=== PATIENT | female | born 1980 | race Caucasian/White ===

== ENCOUNTER 2016-07-03 16:55 | Inpatient (IN) ==
[2016-07-03] MEDS: 0.9 % Sodium Chloride 1,000 ML IVC SCH ×2 (17:26→19:32)
[2016-07-03 17:33] LABS: VBG HCO3 22.1 mEq/L (21-27); VBG PH 7.29 pH Units (7.32-7.42)
[2016-07-03] MEDS ORDERED: Insulin Human Regular 10 UNIT in 0.9 % Sodium Chloride 10 ML IV ONE (17:36)
[2016-07-03 17:37] LABS: Beta-Hydroxybutyric Acid 1.28 mmol/L (0.02-0.27)
[2016-07-03 17:44] LABS: Basophils # 0.1 K/mcL (0.0-0.2); Basophils % 0.4 %; Eosinophils # 0.1 K/mcL (0.0-0.6); Eosinophils % 0.6 %; Hematocrit 42.5 % (35.3-44.9); Immature Granulocytes % 0.4 % (0-4); Lymphocytes % 17.2 %; Mean Corpuscular HGB Conc 35.3 g/dL (31.6-35.5); Mean Corpuscular Hemoglobin 33.2 pg (28.0-33.3); Mean Platelet Volume 12.4 fL (9.4-12.4); Monocytes # 0.8 K/mcL (0.0-1.3); Monocytes % 6.9 %; Neutrophils # 8.4 K/mcL (1.6-8.9); Platelet Count 296 K/mcL (140-400); Red Blood Count 4.52 M/mcL (3.82-4.97); Red Cell Distribution Width 12.1 % (11.5-14.5); Segmented Neutrophils % 74.5 %
[2016-07-03 17:49] LABS: Alanine Aminotransferase 27 Units/L (0-55); Albumin 4.3 g/dL (3.5-5.0); Albumin/Globulin Ratio 0.9 (1.1-2.2); Alkaline Phosphatase 185 Units/L (38-126); Aspartate Amino Transferase 11 Units/L (5-34); BUN/Creatinine Ratio 18 (6-26); Bilirubin,Total 0.7 mg/dL (0.2-1.2); Blood Urea Nitrogen 30 mg/dL (7-20); Carbon Dioxide 19 mEq/L (19-29); Chloride 84 mEq/L (98-109); Globulin 4.6 g/dL (2.4-3.5); Phosphorous 6.5 mg/dL (2.3-4.7); Potassium 5.7 mEq/L (3.5-4.5); Sodium 121 mEq/L (136-145); Total Protein 8.9 g/dL (6.0-8.3); eGFR For African Americans 41 (> 60); eGFR For Non-African Americans 34 (> 60)
[2016-07-03 18:03] LABS: Osmolality,Calculated 321 (280-300)
[2016-07-03 18:08] LABS: Glucose 1235 mg/dL (70-99)
[2016-07-03] MEDS ORDERED: *HR* Dextrose 50 % in Water (Syg) 50 ML SYRINGE IVP PRN ×2 (18:10→20:33)
[2016-07-03] MEDS ORDERED: Insulin Human Regular 100 UNIT in 0.9 % Sodium Chloride 100 ML IVC SCH ×3 (18:15→21:15)
--- NOTE | 2016-07-03 18:22 | Emergency Department Note ---
Disposition Clinical Impression: JD (acute kidney injury), Dehydration Hyperglycemia due to type 2 diabetes mellitus Qualifiers: Diabetes mellitus adjunct faculty for medical terminology insulin use: unspecified adjunct faculty for medical terminology insulin use status Qualified Code(s): E11.65 - Type 2 diabetes mellitus with hyperglycemia Disposition: Admitted As Inpatient Referrals: NO,PCP [Primary Care Provider] - Forms: ED Satisfaction Letter Nausea/Vomiting/Diarrhea HPI - General Chief complaint: ED Nausea/Vomiting/Diarrhea Stated complaint: High BS Time Seen by Provider: 07/03/16 17:05 Source: patient Mode of arrival: ambulatory Nursing Notes Reviewed: Yes Vital Signs Reviewed: Yes - History of Present Illness Pt Subjective Complaint: nausea, vomiting (3) Severity: moderate Consistency: intermittent Improves with: nothing Worsens with: eating Context: other (N on insulin on Friday) Associated symptoms: Reports: malaise, nausea/vomiting - Related Data Home Medications Medication Instructions Recorded Confirmed Gabapentin [Neurontin] 800 mg PO TID 07/03/16 07/03/16 Insulin ASPART [NovoLOG] 0 unit SQ TIDAC 07/03/16 07/03/16 Insulin Glargine [Lantus] 30 unit SQ BID 07/03/16 07/03/16 Lipase/Protease/Amylase [Creon Dr 1 each PO QID 07/03/16 07/03/16 12,000 Units Capsule] Oxycodone HCl/Acetaminophen 1 each PO Q6H PRN 07/03/16 07/03/16 [Percocet 10-325 mg Tablet] Promethazine [Phenergan] 25 mg PO Q4-6H PRN 07/03/16 07/03/16 Allergies Allergy/AdvReac Type Severity Reaction Status Date / Time ketorolac [From Toradol] Allergy Hives Verified 10/31/14 19:12 tramadol [From Ultram] Allergy Anaphylaxis Verified 11/08/14 09:45 iodine Allergy Anaphylaxis Uncoded 11/08/14 09:45 IV Contrast Allergy Anaphylaxis Uncoded 11/08/14 09:45 IV contrast Allergy Hives Uncoded 10/31/14 19:12 IVP DYE Allergy Anaphylaxis Uncoded 11/08/14 09:45 All systems ED: reviewed and negative except as stated. 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 - Social History Smoking Status: Current every day smoker Smokeless Tobacco Status: No Alcohol use: Reports: occasionally, recent Drug use: Reports: none Physical Exam - General Limitations: no limitations General appearance: other (patient mildly somnoletn) - Head Head exam: atraumatic, normocephalic, normal inspection - Eye Eye exam: Present: normal appearance, PERRL, EOMI - Expanded Eye Exam Pupils: Left: reactive - ENT ENT exam: normal exam, normal oropharynx, mucous membranes moist - Expanded ENT Exam External ear exam: Present: normal external inspection Mouth exam: Present: normal external inspection Teeth exam: Present: normal inspection Throat exam: Present: normal inspection - Neck Neck exam: Present: normal inspection, full ROM, trachea midline - Chest Chest inspection: Present: normal inspection, symmetric chest wall rise - Respiratory Respiratory exam: Present: normal lung sounds bilaterally - Cardiovascular Cardiovascular exam: Present: regular rate, normal rhythm, normal heart sounds - Abdominal Exam Abdominal exam: Present: soft, Non-Tender. Absent: tenderness, distention, guarding, rebound, rigidity - Extremities Exam Extremities exam: Present: normal inspection, full ROM. Absent: tenderness, pedal edema - Expanded Upper Extremity Exam Shoulder exam: Present: normal inspection, full ROM Arm exam: Present: normal inspection, full ROM Elbow exam: Present: normal inspection, full ROM Forearm/Wrist exam: Present: normal inspection, full ROM Hand exam: Present: normal inspection, full ROM Vascular exam: Normal: capillary refill, radial pulse - Expanded Lower Extremity Exam Hip/Pelvis exam: Present: normal inspection, full ROM Upper leg exam: Present: normal inspection, full ROM Knee exam: Present: normal inspection, full ROM Lower leg exam: Present: normal inspection, full ROM Ankle exam: Present: normal inspection, full ROM Foot/toe exam: Present: normal inspection, full ROM Neurovascular/Tendon exam: Absent: motor deficit, sensory deficit, tendon deficit - Back Exam Back exam: Present: normal inspection, full ROM. Absent: tenderness - Neurological Exam Neurological exam: Present: alert, oriented X3 - Expanded Neurological Exam Patient oriented to: Present: person, place, time Coma Scale Eye Opening: Spontaneous Coma Scale Motor Response: Obeys Commands Coma Scale Verbal Response: Oriented Coma Scale Total: 15 - Psychiatric Psychiatric exam: Present: normal affect, normal mood - Skin Skin exam: Present: warm, dry, intact, normal color Course Vital Signs Temperature 99 F 07/03/16 16:57 Pulse Rate 117 07/03/16 16:57 Respiratory Rate 14 07/03/16 16:57 Blood Pressure 141/95 07/03/16 16:57 O2 Sat by Pulse Oximetry 94 07/03/16 16:57 Temperature 99 F 07/03/16 16:57 Pulse Rate 117 07/03/16 16:57 Respiratory Rate 14 07/03/16 16:57 Blood Pressure 141/95 07/03/16 16:57 O2 Sat by Pulse Oximetry 94 07/03/16 16:57 Oxygen Delivery Oxygen Delivery Room Air Nausea/Vomiting/Diarrhea - Differential Diagnosis Likely: traveler's diarrhea, gastroenteritis, drug-induced nausea and vomitting , dehydration, bowel obstruction - Medical Records Medical records reviewed: Yes I reviewed the patient's medical records. - Lab Data Lab results reviewed: Yes I reviewed the patient's lab results. Result diagrams: 07/03/16 17:20 07/03/16 17:20 Lab Results 07/03/16 07/03/16 07/03/16 Range/Units 17:02 17:20 17:20 WBC 11.3 H (4.3-11.1) K/mcL RBC 4.52 (3.82-4.97) M/mcL Hgb 15.0 (11.5-15.4) g/dL Hct 42.5 (35.3-44.9) % MCV 94.0 (83.0-100.0) fL MCH 33.2 (28.0-33.3) pg MCHC 35.3 (31.6-35.5) g/dL RDW 12.1 (11.5-14.5) % Plt Count 296 (140-400) K/mcL MPV 12.4 (9.4-12.4) fL Immature Gran % 0.4 (0-4) % Seg Neutrophils % 74.5 % Lymphocytes % 17.2 % Monocytes % 6.9 % Eosinophils % 0.6 % Basophils % 0.4 % Neutrophils # 8.4 (1.6-8.9) K/mcL Lymphocytes # 2.0 (0.6-4.6) K/mcL Monocytes # 0.8 (0.0-1.3) K/mcL Eosinophils # 0.1 (0.0-0.6) K/mcL Basophils # 0.1 (0.0-0.2) K/mcL VBG pH (7.32-7.42) pH Units VBG pCO2 (41-51) mmHg VBG pO2 (25-40) mmHg VBG HCO3 (21-27) mEq/L Sodium 121 L (136-145) mEq/L Potassium 5.7 H (3.5-4.5) mEq/L Chloride 84 L (98-109) mEq/L Carbon Dioxide 19 (19-29) mEq/L BUN 30 H (7-20) mg/dL Creatinine 1.71 H (0.57-1.11) mg/dL Est GFR ( Amer) 41 L (> 60) Est GFR (Non-Af Amer) 34 L (> 60) BUN/Creatinine Ratio 18 (6-26) Glucose 1235 H* (70-99) mg/dL POC Glucose > 600 H* (58-89) Calculated Osmolality 321 H (280-300) Calcium 11.0 H (8.6-10.8) mg/dL Phosphorus 6.5 H (2.3-4.7) mg/dL Magnesium 2.0 (1.6-2.6) mg/dL Total Bilirubin 0.7 (0.2-1.2) mg/dL AST 11 (5-34) Units/L ALT 27 (0-55) Units/L Alkaline Phosphatase 185 H (38-126) Units/L Serum Total Protein 8.9 H (6.0-8.3) g/dL Albumin 4.3 (3.5-5.0) g/dL Globulin 4.6 H (2.4-3.5) g/dL Albumin/Globulin Ratio 0.9 L (1.1-2.2) Beta-Hydroxybutyric Acd 1.28 H (0.02-0.27) mmol/L Beta HCG, Quant < 1 (0-4) mIU/ml Ethyl Alcohol (0-10) mg/dL 07/03/16 07/03/16 Range/Units 17:20 17:20 WBC (4.3-11.1) K/mcL RBC (3.82-4.97) M/mcL Hgb (11.5-15.4) g/dL Hct (35.3-44.9) % MCV (83.0-100.0) fL MCH (28.0-33.3) pg MCHC (31.6-35.5) g/dL RDW (11.5-14.5) % Plt Count (140-400) K/mcL MPV (9.4-12.4) fL Immature Gran % (0-4) % Seg Neutrophils % % Lymphocytes % % Monocytes % % Eosinophils % % Basophils % % Neutrophils # (1.6-8.9) K/mcL Lymphocytes # (0.6-4.6) K/mcL Monocytes # (0.0-1.3) K/mcL Eosinophils # (0.0-0.6) K/mcL Basophils # (0.0-0.2) K/mcL VBG pH 7.29 L (7.32-7.42) pH Units VBG pCO2 46 (41-51) mmHg VBG pO2 69 H (25-40) mmHg VBG HCO3 22.1 (21-27) mEq/L Sodium (136-145) mEq/L Potassium (3.5-4.5) mEq/L Chloride (98-109) mEq/L Carbon Dioxide (19-29) mEq/L BUN (7-20) mg/dL Creatinine (0.57-1.11) mg/dL Est GFR ( Amer) (> 60) Est GFR (Non-Af Amer) (> 60) BUN/Creatinine Ratio (6-26) Glucose (70-99) mg/dL POC Glucose (58-89) Calculated Osmolality (280-300) Calcium (8.6-10.8) mg/dL Phosphorus (2.3-4.7) mg/dL Magnesium (1.6-2.6) mg/dL Total Bilirubin (0.2-1.2) mg/dL AST (5-34) Units/L ALT (0-55) Units/L Alkaline Phosphatase (38-126) Units/L Serum Total Protein (6.0-8.3) g/dL Albumin (3.5-5.0) g/dL Globulin (2.4-3.5) g/dL Albumin/Globulin Ratio (1.1-2.2) Beta-Hydroxybutyric Acd (0.02-0.27) mmol/L Beta HCG, Quant (0-4) mIU/ml Ethyl Alcohol < 10 (0-10) mg/dL Critical Care Time Critical Care Time: Yes Total Critical Care Time: 35 Attestation: The high probability of a clinically significant, sudden or life threatening deterioration of the [] system(s) required my full and direct attention, intervention and personal management. The aggregate critical care time was [] minutes. This time is in addition to time spent performing reported procedures but includes the following: [] Data Review and interpretation [] Patient assessment and monitoring of vital signs [] Documentation [] Medication orders and management
[2016-07-03] MEDS ORDERED: *HR* Morphine 2 MG/ML SYRINGE IV ONE (19:20)
[2016-07-03] MEDS ORDERED: Ondansetron 4 MG/2 ML VIAL IV ONE (19:20)
[2016-07-03] MEDS ORDERED: D5% in 0.45% NACL 1,000 ML IVC PRN (20:33)
[2016-07-03] MEDS ORDERED: Insulin Regular, Human 100 UNIT/ML IV PRN (20:33)
[2016-07-03] MEDS ORDERED: Ondansetron 4 MG/2 ML VIAL IVP PRN (20:43)
[2016-07-03] MEDS ORDERED: *HR* HYDROmorphone (PF) 1 MG/ML SYRINGE IVP PRN (20:43)
[2016-07-03] MEDS ORDERED: *HR* Promethazine 25 MG/ML VIAL IVP PRN (20:43)
[2016-07-03] MEDS ORDERED: 0.9 % Sodium Chloride 1,000 ML IVC PRN (20:45)
--- NOTE | 2016-07-03 21:20 | Internal Med History&Physical ---
<Veena Lerma - Last Filed: 07/03/16 23:21> Date of Encounter: 07/03/16 Time of Encounter: 21:04 Assessment and Plan (1) DKA (diabetic ketoacidoses) Status: Acute insulin dependant DM II likely due to noncompliance, doubt infection glucose 1235 Na 121, K 5.7 Ca 11.0 Phos 6.5 VB.29ph +ketones bolus IVF insulin drip DKA protocol repeat BMP q4h glucose check q1h supportive care Qualifiers: Diabetes mellitus type: type 2 Qualified Code(s): E13.10 - Other specified diabetes mellitus with ketoacidosis without coma (2) Hyperglycemic crisis in diabetes mellitus Status: Acute (3) Hyperglycemia due to type 2 diabetes mellitus Status: Acute Qualifiers: Diabetes mellitus terminal manager insulin use: unspecified terminal manager insulin use status Qualified Code(s): E11.65 - Type 2 diabetes mellitus with hyperglycemia (4) JD (acute kidney injury) Status: Acute BUN 30.Cr1.71 IVF repeat labs (5) Dehydration Status: Acute (6) Pancreatitis Status: Acute check lipase Qualifiers: Chronicity: chronic Pancreatitis type: unspecified pancreatitis type Qualified Code(s): K86.1 - Other chronic pancreatitis (7) Diabetes mellitus, type II, insulin dependent Status: Acute (8) Chronic pain disorder Status: Acute on percocet 10 at home pain control (9) Gastritis Status: Acute Internal Medicine - H&P: HPI Chief complaint: nausea/vomting Admitted From: Home Plans for Post Hospital Care: Home History of present illness: Ms. Alvarez is a 36 year old female c/o nausea, vomiting, nonbloody diarrhea. PMH insulin dependant DMII, pancreatitis, chronic pain,COPD with c/o nausea, vomiting, nonbloody diarrhea with 8/10abdominal pain. Symptoms started last friday about the same time that she ran out of her insulin home medications. She states symptoms have continued to get progressively worsen causing increased generalized fatigue and weakness with some throbbing headache. She states that she did "pass out" for about 2-3minutes a few days ago, she believes due to her high sugars, but did not hit her head and "was fine" afterwards. She states today that she has had severe cramping and muscle spasms in b/l UE, mostly in hands and forearms. Pt admits to drinking shots of whisky over the weekend as well as continuing to smoke 1/2-1ppd. Pt states she has had nausea and vomiting before but has never had an episode like this in the before today. Since symptoms have started eating anything has made symptoms worse and they are improved by not eating. Pt denies change in vision, fever, chills, CP, SOB, LE edema. Past Med Surg Social Fam HX - Past Medical History Medical history: asthma, COPD, diabetes, other (pancreatitis) Psychiatric history: anxiety - Past Surgical History Surgical History: no surgical history, other - Social History Smoking Status: Current every day smoker Packs per day: 1/2 PACK Smokeless Tobacco Status: No Alcohol use: occasionally, recent Drug use: none Current living situation: Home Activity Level: Independent ambulation - Family History Mother Living Status: Hx Family Cancer: Yes Father Living Status: Hx Family Cardiac Disorders: Yes Sister Living Status: Still Living Hx Family Cancer: Yes Internal Medicine - H&P: Meds Gabapentin [Neurontin] 800 mg PO TID 07/03/16 [History] Insulin ASPART [NovoLOG] 0 unit SQ TIDAC 07/03/16 [History] Insulin Glargine [Lantus] 30 unit SQ BID 07/03/16 [History] Lipase/Protease/Amylase [Creon Dr 12,000 Units Capsule] 1 each PO QID 07/03/16 [ History] Oxycodone HCl/Acetaminophen [Percocet 10-325 mg Tablet] 1 each PO Q6H PRN [History] Promethazine [Phenergan] 25 mg PO Q4-6H PRN 07/03/16 [History] Allergies ketorolac [From Toradol] Allergy (Verified 10/31/14 19:12) Hives tramadol [From Ultram] Allergy (Verified 11/08/14 09:45) Anaphylaxis iodine Allergy (Uncoded 11/08/14 09:45) Anaphylaxis IV Contrast Allergy (Uncoded 11/08/14 09:45) Anaphylaxis IV contrast Allergy (Uncoded 10/31/14 19:12) Hives IVP DYE Allergy (Uncoded 11/08/14 09:45) Anaphylaxis All Systems PM: A 10-system review of systems was performed and is negative for pertinent findings except as documented above in the HPI. - Constitutional Constitutional: fatigue, falls, weakness, no chills, no fever(s), no night sweats - EENT Eyes: no change in vision, no discharge, no pain, no photophobia - Cardiovascular Cardiovascular ROS IM: no chest pain, no diaphoresis, no dyspnea, no lightheadedness, no palpitations, no syncope - Respiratory Respiratory: no cough, no dyspnea, no wheezing, no excessive phlegm production - Gastrointestinal Gastrointestinal: abdominal pain, change in bowel habits, cramping, diarrhea, nausea, vomiting, no hematemesis, no hematochezia - Genitourinary Genitourinary: change in urinary stream, urinary frequency, no dysuria, no flank pain, no hematuria - Musculoskeletal Musculoskeletal ROS IM: back pain, muscle weakness - Integumentary Integumentary IM: no rash, no unusual bruising - Neurological Neurological ROS: headache(s), numbness, tingling, weakness, no abnormal hearing , no abnormal speech, no confusion, no convulsions, no loss of vision - Psychiatric Psychiatric: anxiety - Endocrine Endocrine IM: fatigue, polyuria - Constitutional Vitals: Temp Pulse Resp BP Pulse Ox 99 F 107 18 121/92 94 07/03/16 16:57 07/03/16 19:31 07/03/16 20:00 07/03/16 20:00 07/03/16 19:31 General appearance: Present: A&O X 3, no acute distress, answers questions appropriately - Head Head exam: Present: atraumatic, normocephalic - Eye Eye exam: Present: EOMI, PERRL, conjuntiva pink, sclera anicteric Pupils: Present: PERRL - Neck Neck exam general surgery: Present: supple, trachea midline. Absent: lymphadenopathy - Respiratory Respiratory exam: Present: CTAB. Absent: accessory muscle use, rales, rhonchi, wheezes - Cardiovascular Cardiovascular exam: Present: RRR, +S1, +S2. Absent: diastolic murmur, gallop, rubs, systolic murmur - GI/Abdominal GI/Abdominal exam: Present: normal bowel sounds, soft, no peritoneal signs. Absent: distended, tenderness - Extremities Exam Extremities exam: Present: warm, radial pulses palpable and symetrical. Absent : calf tenderness, cyanotic, pedal edema - Back Exam Back exam: Absent: CVA tenderness (L), CVA tenderness (R) - Neurological Exam Neurological exam: Present: CN II-XII intact, oriented X3, no focal deficits. Absent: pronater drift, facial droop, speech deficit - Psychiatric Psychiatric exam: Present: normal affect, normal mood - Skin Skin exam: Present: dry, intact Internal Med - H&P Results - Labs CBC & Chem 7: 07/03/16 17:20 07/03/16 17:20 <Krystal Sultana R - Last Filed: 07/07/16 08:51> Date of Encounter: 07/03/16 Assessment and Plan (1) Hyponatremia Status: Acute Pseudohyponatremia from hyperglycemia. COntinue IV normal saline. Monitor sodium levels Internal Medicine - H&P: HPI History of present illness: Ms. Alvarez is a 36 year old female All Systems PM: A 10-system review of systems was performed and is negative for pertinent findings except as documented above in the HPI. - Constitutional Vitals: Temp Pulse Resp BP Pulse Ox 98.4 F 105 18 129/76 94 07/03/16 23:56 07/04/16 01:00 07/04/16 01:00 07/04/16 01:00 07/04/16 01:00 Internal Med - H&P Results - Labs CBC & Chem 7: 07/04/16 03:01 07/04/16 09:08 Labs: Urine 07/04/16 Range/Units 00:45 Urine Color Yellow (Yellow) Urine Clarity Clear (Clear) Urine pH 5.0 (5.0-8.0) pH Units Ur Specific [place] > 1.030 H (1.010-1.025) Urine Protein 30 H (Neg-Trace) mg/dL Urine Glucose (UA) >=1000 H (Normal) mg/dL - Attending Attestation I performed a history and physical examination of the patient and discussed management with the resident (Dr Lerma). I reviewed the residents notes and agree with the documented findings and plan of care. 36 Y/F with h/chronic pancreatitis and IDDM. Reports that she is from [place] and she did not get her insulin / ran out of meds and insulin. Not been using insulin for 5 days. c/o nausea, vomiting, nonbloody diarrhea, abdominal pain. Denies dysuria, fever, chills. O/E: Lungs: CTA. Abdomen: soft; mid abdominal tenderness present. Labs reviewed Hyperglycemia, hyponatremia, hyperkalemia, hyperphosphatemia. Venous PH 7.29. A/P: DKA: likely due to missing insulin. Treat with IV fluids; IV insulin and monitor and correct electrolyte abnormalities. Hyponatremia: likely pseudohyponatremia from hyperglycemia. Social service consult for help with meds prior to discharge.
[2016-07-04] MEDS: *HR* HYDROmorphone (PF) 1 MG/ML SYRINGE IVP PRN ×3 (00:36→08:33)
[2016-07-04 01:03] LABS: Bilirubin,Urine Negative (Negative); Blood,Urine Negative (Negative); Clarity,Urine Clear (Clear); Color,Urine Yellow (Yellow); Glucose,Urine (UA) >=1000 mg/dL (Normal); Ketones,Urine Negative (Negative); Leukocyte Esterase,Urine Negative (Negative); Nitrite,Urine Negative (Negative); Protein,Urine 30 mg/dL (Neg-Trace); Specific Gravity,Urine > 1.030 (1.010-1.025); Urobilinogen,Urine Normal (Normal)
[2016-07-04 01:05] LABS: Bacteria,Urine None Seen per hpf (None-Few); RBC,Urine 0-3 per hpf (0-3); Squamous Epithelial Cell,Urine Many per lpf (None-Few); WBC,Urine 0-3 per hpf (0-3)
[2016-07-04 01:09] LABS: Amphetamine Screen,Urine Negative ng/mL (Cutoff=1000); Barbiturate Screen,Urine Negative ng/mL (Cutoff=200); Benzodiazepines Screen,Urine Negative ng/mL (Cutoff=200); Cannabinoid Screen,Urine Negative ng/mL (Cutoff = 50); Cocaine Screen,Urine Negative ng/mL (Cutoff= 300); Opiate Screen,Urine Positive ng/mL (Cutoff=300); Phencyclidine Screen,Urine Negative ng/mL (Cutoff=25)
[2016-07-04 01:17] LABS: Hyaline Casts,Urine Few per lpf (None-Few)
[2016-07-04 02:36] LABS: BUN/Creatinine Ratio 21 (6-26); Blood Urea Nitrogen 14 mg/dL (7-20); Calcium 8.8 mg/dL (8.6-10.8); Carbon Dioxide 22 mEq/L (19-29); Chloride 105 mEq/L (98-109); Glucose 105 mg/dL (70-99); Osmolality,Calculated 289 (280-300); Potassium 3.2 mEq/L (3.5-4.5); Sodium 139 mEq/L (136-145); eGFR For African Americans > 60 (> 60); eGFR For Non-African Americans > 60 (> 60)
[2016-07-04] MEDS: D5% in 0.45% NACL w KCl 20 MEQ/1,000 ML MLS IVC PRN ×2 (02:59→07:15)
[2016-07-04 03:09] LABS: Basophils # 0.1 K/mcL (0.0-0.2); Basophils % 0.4 %; Eosinophils # 0.3 K/mcL (0.0-0.6); Hemoglobin 13.1 g/dL (11.5-15.4); Immature Granulocytes % 0.4 % (0-4); Immature Platelets 8.8 % (1.1-6.1); Lymphocytes # 5.5 K/mcL (0.6-4.6); Mean Corpuscular HGB Conc 36.4 g/dL (31.6-35.5); Mean Corpuscular Hemoglobin 33.5 pg (28.0-33.3); Mean Corpuscular Volume 92.1 fL (83.0-100.0); Mean Platelet Volume 11.2 fL (9.4-12.4); Monocytes # 1.4 K/mcL (0.0-1.3); Monocytes % 9.5 %; Neutrophils # 7.2 K/mcL (1.6-8.9); Platelet Count 283 K/mcL (140-400); Red Blood Count 3.91 M/mcL (3.82-4.97); Segmented Neutrophils % 49.7 %
[2016-07-04 03:16] LABS: Hemoglobin A1C 9.8 %
[2016-07-04 03:22] LABS: Chol/HDL Ratio 3.3 (0-4.9)
[2016-07-04 05:51] LABS: BUN/Creatinine Ratio 19 (6-26); Blood Urea Nitrogen 13 mg/dL (7-20); Calcium 8.4 mg/dL (8.6-10.8); Carbon Dioxide 18 mEq/L (19-29); Chloride 108 mEq/L (98-109); Glucose 97 mg/dL (70-99); Osmolality,Calculated 286 (280-300); Potassium 3.4 mEq/L (3.5-4.5); Sodium 138 mEq/L (136-145); eGFR For African Americans > 60 (> 60); eGFR For Non-African Americans > 60 (> 60)
[2016-07-04] MEDS ORDERED: *HR* Heparin 5,000 UNIT/ML VIAL SQ SCH ×2 (06:00)
[2016-07-04] MEDS ORDERED: Magnesium Sulfate 1 GM in D5% in Water 100 ML IVPB ONE (06:37)
[2016-07-04 09:36] LABS: BUN/Creatinine Ratio 14 (6-26); Blood Urea Nitrogen 10 mg/dL (7-20); Calcium 8.2 mg/dL (8.6-10.8); Carbon Dioxide 22 mEq/L (19-29); Chloride 104 mEq/L (98-109); Glucose 190 mg/dL (70-99); Osmolality,Calculated 286 (280-300); Potassium 3.8 mEq/L (3.5-4.5); Sodium 136 mEq/L (136-145); eGFR For African Americans > 60 (> 60); eGFR For Non-African Americans > 60 (> 60)
[2016-07-04] MEDS ORDERED: Insulin DETEMIR 100 UNIT/ML X5UNITS SQ ONE (09:59)
--- NOTE | 2016-07-04 10:01 | Internal Med Progress Note ---
Date of Encounter: 07/04/16 Time of Encounter: 09:15 - Assessment and plan (1) DKA (diabetic ketoacidoses) Current Visit: Yes Status: Acute Assessment and plan: DKA resolved AG closed will start Levemir 14units (0.2u/kg since patient is insulin naive) overlap levemir with insulin drip for one hour ADA diet continue to monitor FS and BG continue ss insulin algorithm Qualifiers: Diabetes mellitus type: type 2 Qualified Code(s): E13.10 - Other specified diabetes mellitus with ketoacidosis without coma (2) Leukocytosis Current Visit: Yes Status: Acute Assessment and plan: likely reactive no infectious etiology present at this time. will continue to monitor Qualifiers: Leukocytosis type: unspecified Qualified Code(s): D72.829 - Elevated white blood cell count, unspecified (3) DVT prophylaxis Current Visit: Yes Status: Acute Assessment and plan: heparin sq (4) Hyperglycemia due to type 2 diabetes mellitus Current Visit: Yes Status: Chronic Qualifiers: Diabetes mellitus alf insulin use: unspecified alf insulin use status Qualified Code(s): E11.65 - Type 2 diabetes mellitus with hyperglycemia (5) JD (acute kidney injury) Current Visit: Yes Status: Resolved (6) Pancreatitis Current Visit: No Status: Chronic Qualifiers: Chronicity: chronic Pancreatitis type: unspecified pancreatitis type Qualified Code(s): K86.1 - Other chronic pancreatitis - Subjective Interval history: Patient is a 36y/o female who was admitted for DKA. Patient was started on insulin drip as per DKA protocol to which she responded appropriately. There was a delay in closure of her AG as patient had been noncompliant and had been eating throughout the night despite being asked to remain NPO. At this time her AG is closed and DKA has resolved however patient is adamant about leaving AMA. The risks of signing out AMA were discussed in detail with the patient however at this time she is adamant that she will sign out AMA. She is requested to stay atleast until she receives her Levemir and she currently agrees. Denies any other discomfort at this time. - Constitutional Vitals: Temp Pulse Resp BP Pulse Ox 98.2 F 88 19 107/80 97 07/04/16 07:10 07/04/16 08:20 07/04/16 08:20 07/04/16 08:20 07/04/16 08:20 General appearance: Present: A&O X 3, no acute distress, answers questions appropriately - Head Head exam: Present: atraumatic, normocephalic - Eye Eye exam: Present: PERRL, conjuntiva pink, sclera anicteric - Respiratory Respiratory exam: Present: CTAB. Absent: accessory muscle use, rales, rhonchi, wheezes - Cardiovascular Cardiovascular exam: Present: RRR, +S1, +S2. Absent: diastolic murmur, gallop, rubs, systolic murmur - GI/Abdominal GI/Abdominal exam: Present: normal bowel sounds, soft, no peritoneal signs. Absent: distended, tenderness - Extremities Exam Extremities exam: Present: warm, radial pulses palpable and symetrical. Absent : calf tenderness, cyanotic, pedal edema - Neurological Exam Neurological exam: Present: alert, oriented X3 - Psychiatric Psychiatric exam: Present: normal affect, normal mood Internal Medicine: Result - Labs CBC & Chem 7: 07/04/16 03:01 07/04/16 09:08 Labs: Short CBC 07/04/16 Range/Units 03:01 WBC 14.5 H (4.3-11.1) K/mcL Hgb 13.1 D (11.5-15.4) g/dL Hct 36.0 (35.3-44.9) % Plt Count 283 (140-400) K/mcL Neutrophils # 7.2 (1.6-8.9) K/mcL BMP 07/04/16 07/04/16 07/04/16 02:14 05:33 09:08 Sodium 139 D 138 136 Potassium 3.2 L D 3.4 L 3.8 Chloride 105 D 108 104 Carbon Dioxide 22 18 L 22 BUN 14 D 13 10 Creatinine 0.68 D 0.68 0.72 Glucose 105 H 97 190 H Calcium 8.8 D 8.4 L 8.2 L Urine 07/04/16 Range/Units 00:45 Urine Color Yellow (Yellow) Urine Clarity Clear (Clear) Urine pH 5.0 (5.0-8.0) pH Units Ur Specific [place] > 1.030 H (1.010-1.025) Urine Protein 30 H (Neg-Trace) mg/dL Urine Glucose (UA) >=1000 H (Normal) mg/dL Consult Discharge Plan - Plan Referrals: NO,PCP [Primary Care Provider] -
[2016-07-04 10:05] VITALS: BP 122/85
== END 2016-07-04 10:00 | disposition left against medical advice (07) | DRG 638 ==
LOC: EMEROO 16:55 → ICNU 16:55
PROVIDERS: ADMIT Internal Medicine; ATTEND Internal Medicine

== ENCOUNTER 2016-08-22 03:03 | Inpatient (IN) ==
[2016-08-22 03:42] LABS: Basophils # 0.1 K/mcL (0.0-0.2); Basophils % 0.4 %; Eosinophils # 0.1 K/mcL (0.0-0.6); Eosinophils % 0.7 %; Hematocrit 39.4 % (35.3-44.9); Hemoglobin 13.6 g/dL (11.5-15.4); Immature Granulocytes % 0.6 % (0-4); Lymphocytes # 4.2 K/mcL (0.6-4.6); Lymphocytes % 23.5 %; Mean Corpuscular HGB Conc 34.5 g/dL (31.6-35.5); Mean Corpuscular Hemoglobin 31.8 pg (28.0-33.3); Mean Corpuscular Volume 92.1 fL (83.0-100.0); Mean Platelet Volume 11.6 fL (9.4-12.4); Monocytes # 1.2 K/mcL (0.0-1.3); Monocytes % 6.6 %; Neutrophils # 12.1 K/mcL (1.6-8.9); Platelet Count 357 K/mcL (140-400); Red Blood Count 4.28 M/mcL (3.82-4.97); Red Cell Distribution Width 11.6 % (11.5-14.5); Segmented Neutrophils % 68.2 %
[2016-08-22] MEDS ORDERED: 0.9 % Sodium Chloride 1,000 ML IVC SCH (03:45)
[2016-08-22 03:52] LABS: Beta-Hydroxybutyric Acid > 2.00 mmol/L (0.02-0.27)
[2016-08-22 03:53] LABS: Alanine Aminotransferase 19 Units/L (0-55); Albumin 3.2 g/dL (3.5-5.0); Albumin/Globulin Ratio 0.7 (1.1-2.2); Alkaline Phosphatase 188 Units/L (38-126); Aspartate Amino Transferase 14 Units/L (5-34); BUN/Creatinine Ratio 5 (6-26); Bilirubin,Total 0.8 mg/dL (0.2-1.2); Blood Urea Nitrogen 4 mg/dL (7-20); Calcium 8.7 mg/dL (8.6-10.8); Carbon Dioxide 20 mEq/L (19-29); Chloride 102 mEq/L (98-109); Globulin 4.7 g/dL (2.4-3.5); Glucose 446 mg/dL (70-99); Lipase 8 Units/L (8-78); Osmolality,Calculated 296 (280-300); Potassium 3.5 mEq/L (3.5-4.5); Sodium 135 mEq/L (136-145); Total Protein 7.9 g/dL (6.0-8.3); eGFR For African Americans > 60 (> 60); eGFR For Non-African Americans > 60 (> 60)
[2016-08-22 04:01] LABS: Platelet Estimate Normal (Normal)
[2016-08-22 04:34] LABS: VBG HCO3 22.8 mEq/L (21-27); VBG PH 7.41 pH Units (7.32-7.42)
[2016-08-22] MEDS ORDERED: *HR* HYDROmorphone (PF) 1 MG/ML SYRINGE IVP ONE (05:33)
[2016-08-22] MEDS ORDERED: Pantoprazole 40 MG VIAL IVP ONE (05:33)
--- NOTE | 2016-08-22 06:04 | Emergency Department Note ---
Disposition Clinical Impression: Hyperglycemia, Abscess Cellulitis Qualifiers: Site of cellulitis: unspecified site Qualified Code(s): L03.90 - Cellulitis, unspecified Disposition: Admitted As Inpatient Condition: Fair Time of Disposition: 06:46 General Adult HPI - General Chief complaint: ED Skin/Abscess/Foreign Body Stated complaint: HYPERGLYCEMIA, ABSCESS Time Seen by Provider: 08/22/16 03:23 Source: patient, EMS, other Limitations: no limitations Nursing Notes Reviewed: Yes Vital Signs Reviewed: Yes - History of Present Illness HPI Narrative: Ms. Alvarez, a 36-year-old female, presents via EMS from [place] emergency department. Prior to [place], she presented to urgent care or her blood glucose was above their ability to measure. [place] was unable to draw additional serum studies however did measure blood glucose at greater than 1100 , lactate of 4.1, insulin bolus, and provided 3 L 0.9% normal saline bolus. At our facility, patient has elevated white count, lactate has improved to 1.1, and blood glucose is 446. We have started maintenance fluids at 125 mL/h 0.9% normal saline. Additionally, patient has an abscess on the dorsum of her left hand as well as anterior medial right thigh. Under ultrasound guidance to assess for fluid pocket, I incised and drained each of these abscesses. Please see procedure note for further detail. PMH: Diabetes, chronic pancreatitis, polysubstance abuse ROS: Positive abscess Negative fever, chills, nausea, vomiting, chest pains, palpitations, abdominal pains Pain Scale: 8 - Related Data Home Medications Medication Instructions Recorded Confirmed Gabapentin [Neurontin] 800 mg PO TID 07/03/16 08/21/16 Insulin ASPART [NovoLOG] 0 unit SQ TIDAC 07/03/16 08/21/16 Lipase/Protease/Amylase [Pelon Dr 1 each PO QID 07/03/16 08/21/16 12,000 Units Capsule] Oxycodone HCl/Acetaminophen 30 mg PO Q6H PRN 07/03/16 08/21/16 [Percocet 10-325 mg Tablet] Promethazine [Phenergan] 25 mg PO Q4-6H PRN 07/03/16 08/21/16 Allergies Allergy/AdvReac Type Severity Reaction Status Date / Time ketorolac [From Toradol] Allergy Hives Verified 08/22/16 03:11 tramadol [From Ultram] Allergy Anaphylaxis Verified 08/22/16 03:11 iodine Allergy Anaphylaxis Uncoded 11/08/14 09:45 IV Contrast Allergy Anaphylaxis Uncoded 11/08/14 09:45 All systems ED: reviewed and negative except as stated. 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 HEENT: No facial asymmetry. Head is normocephalic and atraumatic. Trachea midline. Cardiovascular: Heart regular rate and rhythm without clicks, rubs, gallops, or murmurs. No JVD. PMI nondisplaced. Respiratory: Symmetric chest rise with poor respiratory effort. Bilateral breath sounds are clear without wheezing, crackles, or rhonchi. Abdomen: Bowel sounds present normoactive x-4 quadrants. Abdomen is soft, nondistended, epigastric tenderness. Integument: Healing previously incised and drained abscess formation upper chest. The patient's left hand is swollen with central abscess and surrounding erythema. Patient's anterior medial thigh has a swollen region with central abscess and surrounding erythema. Psych: Patient's affect is appropriate for situation. - General Limitations: no limitations General appearance: alert, in no apparent distress Course Course Narrative: Patient's lab workup shows improving hyperglycemia and improving lactate. She does have serum ketones however is not acidotic and her VBG. Clinically suspect her hyperglycemia is secondary to stress response from infection. Likely infectious source is abscess on her left hand and right thigh with surrounding cellulitis. Suspect her left hand is greater burden of the two is a dorsum of her left hand is swollen and I was able to express a surprising amount of pustular material. We will provide empiric vancomycin. Spoke with the hospitalist, Dr. Jones, who agrees to accept the patient. Vital Signs Temperature 98.7 F 08/22/16 03:05 Pulse Rate 93 08/22/16 03:05 Respiratory Rate 16 08/22/16 03:05 Blood Pressure 116/75 08/22/16 03:05 O2 Sat by Pulse Oximetry 95 08/22/16 03:05 Temperature 98.7 F 08/22/16 03:05 Pulse Rate 95 08/22/16 05:53 Respiratory Rate 16 08/22/16 05:53 Blood Pressure 110/75 08/22/16 05:53 O2 Sat by Pulse Oximetry 96 08/22/16 05:53 Oxygen Delivery Oxygen Delivery Room Air Procedures - Abscess I/D Consent obtained: verbal consent Site: lower extremity (Right anteromedial thigh), other (Left hand) Side (if applicable): left, right Sedation/analgesia: none Local Anesthetic: lidocaine 1%, with epi Amount of Anesthesia Used (mL): 4 Technique: incised with #11 blade Amount of fluid: 15 (15 mm from hand, 5 mL from thigh) Irrigation: Yes Packing used?: none Complications: pain Medical Decision Making - Lab Data Result diagrams: 08/22/16 03:35 08/22/16 03:35 Lab Results 08/22/16 08/22/16 08/22/16 Range/Units 03:35 03:35 03:35 WBC 17.8 H (4.3-11.1) K/mcL RBC 4.28 (3.82-4.97) M/mcL Hgb 13.6 (11.5-15.4) g/dL Hct 39.4 (35.3-44.9) % MCV 92.1 (83.0-100.0) fL MCH 31.8 (28.0-33.3) pg MCHC 34.5 (31.6-35.5) g/dL RDW 11.6 (11.5-14.5) % Plt Count 357 (140-400) K/mcL MPV 11.6 (9.4-12.4) fL Immature Gran % 0.6 (0-4) % Seg Neutrophils % 68.2 % Lymphocytes % 23.5 % Monocytes % 6.6 % Eosinophils % 0.7 % Basophils % 0.4 % Neutrophils # 12.1 H (1.6-8.9) K/mcL Lymphocytes # 4.2 (0.6-4.6) K/mcL Monocytes # 1.2 (0.0-1.3) K/mcL Eosinophils # 0.1 (0.0-0.6) K/mcL Basophils # 0.1 (0.0-0.2) K/mcL Platelet Estimate Normal (Normal) VBG pH (7.32-7.42) pH Units VBG pCO2 (41-51) mmHg VBG pO2 (25-40) mmHg VBG HCO3 (21-27) mEq/L Sodium 135 L (136-145) mEq/L Potassium 3.5 (3.5-4.5) mEq/L Chloride 102 (98-109) mEq/L Carbon Dioxide 20 (19-29) mEq/L BUN 4 L (7-20) mg/dL Creatinine 0.83 (0.57-1.11) mg/dL Est GFR ( Amer) > 60 (> 60) Est GFR (Non-Af Amer) > 60 (> 60) BUN/Creatinine Ratio 5 L (6-26) Glucose 446 H (70-99) mg/dL Calculated Osmolality 296 (280-300) Lactic Acid 1.1 (0.5-2.2) mmol/L Calcium 8.7 (8.6-10.8) mg/dL Total Bilirubin 0.8 (0.2-1.2) mg/dL AST 14 (5-34) Units/L ALT 19 (0-55) Units/L Alkaline Phosphatase 188 H (38-126) Units/L Serum Total Protein 7.9 (6.0-8.3) g/dL Albumin 3.2 L (3.5-5.0) g/dL Globulin 4.7 H (2.4-3.5) g/dL Albumin/Globulin Ratio 0.7 L (1.1-2.2) Lipase 8 (8-78) Units/L Beta-Hydroxybutyric Acd > 2.00 H (0.02-0.27) mmol/L // Range/Units 04:05 WBC (4.3-11.1) K/mcL RBC (3.82-4.97) M/mcL Hgb (11.5-15.4) g/dL Hct (35.3-44.9) % MCV (83.0-100.0) fL MCH (28.0-33.3) pg MCHC (31.6-35.5) g/dL RDW (11.5-14.5) % Plt Count (140-400) K/mcL MPV (9.4-12.4) fL Immature Gran % (0-4) % Seg Neutrophils % % Lymphocytes % % Monocytes % % Eosinophils % % Basophils % % Neutrophils # (1.6-8.9) K/mcL Lymphocytes # (0.6-4.6) K/mcL Monocytes # (0.0-1.3) K/mcL Eosinophils # (0.0-0.6) K/mcL Basophils # (0.0-0.2) K/mcL Platelet Estimate (Normal) VBG pH 7.41 (7.32-7.42) pH Units VBG pCO2 36 L (41-51) mmHg VBG pO2 96 H (25-40) mmHg VBG HCO3 22.8 (21-27) mEq/L Sodium (136-145) mEq/L Potassium (3.5-4.5) mEq/L Chloride (98-109) mEq/L Carbon Dioxide (19-29) mEq/L BUN (7-20) mg/dL Creatinine (0.57-1.11) mg/dL Est GFR ( Amer) (> 60) Est GFR (Non-Af Amer) (> 60) BUN/Creatinine Ratio (6-26) Glucose (70-99) mg/dL Calculated Osmolality (280-300) Lactic Acid (0.5-2.2) mmol/L Calcium (8.6-10.8) mg/dL Total Bilirubin (0.2-1.2) mg/dL AST (5-34) Units/L ALT (0-55) Units/L Alkaline Phosphatase (38-126) Units/L Serum Total Protein (6.0-8.3) g/dL Albumin (3.5-5.0) g/dL Globulin (2.4-3.5) g/dL Albumin/Globulin Ratio (1.1-2.2) Lipase (8-78) Units/L Beta-Hydroxybutyric Acd (0.02-0.27) mmol/L Attestation Statement - Attestation Attestation: I, Brenden Cadet MD, personally evaluated this patient and discussed their management with the resident physician. I reviewed the resident's note and agree with the documented findings, medical decision making, and plan of care. 36-year-old diabetic female transferred here from [facility] emergency department for further evaluation and hospital admission. Patient complains of abscesses to the left hand and right thigh which started about a week ago. The right eye is been draining but the hand has not. She denies any fever. She was seen in urgent care last evening for these and found to have an elevated blood sugar. She was sent to the [facility] emergency department. Her fingerstick blood sugar was 2 had a repeat. Apparently blood drawn at the urgent care came back showing a glucose greater than 1100. She did have an IV established at the [facility] emergency department but they had difficulty obtaining blood for lab work. They consulted the admitting hospitalist here but he requested the patient come to our emergency department to have further lab work and incision and drainage of the abscess. On examination patient is a well-developed well-nourished female in no acute distress. She is alert and oriented 3. There is no cyanosis or diaphoresis. Breath sounds are clear and equal bilaterally. Heart regular rate and rhythm. Abdomen soft and nontender with normal bowel sounds. Abscess of the left hand was incised and drained under Dr. Dias. Labs reviewed. Hospitalist, Dr. Jones, was consulted and accepted admission of the patient.
[2016-08-22] MEDS ORDERED: Vancomycin 1,000 MG in D5% in Water 250 ML IVPB ONE (06:05)
[2016-08-22] MEDS ORDERED: Acetaminophen 325 MG TABLET PO PRN (08:41)
[2016-08-22] MEDS ORDERED: *HR* OxyCODONE Immed Rel 5 MG TABLET PO PRN (08:41)
[2016-08-22] MEDS ORDERED: Naloxone 0.4 MG/ML INJ IVP PRN (08:41)
[2016-08-22] MEDS ORDERED: D5% in Water 1,000 ML IVC PRN (08:55)
[2016-08-22] MEDS ORDERED: Dextrose Gel 15 GM PO PRN ×2 (08:55)
[2016-08-22] MEDS ORDERED: *HR* Dextrose 50 % in Water (Syg) 50 ML SYRINGE IVP PRN (08:55)
[2016-08-22] MEDS ORDERED: Vancomycin 1,000 MG VIAL IVPB SCH ×2 (09:00→15:00)
--- NOTE | 2016-08-22 09:00 | Internal Med History&Physical ---
Date of Encounter: 08/22/16 Time of Encounter: 08:57 Assessment and Plan (1) Hyperglycemia due to type 2 diabetes mellitus Current visit: No Status: Chronic Nonketotic hyperglycemic state Insulin drip was discontinued, continue Levemir 20 units twice a day with NovoLog 8 units 3 times a day plus insulin sliding scale Continue IV fluids, no evidence of DKA, anion gap is 13 The patient will be admitted as inpatient, expected stay more than 2 midnights. Full code. 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 Qualified Code(s): E11.65 - Type 2 diabetes mellitus with hyperglycemia (2) Abscess Current visit: No Status: Acute Sepsis secondary to Left hand and right thigh abscess, with history of MRSA in the past Status post draining Patient denies injecting anything in those areas Continue vancomycin, add cefepime, send cultures and de-escalate antibiotic therapy when cultures are available (3) Chronic pain disorder Current visit: No Status: Acute (4) Leukocytosis Current visit: No Status: Acute Qualifiers: Leukocytosis type: unspecified Qualified Code(s): D72.829 - Elevated white blood cell count, unspecified (5) Sepsis Current visit: Yes Status: Acute Sepsis secondary to Left hand and right thigh abscess, with history of MRSA in the past White blood cell count 17.8 heart rate 96 Qualifiers: Sepsis type: sepsis due to unspecified organism Qualified Code(s): A41.9 - Sepsis, unspecified organism Internal Medicine - H&P: HPI Chief complaint: Elevated glucose Admitted From: Emergency Dept History of present illness: Ms. Alvarez is a 36 year old female with a past medical history of polysubstance abuse according to prior records, diabetes type 2 insulin-dependent, DKA during her prior admission in June. She was transferred from an urgent care facility where she was found to have a glucose of more than 1001 100, lactate of 4.1, she was given an insulin bolus and 3 L of fluid. Down in our emergency room her glucose was found to be 446 lactate was 1.1 beta hydroxybutyric acid was more than 2. Anion gap was 13 White blood cell count 17.8 heart rate 96. The patient says that for the past few days/1 week she started developing redness on her left hand and right thigh, now she developed abscesses in both extremities which were drained at the emergency room. The patient denies injecting anything in the areas. She complained of severe pain, according to her she has been using her insulin on a daily basis where she takes Lantus 20 units twice a day and a sliding scale of NovoLog Past Med Surg Social Fam HX - Past Medical History Medical history: asthma, COPD (Not oxygen dependent), diabetes (Insulin- dependent), other (Chronic opioid use, polysubstance abuse according to prior records, chronic pancreatitis, neuropathy, tobacco use, DKA) Psychiatric history: anxiety - Past Surgical History Surgical History: no surgical history, other (Tubal ligation) - Social History Smoking Status: Current every day smoker Packs per day: 1 pack per day Smokeless Tobacco Status: No Alcohol use: none Drug use: opiates - Family History Mother Living Status: Hx Family Cancer: Yes Father Living Status: Hx Family Cardiac Disorders: Yes Sister Living Status: Still Living Hx Family Cancer: Yes - Additional Family History Additional family history: Mother with breast cancer and father with myocardial infarction at the age of 72 Internal Medicine - H&P: Meds Gabapentin [Neurontin] 800 mg PO TID 07/03/16 [History] Insulin ASPART [NovoLOG] 0 unit SQ TIDAC 07/03/16 [History] Lipase/Protease/Amylase [Creon Dr 12,000 Units Capsule] 1 each PO QID 07/03/16 [ History] Insulin Glargine,Hum.rec.anlog [Lantus Solostar] 30 unit SQ BID 08/22/16 [ History] Allergies ketorolac [From Toradol] Allergy (Verified 08/22/16 03:11) Hives tramadol [From Ultram] Allergy (Verified 08/22/16 03:11) Anaphylaxis iodine Allergy (Uncoded 11/08/14 09:45) Anaphylaxis IV Contrast Allergy (Uncoded 11/08/14 09:45) Anaphylaxis All Systems PM: A 10-system review of systems was performed and is negative for pertinent findings except as documented above in the HPI. Review of systems: Complains of pain 8 out of 10 in intensity both extremities left hand and right thigh, also abdominal pain epigastric due to prior history of chronic pancreatitis, is requesting to have food. Other systems out of the 10 reviewed were negative - Constitutional Vitals: Temp Pulse Resp BP Pulse Ox 98.4 F 84 16 107/73 96 08/22/16 07:47 08/22/16 07:47 08/22/16 07:47 08/22/16 07:47 08/22/16 07:47 General appearance: Present: A&O X 3 - Head Head exam: Present: atraumatic, normocephalic - Eye Eye exam: Present: PERRL, conjuntiva pink, sclera anicteric Pupils: Present: PERRL - Neck Neck exam general surgery: Present: supple, trachea midline. Absent: lymphadenopathy - Respiratory Respiratory exam: Present: CTAB. Absent: accessory muscle use, rales, rhonchi, wheezes - Cardiovascular Cardiovascular exam: Present: RRR, +S1, +S2, tachycardia. Absent: diastolic murmur, gallop, rubs, systolic murmur - GI/Abdominal GI/Abdominal exam: Present: normal bowel sounds, soft, tenderness (Mild epigastric tenderness), no peritoneal signs. Absent: distended - Extremities Exam Extremities exam: Present: warm, radial pulses palpable and symetrical. Absent : calf tenderness, cyanotic, pedal edema - Neurological Exam Neurological exam: Present: CN II-XII intact, oriented X3, no focal deficits. Absent: pronater drift, facial droop, speech deficit - Skin Skin exam: Present: dry. Absent: intact (1 cm abscesse in the left hand dorsum , and to abscesses in the right thigh that were drained, with surrounding erythema) Internal Med - H&P Results - Labs CBC & Chem 7: 08/22/16 03:35 08/22/16 03:35
[2016-08-22 09:21] LABS: Basophils % 0.2 %; Eosinophils # 0.1 K/mcL (0.0-0.6); Eosinophils % 0.7 %; Hematocrit 34.6 % (35.3-44.9); Hemoglobin 12.2 g/dL (11.5-15.4); Immature Granulocytes % 0.5 % (0-4); Lymphocytes # 3.5 K/mcL (0.6-4.6); Lymphocytes % 20.9 %; Mean Corpuscular HGB Conc 35.3 g/dL (31.6-35.5); Mean Corpuscular Hemoglobin 32.4 pg (28.0-33.3); Mean Corpuscular Volume 91.8 fL (83.0-100.0); Mean Platelet Volume 11.6 fL (9.4-12.4); Monocytes # 0.9 K/mcL (0.0-1.3); Monocytes % 5.5 %; Platelet Count 283 K/mcL (140-400); Red Blood Count 3.77 M/mcL (3.82-4.97); Red Cell Distribution Width 11.6 % (11.5-14.5); Segmented Neutrophils % 72.2 %
[2016-08-22 09:42] LABS: Alanine Aminotransferase 16 Units/L (0-55); Albumin 2.6 g/dL (3.5-5.0); Albumin/Globulin Ratio 0.7 (1.1-2.2); Alkaline Phosphatase 146 Units/L (38-126); Aspartate Amino Transferase 12 Units/L (5-34); BUN/Creatinine Ratio 4 (6-26); Bilirubin,Direct 0.3 mg/dL (0.0-0.5); Bilirubin,Indirect 0.4 mg/dL (0.0-1.2); Bilirubin,Total 0.7 mg/dL (0.2-1.2); Calcium 7.9 mg/dL (8.6-10.8); Carbon Dioxide 19 mEq/L (19-29); Chloride 103 mEq/L (98-109); Globulin 3.9 g/dL (2.4-3.5); Glucose 479 mg/dL (70-99); Osmolality,Calculated 292 (280-300); Potassium 3.9 mEq/L (3.5-4.5); Sodium 132 mEq/L (136-145); Total Protein 6.5 g/dL (6.0-8.3); eGFR For African Americans > 60 (> 60); eGFR For Non-African Americans > 60 (> 60)
[2016-08-22 09:43] LABS: Blood Urea Nitrogen 3 mg/dL (7-20)
[2016-08-22] MEDS ORDERED: *HR* OxyCODONE Immed Rel 15 MG TABLET PO PRN (10:00)
[2016-08-22] MEDS: Gabapentin 400 MG CAPSULE PO SCH ×3 (10:13→21:09)
[2016-08-22] MEDS: *HR* HYDROmorphone (PF) 1 MG/ML SYRINGE IVP PRN ×4 (10:13→21:10)
[2016-08-22] MEDS: Cefepime HCl 1,000 MG in D5% in Water (Mini-Bag+) 100 ML IVPB SCH ×2 (10:14→21:10)
[2016-08-22] MEDS: Insulin DETEMIR 100 UNIT/ML X5UNITS SQ SCH ×2 (10:31→21:27)
[2016-08-22] MEDS: 0.9 % Sodium Chloride 1,000 ML IVC SCH ×3 (10:41→22:29)
[2016-08-22] MEDS: Insulin LISPRO 300 UNITS/3 ML VIAL SQ SCH ×5 (12:26→21:27)
--- NOTE | 2016-08-22 13:06 | Electrocardiograph Report ---
[address] [place] [address] Test Date: 2016-08-22 Pat Name: Cynthia Alvarez Department: 104 Room: [facility] Gender: F [employer] Whe[employer] Ax[employer] Inspector: [id number] : 1980 Requested By: Brenden Cadet Order Number: [id number] Reading MD: Wagner Charlton MD Measurements Intervals Trion Rate: 91 P: 66 FL: 144 QRS: 54 QRSD: 84 T: 56 QT: 300 QTc: 349 Interpretive Statements SINUS RHYTHM LEFT ATRIAL ENLARGEMENT Electronically Signed On 08-22-2016 13:05:02 EDT by Wagner Charlton MD
[2016-08-22] MEDS: *HR* OxyCODONE Immed Rel 5 MG TABLET PO PRN (13:36)
[2016-08-22] MEDS: Vancomycin 1,000 MG in D5% in Water 250 ML IVPB SCH (15:23)
[2016-08-23] MEDS: *HR* HYDROmorphone (PF) 1 MG/ML SYRINGE IVP PRN ×9 (00:09→22:36)
[2016-08-23] MEDS: *HR* OxyCODONE Immed Rel 5 MG TABLET PO PRN ×2 (01:46→14:17)
[2016-08-23] MEDS: Vancomycin 1,000 MG in D5% in Water 250 ML IVPB SCH ×2 (02:59→15:33)
[2016-08-23 04:48] LABS: Basophils % 0.3 %; Eosinophils # 0.2 K/mcL (0.0-0.6); Eosinophils % 1.5 %; Hematocrit 35.2 % (35.3-44.9); Hemoglobin 12.3 g/dL (11.5-15.4); Immature Granulocytes % 0.5 % (0-4); Lymphocytes # 3.2 K/mcL (0.6-4.6); Lymphocytes % 21.4 %; Mean Corpuscular HGB Conc 34.9 g/dL (31.6-35.5); Mean Corpuscular Volume 94.4 fL (83.0-100.0); Mean Platelet Volume 12.3 fL (9.4-12.4); Monocytes % 6.5 %; Neutrophils # 10.4 K/mcL (1.6-8.9); Platelet Count 245 K/mcL (140-400); Red Blood Count 3.73 M/mcL (3.82-4.97); Red Cell Distribution Width 11.8 % (11.5-14.5); Segmented Neutrophils % 69.8 %
[2016-08-23 05:04] LABS: BUN/Creatinine Ratio 7 (6-26); Blood Urea Nitrogen 6 mg/dL (7-20); Calcium 8.4 mg/dL (8.6-10.8); Carbon Dioxide 19 mEq/L (19-29); Chloride 104 mEq/L (98-109); Osmolality,Calculated 297 (280-300); Potassium 4.4 mEq/L (3.5-4.5); Sodium 132 mEq/L (136-145); eGFR For African Americans > 60 (> 60); eGFR For Non-African Americans > 60 (> 60)
[2016-08-23 05:06] LABS: Glucose 549 mg/dL (70-99)
[2016-08-23] MEDS ORDERED: Insulin Human Regular 20 UNIT in 0.9 % Sodium Chloride 10 ML IV ONE (05:21)
[2016-08-23 05:25] LABS: Large Platelets Present (Not Present); Platelet Estimate Normal (Normal)
[2016-08-23] MEDS: Ondansetron 4 MG/2 ML VIAL IVP PRN (06:03)
[2016-08-23] MEDS: Gabapentin 400 MG CAPSULE PO SCH ×3 (08:33→22:06)
[2016-08-23] MEDS: Cefepime HCl 1,000 MG in D5% in Water (Mini-Bag+) 100 ML IVPB SCH ×2 (08:33→22:06)
[2016-08-23] MEDS: Insulin LISPRO 300 UNITS/3 ML VIAL SQ SCH ×7 (08:34→22:08)
[2016-08-23] MEDS: Insulin DETEMIR 100 UNIT/ML X5UNITS SQ SCH ×2 (08:35→22:07)
--- NOTE | 2016-08-23 11:06 | Internal Med Progress Note ---
Date of Encounter: 08/23/16 Time of Encounter: 08:25 - Assessment and plan (1) Sepsis Current Visit: Yes Status: Suspected Assessment and plan: Patient with multiple abscesses that have been drained. Prior history of MRSA. Concern for sepsis related to MRSA. On IV vancomycin. Follow culture results. Moderate risk for complications. Qualifiers: Sepsis type: methicillin susceptible Staphylococcus aureus Qualified Code(s ): A41.01 - Sepsis due to Methicillin susceptible Staphylococcus aureus (2) Hyperglycemia due to type 2 diabetes mellitus Current Visit: No Status: Chronic Assessment and plan: Blood sugars are elevated again this morning. Increase insulin regimen. Continue to monitor blood sugars. Has been weaned off IV insulin drip. 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 Follow culture results. (4) Chronic pain disorder Current Visit: No Status: Chronic Assessment and plan: Continue current pain medication regimen. Symptoms seem to be well-controlled (5) Pancreatitis Current Visit: Yes Status: Chronic Assessment and plan: Has been placed back on Creon. Tolerating diet well. Qualifiers: Chronicity: chronic Pancreatitis type: unspecified pancreatitis type Qualified Code(s): K86.1 - Other chronic pancreatitis - Subjective Interval history: Complains of pain at sites of abscess drainage in left hand and right thigh. Currently being controlled with pain medications. No fever chills overnight. Tolerating diet well. - Constitutional Vitals: Temp Pulse Resp BP Pulse Ox 98.2 F 89 18 106/72 94 08/23/16 07:01 08/23/16 07:01 08/23/16 07:01 08/23/16 07:01 08/23/16 07:01 General appearance: Present: mild distress, A&O X 3, answers questions appropriately - Neck Neck exam general surgery: Present: supple, trachea midline. Absent: lymphadenopathy - Respiratory Respiratory exam: Present: CTAB. Absent: accessory muscle use, rales, rhonchi, wheezes - Cardiovascular Cardiovascular exam: Present: RRR, +S1, +S2. Absent: diastolic murmur, gallop, rubs, systolic murmur - GI/Abdominal GI/Abdominal exam: Present: normal bowel sounds, soft, no peritoneal signs. Absent: distended, tenderness - Extremities Exam Extremities exam: Present: warm, radial pulses palpable and symetrical. Absent : calf tenderness, cyanotic, pedal edema - Neurological Exam Neurological exam: Present: alert, oriented X3, no focal deficits. Absent: facial droop, speech deficit - Skin Skin exam: Present: dry, erythema (Present just below the left knee. Tender to palpation and indurated. Measures about 3 cm in diameter), intact Internal Medicine: Result - Labs CBC & Chem 7: 08/23/16 04:26 08/23/16 04:26 Labs: Short CBC 08/23/16 Range/Units 04:26 WBC 14.9 H (4.3-11.1) K/mcL Hgb 12.3 (11.5-15.4) g/dL Hct 35.2 L (35.3-44.9) % Plt Count 245 (140-400) K/mcL Neutrophils # 10.4 H (1.6-8.9) K/mcL BMP 08/23/16 04:26 Sodium 132 L Potassium 4.4 Chloride 104 Carbon Dioxide 19 BUN 6 L Creatinine 0.84 Glucose 549 H* Calcium 8.4 L Consult Discharge Plan - Plan Referrals: NO,PCP [Primary Care Provider] - - Attending Attestation This document has been at least partially created by [employer] recognition technology by Dr. Guillory. Errors in grammar, wording or other phrases may exist. If errors are found after the documentation is signed, they will be addressed individually in the addendum section of this document when appropriate.
[2016-08-23] MEDS: 0.9 % Sodium Chloride 1,000 ML IVC SCH ×2 (14:22→22:09)
[2016-08-24] MEDS: *HR* HYDROmorphone (PF) 1 MG/ML SYRINGE IVP PRN ×9 (00:47→23:09)
[2016-08-24 02:47] LABS: Basophils % 0.4 %; Eosinophils # 0.2 K/mcL (0.0-0.6); Eosinophils % 1.6 %; Hematocrit 34.2 % (35.3-44.9); Hemoglobin 11.4 g/dL (11.5-15.4); Immature Granulocytes % 0.4 % (0-4); Lymphocytes # 3.3 K/mcL (0.6-4.6); Lymphocytes % 29.3 %; Mean Corpuscular HGB Conc 33.3 g/dL (31.6-35.5); Mean Corpuscular Hemoglobin 32.1 pg (28.0-33.3); Mean Corpuscular Volume 96.3 fL (83.0-100.0); Mean Platelet Volume 11.7 fL (9.4-12.4); Monocytes # 0.8 K/mcL (0.0-1.3); Monocytes % 7.2 %; Neutrophils # 6.8 K/mcL (1.6-8.9); Platelet Count 281 K/mcL (140-400); Red Blood Count 3.55 M/mcL (3.82-4.97); Red Cell Distribution Width 11.9 % (11.5-14.5); Segmented Neutrophils % 61.1 %
[2016-08-24 02:58] LABS: BUN/Creatinine Ratio 9 (6-26); Blood Urea Nitrogen 7 mg/dL (7-20); Calcium 8.7 mg/dL (8.6-10.8); Carbon Dioxide 26 mEq/L (19-29); Chloride 106 mEq/L (98-109); Glucose 229 mg/dL (70-99); Osmolality,Calculated 289 (280-300); Potassium 4.9 mEq/L (3.5-4.5); Sodium 137 mEq/L (136-145); eGFR For African Americans > 60 (> 60); eGFR For Non-African Americans > 60 (> 60)
[2016-08-24 03:24] LABS: Dohle Bodies Present (Not Present)
[2016-08-24 03:25] LABS: Platelet Estimate Normal (Normal); Reactive Lymphocytes Present (Not Present)
[2016-08-24] MEDS: Vancomycin 1,500 MG in D5% in Water 250 ML IVPB SCH ×4 (03:44→22:03)
[2016-08-24] MEDS: 0.9 % Sodium Chloride 1,000 ML IVC SCH ×2 (08:32)
[2016-08-24] MEDS: Insulin DETEMIR 100 UNIT/ML X5UNITS SQ SCH (08:33)
[2016-08-24] MEDS: Insulin LISPRO 300 UNITS/3 ML VIAL SQ SCH ×7 (08:33→21:23)
[2016-08-24] MEDS: Cefepime HCl 1,000 MG in D5% in Water (Mini-Bag+) 100 ML IVPB SCH ×2 (08:33→21:22)
[2016-08-24] MEDS: Gabapentin 400 MG CAPSULE PO SCH ×3 (08:33→21:22)
[2016-08-24] MEDS: Ondansetron 4 MG/2 ML VIAL IVP PRN (09:30)
--- NOTE | 2016-08-24 10:02 | General Surgery Consult Note ---
<Marjorie Gottlieb - Last Filed: 08/24/16 16:52> Date of Encounter: 08/24/16 Time of Encounter: 09:57 Assessment and Plan (1) Abscess of left lower extremity Current Visit: Yes Status: Acute Left lower extremity induration, swelling, erythema just below tibial plateau and located laterally measuring 15 cm from punctum which is approximately 1.1 x 1.1. Patient has history of developing cutaneous abscesses requiring incision and drainage. Patient has history of growing MRSA from wound. Patient's release I& D sites demonstrate excoriation where she has been itching and picking around him. Patient was instructed to stop doing this. She is likely auto inoculating herself further. Plan: -Continue antibiotic coverage for MRSA. -Incision and drainage of cutaneous abscess, flushed with saline, no loculations appreciated, minimal amount of fluid was drained approximately 5 mils serosanguineous fluid without gross pus, packed with iodoform and dressed with 4 x 4 and tape. -Iodoform packing 1/4'' -4 x 4 gauze with tape. -Daily wound/dressing changes. -Encourage hygiene. May consider Hibiclens for patient. (2) Abscess of chest Current Visit: Yes Status: Acute Left midclavicular induration with no fluctuation measuring 0.5 x 1.0 and appearing more like a "skin popping "healing lesion. There is no spreading erythema, warmth or punctum noted at the site. Plan: -Continue antibiotic coverage for MRSA -Continue to monitor for resolution. -No indication for incision and drainage at this time. (3) Abscess of left hand Current Visit: Yes Status: Acute Was incised and drained under ultrasound guidance. Wound is open and draining purulent material there is no packing. Plan: -Continue IV ABX -Continue wound dressing changes daily -Encourage hygiene. (4) Abscess of right thigh Current Visit: Yes Status: Acute Was incised and drained under ultrasound guidance. Wound is open and draining purulent material there is no packing. Patient has been digging/picking at the medial thigh wound. There is excoriation around where patient has been digging with her nails. Encourage patient to stop exacerbating wound. Plan: -Continue IV ABX -Continue wound dressing changes -Patient education wound management -Remind Patient not to pick/dig at wound -Encourage hygiene History of Present Illness Consult date: 08/24/16 Reason for consult: other (Abscess) Requesting physician: Angelica Guillory History of present illness: Ms. Alvarez is a 36-year-old female with a past medical history of insulin- dependent diabetes mellitus with history of DKA, polysubstance abuse, tobacco abuse disorder currently smoking half a pack per day, chronic pain, chronic pancreatitis for more than 11 years, asthma, COPD, degenerative disc disease, gastroesophageal reflux disease, nephrolithiasis, generalized anxiety, depression, and insomnia who is being evaluated for multiple abscesses. Patient describes that she was transferred from outside emergency department ( [facility]) for hyperglycemia, on arrival here the emergency department ultrasound guidance was used to incise and drain abscesses on the dorsum of her left hand as well as the right medial thigh and the patient was admitted for treatment of hyperglycemia. Patient describes that these abscesses began approximately 1 week ago but over the past 4 days had been increasingly painful red and swollen. The patient states that she did not seek treatment for these as she thought they were just "bug bites ". States that she initially went to the urgent care as she was unable to control her blood sugars at home. She was unaware that the bumps would need to be drained. Last night, when patient went to bed she noticed her left leg was a little bit sore however, when she awoke this morning she had another raised bump on the left leg just below the knee on outer aspect of her leg that has since developed erythema and redness extending distally down to the middle of lower outer extremity. Social history: Patient does not have a job as she is on [employer]. She does not have a home and stays with several different family members rotating homes. Patient's girlfriend is also currently hospitalized for abdominal pain. They recently moved here from [place] after previously residing in [place] in 2014. Patient's last PCP was [facility] in [place], Dr. Maxine Childress. Surgical history includes: - tubal ligation 1998 -Cholecystectomy approx 8 years ago Past Med Surg Social Fam HX - Past Medical History Medical history: asthma, COPD (Not oxygen dependent), diabetes (Insulin- dependent), other (Chronic opioid use, polysubstance abuse according to prior records, chronic pancreatitis, neuropathy, tobacco use, DKA) Psychiatric history: anxiety - Past Surgical History Surgical History: no surgical history, other (Tubal ligation) - Social History Smoking Status: Current every day smoker Packs per day: 1 pack per day Smokeless Tobacco Status: No Alcohol use: none Drug use: opiates - Family History Mother Living Status: Hx Family Cancer: Yes Father Living Status: Hx Family Cardiac Disorders: Yes Sister Living Status: Still Living Hx Family Cancer: Yes Medications and Allergies Gabapentin [Neurontin] 800 mg PO TID 07/03/16 [History] Insulin ASPART [NovoLOG] 0 unit SQ TIDAC 07/03/16 [History] Lipase/Protease/Amylase [Creon Dr 12,000 Units Capsule] 1 tab PO TID 07/03/16 [ History] Insulin Glargine,Hum.rec.anlog [Lantus Solostar] 30 unit SQ BID 08/22/16 [ History] Allergies ketorolac [From Toradol] Allergy (Verified 08/22/16 03:11) Hives tramadol [From Ultram] Allergy (Verified 08/22/16 03:11) Anaphylaxis iodine Allergy (Uncoded 11/08/14 09:45) Anaphylaxis IV Contrast Allergy (Uncoded 11/08/14 09:45) Anaphylaxis Review of Systems All systems PM: A 10-system review of systems was performed and is negative for pertinent findings except as documented above in the HPI. - Constitutional no anorexia, no chills, no fever(s) - EENT Nose, mouth and throat: no dysphagia, no mouth lesions, no vertigo - Cardiovascular no chest pain, no dyspnea, no edema, no palpitations, no syncope - Respiratory cough, no excessive phlegm production, no change in phlegm color, no pain with cough - Gastrointestinal abdominal pain, other (chronic pancreatitis), no belching, no bloating, no change in bowel habits, no coffee ground emesis, no constipation, no diarrhea, no dyspepsia, no dysphagia, no hematemesis, no hematochezia, no nausea, no vomiting - Genitourinary Genitourinary: no flank pain, no hematuria - Musculoskeletal back pain, no muscle cramps, no muscle weakness, no numbness, no radiating pain into limb, no stiffness, no tingling - Integumentary dry skin, furuncle, new lesions (New "bump" on the left lateral lower extremity) , pruritus, wounds (Open abscess draining on the left dorsum of hand, right medial thigh, patient has been changing the dressings daily and applying antibiotic ointment), no rash, no jaundice - Neurological no abnormal speech, no confusion, no syncope, no vertigo, no weakness, no other visual disturbances - Psychiatric anxiety, depression - Endocrine no palpitations - Hematologic/Lymphatic no easy bleeding, no easy bruising, no lymphadenopathy - Allergic/Immunologic no tongue swelling, no throat swelling, no uticaria, no wheezing, no GI upset with certain foods General Surgery Exam Initial Vital Signs Temp Pulse Resp BP Pulse Ox 98.7 F 93 16 116/75 95 08/22/16 03:05 08/22/16 03:05 08/22/16 03:05 08/22/16 03:05 08/22/16 03:05 - General physical appearance well developed, well nourished, no distress, moderate pain. negative: jaundice - Eyes PERRL, normal ocular movement - ENT normal nares, normal mucosa, atraumatic, normocephalic - Neck trachea midline, no lymphadectomy, no venous distension - Respiratory normal expansion, normal respiratory effort, clear to auscultation - Cardiovascular Cardiovascular exam: Present: RRR, no murmurs/rubs/gallops. Absent: JVD - Abdomen Abdomen general surgery: Present: bowel sounds present, soft, tender Abdominal Tenderness: Present: epigastic - Incision Incision: Present: erythema. Absent: draining - Integumentary Integumentary general surgery: Present: warm and dry, other (Left lower extremity cutaneous abscess, fluctuant, erythematous margins marked approximately 15 cm distal to punctum 1.1 x 1.1. Scattered tattoos. ). Absent : rash - Neurologic Present: CN 2-12 grossly intact, normal coordination, normal sensation, deep tendon reflexes - Musculoskeletal Present: normal gait, normal posture - Psychiatric Psychiatric general surgery: Present: A&Ox3, speech is normal Exam Initial Vital Signs Temp Pulse Resp BP Pulse Ox 98.7 F 93 16 116/75 95 08/22/16 03:05 08/22/16 03:05 08/22/16 03:05 08/22/16 03:05 08/22/16 03:05 Results - Labs 08/24/16 02:30 08/24/16 02:30 Abnormal lab results RBC 3.55 M/mcL (3.82-4.97) L 08/24/16 02:30 Hgb 11.4 g/dL (11.5-15.4) L 08/24/16 02:30 Hct 34.2 % (35.3-44.9) L 08/24/16 02:30 Reactive Lymphocytes Present (Not Present) A 08/24/16 02:30 Dohle Bodies Present (Not Present) A 08/24/16 02:30 Large Platelets Present (Not Present) A 08/23/16 04:26 VBG pCO2 36 mmHg (41-51) L 08/22/16 04:05 VBG pO2 96 mmHg (25-40) H 08/22/16 04:05 Potassium 4.9 mEq/L (3.5-4.5) H 08/24/16 02:30 Glucose 229 mg/dL (70-99) H 08/24/16 02:30 POC Glucose 92 (58-89) H 08/23/16 11:59 Alkaline Phosphatase 146 Units/L (38-126) H 08/22/16 09:12 Albumin 2.6 g/dL (3.5-5.0) L 08/22/16 09:12 Globulin 3.9 g/dL (2.4-3.5) H 08/22/16 09:12 Albumin/Globulin Ratio 0.7 (1.1-2.2) L 08/22/16 09:12 Beta-Hydroxybutyric Acd > 2.00 mmol/L (0.02-0.27) H 08/22/16 03:35 Vancomycin Trough 5.8 mcg/mL (10-20) L 08/24/16 02:30 Diabetes panel 08/24/16 Range/Units 02:30 Sodium 137 (136-145) mEq/L Potassium 4.9 H (3.5-4.5) mEq/L Chloride 106 (98-109) mEq/L Carbon Dioxide 26 (19-29) mEq/L BUN 7 (7-20) mg/dL Creatinine 0.75 (0.57-1.11) mg/dL Glucose 229 H (70-99) mg/dL Calcium 8.7 (8.6-10.8) mg/dL Calcium panel 08/24/16 Range/Units 02:30 Calcium 8.7 (8.6-10.8) mg/dL Pituitary panel 08/24/16 Range/Units 02:30 Sodium 137 (136-145) mEq/L Potassium 4.9 H (3.5-4.5) mEq/L Chloride 106 (98-109) mEq/L Carbon Dioxide 26 (19-29) mEq/L BUN 7 (7-20) mg/dL Creatinine 0.75 (0.57-1.11) mg/dL Glucose 229 H (70-99) mg/dL Calcium 8.7 (8.6-10.8) mg/dL Adrenal panel 08/24/16 Range/Units 02:30 Sodium 137 (136-145) mEq/L Potassium 4.9 H (3.5-4.5) mEq/L Chloride 106 (98-109) mEq/L Carbon Dioxide 26 (19-29) mEq/L BUN 7 (7-20) mg/dL Creatinine 0.75 (0.57-1.11) mg/dL Glucose 229 H (70-99) mg/dL Calcium 8.7 (8.6-10.8) mg/dL All other labs normal. Procedures: General Surgery - Abscess I/D Consent obtained: verbal consent, written consent Site: lower extremity Anesthetic used: lidocaine 1% Technique: incised with #11 blade Amount of fluid: 10 Irrigation: Yes Irrigation fluid: saline flush Packing used: .25 inch iodoform Packing size: 1/4" Complications: none Consult Discharge Plan - Plan Referrals: NO,PCP [Primary Care Provider] - <Emory Ford - Last Filed: 08/24/16 19:49> Date of Encounter: 08/24/16 Review of Systems All systems PM: A 10-system review of systems was performed and is negative for pertinent findings except as documented above in the HPI. General Surgery Exam Initial Vital Signs Temp Pulse Resp BP Pulse Ox 98.7 F 93 16 116/75 95 08/22/16 03:05 08/22/16 03:05 08/22/16 03:05 08/22/16 03:05 08/22/16 03:05 Exam Initial Vital Signs Temp Pulse Resp BP Pulse Ox 98.7 F 93 16 116/75 95 08/22/16 03:05 08/22/16 03:05 08/22/16 03:05 08/22/16 03:05 08/22/16 03:05 Results - Labs 08/24/16 02:30 08/24/16 02:30 Abnormal lab results RBC 3.55 M/mcL (3.82-4.97) L 08/24/16 02:30 Hgb 11.4 g/dL (11.5-15.4) L 08/24/16 02:30 Hct 34.2 % (35.3-44.9) L 08/24/16 02:30 Reactive Lymphocytes Present (Not Present) A 08/24/16 02:30 Dohle Bodies Present (Not Present) A 08/24/16 02:30 Large Platelets Present (Not Present) A 08/23/16 04:26 VBG pCO2 36 mmHg (41-51) L 08/22/16 04:05 VBG pO2 96 mmHg (25-40) H 08/22/16 04:05 Potassium 4.9 mEq/L (3.5-4.5) H 08/24/16 02:30 Glucose 229 mg/dL (70-99) H 08/24/16 02:30 POC Glucose 359 (58-89) H 08/24/16 16:22 Alkaline Phosphatase 146 Units/L (38-126) H 08/22/16 09:12 Albumin 2.6 g/dL (3.5-5.0) L 08/22/16 09:12 Globulin 3.9 g/dL (2.4-3.5) H 08/22/16 09:12 Albumin/Globulin Ratio 0.7 (1.1-2.2) L 08/22/16 09:12 Beta-Hydroxybutyric Acd > 2.00 mmol/L (0.02-0.27) H 08/22/16 03:35 Vancomycin Trough 5.8 mcg/mL (10-20) L 08/24/16 02:30 Diabetes panel 08/24/16 Range/Units 02:30 Sodium 137 (136-145) mEq/L Potassium 4.9 H (3.5-4.5) mEq/L Chloride 106 (98-109) mEq/L Carbon Dioxide 26 (19-29) mEq/L BUN 7 (7-20) mg/dL Creatinine 0.75 (0.57-1.11) mg/dL Glucose 229 H (70-99) mg/dL Calcium 8.7 (8.6-10.8) mg/dL Calcium panel 08/24/16 Range/Units 02:30 Calcium 8.7 (8.6-10.8) mg/dL Pituitary panel 08/24/16 Range/Units 02:30 Sodium 137 (136-145) mEq/L Potassium 4.9 H (3.5-4.5) mEq/L Chloride 106 (98-109) mEq/L Carbon Dioxide 26 (19-29) mEq/L BUN 7 (7-20) mg/dL Creatinine 0.75 (0.57-1.11) mg/dL Glucose 229 H (70-99) mg/dL Calcium 8.7 (8.6-10.8) mg/dL Adrenal panel 08/24/16 Range/Units 02:30 Sodium 137 (136-145) mEq/L Potassium 4.9 H (3.5-4.5) mEq/L Chloride 106 (98-109) mEq/L Carbon Dioxide 26 (19-29) mEq/L BUN 7 (7-20) mg/dL Creatinine 0.75 (0.57-1.11) mg/dL Glucose 229 H (70-99) mg/dL Calcium 8.7 (8.6-10.8) mg/dL All other labs normal. - Attending Attestation I examined this patient and my medical decision-making was reviewed with the APPLICATION COORDINATOR/PA/Advanced Practice Nurse/Resident Physician. I agree with the documented findings, disposition and treatment plan as described except to the extent set forth below. The patient is seen and evaluated. Incision and drainage will be required for the left lower extremity. We will proceed later today. Emory Ford MD FACS
[2016-08-24] MEDS: *HR* OxyCODONE Immed Rel 5 MG TABLET PO PRN ×2 (12:34→18:41)
--- NOTE | 2016-08-24 14:16 | Internal Med Progress Note ---
Date of Encounter: 08/24/16 Time of Encounter: 08:15 - Assessment and plan (1) Sepsis Current Visit: Yes Status: Suspected Assessment and plan: Blood cultures have been negative. WBC count has normalized. On IV vancomycin. Moderate risk for complications. Follow culture results. Due to multiple skin abscesses Qualifiers: Sepsis type: methicillin susceptible Staphylococcus aureus Qualified Code(s ): A41.01 - Sepsis due to Methicillin susceptible Staphylococcus aureus (2) Hyperglycemia due to type 2 diabetes mellitus Current Visit: No Status: Chronic Assessment and plan: Blood sugars are elevated but marked improvement. 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 New skin abscesses noted on left anterior leg just below the knee and left anterior chest wall. Consult surgery for further recommendations and drainage. Continue IV antibiotics. (4) Chronic pain disorder Current Visit: No Status: Chronic Assessment and plan: On intravenous narcotic pain medications. High risk for complications due to use of these medications (5) Pancreatitis Current Visit: Yes Status: Chronic Assessment and plan: Likely contributing to the patient's abdominal pain. We will place patient on clear liquid diet for now. Qualifiers: Chronicity: chronic Pancreatitis type: unspecified pancreatitis type Qualified Code(s): K86.1 - Other chronic pancreatitis - Subjective Interval history: Patient complaining of some abdominal pain along with nausea. Increased redness and swelling in the left leg just below the knee. She has also developed a rash along with swelling on her left anterior chest wall. - Constitutional Vitals: Temp Pulse Resp BP Pulse Ox 98.1 F 84 16 96/59 97 08/24/16 10:56 08/24/16 10:56 08/24/16 10:56 08/24/16 10:56 08/24/16 10:56 General appearance: Present: mild distress, A&O X 3, answers questions appropriately - Respiratory Respiratory exam: Present: CTAB. Absent: accessory muscle use, rales, rhonchi, wheezes - Cardiovascular Cardiovascular exam: Present: RRR, +S1, +S2. Absent: diastolic murmur, gallop, rubs, systolic murmur - GI/Abdominal GI/Abdominal exam: Present: normal bowel sounds, soft, no peritoneal signs. Absent: distended, tenderness - Extremities Exam Extremities exam: Present: warm, radial pulses palpable and symetrical. Absent : calf tenderness, cyanotic, pedal edema - Neurological Exam Neurological exam: Present: alert, oriented X3, no focal deficits. Absent: facial droop, speech deficit - Skin Skin exam: Present: dry, erythema (Erythema and swelling with induration noted on the left anterior leg just below the thyroid. There is also erythema and swelling with induration noted on the left anterior chest wall is tender to palpation. Abscesses on the right thigh and left hand continue to drain purulent material.), intact Internal Medicine: Result - Labs CBC & Chem 7: 08/24/16 02:30 08/24/16 02:30 Labs: Short CBC 08/24/16 Range/Units 02:30 WBC 11.1 (4.3-11.1) K/mcL Hgb 11.4 L (11.5-15.4) g/dL Hct 34.2 L (35.3-44.9) % Plt Count 281 (140-400) K/mcL Neutrophils # 6.8 (1.6-8.9) K/mcL BMP 08/24/16 02:30 Sodium 137 Potassium 4.9 H Chloride 106 Carbon Dioxide 26 BUN 7 Creatinine 0.75 Glucose 229 H Calcium 8.7 Consult Discharge Plan - Plan Referrals: NO,PCP [Primary Care Provider] - - Attending Attestation This document has been at least partially created by [employer] recognition technology by Dr. Guillory. Errors in grammar, wording or other phrases may exist. If errors are found after the documentation is signed, they will be addressed individually in the addendum section of this document when appropriate.
[2016-08-24] MEDS ORDERED: 0.9 % Sodium Chloride 1,000 ML IVC SCH (14:20)
[2016-08-24] MEDS ORDERED: Insulin DETEMIR 100 UNIT/ML X5UNITS SQ SCH (14:21)
[2016-08-24] MEDS ORDERED: Lidocaine 1% 20 ML MDV INFILT ONE (14:28)
[2016-08-25] MEDS: *HR* OxyCODONE Immed Rel 5 MG TABLET PO PRN (00:32)
[2016-08-25] MEDS: *HR* HYDROmorphone (PF) 1 MG/ML SYRINGE IVP PRN ×3 (01:58→06:27)
[2016-08-25] MEDS: Vancomycin 1,500 MG in D5% in Water 250 ML IVPB SCH (04:19)
[2016-08-25 07:13] VITALS: BP 104/70
--- NOTE | 2016-08-25 08:58 | Discharge Summary ---
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 use status Qualified Code(s): E11.65 - Type 2 diabetes mellitus with hyperglycemia (3) Abscess Priority: Secondary Status: Acute (4) Chronic pain disorder Priority: Secondary Status: Chronic (5) Pancreatitis Priority: Secondary Status: Chronic Qualifiers: Chronicity: chronic Pancreatitis type: unspecified pancreatitis type Qualified Code(s): K86.1 - Other chronic pancreatitis - Discharge Medications Prescriptions: OxyCODONE Immed Rel [Roxicodone 5 MG] 10 mg PO Q6HR PRN #14 tablet PRN Reason: Moderate Pain (4-6) Lipase/Protease/Amylase [Pelon Rice 6,000 Units Capsule] 2 each PO QID #60 capsule. Sulfamethoxazole/Trimeth DS [Bactrim DS] 1 each PO BID #20 tablet Home Medications: Gabapentin [Neurontin] 800 mg PO TID 07/03/16 [History] Insulin ASPART [NovoLOG] 0 unit SQ TIDAC 07/03/16 [History] Insulin Glargine,Hum.rec.anlog [Lantus Solostar] 30 unit SQ BID 08/22/16 [ History] Lipase/Protease/Amylase [Pelon Rice 6,000 Units Capsule] 2 each PO QID #60 capsule. 08/25/16 [Rx] OxyCODONE Immed Rel [Roxicodone 5 MG] 10 mg PO Q6HR PRN #14 tablet 08/25/16 [Rx] Sulfamethoxazole/Trimeth DS [Bactrim DS] 1 each PO BID #20 tablet 08/25/16 [Rx] Allergies/Adverse Reactions: Allergies ketorolac [From Toradol] Allergy (Verified 08/22/16 03:11) Hives tramadol [From Ultram] Allergy (Verified 08/22/16 03:11) Anaphylaxis iodine Allergy (Uncoded 11/08/14 09:45) Anaphylaxis IV Contrast Allergy (Uncoded 11/08/14 09:45) Anaphylaxis Date of admission: 08/22/16 08:41 Primary care physician: PCP NO Consults: 08/22/16 13:15 Consult to Homicide Squad Captain [CONS] Routine Reason for SW Consult: no insurance 08/23/16 12:26 Consult to PICC team [Consult to Invasive Line Access Team] [CONS] Routine Reason for Consult: IV ATBs Line Type: EPIV 08/24/16 08:34 Consult to Surgery [CONS] Routine Consulting Provider: Diana Arciniega Surgical Reason for Consult: Skin abscesses on chest wall and left thigh Time Notified: 08:35 Call Completed: Yes Discharging clinician: Angelica Guillory Anticipated date of discharge: 08/25/16 - Patient Status Disposition: Home, Self-Care Condition: Fair Functional capacity at discharge: independent ambulation Overall status at discharge: patient is progressing back to baseline - Discharge Instructions Instructions: Cellulitis (DC), Diabetes Mellitus Type 2 in Adults (DC) Follow Up With: NO,PCP [Primary Care Provider] - Additional Instructions: Follow up with wound care clinic in one week. Call [phone] to make an appointment with wound care this week. Please follow up with PCP in 1-2 weeks. - Diet and Activity Activity: increase activity as tolerated Diet: diabetic diet, low fat, low cholesterol, low salt diet Hospital course: Ms. Alvarez is a 36 year old female patient with history of prior wound infection with MRSA, diabetes mellitus type 2 on chronic insulin therapy presented to the ER with complaints of wounds on her right thigh, left hand along with elevated blood sugars. She was found to have a blood sugar of greater than 600 on initial evaluation in the ER. She was also noted to have abscesses on her left hand and right thigh which were drained in the ER. She was then admitted for IV antibiotics and to control her blood sugars better. She did not have any features suggestive of diabetic ketoacidosis. She was placed on IV insulin and her blood sugars were slowly controlled. She was then transitioned to subcutaneous insulin and has been doing well since. She also developed lesions on her left leg just below the knee and her left upper chest wall that were concerning for abscesses. Surgery was consulted. Her left leg lesion was incised and drained and surgery recommends her to continue antibiotics with no intervention needed for her left upper chest wall at this time. She will be discharged today on oral Bactrim and will follow up with surgery in the wound care clinic for further management of her wounds. Patient also has chronic pancreatitis and was having abdominal pain here. Her lipase levels were normal. She has been placed back on Creon to help with control her symptoms. Patient has poor overall hygiene and is at risk for worsening infection if she does not properly care for her wounds. She has been explained this multiple times during her stay here. She expressed understanding. - Time Spent with Patient Total time spent providing and/or coordinating discharge services: Greater than 30 minutes (35 min) - Constitutional Vitals: Temp Pulse Resp BP Pulse Ox 97.9 F 64 16 104/70 91 08/25/16 07:09 08/25/16 07:09 08/25/16 07:09 08/25/16 07:09 08/25/16 07:09 General appearance: Present: mild distress, A&O X 3, answers questions appropriately - Respiratory Respiratory exam: Present: CTAB. Absent: accessory muscle use, rales, rhonchi, wheezes - Cardiovascular Cardiovascular exam: Present: RRR, +S1, +S2. Absent: diastolic murmur, gallop, rubs, systolic murmur - GI/Abdominal GI/Abdominal exam: Present: normal bowel sounds, soft, no peritoneal signs. Absent: distended, tenderness - Extremities Exam Extremities exam: Present: warm, radial pulses palpable and symetrical. Absent : calf tenderness, cyanotic, pedal edema Additional comments: Abscess on left hand, right thigh and left thigh have been drained. Left chest wall cellulitis and induration persists but no fluctuance - Neurological Exam Neurological exam: Present: oriented X3, no focal deficits. Absent: facial droop, speech deficit - Skin Skin exam: Present: dry, intact - Attending Attestation This document has been at least partially created by [employer] recognition technology by Dr. Guillory. Errors in grammar, wording or other phrases may exist. If errors are found after the documentation is signed, they will be addressed individually in the addendum section of this document when appropriate.
[2016-08-25] MEDS ORDERED: Aminoglycoside Consult 1 EACH MC ONE (09:57)
--- NOTE | 2016-08-25 13:27 | General Surgery Progress Note ---
Date of Encounter: 08/25/16 Time of Encounter: 08:00 - Assessment and Plan (1) Abscess of left lower extremity Status: Acute Left lower extremity induration, swelling, erythema just below tibial plateau and located laterally measuring 15 cm from punctum which is approximately 1.1 x 1.1. Patient has history of developing cutaneous abscesses requiring incision and drainage. Patient has history of growing MRSA from wound. Patient's release I& D sites demonstrate excoriation where she has been itching and picking around him. Patient was instructed to stop doing this. She is likely auto inoculating herself further. -Incision and drainage of cutaneous abscess performed on 08/24/16, flushed with saline, no loculations appreciated, minimal amount of fluid was drained approximately 5 mils serosanguineous fluid without gross pus, packed with iodoform and dressed with 4 x 4 and tape. Very minimal drainage from I&D yesterday of the left leg. Smaller abscesses located on the chest. On examination: Wounds are draining appropriately, vitals are stable. Afebrile. Resolved leukocytosis with left shift/sepsis. Resolved hyponatremia. Resolved hyperglycemia. Will continue oral antibiotic coverage for multiple abscesses to allow for resolution. Patient is stable from a surgical standpoint. Surgery will sign off. Discharge planning per hospital team. Plan: -Continue antibiotic coverage for MRSA. May be done on an outpatient basis preferably up to 14 days. -Daily wound check and dressing changes, Iodoform packing 1/4'' , 4 x 4 gauze with tape. -Encourage hygiene. May consider Hibiclens, chlorhexidine body wash for patient on discharge. Patient is stable from a surgical standpoint. Surgery will sign off. Discharge planning per hospital team. (2) Abscess of chest Status: Acute Left midclavicular induration with no fluctuation measuring 0.5 x 1.0 and appearing more like a "skin popping "healing lesion. There is no spreading erythema, warmth or punctum noted at the site. Plan: -Continue antibiotic coverage for MRSA -Continue to monitor for resolution. -No indication for incision and drainage at this time. (3) Abscess of left hand Status: Acute Was incised and drained under ultrasound guidance. Wound is open and draining material there is no packing. Plan: -Continue ABX -Continue wound dressing changes daily -Encourage hygiene. (4) Abscess of right thigh Status: Acute Was incised and drained under ultrasound guidance. Wound is open and draining material there is no packing. Patient has been digging/picking at the medial thigh wound. There is excoriation around where patient has been digging with her nails. Encourage patient to stop exacerbating wound. Plan: -Continue ABX -Continue wound dressing changes -Patient education wound management -Remind Patient not to pick/dig at wound -Encourage hygiene Subjective Patient reports: feels better, tolerating a regular diet, voiding w/o difficulty , flatus, bowel movement, afebrile Narrative: Patient was seen and examined. Patient states that she had a lot of pain overnight requesting pain medicine every hour. However, patient does not state her abscesses as point of pain rather, states that she has "pain all over". Patient states that where her abscesses are draining to feel much better than prior to incision and drainage. She is agreeable to continue oral antibiotic therapy on an outpatient basis. Daily wound checks and dressing changes discussed with patient. She expressed understanding. Cleanliness was encouraged. Objective Vital Signs - Last 8 Hours Temp Pulse Resp BP Pulse Ox 08/25/16 07:09 97.9 F 64 16 104/70 91 Intake and Output 08/24/16 08/25/16 08/25/16 23:59 07:59 15:59 Intake Total 2830 / 2830 730 / 730 360 / 360 Balance 2830 / 2830 730 / 730 360 / 360 Intake: IV Fluids 2350 / 2350 250 / 250 0.9 % Sodium Chloride 1, 2000 / 2000 000 ML @ 100 mls/hr IVC . Q10H JAMES Rx#:[id number] Maxipime 1,000 MG In 100 / 100 Dextrose 5% (Minibag+) 100 ML 100 ML @ 200 mls/ hr IVPB Q12H JAMES Rx#: [id number] Vancocin 1,500 MG In 250 / 250 250 / 250 Dextrose 5% 250 ML @ 167. 007 mls/hr IVPB Q8H JAMES Rx#:[id number] Oral 480 / 480 480 / 480 360 / 360 Other: # Voids 1 Weight 74.5 kg Blood Glucose* 182 156 Patient Weight 08/25/16 23:59 Weight 74.5 kg - General physical appearance well developed, well nourished, no distress, moderate pain - Eyes PERRL, normal ocular movement - ENT normal pinna, normal nares, normal mucosa, atraumatic, normocephalic, CN 2-12 grossly intact - Neck Neck exam: trachea midline, no venous distension - Respiratory normal expansion, normal respiratory effort, clear to auscultation - Cardiovascular Cardiovascular exam: Present: RRR, no murmurs/rubs/gallops. Absent: JVD - Abdomen Abdomen: Present: bowel sounds present, soft, tender Abdominal Tenderness: diffusely - Incision Incision: Present: draining, serosanguinous - Integumentary other (Warm and dry, left lower extremity cutaneous abscess with packing in place minimal drainage demonstrating resolution of erythematous margins that were present yesterday. Left dorsum of the hand cutaneous abscess open and draining scant amount, right inner thigh open and draining a scant amount. Scattered tattoos are present.) - Neurologic CN 2-12 grossly intact - Musculoskeletal normal gait, normal posture - Psychiatric oriented to time, oriented to person, oriented to place, speech is normal, memory intact - Labs 08/24/16 02:30 08/24/16 02:30 Consult Discharge Plan - Plan Instructions: Cellulitis (DC), Diabetes Mellitus Type 2 in Adults (DC) Additional Instructions: Follow up with wound care clinic in one week. Call [phone] to make an appointment with wound care this week. Please follow up with PCP in 1-2 weeks. Referrals: NO,PCP [Primary Care Provider] - Prescriptions: OxyCODONE Immed Rel [Roxicodone 5 MG] 10 mg PO Q6HR PRN #14 tablet PRN Reason: Moderate Pain (4-6) Lipase/Protease/Amylase [Pelon Rice 6,000 Units Capsule] 2 each PO QID #60 capsule. Sulfamethoxazole/Trimeth DS [Bactrim DS] 1 each PO BID #20 tablet - Attending Attestation I examined this patient and my medical decision-making was reviewed with the CAD DESIGNER DRAFTER/PA/Advanced Practice Nurse/Resident Physician. I agree with the documented findings, disposition and treatment plan as described except to the extent set forth below. The patient is seen and evaluated no further incision and drainage will be necessary. Continue antibiotic. Emroy Ford MD FACS
== END 2016-08-25 09:58 | disposition home or self-care (01) | DRG 871 ==
LOC: EMEROO 03:03 → 3BNU 03:03 → SUATTDRO 08:41
PROVIDERS: ADMIT Registered Nurse; ATTEND Internal Medicine

== ENCOUNTER 2016-09-14 03:09 | Inpatient (IN) ==
[2016-09-14] MEDS ORDERED: *HR* Morphine 2 MG/ML SYRINGE IVP ONE (03:24)
--- NOTE | 2016-09-14 03:27 | Emergency Department Note ---
Disposition Clinical Impression: Hyperglycemia, Abscess, JD (acute kidney injury) Disposition: Admitted As Inpatient Condition: Undetermined Referrals: NO,PCP [Primary Care Provider] - Forms: Work/School Release, ED Satisfaction Letter Time of Disposition: 04:42 General Adult HPI - General Chief complaint: ED General Medical Stated complaint: Hyperglycemia Time Seen by Provider: 09/14/16 03:12 Source: patient, EMS Mode of arrival: EMS Limitations: no limitations Nursing Notes Reviewed: Yes Vital Signs Reviewed: Yes - History of Present Illness HPI Narrative: 6-year-old female diabetic who poorly controlled arrives to [facility] emergency Department as a transfer from [facility]. The patient is here to be evaluated for abdominal pain, elevated glucose. The patient was transported here due to difficulty of obtaining IV although the patient arrives with a 24-gauge IV in the right hand. The patient admits to abdominal pain and nausea over the course of the past 5 days. She states that this has acutely worsened. The patient has a notorious history for not using her insulin as prescribed. In addition the patient has had numerous abscesses on bilateral upper and lower extremities as well as chest wall. She has had numerous drained. In addition the patient has an abscess on her right foot which she says has "been draining". The patient states that she would not like anyone to cut on her foot at this time. The patient denies any other complaints. This includes chest pain, difficulty breathing, unilateral weakness , fevers, back pain. The patient has been in DKA in the past but states this feels more like "my pancreas". Onset (ago): day(s) (5) Location: abdomen Radiation: non-radiation Pain Severity: severe, similar to prior episodes Pain Scale: 10 Consistency: constant Improves with: nothing Worsens with: nothing Associated symptoms: Reports: nausea/vomiting Treatments Prior to Arrival: other (IV fluids) - Related Data Home Medications Medication Instructions Recorded Confirmed Gabapentin [Neurontin] 800 mg PO TID 07/03/16 08/22/16 Insulin ASPART [NovoLOG] 0 unit SQ TIDAC 07/03/16 08/22/16 Insulin Glargine,Hum.rec.anlog 30 unit SQ BID 08/22/16 08/22/16 [Lantus Solostar] Previous Rx's Medication Instructions Recorded Lipase/Protease/Amylase [Pelon Rice 2 each PO QID #60 capsule. 08/25/16 6,000 Units Capsule] OxyCODONE Immed Rel [Roxicodone 5 10 mg PO Q6HR PRN #14 tablet 08/25/16 MG] Sulfamethoxazole/Trimeth DS 1 each PO BID #20 tablet 08/25/16 [Bactrim DS] Allergies Allergy/AdvReac Type Severity Reaction Status Date / Time ketorolac [From Toradol] Allergy Hives Verified 09/14/16 03:11 tramadol [From Ultram] Allergy Anaphylaxis Verified 09/14/16 03:11 iodine Allergy Anaphylaxis Uncoded 09/14/16 03:11 IV Contrast Allergy Anaphylaxis Uncoded 09/14/16 03:11 All systems ED: reviewed and negative except as stated. Constitutional: Denies: fever, chills, weakness, weight change Eyes: Denies: eye pain, eye discharge, vision change Cardiovascular: Denies: chest pain, palpitations, dyspnea on exertion, edema, syncope Respiratory: Denies: cough, dyspnea, wheezes, hemoptysis, stridor Gastrointestinal: Reports: abdominal pain, nausea. Denies: vomiting, diarrhea, constipation, hematemesis, melena, hematochezia Genitourinary: Denies: dysuria, frequency, hematuria, discharge Musculoskeletal: Denies: back pain, neck pain, arthralgia, myalgia Integumentary: Denies: rash, abrasion, lesions Neurological: Denies: headache, weakness, numbness, paresthesias, confusion, abnormal gait, vertigo Past Medical History - Past Medical History Attestation: Yes The following information was validated with the patient. 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 - Social History Smoking Status: Current every day smoker Smokeless Tobacco Status: No Alcohol use: Reports: none Drug use: Reports: opiates Physical Exam - General Limitations: no limitations General appearance: alert, in no apparent distress - Head Head exam: atraumatic, normocephalic, normal inspection - Neck Neck exam: Present: normal inspection, full ROM, trachea midline - Chest Chest inspection: Present: normal inspection, symmetric chest wall rise - Respiratory Respiratory exam: Present: normal lung sounds bilaterally - Cardiovascular Cardiovascular exam: Present: regular rate, normal rhythm, normal heart sounds - Abdominal Exam Abdominal exam: Present: soft, tenderness (Left upper quadrant), normal bowel sounds. Absent: distention, guarding, rebound, rigidity, heel tap sign - Extremities Exam Extremities exam: Present: full ROM, tenderness (Right foot with a large abscess that is currently draining on right foot. Moderate erythema associated with this.) - Back Exam Back exam: Present: normal inspection, full ROM. Absent: tenderness - Neurological Exam Neurological exam: Present: alert, oriented X3 - Skin Skin exam: Present: warm, dry, intact, normal color, erythema Course Vital Signs Temperature 98.5 F 09/14/16 03:12 Pulse Rate 93 09/14/16 03:12 Respiratory Rate 16 09/14/16 03:12 Blood Pressure 121/90 09/14/16 03:12 O2 Sat by Pulse Oximetry 95 09/14/16 03:12 Temperature 98.5 F 09/14/16 03:12 Pulse Rate 93 09/14/16 03:12 Respiratory Rate 16 09/14/16 03:12 Blood Pressure 121/90 09/14/16 03:12 O2 Sat by Pulse Oximetry 95 09/14/16 03:12 Oxygen Delivery Oxygen Delivery Room Air Medical Decision Making - MDM Narrative Medical decision making narrative: Patient is not acidotic. She is ketotic. The patient appears to have an acute kidney injury as well. The patient has pseudohyponatremia given the patient's glucose which is 853 upon the CMP. The patient's lipase is not elevated. X- ray of the patient's right foot where the abscess is located that is currently draining demonstrates soft tissue swelling only with no osteomyelitis. We will administer IV insulin drip as well as another IV bolus. We will admit the patient to the hospitalist. Accepted by Dr. Jones. - Medical Records Medical records reviewed: Yes I reviewed the patient's medical records. - Lab Data Lab results reviewed: Yes I reviewed the patient's lab results. Result diagrams: 09/14/16 03:45 09/14/16 03:45 Lab Results 09/14/16 09/14/16 09/14/16 Range/Units 03:45 03:45 03:45 WBC 9.3 (4.3-11.1) K/mcL RBC 4.08 (3.82-4.97) M/mcL Hgb 13.0 (11.5-15.4) g/dL Hct 38.7 (35.3-44.9) % MCV 94.9 (83.0-100.0) fL MCH 31.9 (28.0-33.3) pg MCHC 33.6 (31.6-35.5) g/dL RDW 12.3 (11.5-14.5) % Plt Count 297 (140-400) K/mcL MPV 11.3 (9.4-12.4) fL Immature Gran % 0.5 (0-4) % Seg Neutrophils % 70.2 % Lymphocytes % 18.8 % Monocytes % 8.4 % Eosinophils % 1.6 % Basophils % 0.5 % Neutrophils # 6.5 (1.6-8.9) K/mcL Lymphocytes # 1.8 (0.6-4.6) K/mcL Monocytes # 0.8 (0.0-1.3) K/mcL Eosinophils # 0.2 (0.0-0.6) K/mcL Basophils # 0.1 (0.0-0.2) K/mcL Reactive Lymphocytes Present A (Not Present) Platelet Estimate Normal (Normal) VBG pH 7.35 (7.32-7.42) pH Units VBG pCO2 51 (41-51) mmHg VBG pO2 33 (25-40) mmHg VBG HCO3 28.2 H (21-27) mEq/L Sodium 128 L (136-145) mEq/L Potassium 5.2 H (3.5-4.5) mEq/L Chloride 93 L (98-109) mEq/L Carbon Dioxide 24 (19-29) mEq/L BUN 17 (7-20) mg/dL Creatinine 1.19 H (0.57-1.11) mg/dL Est GFR ( Amer) > 60 (> 60) Est GFR (Non-Af Amer) 51 L (> 60) BUN/Creatinine Ratio 14 (6-26) Glucose 853 H* (70-99) mg/dL Calculated Osmolality 309 H (280-300) Calcium 8.6 (8.6-10.8) mg/dL Total Bilirubin 0.4 (0.2-1.2) mg/dL AST 11 (5-34) Units/L ALT 16 (0-55) Units/L Alkaline Phosphatase 153 H (38-126) Units/L Serum Total Protein 7.0 (6.0-8.3) g/dL Albumin 3.1 L (3.5-5.0) g/dL Globulin 3.9 H (2.4-3.5) g/dL Albumin/Globulin Ratio 0.8 L (1.1-2.2) Lipase 21 (8-78) Units/L Beta-Hydroxybutyric Acd > 2.00 H (0.02-0.27) mmol/L - Radiology Data Radiology results reviewed: Yes I reviewed the patient's radiology results. Attestation Statement - Attestation Attestation: I examined this patient and my medical decision-making was reviewed with the ENDOSCOPY TECH/PA/Advanced Practice Nurse/Resident Physician. I agree with the documented findings, disposition and treatment plan as described except to the extent set forth below. Patient emergency department complaining of blood sugar. She was transferred from [place] because they were unable to draw blood. Patient's opening of abdominal pain and pain all over. Laying in abscess on her foot. Patient states she has been diabetic for 5 years secondary to problems with her pancreas. On exam she is awake and alert. Large abscess to the dorsum of the foot. Purulent drainage. Abdomen soft with diffuse tenderness. Blood sugar read high. Plan. Patient hypoglycemic. Not in DKA. Not acidotic. Starting insulin. X-ray the foot does not show osteomyelitis. Patient will be admitted. Antibiotics given. 30 minutes of critical care exclusive of separately billable procedures.
[2016-09-14] MEDS ORDERED: Vancomycin 1,000 MG in D5% in Water 250 ML IVPB ONE (03:29)
[2016-09-14 04:03] LABS: Basophils # 0.1 K/mcL (0.0-0.2); Basophils % 0.5 %; Eosinophils # 0.2 K/mcL (0.0-0.6); Eosinophils % 1.6 %; Hematocrit 38.7 % (35.3-44.9); Immature Granulocytes % 0.5 % (0-4); Lymphocytes % 18.8 %; Mean Corpuscular HGB Conc 33.6 g/dL (31.6-35.5); Mean Corpuscular Hemoglobin 31.9 pg (28.0-33.3); Mean Corpuscular Volume 94.9 fL (83.0-100.0); Mean Platelet Volume 11.3 fL (9.4-12.4); Monocytes # 0.8 K/mcL (0.0-1.3); Monocytes % 8.4 %; Neutrophils # 6.5 K/mcL (1.6-8.9); Platelet Count 297 K/mcL (140-400); Red Blood Count 4.08 M/mcL (3.82-4.97); Red Cell Distribution Width 12.3 % (11.5-14.5); Segmented Neutrophils % 70.2 %
[2016-09-14 04:04] LABS: Lymphocytes # 1.8 K/mcL (0.6-4.6)
[2016-09-14 04:05] LABS: VBG HCO3 28.2 mEq/L (21-27); VBG PH 7.35 pH Units (7.32-7.42)
[2016-09-14 04:18] LABS: Beta-Hydroxybutyric Acid > 2.00 mmol/L (0.02-0.27)
[2016-09-14 04:19] LABS: Alanine Aminotransferase 16 Units/L (0-55); Albumin 3.1 g/dL (3.5-5.0); Albumin/Globulin Ratio 0.8 (1.1-2.2); Alkaline Phosphatase 153 Units/L (38-126); Aspartate Amino Transferase 11 Units/L (5-34); BUN/Creatinine Ratio 14 (6-26); Bilirubin,Total 0.4 mg/dL (0.2-1.2); Blood Urea Nitrogen 17 mg/dL (7-20); Calcium 8.6 mg/dL (8.6-10.8); Carbon Dioxide 24 mEq/L (19-29); Chloride 93 mEq/L (98-109); Globulin 3.9 g/dL (2.4-3.5); Lipase 21 Units/L (8-78); Osmolality,Calculated 309 (280-300); Potassium 5.2 mEq/L (3.5-4.5); Sodium 128 mEq/L (136-145); eGFR For African Americans > 60 (> 60); eGFR For Non-African Americans 51 (> 60)
[2016-09-14] MEDS ORDERED: 0.9 % Sodium Chloride 1,000 ML IVC ONE ×2 (04:19→05:25)
[2016-09-14 04:21] LABS: Glucose 853 mg/dL (70-99)
[2016-09-14] MEDS ORDERED: *HR* Dextrose 50 % in Water (Syg) 50 ML SYRINGE IVP PRN (04:25)
[2016-09-14] MEDS ORDERED: Insulin Human Regular 100 UNIT in 0.9 % Sodium Chloride 100 ML IVC SCH ×2 (04:30→12:15)
[2016-09-14 04:38] LABS: Platelet Estimate Normal (Normal); Reactive Lymphocytes Present (Not Present)
[2016-09-14] MEDS ORDERED: Calcium Gluconate 1,000 MG in D5% in Water 100 ML IVPB ONE (04:41)
[2016-09-14] MEDS ORDERED: Sodium Bicarbonate 50 MEQ/50 ML VIAL IVP ONE (04:41)
[2016-09-14] MEDS ORDERED: *HR* HYDROmorphone (PF) 1 MG/ML SYRINGE IVP ONE (05:28)
--- NOTE | 2016-09-14 05:48 | Internal Med History&Physical ---
Date of Encounter: 09/14/16 Time of Encounter: 05:45 Assessment and Plan (1) Hyperosmolar non-ketotic state in patient with type 2 diabetes mellitus Current visit: Yes Status: Acute 3 L of normal saline bolus is given. Continue normal saline 150 ml/h. Patient is on insulin drip. Hourly check of sugars. Plan to decrease the sugar no faster than 75 g/dl/h. Patient is not acidotic, normal online gap. (2) Abscess Current visit: Yes Status: Acute Vancomycin. wound cultures. podiatry and wound care to see the patient. (3) JD (acute kidney injury) Current visit: Yes Status: Acute Hydrate. Internal Medicine - H&P: HPI Chief complaint: abdominal pain History of present illness: Ms. Alvarez is a 36 year old female with history of diabetes mellitus type 2, presents to the emergency room today with the main complaining of abdominal pain. For the past couple days patient has been having upper abdominal pain, nausea, unable to keep food down, generalized weakness and lethargy. She noticed an abscess developing on the dorsal aspect of the right foot. She had chills. Work up in the emergency room showed evidence of hyperglycemic hyperosmolar state and acute kidney injury. Denies any hematemesis melena or hematochezia. There is concern about compliance with insulin. She had required multiple incision and drainage is for abscesses before Past Med Surg Social Fam HX - Past Medical History Medical history: asthma, COPD, diabetes, other Psychiatric history: anxiety - Past Surgical History Surgical History: no surgical history, other (Tubal ligation) - Social History Smoking Status: Current every day smoker Smokeless Tobacco Status: No Alcohol use: none Drug use: opiates - Family History Mother Living Status: Hx Family Cancer: Yes Father Living Status: Hx Family Cardiac Disorders: Yes Sister Living Status: Still Living Hx Family Cancer: Yes Internal Medicine - H&P: Meds Gabapentin [Neurontin] 800 mg PO TID 07/03/16 [History] Insulin ASPART [NovoLOG] 0 unit SQ TIDAC 07/03/16 [History] Insulin Glargine,Hum.rec.anlog [Lantus Solostar] 30 unit SQ BID 08/22/16 [ History] Lipase/Protease/Amylase [Pelon Rice 6,000 Units Capsule] 2 each PO QID #60 capsule. 08/25/16 [Rx] OxyCODONE Immed Rel [Roxicodone 5 MG] 10 mg PO Q6HR PRN #14 tablet 08/25/16 [Rx] Sulfamethoxazole/Trimeth DS [Bactrim DS] 1 each PO BID #20 tablet 08/25/16 [Rx] Allergies ketorolac [From Toradol] Allergy (Verified 09/14/16 03:11) Hives tramadol [From Ultram] Allergy (Verified 09/14/16 03:11) Anaphylaxis iodine Allergy (Uncoded 09/14/16 03:11) Anaphylaxis IV Contrast Allergy (Uncoded 09/14/16 03:11) Anaphylaxis All Systems PM: A 10-system review of systems was performed and is negative for pertinent findings except as documented above in the HPI. Review of systems: 10 point review of systems is negative except for HPI - Constitutional Vitals: Temp Pulse Resp BP Pulse Ox 98.5 F 93 16 121/90 95 09/14/16 03:12 09/14/16 03:12 09/14/16 03:12 09/14/16 03:12 09/14/16 03:12 Exam: Gen.: patient is alert oriented times 3 not in distress. Cardiac: normal S1 S2 no additional sounds or murmurs chest: fair air entry. no active wheezing. No crackles or bronchial breathing. abdomen: soft nontender nondistended normal bowel sounds neuro: no focal deficit Lower extremity: right foot abscess with black eschar Internal Med - H&P Results - Labs CBC & Chem 7: 09/14/16 03:45 09/14/16 03:45
[2016-09-14] MEDS ORDERED: Vancomycin 1,000 MG in D5% in Water 250 ML IVPB SCH (06:00)
[2016-09-14] MEDS: 0.9 % Sodium Chloride 1,000 ML IVC SCH ×2 (06:54→09:37)
[2016-09-14] MEDS: Vancomycin 1,000 MG in D5% in Water 250 ML IVPB SCH ×2 (07:33→18:08)
[2016-09-14] MEDS: Famotidine 20 MG/2 ML VIAL IVP SCH ×2 (07:42→17:03)
[2016-09-14] MEDS: *HR* Heparin 5,000 UNIT/ML VIAL SQ SCH ×3 (07:42→20:32)
[2016-09-14] MEDS: Ondansetron 4 MG/2 ML VIAL IVP PRN ×2 (07:52→13:49)
[2016-09-14 08:24] LABS: Bilirubin,Urine Negative (Negative); Blood,Urine Negative (Negative); Clarity,Urine Clear (Clear); Color,Urine Yellow (Yellow); Glucose,Urine (UA) >=1000 mg/dL (Normal); Ketones,Urine Trace mg/dL (Negative); Leukocyte Esterase,Urine Negative (Negative); Nitrite,Urine Negative (Negative); Protein,Urine Negative (Neg-Trace); Specific Gravity,Urine > 1.030 (1.010-1.025); Urobilinogen,Urine Normal (Normal)
[2016-09-14 08:25] LABS: BUN/Creatinine Ratio 12 (6-26); Beta-Hydroxybutyric Acid 0.29 mmol/L (0.02-0.27); Blood Urea Nitrogen 11 mg/dL (7-20); Calcium 8.4 mg/dL (8.6-10.8); Carbon Dioxide 19 mEq/L (19-29); Chloride 101 mEq/L (98-109); Osmolality,Calculated 302 (280-300); Potassium 4.1 mEq/L (3.5-4.5); Sodium 133 mEq/L (136-145); eGFR For African Americans > 60 (> 60); eGFR For Non-African Americans > 60 (> 60)
[2016-09-14 08:26] LABS: Glucose 575 mg/dL (70-99)
[2016-09-14] MEDS: *HR* HYDROmorphone (PF) 1 MG/ML SYRINGE IVP PRN ×3 (09:36→18:07)
--- NOTE | 2016-09-14 11:46 | Event Note ---
Date of Encounter: 09/14/16 Time of Encounter: 11:46 36 year old female patient with history of prior wound infection with MRSA, diabetes mellitus type 2 on chronic insulin therapy, recurrent abscesses, poor medication compliance, chronic pancreatitis, chronic pain with opiate dependence She is admitted and being managed for Right foot cellulitis with abscess , HHS She denies IV drug use She is seen and examined, denies new complains Physical exam VSS, not in any form of distress HEENT: Dry oral mucosa Chest: Wound dressings on R breast and L upper chest wall from prior I/D from last admissions, CTAB, no added sounds Heart: S1, S2, no tachycardia Abdomen: Soft, not tender, not acute Extremities: Right foot with cellulitis on the dorsal central surface, wound with surrounding abscess and eschar at the top,tender. labs and Imaging reviewed CBC WNL, psuedohyponatremia, hyperglycemia, LFTs unremarkable, VBG with normal PH, A/P: Right foot abscess HHS-Continue insulin drip, transition to SQ insulin when FS improves Chronic opiate dependence -Reviewed Foot X-ray, no gangrene -Continue vancomycin -Follow podiatry eval
[2016-09-14] MEDS ORDERED: D5% in 0.45% NACL w KCl 20 MEQ/1,000 ML MLS IVC PRN (12:11)
[2016-09-14 12:36] LABS: Beta-Hydroxybutyric Acid 0.08 mmol/L (0.02-0.27)
[2016-09-14] MEDS ORDERED: D5% in 0.45% NACL w KCl 20 MEQ/1,000 ML MLS IVC ONE (12:36)
[2016-09-14 12:39] LABS: BUN/Creatinine Ratio 13 (6-26); Blood Urea Nitrogen 8 mg/dL (7-20); Calcium 8.3 mg/dL (8.6-10.8); Carbon Dioxide 22 mEq/L (19-29); Chloride 106 mEq/L (98-109); Glucose 187 mg/dL (70-99); Osmolality,Calculated 287 (280-300); Potassium 3.7 mEq/L (3.5-4.5); Sodium 137 mEq/L (136-145); eGFR For African Americans > 60 (> 60); eGFR For Non-African Americans > 60 (> 60)
[2016-09-14] MEDS ORDERED: Insulin DETEMIR 100 UNIT/ML X5UNITS SQ ONE (13:20)
[2016-09-14] MEDS: Insulin LISPRO 300 UNITS/3 ML VIAL SQ SCH ×3 (17:03→20:43)
[2016-09-14] MEDS: *HR* HYDROmorphone 2 MG/ML SYRINGE IVP PRN (20:44)
[2016-09-15] MEDS: *HR* HYDROmorphone 2 MG/ML SYRINGE IVP PRN ×2 (01:27→05:46)
[2016-09-15 04:56] LABS: Basophils # 0.1 K/mcL (0.0-0.2); Basophils % 0.6 %; Eosinophils # 0.2 K/mcL (0.0-0.6); Eosinophils % 1.8 %; Hemoglobin 12.9 g/dL (11.5-15.4); Immature Granulocytes % 0.8 % (0-4); Lymphocytes # 2.8 K/mcL (0.6-4.6); Lymphocytes % 30.5 %; Mean Corpuscular HGB Conc 32.3 g/dL (31.6-35.5); Mean Corpuscular Hemoglobin 31.5 pg (28.0-33.3); Mean Corpuscular Volume 97.6 fL (83.0-100.0); Mean Platelet Volume 12.2 fL (9.4-12.4); Monocytes # 0.7 K/mcL (0.0-1.3); Monocytes % 7.1 %; Neutrophils # 5.5 K/mcL (1.6-8.9); Platelet Count 182 K/mcL (140-400); Red Cell Distribution Width 12.5 % (11.5-14.5); Segmented Neutrophils % 59.2 %
[2016-09-15 05:11] LABS: BUN/Creatinine Ratio 8 (6-26); Blood Urea Nitrogen 6 mg/dL (7-20); Calcium 8.2 mg/dL (8.6-10.8); Carbon Dioxide 20 mEq/L (19-29); Chloride 101 mEq/L (98-109); Glucose 372 mg/dL (70-99); Osmolality,Calculated 283 (280-300); Potassium 4.4 mEq/L (3.5-4.5); eGFR For African Americans > 60 (> 60); eGFR For Non-African Americans > 60 (> 60)
[2016-09-15 05:15] LABS: Sodium 130 mEq/L (136-145)
[2016-09-15] MEDS: Ondansetron 4 MG/2 ML VIAL IVP PRN (05:46)
[2016-09-15] MEDS: Famotidine 20 MG/2 ML VIAL IVP SCH ×2 (05:46→18:13)
[2016-09-15] MEDS: Vancomycin 1,000 MG in D5% in Water 250 ML IVPB SCH ×2 (05:47→18:12)
[2016-09-15] MEDS: *HR* Heparin 5,000 UNIT/ML VIAL SQ SCH ×3 (05:47→20:17)
--- NOTE | 2016-09-15 08:07 | Internal Med Progress Note ---
Date of Encounter: 09/15/16 Time of Encounter: 08:30 - Assessment and plan (1) Abscess Current Visit: Yes Status: Acute Assessment and plan: Right foot Highly suspicious that patient is abusing drugs On Vancomycin, continue same Will de-escalate based on culture reports after debridement NPO ESTER, for I/D by podiatry dom (2) Cellulitis Current Visit: Yes Status: Acute Assessment and plan: As above Qualifiers: Site of cellulitis: extremity Site of cellulitis of extremity: lower extremity Laterality: right Qualified Code(s): L03.115 - Cellulitis of right lower limb (3) Hyperosmolar non-ketotic state in patient with type 2 diabetes mellitus Current Visit: Yes Status: Acute Assessment and plan: HHS resolved Continue levemir, lispro, increase levemir to BID and adjust Goal FS 140-180 ADA diet (4) Pancreatitis Current Visit: Yes Status: Chronic Assessment and plan: Chronic, stable Qualifiers: Chronicity: chronic Pancreatitis type: unspecified pancreatitis type Qualified Code(s): K86.1 - Other chronic pancreatitis (5) Chronic pain disorder Current Visit: Yes Status: Chronic (6) Drug-seeking behavior Current Visit: Yes Status: Chronic Assessment and plan: Patient reports obtaining 30mg Oxycodone and Ativan from "her doctor" [facility] report shows patient's last prescribed Ativan was 07/09 for a few days pills, and her last Opiate prescription was the one she obtained from [facility] during her last discharge She was furious as to why she could not receive Oxycodone at her "home dose" She reports obtaining medications from [facility] We will verify dueing regular working hours In the meantime, continue po pain medications - Subjective Interval history: 36 year old female patient with history of prior wound infection with MRSA, diabetes mellitus type 2 on chronic insulin therapy, recurrent abscesses, poor medication compliance, chronic pancreatitis, chronic pain with opiate dependence She is admitted and being managed for Right foot cellulitis with abscess , HHS She denies IV drug use She is seen and examined, denies new complains Podiatry consulted - Constitutional Vitals: Temp Pulse Resp BP Pulse Ox 98 F 80 14 103/74 95 09/15/16 07:25 09/15/16 07:25 09/15/16 07:25 09/15/16 07:25 09/15/16 07:25 Physical exam VSS, not in any form of distress HEENT: Dry oral mucosa Chest: Wound dressings on R breast and L upper chest wall from prior I/D from last admissions, CTAB, no added sounds Heart: S1, S2, no tachycardia Abdomen: Soft, not tender, not acute Extremities: Right foot with cellulitis on the dorsal central surface, wound with surrounding abscess and eschar at the top,tender. General appearance: Present: A&O X 3 Internal Medicine: Result - Labs CBC & Chem 7: 09/15/16 04:19 09/15/16 04:19 Labs: Short CBC 09/15/16 Range/Units 04:19 WBC 9.3 (4.3-11.1) K/mcL Hgb 12.9 (11.5-15.4) g/dL Hct 40.0 (35.3-44.9) % Plt Count 182 (140-400) K/mcL Neutrophils # 5.5 (1.6-8.9) K/mcL BMP 09/14/16 09/14/16 09/15/16 07:46 12:10 04:19 Sodium 133 L 137 130 L D Potassium 4.1 D 3.7 4.4 Chloride 101 106 101 Carbon Dioxide 19 22 20 BUN 11 8 6 L Creatinine 0.92 0.62 0.74 Glucose 575 H* 187 H 372 H Calcium 8.4 L 8.3 L 8.2 L - VTE Documentation of Mechanical Device: Intermittent pneumatic compression device Consult Discharge Plan - Plan Referrals: NO,PCP [Primary Care Provider] -
[2016-09-15] MEDS: Insulin LISPRO 300 UNITS/3 ML VIAL SQ SCH ×7 (08:12→20:16)
[2016-09-15] MEDS: Insulin DETEMIR 100 UNIT/ML X5UNITS SQ SCH ×2 (08:38→20:16)
[2016-09-15] MEDS ORDERED: Acetaminophen 325 MG TABLET PO PRN (09:04)
--- NOTE | 2016-09-15 12:32 | Podiatry Consult Note ---
Date of Encounter: 09/15/16 Time of Encounter: 11:45 Assessment and Plan (1) Cellulitis Current visit: No Status: Acute c/w IV antibiotics, monitor renal function. Qualifiers: Site of cellulitis of extremity: lower extremity Qualified Code(s): L03.115 - Cellulitis of right lower limb (2) Cutaneous abscess of right foot Current visit: Yes Status: Acute exam consistent with abscess underlying the right foot wound. discussed excisional debridement of right foot wound and incision and drainage in operating room with the patient tomorrow. the nature of the procedure discussed at length. risks (persistent infection, bleeding, swelling, numbness, tingling, nerve damage, blood clot, pneumonia, heart attack, , loss of limb/partial foot, developed ment of deformity of foot or toes, wound healing problems, need for further surgery, etc.) vs benefits, potential complications and consequences of the procedure discussed with the patient at length. it was explained she is high risk for partial foot/limb loss due to the right diabetic foot infection. no gaurantees made as to the outcome. she understood she could need more surgery on the right foot after tomorrow's procedure. encouraged smoking cessation and discussed detrimental effects of smoking on wound healing. all questions answered informed consent signed. Optimize for surgery. NPO after midnight. (3) Non-pressure chronic ulcer of unspecified heel and midfoot with fat layer exposed Current visit: Yes Status: Acute will be undergoing excisional debridement of right foot infected diabetic wound. c/w Suha antibiotics, monitor renal function. History of Present Illness HPI: Ms. Alvarez is a 36 year old diabetic female admitted with hyperglycemia, abdominal pain and nausea. The first time I was called about this patient was at 8am today for evaluation of the right foot wound and abscess. The patient says the wound has been on her foot for about a week when she first noticed it. She said it was very red a few days ago and the top was black. She says she has not had an abscess in her foot but has had multiple on her chest in the past. She denies any trauma. She says her right foot really hurts and cannot walk on it due to the pain. Denies drug abuse. Past Med Surg Social Fam HX - Past Medical History Medical history: asthma, COPD, diabetes, other Psychiatric history: anxiety - Past Surgical History Surgical History: no surgical history, other (Tubal ligation) - Social History Smoking Status: Current every day smoker Smokeless Tobacco Status: No Alcohol use: none Drug use: opiates - Family History Mother Living Status: Hx Family Cancer: Yes Father Living Status: Hx Family Cardiac Disorders: Yes Sister Living Status: Still Living Hx Family Cancer: Yes Medications and Allergies Gabapentin [Neurontin] 800 mg PO TID 07/03/16 [History] Insulin ASPART [NovoLOG] 0 unit SQ TIDAC 07/03/16 [History] Insulin Glargine,Hum.rec.anlog [Lantus Solostar] 40 unit SQ BID 08/22/16 [ History] Lipase/Protease/Amylase [Cretatyana Rice 6,000 Units Capsule] 2 each PO QID #60 capsule. 08/25/16 [Rx] OxyCODONE Immed Rel [Roxicodone 5 MG] 10 mg PO Q6HR PRN 09/14/16 [History] ALPRAZolam [Xanax 0.25 MG Tablet] 0.25 mg PO TID 09/15/16 [History] Allergies ketorolac [From Toradol] Allergy (Verified 09/14/16 14:03) Hives tramadol [From Ultram] Allergy (Verified 09/14/16 14:03) Anaphylaxis iodine Allergy (Uncoded 09/14/16 03:11) Anaphylaxis IV Contrast Allergy (Uncoded 09/14/16 03:11) Anaphylaxis All Systems Reviewed: A 10-system review of systems was performed and is negative for pertinent findings except as documented above in the HPI. - Musculoskeletal Musculoskeletal: as per HPI Physical Exam - Constitutional Vitals: Temp Pulse Resp BP Pulse Ox 98 F 80 14 103/74 95 09/15/16 07:25 09/15/16 07:25 09/15/16 07:25 09/15/16 07:25 09/15/16 07:25 Exam: well developed and nourished female in no acute distress right foot warm to touch. CFT < 3 sec x 5 digits right foot. eschar with some fibrotic tissue measuring [id number]. there is underlying fluctuance and yellow drainage present in the right dorsomedial midfoot just proximal to the 1st interspace area. pain with palpation dorsomedial midfoot in area of eschar. can flex and extend digits of the right foot. diminished sensation right foot. Results - Labs Result Diagrams: 09/15/16 04:19 09/15/16 04:19 Labs: Abnormal lab results Reactive Lymphocytes Present (Not Present) A 09/14/16 03:45 VBG HCO3 28.2 mEq/L (21-27) H 09/14/16 03:45 Sodium 130 mEq/L (136-145) L D 09/15/16 04:19 BUN 6 mg/dL (7-20) L 09/15/16 04:19 Glucose 372 mg/dL (70-99) H 09/15/16 04:19 POC Glucose 382 (58-89) H 09/14/16 20:25 Calcium 8.2 mg/dL (8.6-10.8) L 09/15/16 04:19 Alkaline Phosphatase 153 Units/L (38-126) H 09/14/16 03:45 Albumin 3.1 g/dL (3.5-5.0) L 09/14/16 03:45 Globulin 3.9 g/dL (2.4-3.5) H 09/14/16 03:45 Albumin/Globulin Ratio 0.8 (1.1-2.2) L 09/14/16 03:45 Ur Specific Graham > 1.030 (1.010-1.025) H 09/14/16 03:20 Urine Glucose (UA) >=1000 mg/dL (Normal) H 09/14/16 03:20 Urine Ketones Trace mg/dL (Negative) H 09/14/16 03:20 H & H 09/15/16 Range/Units 04:19 Hgb 12.9 (11.5-15.4) g/dL Hct 40.0 (35.3-44.9) % All other labs normal. Consult Discharge Plan - Plan Referrals: NO,PCP [Primary Care Provider] -
[2016-09-15] MEDS: *HR* OxyCODONE Immed Rel 5 MG TABLET PO PRN ×2 (12:49→20:15)
[2016-09-15] MEDS: Gabapentin 400 MG CAPSULE PO SCH ×2 (14:02→20:15)
[2016-09-15] MEDS ORDERED: *HR* HYDROmorphone (PF) 1 MG/ML SYRINGE IVP ONE (21:49)
[2016-09-16] MEDS: *HR* OxyCODONE Immed Rel 5 MG TABLET PO PRN ×3 (01:50→18:50)
[2016-09-16] MEDS: *HR* Heparin 5,000 UNIT/ML VIAL SQ SCH ×3 (06:08→21:40)
[2016-09-16] MEDS: Famotidine 20 MG/2 ML VIAL IVP SCH ×2 (06:17→18:11)
[2016-09-16 07:33] LABS: BUN/Creatinine Ratio 14 (6-26); Blood Urea Nitrogen 9 mg/dL (7-20); Calcium 8.6 mg/dL (8.6-10.8); Carbon Dioxide 20 mEq/L (19-29); Chloride 108 mEq/L (98-109); Glucose 238 mg/dL (70-99); Osmolality,Calculated 290 (280-300); Potassium 4.3 mEq/L (3.5-4.5); eGFR For African Americans > 60 (> 60); eGFR For Non-African Americans > 60 (> 60)
[2016-09-16 07:34] LABS: Sodium 137 mEq/L (136-145)
[2016-09-16] MEDS: Gabapentin 400 MG CAPSULE PO SCH ×3 (08:48→21:39)
[2016-09-16] MEDS: Vancomycin 1,000 MG in D5% in Water 250 ML IVPB SCH (08:52)
[2016-09-16] MEDS: Insulin LISPRO 300 UNITS/3 ML VIAL SQ SCH ×5 (08:53→17:58)
[2016-09-16] MEDS: Insulin DETEMIR 100 UNIT/ML X5UNITS SQ SCH ×2 (09:34→22:16)
--- NOTE | 2016-09-16 10:14 | Internal Med Progress Note ---
Date of Encounter: 09/16/16 Time of Encounter: 10:13 - Assessment and plan (1) Abscess Current Visit: Yes Status: Acute Assessment and plan: Right foot cellulitis with abscess Highly suspicious that patient is abusing drugs IV On Vancomycin, continue same, vanco trough low, pharmacy to adjust High risk patient due to use of Vancomtcin renal function is WNL Will de-escalate based on culture reports after debridement for I/D today by podiatry patient had one episode of low grade fever, no tachycardia, no leukocytosis Continue to monitor (2) Cellulitis Current Visit: Yes Status: Acute Assessment and plan: As above Qualifiers: Site of cellulitis: extremity Site of cellulitis of extremity: lower extremity Laterality: right Qualified Code(s): L03.115 - Cellulitis of right lower limb (3) Hyperosmolar non-ketotic state in patient with type 2 diabetes mellitus Current Visit: Yes Status: Acute Assessment and plan: HHS resolved FS uncontrolled Increased doses of levemir, lispro, sliding scale Goal FS 140-180 ADA diet (4) Pancreatitis Current Visit: Yes Status: Chronic Assessment and plan: Chronic, stable Qualifiers: Chronicity: chronic Pancreatitis type: unspecified pancreatitis type Qualified Code(s): K86.1 - Other chronic pancreatitis (5) Chronic pain disorder Current Visit: Yes Status: Chronic Assessment and plan: Does not follow up with PCP or pain specialist, states she obtains drugs from [place] (6) Drug-seeking behavior Current Visit: Yes Status: Chronic Assessment and plan: Patient reports obtaining 30mg Oxycodone and Ativan from "her doctor" [facility] report shows patient's last prescribed Ativan was 07/09 for a few days pills, and her last Opiate prescription was the one she obtained from [facility] during her last discharge She was furious as to why she could not receive Oxycodone at her "home dose" She reports obtaining medications from [facility] We will verify if necessary prior to discharge In the meantime, continue po pain medications - Subjective Interval history: 36 year old female patient with history of prior wound infection with MRSA, diabetes mellitus type 2 on chronic insulin therapy, recurrent abscesses, poor medication compliance, chronic pancreatitis, chronic pain with opiate dependence She is admitted and being managed for Right foot cellulitis with abscess , HHS HHS has resolved She is scheduled for I and D at the OR today She denies new complains, seen and evaluated with her girlfriend at the bedside - Constitutional Vitals: Temp Pulse Resp BP Pulse Ox 98.4 F 93 16 106/71 95 09/16/16 07:36 09/16/16 07:36 09/16/16 07:36 09/16/16 07:36 09/16/16 07:36 Physical exam VSS, not in any form of distress HEENT: Dry oral mucosa Chest: Wound dressings on R breast and L upper chest wall from prior I/D from last admissions, CTAB, no added sounds Heart: S1, S2, no tachycardia Abdomen: Soft, not tender, not acute Extremities: Right foot with cellulitis on the dorsal central surface, wound with surrounding abscess and eschar at the top,tender. Skin: Multiple tattoos General appearance: Present: A&O X 3, no acute distress - Head Head exam: Present: atraumatic, normocephalic - Eye Eye exam: Present: PERRL, conjuntiva pink, sclera anicteric Pupils: Present: PERRL Internal Medicine: Result - Labs CBC & Chem 7: 09/15/16 04:19 09/16/16 07:03 Labs: BMP 09/16/16 07:03 Sodium 137 D Potassium 4.3 Chloride 108 Carbon Dioxide 20 BUN 9 Creatinine 0.65 Glucose 238 H Calcium 8.6 - VTE Documentation of Mechanical Device: Intermittent pneumatic compression device Consult Discharge Plan - Plan Referrals: NO,PCP [Primary Care Provider] -
[2016-09-16] MEDS ORDERED: Lidocaine 1% 20 ML MDV ONE (13:21)
--- NOTE | 2016-09-16 13:52 | Anesthesia Evaluation PreOp ---
Date of Encounter: 09/16/16 Time of Encounter: 14:32 - Past History Planned Operation: I&D R-foot Cardiac History: Denies any Significant Hx Pulmonary History: Smoker, Asthma, COPD LAB TECH History: Other (Anxiety/Depression. Chronic Neuropathic Pain maintained on Neurontin) Other Medical History: Renal (JD/Acute on ChronicKDz), Diabetes Type II ( maintained on Novolog, Lantus) Anesthesia History: No Prior Anesthetic Complications, Past Anesthesia (Tubal Ligation, Dental Extractions) Alcohol Use: none Drug use: opiates Medications and Allergies Gabapentin [Neurontin] 800 mg PO TID 07/03/16 [History] Insulin ASPART [NovoLOG] 0 unit SQ TIDAC 07/03/16 [History] Insulin Glargine,Hum.rec.anlog [Lantus Solostar] 40 unit SQ BID 08/22/16 [ History] Lipase/Protease/Amylase [Pelon Rice 6,000 Units Capsule] 2 each PO QID #60 capsule. 08/25/16 [Rx] OxyCODONE Immed Rel [Roxicodone 5 MG] 10 mg PO Q6HR PRN 09/14/16 [History] ALPRAZolam [Xanax 0.25 MG Tablet] 0.25 mg PO TID 09/15/16 [History] Allergies ketorolac [From Toradol] Allergy (Verified 09/14/16 14:03) Hives tramadol [From Ultram] Allergy (Verified 09/14/16 14:03) Anaphylaxis iodine Allergy (Uncoded 09/14/16 03:11) Anaphylaxis IV Contrast Allergy (Uncoded 09/14/16 03:11) Anaphylaxis - Meds/Allergy Pre-op Review Medications Reviewed: Yes Allergies Reviewed: Yes Beta Blockers on Current Med List: No Anesthesia Results - Labs 09/15/16 04:19 09/16/16 07:03 Laboratory Tests 07/04/16 09/15/16 09/16/16 03:01 04:19 07:03 WBC 9.3 Hgb 12.9 Hct 40.0 Plt Count 182 Sodium 137 D Potassium 4.3 Chloride 108 Carbon Dioxide 20 BUN 9 Creatinine 0.65 Est GFR (Non-Af Amer) > 60 Glucose 238 H POC Glucose Est Mean Plasma Glucose 235 Hemoglobin A1c 9.8 H 09/16/16 11:25 WBC Hgb Hct Plt Count Sodium Potassium Chloride Carbon Dioxide BUN Creatinine Est GFR (Non-Af Amer) Glucose POC Glucose 301 H Est Mean Plasma Glucose Hemoglobin A1c - Imaging EKG: image reviewed (91 bpm SR, LAE) Anesthesia Exam Vital Signs Temp Pulse Resp BP Pulse Ox 09/16/16 11:58 98.7 F 103 18 106/75 98 09/16/16 07:36 98.4 F 93 16 106/71 95 09/16/16 04:37 101 F H 106 16 112/79 96 09/15/16 23:19 97.7 F 92 16 115/75 95 09/15/16 20:32 98.4 F 96 14 107/73 98 09/15/16 16:15 98.4 F 79 14 100/73 96 Intake and Output 09/15/16 09/16/16 09/16/16 23:59 07:59 15:59 Intake Total 670 / 670 0 / 0 Output Total 0 / 0 Balance 670 / 670 0 / 0 Intake: IV Fluids 250 / 250 Vancocin 1,000 MG In 250 / 250 Dextrose 5% 250 ML @ 167 mls/hr IVPB Q12H JAMES Rx#: [id number] Oral 420 / 420 0 / 0 Output: Urine 0 / 0 Other: Meal Dinner Breakfast Percent of Meal Consumed 95% 0% Weight 67.8 kg Blood Glucose* 215 301 Patient Weight 09/16/16 23:59 Weight 67.8 kg Height: 5'2" Weight: 149# BMI = 27.3 NPO (# of Hours): MNoc - HEENT Pupil (Motor): Pupils equal, EOMI Mallampati: II Teeth: Edentulous Oral Opening: Greater than 3 - LAB TECH LOC: Oriented LAB TECH Motor: Normal RUE, Normal LUE, Normal RLE, Normal LLE, Normal Face LAB TECH Sensory: Normal: RUE, LUE, RLE, LLE, Face - Cardiac Rhythm: Regular - Pulmonary Breath Sounds: bilateral Clear Respiratory Effort: Symmetrical Anesthesia Assess/Plan ASA Score: 3 (Uncontrolled DM, Smoker,) Modified [place] Scale for Level of Consciousness: Cooperative, oriented, and tranquil Anesthetic Plan: General Monitoring Plan: Standard Monitors Recovery Plan: PACU Anes Supervising Prov Stmt: Pt seen/evaluated, R&B discussed, questions answered and consnet obtained. Ruth Pierre MD
[2016-09-16] MEDS ORDERED: Vancomycin 1,000 MG VIAL ONE (14:15)
[2016-09-16] MEDS ORDERED: Acetaminophen IV 1,000 MG/100 ML INFUS..BTL ONE (15:01)
[2016-09-16] MEDS ORDERED: Metoclopramide 10 MG/2 ML VIAL ONE (15:01)
[2016-09-16] MEDS ORDERED: Famotidine 20 MG/2 ML VIAL ONE (15:02)
[2016-09-16] MEDS ORDERED: *HR* FentaNYL (PF) 100 MCG/2 ML VIAL ONE ×2 (15:07→16:24)
[2016-09-16] MEDS ORDERED: *HR* Propofol 200 MG/20 ML VIAL IVP ONE (15:07)
[2016-09-16] MEDS ORDERED: Lidocaine -MPF 2% 2 ML VIAL ONE (15:08)
[2016-09-16] MEDS ORDERED: Dexamethasone 4 MG/ML VIAL ONE (15:30)
[2016-09-16] MEDS ORDERED: Ondansetron 4 MG/2 ML VIAL ONE (15:30)
[2016-09-16] MEDS ORDERED: *HR* Promethazine 25 MG/ML VIAL IVP PRN ×2 (15:56→19:34)
[2016-09-16] MEDS ORDERED: *HR* Labetalol 20 MG/4 ML SYRINGE IVP PRN (15:56)
[2016-09-16] MEDS ORDERED: Albuterol 2.5 MG/3 ML NEBULIZER IH ONE (15:56)
--- NOTE | 2016-09-16 16:31 | Operative Note ---
Date of procedure: 09/16/16 Pre-op diagnosis: right foot abscess, right foot ulceration (2.6par0bbe1.5cm) Post-op diagnosis: same Procedure: right foot incision and drainge right foot excisional debridement of wound Implants: none Complications: none Anesthesia: GETA Local Anesthetics: 0.25% Sensorcaine HCL SubQ (cc), 1% Lidocaine HCL SubQ (cc) Surgeon: Nilay Miguel Estimated blood loss (cc): 5 Specimen: culture right foot tissue to micro, culture swab right foot wound Condition: stable Disposition: PACU Procedure in Detail: Indications: 36-year-old uncontrolled diabetic female with right dorsal foot ulceration and abscess with cellulitis present and worsening over a week admitted and podiatry consult at for incision and drainage as well as management of the wound. The nature of the procedure excisional debridement and incision and drainage of the abscess were discussed with the patient at length. Risks versus benefits potential complications and consequences of the procedure were discussed with the patient. Patient understood that she is high risk for limb loss and could need further surgery. Informed consent was signed after all questions answered. The patient was taken from the preoperative holding area to the operating room placed on the operating room table in the supine position 1% lidocaine plain was injected into the patients right foot. A right pneumatic ankle tourniquet was applied but not inflated during the entire procedure. The right foot was scrubbed prepped and draped in the usual sterile fashion and the following procedure began. Right foot and excisional debridement of wound and incision and drainage. Attention was directed to the dorsal aspect of the patients right foot where a #15 blade was used to incise fluctuance proximal and distal to the ulceration site. The ulceration which had fibrotic tissue and an eschar and size listed above was excisionally debrided through subcutaneous tissue using a combination of a #15 blade and a misonix debrider. The ulceration tissue was sent to microbiology. Purulent drainage beneath the wound was expressed and cultures were sent to microbiology. The area was probed and explored and did not continue down to the bone. 3 L of normal sterile saline and vancomycin were used to flush the site thoroughly. Upon reinspection no further purulence could be expressed in the wound base was 100% granular. Adequate hemostasis was present. Postoperative bandaging included bacitracin on the wound bed 4 x 4 gauze Kerlix and a loosely applied Tristen wrap. The patient tolerated the anesthesia and the procedure well and escorted to the recovery room with vital signs stable and vascular status intact to the right foot noted by instant capillary refill time to all digits of the right foot. Patient to ambulate in surgical shoe only. Elevation. The patient will return to floor where she will continue IV antibiotics.
[2016-09-16] MEDS: *HR* HYDROmorphone (PF) 1 MG/ML SYRINGE IVP PRN ×2 (16:51→16:59)
[2016-09-16] MEDS ORDERED: Insulin LISPRO 300 UNITS/3 ML VIAL SQ SCH ×2 (17:00→21:00)
--- NOTE | 2016-09-16 18:55 | Anesthesia Evaluation Post Op ---
Date of Encounter: 09/16/16 Time of Encounter: 17:25 - Vital Signs Vital Signs: Vital Signs/O2 Sat/Glucose, Most Current Temp Pulse Resp BP Pulse Ox 09/16/16 17:27 97.4 F L 82 16 102/69 93 09/16/16 17:17 81 16 104/72 96 09/16/16 17:07 81 16 107/76 95 09/16/16 16:57 97.3 F L 82 16 104/70 96 09/16/16 16:47 82 16 99/77 94 09/16/16 16:37 83 16 102/85 94 09/16/16 16:27 97.7 F 83 16 110/66 98 - Lungs Lungs: Clear Ascult./Percussion - Airway Airway: Non-obstructed - Cardiovascular Regular Rate - Mental Status Mental Status: Alert & Oriented, Answers Appropriately - Pain Pain Scale: 5 Pain Scale used: Numeric (1 - 10) - Nausea Vomiting Nausea Vomiting: Not Present - Hydration Hydration: Ice chips - Discharge PostOp Status: Transfer Patient to floor Anes Supervising Prov Stmt: Pt seen/evaluated, VSS and pt has met criteria for discharge to floor - MD Gabby
[2016-09-16] MEDS ORDERED: Acetaminophen 325 MG TABLET PO PRN (19:34)
[2016-09-16] MEDS ORDERED: Ondansetron 4 MG/2 ML VIAL IVP PRN (19:34)
[2016-09-16] MEDS ORDERED: *HR* Dextrose 50 % in Water (Syg) 50 ML SYRINGE IVP PRN (19:34)
[2016-09-16] MEDS ORDERED: Insulin DETEMIR 100 UNIT/ML X5UNITS SQ SCH (21:00)
[2016-09-16] MEDS ORDERED: *HR* HYDROmorphone (PF) 1 MG/ML SYRINGE IVP ONE (22:10)
[2016-09-17] MEDS: *HR* OxyCODONE Immed Rel 5 MG TABLET PO PRN ×2 (01:04→07:31)
[2016-09-17] MEDS ORDERED: Famotidine 20 MG/2 ML VIAL IVP SCH (06:00)
[2016-09-17] MEDS: *HR* Heparin 5,000 UNIT/ML VIAL SQ SCH ×2 (06:20→13:42)
[2016-09-17] MEDS ORDERED: Vancomycin 1,000 MG in D5% in Water 250 ML IVPB SCH ×2 (07:00→16:00)
[2016-09-17] MEDS: Gabapentin 400 MG CAPSULE PO SCH ×2 (08:24→13:38)
[2016-09-17] MEDS: Insulin LISPRO 300 UNITS/3 ML VIAL SQ SCH ×4 (08:24→11:30)
[2016-09-17] MEDS: Insulin DETEMIR 100 UNIT/ML X5UNITS SQ SCH (08:39)
[2016-09-17] MEDS ORDERED: ALPRAZolam 0.25 MG TABLET PO PRN (11:05)
[2016-09-17] MEDS ORDERED: *HR* OxyCODONE Immed Rel 5 MG TABLET PO PRN (11:06)
--- NOTE | 2016-09-17 11:10 | Internal Med Progress Note ---
Date of Encounter: 09/17/16 Time of Encounter: 11:07 - Assessment and plan (1) Abscess Current Visit: Yes Status: Acute Assessment and plan: sepsis secondary to right foot abscess/cellulits s/p I and D by podiatry Continue vancomycin day 4 due to history of MRSA culture pending IVF (2) Cellulitis Current Visit: Yes Status: Acute Assessment and plan: As above Qualifiers: Site of cellulitis: extremity Site of cellulitis of extremity: lower extremity Laterality: right Qualified Code(s): L03.115 - Cellulitis of right lower limb (3) Sepsis Current Visit: No Status: Suspected Qualifiers: Sepsis type: methicillin susceptible Staphylococcus aureus Qualified Code(s ): A41.01 - Sepsis due to Methicillin susceptible Staphylococcus aureus (4) Hyperosmolar non-ketotic state in patient with type 2 diabetes mellitus Current Visit: Yes Status: Acute Assessment and plan: HHS resolved FS uncontrolled Increased doses of levemir, lispro, sliding scale, may increase dose further Goal FS 140-180 ADA diet (5) Drug-seeking behavior Current Visit: Yes Status: Chronic Assessment and plan: Patient reports obtaining 30mg Oxycodone and Ativan from "her doctor" [facility] report shows patient's last prescribed Ativan was 07/09 for a few days pills, and her last Opiate prescription was the one she obtained from [facility] during her last discharge She was furious as to why she could not receive Oxycodone at her "home dose" She reports obtaining medications from [facility] We will verify if necessary prior to discharge (6) Pancreatitis Current Visit: Yes Status: Chronic Assessment and plan: Chronic, stable Qualifiers: Chronicity: chronic Pancreatitis type: unspecified pancreatitis type Qualified Code(s): K86.1 - Other chronic pancreatitis (7) Hyperglycemia due to type 2 diabetes mellitus Current Visit: No Status: Chronic Qualifiers: Diabetes mellitus intermediate insulin use: unspecified intermediate insulin use status Qualified Code(s): E11.65 - Type 2 diabetes mellitus with hyperglycemia - Subjective Interval history: complains of pain over the right foot and epigastric area, no vomiting, had a fever of 101 on 09/16, no CP or SOB - Constitutional Vitals: Temp Pulse Resp BP Pulse Ox 98.0 F 75 14 104/74 99 09/17/16 07:40 09/17/16 07:40 09/17/16 07:40 09/17/16 07:40 09/17/16 07:40 General appearance: Present: A&O X 3, no acute distress - Head Head exam: Present: atraumatic, normocephalic - Eye Eye exam: Present: PERRL, conjuntiva pink, sclera anicteric Pupils: Present: PERRL - Neck Neck exam general surgery: Present: supple, trachea midline. Absent: lymphadenopathy - Respiratory Respiratory exam: Present: decreased breath sounds, CTAB. Absent: accessory muscle use, rales, rhonchi, wheezes - Cardiovascular Cardiovascular exam: Present: RRR, +S1, +S2. Absent: diastolic murmur, gallop, rubs, systolic murmur - GI/Abdominal GI/Abdominal exam: Present: normal bowel sounds, soft, tenderness (epigatric), no peritoneal signs. Absent: distended - Extremities Exam Extremities exam: Present: warm, radial pulses palpable and symetrical. Absent : calf tenderness, cyanotic, pedal edema - Neurological Exam Neurological exam: Present: CN II-XII intact, oriented X3, no focal deficits. Absent: pronater drift, facial droop, speech deficit - Skin Skin exam: Present: dry. Absent: intact (right foot dorasl ulcer coverred by dressing) Internal Medicine: Result - Labs CBC & Chem 7: 09/15/16 04:19 09/16/16 07:03 - VTE Documentation of Mechanical Device: Intermittent pneumatic compression device Consult Discharge Plan - Plan Referrals: NO,PCP [Primary Care Provider] -
[2016-09-17] MEDS ORDERED: Nicotine 21 MG PATCH.TD24 TD SCH (11:15)
[2016-09-17 11:21] VITALS: BP 106/70
--- NOTE | 2016-09-17 14:02 | Podiatry Progress Note ---
Date of Encounter: 09/18/16 Time of Encounter: 12:00 - Assessment and Plan (1) Cutaneous abscess of right foot Status: Acute S/p I&D right foot by Dr. Miguel on 09/16/16. Intraop cultures pending. Wound care to include daily dressing changes: cleanse wound daily with saline, pat dry, apply silver alginate with 4x4 dry sterile gauze and kerlix. Patient will need a post op shoe to the right foot. Will notify bracing department. Patient will need to f/u with Dr. Miguel with in a week of discharge from the hospital. (2) Diabetes mellitus, type II, insulin dependent Status: Acute Subjective Interval history: Patient is status post I and D of right foot by Dr. Miguel on 09/16/2016. Patient is sitting up when bed with a friend at bedside. Dressing is intact to right foot. Patient rates pain currently at an 8 out of 10. No complaints of fever, chills, calf pain, or flu like symptoms. Objective - Vital Signs Vital Signs: Vital Signs Temp Pulse Resp BP Pulse Ox 09/17/16 11:19 97.9 F 84 15 106/70 98 09/17/16 07:40 98.0 F 75 14 104/74 99 09/17/16 05:16 97.8 F 77 16 144/77 97 09/17/16 00:52 98.4 F 83 16 107/72 95 09/16/16 20:45 97.6 F 86 16 112/74 96 09/16/16 19:45 97.5 F L 83 16 98/65 97 09/16/16 18:45 97.9 F 97 16 99/64 96 09/16/16 18:15 97.5 F L 92 17 98/64 97 09/16/16 17:45 97.4 F L 83 16 90/58 98 09/16/16 17:27 97.4 F L 82 16 102/69 93 09/16/16 17:17 81 16 104/72 96 09/16/16 17:07 81 16 107/76 95 09/16/16 16:57 97.3 F L 82 16 104/70 96 09/16/16 16:47 82 16 99/77 94 09/16/16 16:37 83 16 102/85 94 09/16/16 16:27 97.7 F 83 16 110/66 98 Intake and Output 09/16/16 09/17/16 09/17/16 23:59 07:59 15:59 Intake Total 840 / 840 Output Total Balance - 840 / 840 Intake: Oral 840 / 840 Output: Estimated Blood Loss Other: Meal Lunch Percent of Meal Consumed 100% Weight 64.2 kg Blood Glucose* 132 509 181 Patient Weight 09/17/16 23:59 Weight 64.2 kg - Exam Exam: General appearance: alert awake oriented X 3. Calm and pleasant, no acute distress.. Vascular: Pedal pulses +2/4 DP/PT , No evidence of cyanosis, pallor or rubor, Edema graded at 1+/4, Skin Tempature warm, No calf pain with manual compression. capillary refill time is immediate to digits. Neurologic: Sensation intact with light touch to foot. . Postop Exam: S/P open surgical wound to the dorsum of the right foot measuring 2 cm in length by 2 cm in width x 0.5 cm in depth. Base of wound is red. no odor, no pus, no periwound erythema, no streaking. Minimal edema. - Lab Result Diagrams: 09/15/16 04:19 09/16/16 07:03 Labs: Abnormal lab results Reactive Lymphocytes Present (Not Present) A 09/14/16 03:45 VBG HCO3 28.2 mEq/L (21-27) H 09/14/16 03:45 Glucose 238 mg/dL (70-99) H 09/16/16 07:03 POC Glucose 366 (58-89) H 09/16/16 21:46 Alkaline Phosphatase 153 Units/L (38-126) H 09/14/16 03:45 Albumin 3.1 g/dL (3.5-5.0) L 09/14/16 03:45 Globulin 3.9 g/dL (2.4-3.5) H 09/14/16 03:45 Albumin/Globulin Ratio 0.8 (1.1-2.2) L 09/14/16 03:45 Ur Specific [place] > 1.030 (1.010-1.025) H 09/14/16 03:20 Urine Glucose (UA) >=1000 mg/dL (Normal) H 09/14/16 03:20 Urine Ketones Trace mg/dL (Negative) H 09/14/16 03:20 Vancomycin Trough 2.7 mcg/mL (10-20) L 09/16/16 07:03 Microbiology, Last 48 Hours 09/16/16 16:25 Surgical Biopsy Culture - Preliminary Right Foot 09/14/16 12:40 Blood Culture - Preliminary Peripheral Venipuncture No growth. - VTE Documentation of Mechanical Device: Intermittent pneumatic compression device Consult Discharge Plan - Plan Referrals: NO,PCP [Primary Care Provider] -
[2016-09-17] MEDS ORDERED: Aminoglycoside Consult 1 EACH MC ONE (14:54)
--- NOTE | 2016-09-17 17:35 | Discharge Summary ---
Date of Encounter: 09/17/16 Time of Encounter: 17:28 - Discharge Diagnosis (1) Abscess Priority: Primary Status: Acute Comments: sepsis secondary to right foot abscess/cellulits s/p I and D by podiatry on vancomycin day 4 due to history of MRSA culture pending (2) Cellulitis Priority: Primary Status: Acute Qualifiers: Site of cellulitis: extremity Site of cellulitis of extremity: lower extremity Laterality: right Qualified Code(s): L03.115 - Cellulitis of right lower limb (3) Sepsis Priority: Primary Status: Suspected Qualifiers: Sepsis type: methicillin susceptible Staphylococcus aureus Qualified Code(s ): A41.01 - Sepsis due to Methicillin susceptible Staphylococcus aureus (4) Hyperosmolar non-ketotic state in patient with type 2 diabetes mellitus Priority: Secondary Status: Acute (5) Drug-seeking behavior Priority: Secondary Status: Chronic (6) Pancreatitis Priority: Secondary Status: Chronic Qualifiers: Chronicity: chronic Pancreatitis type: unspecified pancreatitis type Qualified Code(s): K86.1 - Other chronic pancreatitis (7) Hyperglycemia due to type 2 diabetes mellitus Priority: Secondary Status: Chronic Qualifiers: Diabetes mellitus registered pharmacy technician insulin use: unspecified registered pharmacy technician insulin use status Qualified Code(s): E11.65 - Type 2 diabetes mellitus with hyperglycemia - Discharge Medications Home Medications: Gabapentin [Neurontin] 800 mg PO TID 07/03/16 [History] Insulin ASPART [NovoLOG] 0 unit SQ TIDAC 07/03/16 [History] Insulin Glargine,Hum.rec.anlog [Lantus Solostar] 40 unit SQ BID 08/22/16 [ History] Lipase/Protease/Amylase [Pelon Rice 6,000 Units Capsule] 2 each PO QID #60 capsule. 08/25/16 [Rx] OxyCODONE Immed Rel [Roxicodone 5 MG] 10 mg PO Q6HR PRN 09/14/16 [History] ALPRAZolam [Xanax 0.25 MG Tablet] 0.25 mg PO TID 09/15/16 [History] Allergies/Adverse Reactions: Allergies ketorolac [From Toradol] Allergy (Verified 09/14/16 14:03) Hives tramadol [From Ultram] Allergy (Verified 09/14/16 14:03) Anaphylaxis iodine Allergy (Uncoded 09/14/16 03:11) Anaphylaxis IV Contrast Allergy (Uncoded 09/14/16 03:11) Anaphylaxis Date of admission: 09/14/16 05:22 Primary care physician: PCP NO Consults: 09/14/16 08:04 Consult to Invasive Line Access Team [CONS] Routine Reason for Consult: LIMITED ACCESS Line Type: EPIV - Patient Status Disposition: Left Against Medical Advice Condition: Undetermined - Discharge Instructions Follow Up With: NO,PCP [Primary Care Provider] - Hospital course: Ms. Alvarez is a 36 year old female with history of diabetes mellitus type 2, presented to the emergency room with the main complaint of abdominal pain. For the past couple days the patient was having upper abdominal pain, nausea, unable to keep food down, generalized weakness and lethargy. She noticed an abscess developing on the dorsal aspect of the right foot. She had chills. Work up in the emergency room showed evidence of hyperglycemic hyperosmolar state and acute kidney injury. Glucose was in the 500s, levemir and sliding scale were continued. Mentioned that she took 30 mg of oxycodone q6h obtained from [place] . [facility] report showed that the patient was last prescribed Ativan on 07/09 for a few days , and her last Opiate prescription was the one she obtained from [facility] during her last discharge. Was continued on vancomycin. According to the nursing staff the patient was found to have an insulin needle probably brought from outside, attempted to leave the floor, was stopped by the nursing staff. Suspicious for IV drug abuse. The patient got mad and decided to leave AMA. She was instructed on the risks of not having a proper antibiotic therapy ( to complete it). Left the floor before I could talke to her again. Culture from draining of abscess is pending. Time spent discussing smoking cessation with patient: 3 to 10 minutes - Time Spent with Patient Total time spent providing and/or coordinating discharge services: Greater than 30 minutes (40 min) - Constitutional Vitals: Temp Pulse Resp BP Pulse Ox 97.9 F 84 15 106/70 98 09/17/16 11:19 09/17/16 11:19 09/17/16 11:19 09/17/16 11:19 09/17/16 11:19 General appearance: Present: A&O X 3, no acute distress Exam: General appearance: Present: A&O X 3, no acute distress - Head Head exam: Present: atraumatic, normocephalic - Eye Eye exam: Present: PERRL, conjuntiva pink, sclera anicteric Pupils: Present: PERRL - Neck Neck exam general surgery: Present: supple, trachea midline. Absent: lymphadenopathy - Respiratory Respiratory exam: Present: decreased breath sounds, CTAB. Absent: accessory muscle use, rales, rhonchi, wheezes - Cardiovascular Cardiovascular exam: Present: RRR, +S1, +S2. Absent: diastolic murmur, gallop, rubs, systolic murmur - GI/Abdominal GI/Abdominal exam: Present: normal bowel sounds, soft, tenderness (epigatric), no peritoneal signs. Absent: distended - Extremities Exam Extremities exam: Present: warm, radial pulses palpable and symetrical. Absent : calf tenderness, cyanotic, pedal edema - Neurological Exam Neurological exam: Present: CN II-XII intact, oriented X3, no focal deficits. Absent: pronater drift, facial droop, speech deficit - Skin Skin exam: Present: dry. Absent: intact (right foot dorasl ulcer coverred by dressing) - VTE Documentation of Mechanical Device: Intermittent pneumatic compression device
== END 2016-09-17 14:55 | disposition left against medical advice (07) | DRG 854 ==
LOC: 2NNU 03:09 → EMEROO 03:09 → 2NNU 06:25 → 3ANU 09-16 11:45
PROVIDERS: ADMIT Hospitalist; ATTEND Internal Medicine

== ENCOUNTER 2016-12-05 11:30 | Inpatient (IN) ==
[2016-12-05] MEDS ORDERED: 0.9 % Sodium Chloride 1,000 ML IVC ONE (11:49)
[2016-12-05 12:17] LABS: Hematocrit 46.6 % (35.3-44.9); Hemoglobin 14.6 g/dL (11.5-15.4); Mean Corpuscular HGB Conc 31.3 g/dL (31.6-35.5); Mean Corpuscular Hemoglobin 30.1 pg (28.0-33.3); Mean Corpuscular Volume 96.1 fL (83.0-100.0); Mean Platelet Volume 12.3 fL (9.4-12.4); Platelet Count 319 K/mcL (140-400); Red Blood Count 4.85 M/mcL (3.82-4.97); Red Cell Distribution Width 13.2 % (11.5-14.5)
[2016-12-05 12:28] LABS: BUN/Creatinine Ratio 5 (6-26); Blood Urea Nitrogen 7 mg/dL (7-20); Carbon Dioxide 19 mEq/L (19-29); Chloride 89 mEq/L (98-109); Osmolality,Calculated 320 (280-300); Sodium 130 mEq/L (136-145); eGFR For African Americans 49 (> 60); eGFR For Non-African Americans 40 (> 60)
--- NOTE | 2016-12-05 12:30 | Emergency Department Note ---
Disposition Clinical Impression: Abscess DKA (diabetic ketoacidoses) Qualifiers: Diabetes mellitus type: other specified (including ADRIAN) Diabetes mellitus complication detail: without coma Qualified Code(s): E13.10 - Other specified diabetes mellitus with ketoacidosis without coma Sepsis Qualifiers: Sepsis type: sepsis due to unspecified organism Qualified Code(s): A41.9 - Sepsis, unspecified organism Renal failure Qualifiers: Renal failure chronicity: acute Acute renal failure type: unspecified Qualified Code(s): N17.9 - Acute kidney failure, unspecified Disposition: Admitted As Inpatient Condition: Critical Time of Disposition: 14:09 General Adult HPI - General Chief complaint: ED General Medical Stated complaint: Hyperglycemia Time Seen by Provider: 12/05/16 11:46 Source: patient Limitations: no limitations Nursing Notes Reviewed: Yes Vital Signs Reviewed: Yes - History of Present Illness HPI Narrative: Presents with elevated blood sugar the last 3 days and has had polyuria and polydipsia but no polyphagia or weight loss and she also does have multiple skin abscesses over her left foot, left leg, both forearms and also between the breasts. She has had this in the past. She has injected insulin into her abdomen area as well as on the legs but denies any skin popping or use of opiate medication. She denies any fever, does have some chronic blurred vision or does have a minimal cough. No rhinorrhea or sneezing and she does have some blood in the stool but no blood in the urine. Does have pain in the extremities but no numbness no bruising but does have skin rash. Social history : Smoker, is living with her ex- for the last several days. Came back to this area from [place] several months ago. No history of intravenous drug use Pain Scale: 8 - Related Data Home Medications Medication Instructions Recorded Confirmed Gabapentin [Neurontin] 800 mg PO TID 07/03/16 12/05/16 Insulin ASPART [NovoLOG] 18 unit SQ TIDAC PRN 07/03/16 12/05/16 Insulin Glargine,Hum.rec.anlog 40 unit SQ BID 08/22/16 12/05/16 [Lantus Solostar] OxyCODONE Immed Rel [Roxicodone 5 10 mg PO Q6HR PRN 09/14/16 12/05/16 MG] ALPRAZolam [Xanax 0.25 MG Tablet] 0.25 mg PO TID 09/15/16 12/05/16 Lipase/Protease/Amylase [Pelon Rice 2 cap PO QID 12/05/16 12/05/16 6,000 Units Capsule] Allergies Allergy/AdvReac Type Severity Reaction Status Date / Time ketorolac [From Toradol] Allergy Hives Verified 10/22/16 20:41 tramadol [From Ultram] Allergy Anaphylaxis Verified 10/22/16 20:41 iodine Allergy Anaphylaxis Uncoded 10/22/16 20:41 IV Contrast Allergy Anaphylaxis Uncoded 10/22/16 20:41 Review of Systems: Constitutional: No fever Vision: No new blurred vision ENT: No rhinorrhea Respiratory: No cough Allergic: No allergies : No blood in urine GI: + blood in stool Hematologic: No bruising Dermatologic: + skin rash Musculoskeletal: + pain in the extremities Neuro: No numbness of the extremities Past Medical History - Past Medical History Medical history: Reports: asthma, COPD, diabetes, GERD, other Surgical history: Reports: no surgical history, other (Tubal ligation) Psychiatric history: Reports: anxiety 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 EYES: PERRL, no scleral icterus. NOSE: The nose is normal in appearance without rhinorrhea RESP: Normal chest excursion with respiration; breath sounds clear and equal bilaterally; no wheezes, rhonchi, or rales CARD: Regular rhythm, without murmurs, rub or gallop ABD: Non-distended; non-tender, soft,without rigidity, rebound or guarding SKIN: there are multiple erythematous fluctuant nodules measuring 3-4 cm in diameter with the largest being over the forearms, between the breast, left lower extremity and then one which seems to have ruptured on the dorsal left foot which does appear older with concern for osteomyelitis. No crepitus is palpated. No necrosis. No ecchymosis. - General Limitations: no limitations General appearance: alert Course Vital Signs Temperature 97.5 F L 09/07/17 11:37 Pulse Rate 119 12/05/16 11:37 Respiratory Rate 14 12/05/16 11:37 Blood Pressure 144/93 12/05/16 11:37 O2 Sat by Pulse Oximetry 97 12/05/16 11:37 Temperature 97.5 F L 12/05/16 11:37 Pulse Rate 76 12/05/16 15:00 Respiratory Rate 18 12/05/16 15:00 Blood Pressure 134/58 12/05/16 15:00 O2 Sat by Pulse Oximetry 96 12/05/16 15:00 Oxygen Delivery Oxygen Delivery Room Air Medical Decision Making - MDM Narrative Medical decision making narrative: I did review the initial lab some leukocytosis, additional labs are pending. The patient's ex- is here and tells us he is concerned the patient is given popping however the patient did deny that to me. Urine toxicology screen is pending. The patient will need to have the abscess is drained, she will be started on intravenous Zosyn and vancomycin and I also did just get a call from the lab showing the glucose is over 1000 and the patient according to the ex- does have some minimal confusion today. She will be admitted to intensive care unit for intravenous insulin, IV fluids, treatment for probable sepsis and surgery will be consult as the patient is refusing to have the abscesses drained in the emergency department 1231 I spoke the user experience architect who accepts for admission to the ICU 1402 I we will call surgery for draining abscesses as the patient is refusing to have them done emergency department. Her lactate is significantly elevated over 9, blood sugar over 1000, she is on insulin drip, IV Zosyn and vancomycin, she is in very critical condition. I did again ask her about skin popping she does deny second time she does take chronic opiates for chronic pain. 1406 I did review the EKG showing normal sinus rhythm with rate of 95 and some baseline artifact but without acute ischemic change. There is some minimal T- wave flattening. 1520 - Medical Records Medical records reviewed: Yes I reviewed the patient's medical records. - Lab Data Lab results reviewed: Yes I reviewed the patient's lab results. Result diagrams: 12/05/16 12:06 12/05/16 12:06 Lab Results 12/05/16 12/05/16 12/05/16 Range/Units 11:39 11:40 11:40 WBC (4.3-11.1) K/mcL RBC (3.82-4.97) M/mcL Hgb (11.5-15.4) g/dL Hct (35.3-44.9) % MCV (83.0-100.0) fL MCH (28.0-33.3) pg MCHC (31.6-35.5) g/dL RDW (11.5-14.5) % Plt Count (140-400) K/mcL MPV (9.4-12.4) fL PT (9.4-12.1) Seconds INR APTT (26.0-36.0) Seconds VBG pH (7.32-7.42) pH Units VBG pCO2 (41-51) mmHg VBG pO2 (25-40) mmHg VBG HCO3 (21-27) mEq/L Sodium (136-145) mEq/L Potassium (3.5-4.5) mEq/L Chloride (98-109) mEq/L Carbon Dioxide (19-29) mEq/L BUN (7-20) mg/dL Creatinine (0.57-1.11) mg/dL Est GFR ( Amer) (> 60) Est GFR (Non-Af Amer) (> 60) BUN/Creatinine Ratio (6-26) Glucose (70-99) mg/dL POC Glucose > 600 H* (58-89) Calculated Osmolality (280-300) Lactic Acid (0.5-2.2) mmol/L Calcium (8.6-10.8) mg/dL Beta-Hydroxybutyric Acd (0.02-0.27) mmol/L Serum , Qual (Negative) Urine Color Yellow (Yellow) Urine Clarity Clear (Clear) Urine pH 6.0 (5.0-8.0) pH Units Ur Specific [place] > 1.030 H (1.010-1.025) Urine Protein Negative (Neg-Trace) mg/dL Urine Glucose (UA) >=1000 H (Normal) mg/dL Urine Ketones Negative (Negative) mg/dL Urine Blood Negative (Negative) Urine Nitrite Negative (Negative) Urine Bilirubin Negative (Negative) Urine Urobilinogen Normal (Normal) mg/dL Ur Leukocyte Esterase Negative (Negative) Ur Culture Indicated? NO (NO) Urine Test (Negative) Urine Opiates Screen Positive H (Sepoya=189) ng/mL Ur Barbiturates Screen Negative (Ssllgg=395) ng/mL Ur Phencyclidine Scrn Negative (Cutoff=25) ng/mL Ur Amphetamines Screen Negative (Mumkea=1265) ng/mL U Benzodiazepines Scrn Negative (Bmopuh=043) ng/mL Urine Cocaine Screen Negative (Cutoff= 300) ng/mL U Marijuana (THC) Screen Negative (Cutoff = 50) ng/mL Ethyl Alcohol (0-10) mg/dL 12/05/16 12/05/16 12/05/16 Range/Units 11:40 11:41 12:06 WBC 16.6 H (4.3-11.1) K/mcL RBC 4.85 (3.82-4.97) M/mcL Hgb 14.6 (11.5-15.4) g/dL Hct 46.6 H (35.3-44.9) % MCV 96.1 (83.0-100.0) fL MCH 30.1 (28.0-33.3) pg MCHC 31.3 L (31.6-35.5) g/dL RDW 13.2 (11.5-14.5) % Plt Count 319 (140-400) K/mcL MPV 12.3 (9.4-12.4) fL PT (9.4-12.1) Seconds INR APTT (26.0-36.0) Seconds VBG pH (7.32-7.42) pH Units VBG pCO2 (41-51) mmHg VBG pO2 (25-40) mmHg VBG HCO3 (21-27) mEq/L Sodium (136-145) mEq/L Potassium (3.5-4.5) mEq/L Chloride (98-109) mEq/L Carbon Dioxide (19-29) mEq/L BUN (7-20) mg/dL Creatinine (0.57-1.11) mg/dL Est GFR ( Amer) (> 60) Est GFR (Non-Af Amer) (> 60) BUN/Creatinine Ratio (6-26) Glucose (70-99) mg/dL POC Glucose > 600 H* (58-89) Calculated Osmolality (280-300) Lactic Acid (0.5-2.2) mmol/L Calcium (8.6-10.8) mg/dL Beta-Hydroxybutyric Acd (0.02-0.27) mmol/L Serum , Qual (Negative) Urine Color (Yellow) Urine Clarity (Clear) Urine pH (5.0-8.0) pH Units Ur Specific [place] (1.010-1.025) Urine Protein (Neg-Trace) mg/dL Urine Glucose (UA) (Normal) mg/dL Urine Ketones (Negative) mg/dL Urine Blood (Negative) Urine Nitrite (Negative) Urine Bilirubin (Negative) Urine Urobilinogen (Normal) mg/dL Ur Leukocyte Esterase (Negative) Ur Culture Indicated? (NO) Urine Test Negative (Negative) Urine Opiates Screen (Ddbqnx=574) ng/mL Ur Barbiturates Screen (Ydtlnc=335) ng/mL Ur Phencyclidine Scrn (Cutoff=25) ng/mL Ur Amphetamines Screen (Uoxmak=9847) ng/mL U Benzodiazepines Scrn (Nmscpt=028) ng/mL Urine Cocaine Screen (Cutoff= 300) ng/mL U Marijuana (THC) Screen (Cutoff = 50) ng/mL Ethyl Alcohol (0-10) mg/dL 12/05/16 12/05/16 12/05/16 Range/Units 12:06 12:06 12:06 WBC (4.3-11.1) K/mcL RBC (3.82-4.97) M/mcL Hgb (11.5-15.4) g/dL Hct (35.3-44.9) % MCV (83.0-100.0) fL MCH (28.0-33.3) pg MCHC (31.6-35.5) g/dL RDW (11.5-14.5) % Plt Count (140-400) K/mcL MPV (9.4-12.4) fL PT 12.0 (9.4-12.1) Seconds INR 1.1 APTT 30.7 (26.0-36.0) Seconds VBG pH (7.32-7.42) pH Units VBG pCO2 (41-51) mmHg VBG pO2 (25-40) mmHg VBG HCO3 (21-27) mEq/L Sodium 130 L (136-145) mEq/L Potassium 5.0 H (3.5-4.5) mEq/L Chloride 89 L (98-109) mEq/L Carbon Dioxide 19 (19-29) mEq/L BUN 7 (7-20) mg/dL Creatinine 1.46 H (0.57-1.11) mg/dL Est GFR ( Amer) 49 L (> 60) Est GFR (Non-Af Amer) 40 L (> 60) BUN/Creatinine Ratio 5 L (6-26) Glucose 1036 H* (70-99) mg/dL POC Glucose (58-89) Calculated Osmolality 320 H (280-300) Lactic Acid (0.5-2.2) mmol/L Calcium 10.0 (8.6-10.8) mg/dL Beta-Hydroxybutyric Acd 0.23 (0.02-0.27) mmol/L Serum , Qual (Negative) Urine Color (Yellow) Urine Clarity (Clear) Urine pH (5.0-8.0) pH Units Ur Specific [place] (1.010-1.025) Urine Protein (Neg-Trace) mg/dL Urine Glucose (UA) (Normal) mg/dL Urine Ketones (Negative) mg/dL Urine Blood (Negative) Urine Nitrite (Negative) Urine Bilirubin (Negative) Urine Urobilinogen (Normal) mg/dL Ur Leukocyte Esterase (Negative) Ur Culture Indicated? (NO) Urine Test (Negative) Urine Opiates Screen (Bxfidf=906) ng/mL Ur Barbiturates Screen (Gjatgc=771) ng/mL Ur Phencyclidine Scrn (Cutoff=25) ng/mL Ur Amphetamines Screen (Rjsfdh=6781) ng/mL U Benzodiazepines Scrn (Iescti=567) ng/mL Urine Cocaine Screen (Cutoff= 300) ng/mL U Marijuana (THC) Screen (Cutoff = 50) ng/mL Ethyl Alcohol < 10 (0-10) mg/dL 12/05/16 12/05/16 12/05/16 Range/Units 12:06 13:11 13:11 WBC (4.3-11.1) K/mcL RBC (3.82-4.97) M/mcL Hgb (11.5-15.4) g/dL Hct (35.3-44.9) % MCV (83.0-100.0) fL MCH (28.0-33.3) pg MCHC (31.6-35.5) g/dL RDW (11.5-14.5) % Plt Count (140-400) K/mcL MPV (9.4-12.4) fL PT (9.4-12.1) Seconds INR APTT (26.0-36.0) Seconds VBG pH 7.36 (7.32-7.42) pH Units VBG pCO2 50 (41-51) mmHg VBG pO2 51 H (25-40) mmHg VBG HCO3 28.2 H (21-27) mEq/L Sodium (136-145) mEq/L Potassium (3.5-4.5) mEq/L Chloride (98-109) mEq/L Carbon Dioxide (19-29) mEq/L BUN (7-20) mg/dL Creatinine (0.57-1.11) mg/dL Est GFR ( Amer) (> 60) Est GFR (Non-Af Amer) (> 60) BUN/Creatinine Ratio (6-26) Glucose (70-99) mg/dL POC Glucose (58-89) Calculated Osmolality (280-300) Lactic Acid 9.1 H* (0.5-2.2) mmol/L Calcium (8.6-10.8) mg/dL Beta-Hydroxybutyric Acd (0.02-0.27) mmol/L Serum , Qual Negative (Negative) Urine Color (Yellow) Urine Clarity (Clear) Urine pH (5.0-8.0) pH Units Ur Specific [place] (1.010-1.025) Urine Protein (Neg-Trace) mg/dL Urine Glucose (UA) (Normal) mg/dL Urine Ketones (Negative) mg/dL Urine Blood (Negative) Urine Nitrite (Negative) Urine Bilirubin (Negative) Urine Urobilinogen (Normal) mg/dL Ur Leukocyte Esterase (Negative) Ur Culture Indicated? (NO) Urine Test (Negative) Urine Opiates Screen (Nshvfk=947) ng/mL Ur Barbiturates Screen (Zaigqk=003) ng/mL Ur Phencyclidine Scrn (Cutoff=25) ng/mL Ur Amphetamines Screen (Qvolqp=3788) ng/mL U Benzodiazepines Scrn (Dwdinw=256) ng/mL Urine Cocaine Screen (Cutoff= 300) ng/mL U Marijuana (THC) Screen (Cutoff = 50) ng/mL Ethyl Alcohol (0-10) mg/dL 12/05/16 Range/Units 14:27 WBC (4.3-11.1) K/mcL RBC (3.82-4.97) M/mcL Hgb (11.5-15.4) g/dL Hct (35.3-44.9) % MCV (83.0-100.0) fL MCH (28.0-33.3) pg MCHC (31.6-35.5) g/dL RDW (11.5-14.5) % Plt Count (140-400) K/mcL MPV (9.4-12.4) fL PT (9.4-12.1) Seconds INR APTT (26.0-36.0) Seconds VBG pH (7.32-7.42) pH Units VBG pCO2 (41-51) mmHg VBG pO2 (25-40) mmHg VBG HCO3 (21-27) mEq/L Sodium (136-145) mEq/L Potassium (3.5-4.5) mEq/L Chloride (98-109) mEq/L Carbon Dioxide (19-29) mEq/L BUN (7-20) mg/dL Creatinine (0.57-1.11) mg/dL Est GFR ( Amer) (> 60) Est GFR (Non-Af Amer) (> 60) BUN/Creatinine Ratio (6-26) Glucose (70-99) mg/dL POC Glucose > 600 H* (58-89) Calculated Osmolality (280-300) Lactic Acid (0.5-2.2) mmol/L Calcium (8.6-10.8) mg/dL Beta-Hydroxybutyric Acd (0.02-0.27) mmol/L Serum , Qual (Negative) Urine Color (Yellow) Urine Clarity (Clear) Urine pH (5.0-8.0) pH Units Ur Specific [place] (1.010-1.025) Urine Protein (Neg-Trace) mg/dL Urine Glucose (UA) (Normal) mg/dL Urine Ketones (Negative) mg/dL Urine Blood (Negative) Urine Nitrite (Negative) Urine Bilirubin (Negative) Urine Urobilinogen (Normal) mg/dL Ur Leukocyte Esterase (Negative) Ur Culture Indicated? (NO) Urine Test (Negative) Urine Opiates Screen (Xbqqpc=175) ng/mL Ur Barbiturates Screen (Pakqdx=087) ng/mL Ur Phencyclidine Scrn (Cutoff=25) ng/mL Ur Amphetamines Screen (Adqxva=7247) ng/mL U Benzodiazepines Scrn (Ykvucd=164) ng/mL Urine Cocaine Screen (Cutoff= 300) ng/mL U Marijuana (THC) Screen (Cutoff = 50) ng/mL Ethyl Alcohol (0-10) mg/dL - Radiology Data Radiology results reviewed: Yes I reviewed the patient's radiology results. Critical Care Time Total Critical Care Time: 45 Attestation: I did spend 45 minutes of critical care time with the patient in sepsis with a lactate of 29, diabetic ketoacidosis with a low serum bicarbonate and a blood sugar over thousand, insulin drip, IV antibiotics with Zosyn and vancomycin, analysis of the VBG as well as assessment multiple abscesses and discussion with multiple specialists including the user experience architect and a call to the surgeon. [id number]
[2016-12-05 12:31] LABS: Glucose 1036 mg/dL (70-99)
[2016-12-05 12:32] LABS: Bilirubin,Urine Negative (Negative); Blood,Urine Negative (Negative); Clarity,Urine Clear (Clear); Color,Urine Yellow (Yellow); Glucose,Urine (UA) >=1000 mg/dL (Normal); Ketones,Urine Negative (Negative); Leukocyte Esterase,Urine Negative (Negative); Nitrite,Urine Negative (Negative); Protein,Urine Negative (Neg-Trace); Specific Gravity,Urine > 1.030 (1.010-1.025); Urobilinogen,Urine Normal (Normal)
[2016-12-05] MEDS ORDERED: Vancomycin 1,000 MG in D5% in Water 250 ML IVPB ONE (12:32)
[2016-12-05] MEDS ORDERED: Piperacillin/Tazobactam 4.5 GM in D5% in Water (Mini-Bag+) 100 ML IVPB ONE (12:32)
[2016-12-05 12:40] LABS: Amphetamine Screen,Urine Negative ng/mL (Cutoff=1000); Barbiturate Screen,Urine Negative ng/mL (Cutoff=200); Benzodiazepines Screen,Urine Negative ng/mL (Cutoff=200); Cannabinoid Screen,Urine Negative ng/mL (Cutoff = 50); Cocaine Screen,Urine Negative ng/mL (Cutoff= 300); Opiate Screen,Urine Positive ng/mL (Cutoff=300); Phencyclidine Screen,Urine Negative ng/mL (Cutoff=25)
[2016-12-05] MEDS ORDERED: Insulin Human Regular 100 UNIT in 0.9 % Sodium Chloride 100 ML IVC SCH (12:45)
[2016-12-05 12:51] LABS: Ethanol < 10 mg/dL (0-10)
[2016-12-05 13:20] LABS: VBG HCO3 28.2 mEq/L (21-27); VBG PH 7.36 pH Units (7.32-7.42)
[2016-12-05] MEDS: 0.9 % Sodium Chloride 1,000 ML IVC SCH ×11 (14:10→18:22)
[2016-12-05] MEDS ORDERED: Insulin Regular, Human 100 UNIT/ML IV PRN (14:42)
[2016-12-05] MEDS ORDERED: *HR* Dextrose 50 % in Water (Syg) 50 ML SYRINGE IVP PRN (14:42)
[2016-12-05] MEDS ORDERED: D5% in 0.45% NACL w KCl 20 MEQ/1,000 ML MLS IVC PRN (14:42)
--- NOTE | 2016-12-05 15:01 | Pulmonology History & Physical ---
<Elza Lopez - Last Filed: 12/05/16 16:20> Date of Encounter: 12/05/16 Time of Encounter: 14:30 Assessment and Plan (1) Sepsis Current visit: Yes Status: Acute Patient presenting with leukocytosis and a lactic acid of 9.1. Assuming infectious cause if from the multiple draining abscesses throughout the patient' s body. We started vanc and zosyn. Will obtain would culture, urine culture, and continue to trend lactic acid. We have consulted surgery for assessment and treatment of abscesses. Although patient denies IV drug use, concern for "skin popping" leading to the abscesses. We will also test for HIV and complete a hepatitis panel. Qualifiers: Sepsis type: sepsis due to unspecified organism Qualified Code(s): A41.9 - Sepsis, unspecified organism (2) Diabetic hyperosmolar non-ketotic state Current visit: Yes Status: Acute Patient presented to the ED with glucose of greater than 1000. Patient has no detectable ketones in the urine and blood ketones WNL. We will start DKA protocol. (3) Skin abscess Current visit: Yes Status: Acute Multiple large, draining abscesses noted throughout the patient's body. Include sternum, bilateral arms, bilateral legs, left foot, left hand, and abdomen. This is the source of infection for the sepsis. We will treat with zosyn and vanc until wound cultures and sensitization comes back. We have consulted surgery to determine treatment plan due to the extensive nature of the abscesses. Qualifiers: Site of cutaneous abscess: other site Qualified Code(s): L02.818 - Cutaneous abscess of other sites (4) JD (acute kidney injury) Current visit: Yes Status: Resolved Significant increase in creatinine from .6 this August to 1.46 today. Due to end organ damage from sepsis (5) DVT prophylaxis Current visit: Yes Status: Acute Patient to receive heparin subq History of Present Illness Chief complaint: DKA/Sepsis HPI: Ms. Alvarez is a 36 year old female who presented to the ED with complaints of hyperglycemia for the past 3 days. She reports that she has been checking her insulin routinely however the glucometer reads "high". She reports that she has continued to take her insulin as per current orders. She reports multiple abscesses which she states have been present for at least 1 week. She reports abscesses to bilateral upper extremities, chest wall, left foot, bilateral lower legs, and left abdominal wall. She reports purulent drainage from some of the abscess locations. She admits to having areas similar to this in the past. She was last treated for an abscess to the top of her right foot and hand which area healing. She was previously treated with bactrim. She disclosed fevers to myself but denied fevers to another physician. Denies any nausea/vomiting. But states she does have diffuse abdominal pain and is concerned her "pancreas is acting up again". Denies alcohol and illicit drug use. She states that the only thing that she injects is her insulin in which she uses her abdomen and lower extremities. Denies any trauma to the areas of infection. She states the first abscess to show up was the left foot which is actively draining at this time. The patient's ex- disclosed in the ED that he is concerned the patient is given popping however the patient did deny that to me. Urine toxicology screen is positive for opiates. Past Med Surg Social Fam HX - Past Medical History Medical history: asthma, COPD, diabetes, GERD, other Psychiatric history: anxiety - Past Surgical History Surgical History: no surgical history, other (Tubal ligation) - Social History Smoking Status: Current every day smoker Smokeless Tobacco Status: No Alcohol use: none Drug use: opiates, marijuana - Family History Mother Living Status: Hx Family Cancer: Yes Father Living Status: Hx Family Cardiac Disorders: Yes Sister Living Status: Still Living Hx Family Cancer: Yes Medications and Allergies Gabapentin [Neurontin] 800 mg PO TID 07/03/16 [History] Insulin ASPART [NovoLOG] 18 unit SQ TIDAC PRN 07/03/16 [History] Insulin Glargine,Hum.rec.anlog [Lantus Solostar] 40 unit SQ BID 08/22/16 [ History] OxyCODONE Immed Rel [Roxicodone 5 MG] 10 mg PO Q6HR PRN 09/14/16 [History] ALPRAZolam [Xanax 0.25 MG Tablet] 0.25 mg PO TID 09/15/16 [History] Lipase/Protease/Amylase [[place] Dr 6,000 Units Capsule] 2 cap PO QID 12/05/16 [ History] 3 Allergy/AdvReac Type Severity Reaction Status Date / Time ketorolac [From Toradol] Allergy Hives Verified 10/22/16 20:41 tramadol [From Ultram] Allergy Anaphylaxis Verified 10/22/16 20:41 iodine Allergy Anaphylaxis Uncoded 10/22/16 20:41 IV Contrast Allergy Anaphylaxis Uncoded 10/22/16 20:41 All Systems: A 10-system review of systems was performed and is negative for pertinent findings except as documented above in the HPI. - Constitutional Constitutional: chills, fever(s) - EENT Eyes: other (blurry vision) Ears: as per HPI Nose, mouth and throat: neck pain - Cardiovascular Cardiovascular: no chest pain, no chest pain at rest, no chest pain with activity, no dyspnea - Respiratory Respiratory: no dyspnea, no hemoptysis, no wheezing - Gastrointestinal Gastrointestinal: abdominal pain, no diarrhea, no nausea, no vomiting - Genitourinary Genitourinary: as per HPI - Musculoskeletal Musculoskeletal: neck pain, no abnormal gait, no back pain - Integumentary Integumentary: other (multiple skin abscesses) - Neurological Neurological: no abnormal hearing, no abnormal speech, no loss of vision, no numbness - Psychiatric Psychiatric: as per HPI - Endocrine Endocrine: as per HPI - Hematologic/Lymphatic Hematologic/Lymphatic: as per HPI - Allergic/Immunologic Allergic/Immunologic: as per HPI Physical Examination Vital Signs: Vital Signs, Last 4 Hours Pulse Resp BP Pulse Ox 12/05/16 14:32 22 124/109 12/05/16 14:31 104 22 112/95 95 General appearance: alert, appears uncomfortable Eyes: nonicteric ENT: oropharynx moist Neck: supple, no JVD Effort: normal Inspection: normal Auscultation: bilateral: clear Cardiovascular: other (regular rhythm, tachycardia ) Gastrointestinal: normoactive bowel sounds, soft, tender, non-distended Integumentary: other (multiple large, draining abscesses noted throughout the body including the mid-sternum, bilateral arms, bilateral legs, left foot, left hand) Extremities: no cyanosis, pulses normal Musculoskeletal: no deformities Gait: normal gait, normal posture normal mental status, pupils equal and round, CN II-XII normal, motor strength normal and symmetric mood appropriate, affect normal Results - Laboratory Findings CBC and BMP: 12/05/16 12:06 12/05/16 12:06 Abnormal lab findings: Abnormal lab results WBC 16.6 K/mcL (4.3-11.1) H 12/05/16 12:06 Hct 46.6 % (35.3-44.9) H 12/05/16 12:06 MCHC 31.3 g/dL (31.6-35.5) L 12/05/16 12:06 VBG pO2 51 mmHg (25-40) H 12/05/16 13:11 VBG HCO3 28.2 mEq/L (21-27) H 12/05/16 13:11 Sodium 130 mEq/L (136-145) L 12/05/16 12:06 Potassium 5.0 mEq/L (3.5-4.5) H 12/05/16 12:06 Chloride 89 mEq/L (98-109) L 12/05/16 12:06 Creatinine 1.46 mg/dL (0.57-1.11) H 12/05/16 12:06 Est GFR ( Amer) 49 (> 60) L 12/05/16 12:06 Est GFR (Non-Af Amer) 40 (> 60) L 12/05/16 12:06 BUN/Creatinine Ratio 5 (6-26) L 12/05/16 12:06 Glucose 1036 mg/dL (70-99) H* 12/05/16 12:06 POC Glucose > 600 (58-89) H* 12/05/16 14:27 Calculated Osmolality 320 (280-300) H 12/05/16 12:06 Lactic Acid 9.1 mmol/L (0.5-2.2) H* 12/05/16 13:11 Ur Specific [place] > 1.030 (1.010-1.025) H 12/05/16 11:40 Urine Glucose (UA) >=1000 mg/dL (Normal) H 12/05/16 11:40 Urine Opiates Screen Positive ng/mL (Dvbxmg=073) H 12/05/16 11:40 - Diagnostic Findings Chest x-ray: report reviewed, image reviewed <Jennifer Vang - Last Filed: 12/05/16 18:53> Date of Encounter: 12/05/16 History of Present Illness HPI: Ms. Alvarez is a 36 year old female All Systems: A 10-system review of systems was performed and is negative for pertinent findings except as documented above in the HPI. Physical Examination Vital Signs: Vital Signs, Last 4 Hours Temp Pulse Resp BP Pulse Ox 12/05/16 17:00 92 22 125/93 97 12/05/16 16:00 98.4 F 106 18 130/101 96 12/05/16 15:00 76 18 134/58 96 Results - Laboratory Findings CBC and BMP: 12/05/16 12:06 12/05/16 17:11 PT/INR, D-dimer PT 12.0 Seconds (9.4-12.1) 12/05/16 12:06 Abnormal lab findings: Abnormal lab results WBC 16.6 K/mcL (4.3-11.1) H 12/05/16 12:06 Hct 46.6 % (35.3-44.9) H 12/05/16 12:06 MCHC 31.3 g/dL (31.6-35.5) L 12/05/16 12:06 ESR 83 mm/hr (0-15) H 12/05/16 15:14 VBG pO2 51 mmHg (25-40) H 12/05/16 13:11 VBG HCO3 28.2 mEq/L (21-27) H 12/05/16 13:11 Sodium 134 mEq/L (136-145) L 12/05/16 17:11 BUN 4 mg/dL (7-20) L 12/05/16 17:11 Glucose 356 mg/dL (70-99) H 12/05/16 17:11 POC Glucose 307 (58-89) H 12/05/16 18:00 Lactic Acid 3.3 mmol/L (0.5-2.2) H 12/05/16 15:14 Calcium 8.3 mg/dL (8.6-10.8) L D 12/05/16 17:11 C-Reactive Protein 31 mg/L (Less than 5) H 12/05/16 15:14 Ur Specific [place] > 1.030 (1.010-1.025) H 12/05/16 11:40 Urine Glucose (UA) >=1000 mg/dL (Normal) H 12/05/16 11:40 Urine Opiates Screen Positive ng/mL (Tmgmoh=819) H 12/05/16 11:40 Hep Bs Antigen Reactive (Nonreactive) H 12/05/16 15:14 - Attending Attestation i saw the patient with the resident agree with History and Physical exam findings. with some additional findings , patient has multiple subcutaneous abscess more look skin popping due to IV drug abuse , due to this she developed non ketotic hyperglycemic state she is early sepsis , no murmur noted .No spine tenderness noted , no focal neurological deficit noted Labs were reviewed Increased creatinine , lactate and glucose DISINTEGRATOR: Patient is conscious oriented x 3 NECK : No JVD appreciated Pulmonary : Patient doesnt have any gas exchange issues . will get imaging Cardiac : Patient doesnt have any signs of infective endocardiitis patient is hemodynamically stable . Patient is in sepsis with end organ dysfunction Nutrition/GI: NPO till the hyperglycemia resolved . GI prophylaxis Renal : JD exepcted to improve after volume resuscitation ID : Blood cultures , broad spectrum antibiotics , patient will need I and D for these multiple subcutaneous abscess, general surgery was consulted Endocrine: In the background of sepsis patient developed non ketotic hyperglycemic state , normal ketones in the blood increased gap probably due to lactic acidosis will closely follow the BMP . Will need 5-6 litres of volume resuscitation . Insulin drip put her on DKA protocol m, electrolyte repletion protocol Disposition : Critically ill Code status: Full Code Family/POA: Ex I spent 40 minutes of critical care minutes
[2016-12-05 15:06] LABS: INR 1.1
[2016-12-05 15:09] LABS: Activated Partial Thrombo Time 30.7 Seconds (26.0-36.0)
--- NOTE | 2016-12-05 15:13 | General Surgery Consult Note ---
<Cynthia Neal Gio - Last Filed: 12/05/16 15:45> Date of Encounter: 12/05/16 Time of Encounter: 14:30 Assessment and Plan (1) Skin abscess Current Visit: Yes Status: Acute Multiple affected areas as listed in the HPI and physical examination NPO Patient will require I&D of multiple affected areas- refusing treatment while awake at this time (Dr. Casey to evaluate and determine plan moving forward) IV antibiotics- Vancomycin and Zosyn Supportive care Will continue to follow and assess progress Qualifiers: Site of cutaneous abscess: other site Qualified Code(s): L02.818 - Cutaneous abscess of other sites (2) DKA (diabetic ketoacidoses) Current Visit: Yes Status: Acute Management per pulmonary/critical care team Qualifiers: Diabetes mellitus type: other specified (including ADRIAN) Diabetes mellitus complication detail: without coma Qualified Code(s): E13.10 - Other specified diabetes mellitus with ketoacidosis without coma (3) JD (acute kidney injury) Current Visit: Yes Status: Resolved Management per pulmonary/critical care team History of Present Illness Consult date: 12/05/16 Reason for consult: other (multiple abscesses) Requesting physician: Elza Lopez History of present illness: Ms. Alvarez is a 36 year old female who presents to the ED with complaints of hyperglycemia for the past 3 days. She reports that she has been checking her insulin routinely however the glucometer reads "high". She reports that she has continued to take her insulin as per current orders. She reports multiple abscesses which she states have been present for at least 1 week. She reports abscesses to bilateral upper extremities, chest wall, left foot, bilateral lower legs, left abdominal wall. She reports purulent drainage from some of the abscess locations (right forearm, left foot, bilateral lower legs). She admits to having areas similar to this in the past. She was last treated for an abscess to the top of her right foot and hand which area healing (September of 2016) She denies any fevers/chills. Denies any nausea/vomiting and states that she is hungry. Denies any changes in bowel habits. Denies any difficulty with urination. Denies any unexplained weight loss. She states that she is currently living with an ex-boyfriend and she denies any illicit drug use of injection of drugs. She states that the only thing that she injects is her insulin in which she uses her abdomen and lower extremities. Past Med Surg Social Fam HX - Past Medical History Source: patient Medical history: asthma, COPD, diabetes (Type 1), GERD, other Psychiatric history: anxiety - Past Surgical History Surgical History: cholecystectomy, other (Tubal ligation, I&D of right foot abscess) - Social History Smoking Status: Current every day smoker Smokeless Tobacco Status: No Alcohol use: none Drug use: opiates, marijuana - Family History Mother Living Status: Hx Family Cancer: Yes Father Living Status: Hx Family Cardiac Disorders: Yes Sister Living Status: Still Living Hx Family Cancer: Yes Medications and Allergies Gabapentin [Neurontin] 800 mg PO TID 07/03/16 [History] Insulin ASPART [NovoLOG] 18 unit SQ TIDAC PRN 07/03/16 [History] Insulin Glargine,Hum.rec.anlog [Lantus Solostar] 40 unit SQ BID 08/22/16 [ History] OxyCODONE Immed Rel [Roxicodone 5 MG] 10 mg PO Q6HR PRN 09/14/16 [History] ALPRAZolam [Xanax 0.25 MG Tablet] 0.25 mg PO TID 09/15/16 [History] Lipase/Protease/Amylase [[place] Dr 6,000 Units Capsule] 2 cap PO QID 12/05/16 [ History] 3 Allergy/AdvReac Type Severity Reaction Status Date / Time ketorolac [From Toradol] Allergy Hives Verified 10/22/16 20:41 tramadol [From Ultram] Allergy Anaphylaxis Verified 10/22/16 20:41 iodine Allergy Anaphylaxis Uncoded 10/22/16 20:41 IV Contrast Allergy Anaphylaxis Uncoded 10/22/16 20:41 Review of Systems All systems PM: reviewed and no additional remarkable complaints except as stated (in the HPI) All systems PM: A 10-system review of systems was performed and is negative for pertinent findings except as documented above in the HPI. General Surgery Exam Initial Vital Signs Temp Pulse Resp BP Pulse Ox 97.5 F L 119 14 144/93 97 12/05/16 11:37 12/05/16 11:37 12/05/16 11:37 12/05/16 11:37 12/05/16 11:37 - General physical appearance well developed, well nourished, moderate distress, chronically ill - Eyes PERRL, normal ocular movement - ENT normal mucosa, atraumatic, normocephalic - Neck trachea midline - Respiratory normal respiratory effort, clear to auscultation - Cardiovascular Cardiovascular exam: Present: RRR - Abdomen Abdomen general surgery: Present: bowel sounds present, soft, non tender - Integumentary Integumentary general surgery: Present: warm and dry, other (Abscesses noted to bilateral upper extremities, chest wall, left lower abdomen with fluctuance and tenderness (mild surrounding erythema); Bilateral lower legs with necrotic tissue (fluctuance noted to left with associated erythema); left foot with skin necrosis and purulent drainage noted.) - Neurologic Present: CN 2-12 grossly intact - Psychiatric Psychiatric general surgery: Present: A&Ox3, appropriate, oriented to person, oriented to place, oriented to time, speech is normal, memory intact Exam Initial Vital Signs Temp Pulse Resp BP Pulse Ox 97.5 F L 119 14 144/93 97 12/05/16 11:37 12/05/16 11:37 12/05/16 11:37 12/05/16 11:37 12/05/16 11:37 Results - Labs 12/05/16 12:06 12/05/16 12:06 Abnormal lab results WBC 16.6 K/mcL (4.3-11.1) H 12/05/16 12:06 Hct 46.6 % (35.3-44.9) H 12/05/16 12:06 MCHC 31.3 g/dL (31.6-35.5) L 12/05/16 12:06 VBG pO2 51 mmHg (25-40) H 12/05/16 13:11 VBG HCO3 28.2 mEq/L (21-27) H 12/05/16 13:11 Sodium 130 mEq/L (136-145) L 12/05/16 12:06 Potassium 5.0 mEq/L (3.5-4.5) H 12/05/16 12:06 Chloride 89 mEq/L (98-109) L 12/05/16 12:06 Creatinine 1.46 mg/dL (0.57-1.11) H 12/05/16 12:06 Est GFR ( Amer) 49 (> 60) L 12/05/16 12:06 Est GFR (Non-Af Amer) 40 (> 60) L 12/05/16 12:06 BUN/Creatinine Ratio 5 (6-26) L 12/05/16 12:06 Glucose 1036 mg/dL (70-99) H* 12/05/16 12:06 POC Glucose > 600 (58-89) H* 12/05/16 14:27 Calculated Osmolality 320 (280-300) H 12/05/16 12:06 Lactic Acid 9.1 mmol/L (0.5-2.2) H* 12/05/16 13:11 Ur Specific [place] > 1.030 (1.010-1.025) H 12/05/16 11:40 Urine Glucose (UA) >=1000 mg/dL (Normal) H 12/05/16 11:40 Urine Opiates Screen Positive ng/mL (Mrntho=023) H 12/05/16 11:40 All other labs normal. - Imaging Additional studies: Foot X-Ray 12/05/16 12:25 IMPRESSION: Soft tissue swelling and gas within the soft tissues in the dorsal midfoot. No evidence of osseous erosion to suggest osteomyelitis. D/ / Kennedy Trivedi MD / Kennedy Trivedi MD Interpreting Provider: Kennedy Trivedi MD Chest X-Ray 12/05/16 12:48 IMPRESSION: No acute cardiopulmonary process. D/ / 12/05/2016 14:33:10 Robert Lea MD / mandie Interpreting Provider: Robert Lea MD Consult Discharge Plan - Plan Referrals: NONE,PCP [Primary Care Provider] - - Attending Attestation For this encounter, I have reviewed the OYSTER FLOATER or PA documentation, treatment plan, and medical decision making; and I have had face to face time with this patient. <Jeancarlos Casey - Last Filed: 12/05/16 19:21> Date of Encounter: 12/05/16 Review of Systems All systems PM: A 10-system review of systems was performed and is negative for pertinent findings except as documented above in the HPI. General Surgery Exam Initial Vital Signs Temp Pulse Resp BP Pulse Ox 97.5 F L 119 14 144/93 97 12/05/16 11:37 12/05/16 11:37 12/05/16 11:37 12/05/16 11:37 12/05/16 11:37 Exam Initial Vital Signs Temp Pulse Resp BP Pulse Ox 97.5 F L 119 14 144/93 97 12/05/16 11:37 12/05/16 11:37 12/05/16 11:37 12/05/16 11:37 12/05/16 11:37 Results - Labs 12/05/16 12:06 12/05/16 17:11 Abnormal lab results WBC 16.6 K/mcL (4.3-11.1) H 12/05/16 12:06 Hct 46.6 % (35.3-44.9) H 12/05/16 12:06 MCHC 31.3 g/dL (31.6-35.5) L 12/05/16 12:06 ESR 83 mm/hr (0-15) H 12/05/16 15:14 VBG pO2 51 mmHg (25-40) H 12/05/16 13:11 VBG HCO3 28.2 mEq/L (21-27) H 12/05/16 13:11 Sodium 134 mEq/L (136-145) L 12/05/16 17:11 BUN 4 mg/dL (7-20) L 12/05/16 17:11 Glucose 356 mg/dL (70-99) H 12/05/16 17:11 POC Glucose 307 (58-89) H 12/05/16 18:00 Lactic Acid 3.3 mmol/L (0.5-2.2) H 12/05/16 15:14 Calcium 8.3 mg/dL (8.6-10.8) L D 12/05/16 17:11 C-Reactive Protein 31 mg/L (Less than 5) H 12/05/16 15:14 Ur Specific [place] > 1.030 (1.010-1.025) H 12/05/16 11:40 Urine Glucose (UA) >=1000 mg/dL (Normal) H 12/05/16 11:40 Urine Opiates Screen Positive ng/mL (Sqdhem=486) H 12/05/16 11:40 Hep Bs Antigen Reactive (Nonreactive) H 12/05/16 15:14 Diabetes panel 12/05/16 Range/Units 17:11 Sodium 134 L (136-145) mEq/L Potassium 3.8 D (3.5-4.5) mEq/L Chloride 98 (98-109) mEq/L Carbon Dioxide 29 (19-29) mEq/L BUN 4 L (7-20) mg/dL Creatinine 0.69 D (0.57-1.11) mg/dL Glucose 356 H (70-99) mg/dL Calcium 8.3 L D (8.6-10.8) mg/dL Calcium panel 12/05/16 Range/Units 17:11 Calcium 8.3 L D (8.6-10.8) mg/dL Pituitary panel 12/05/16 Range/Units 17:11 Sodium 134 L (136-145) mEq/L Potassium 3.8 D (3.5-4.5) mEq/L Chloride 98 (98-109) mEq/L Carbon Dioxide 29 (19-29) mEq/L BUN 4 L (7-20) mg/dL Creatinine 0.69 D (0.57-1.11) mg/dL Glucose 356 H (70-99) mg/dL Calcium 8.3 L D (8.6-10.8) mg/dL Adrenal panel 12/05/16 Range/Units 17:11 Sodium 134 L (136-145) mEq/L Potassium 3.8 D (3.5-4.5) mEq/L Chloride 98 (98-109) mEq/L Carbon Dioxide 29 (19-29) mEq/L BUN 4 L (7-20) mg/dL Creatinine 0.69 D (0.57-1.11) mg/dL Glucose 356 H (70-99) mg/dL Calcium 8.3 L D (8.6-10.8) mg/dL All other labs normal. - Attending Attestation I reviewed with the above assessment and evaluation with the nurse practitioner present. All abscesses and upper extremity bilaterally, lower extruded, left foot, abdomen, and center of the chest. Noted erythema and tenderness to palpation with fluctuance. The right upper extremity abscess does have a single his drainage. Think he would be appropriate to proceed with an incision and drainage procedure in the OR setting and this will be scheduled for sometime tomorrow. Discussed with the patient and she agrees to the above plan.
[2016-12-05] MEDS ORDERED: *HR* FentaNYL (PF) 100 MCG/2 ML VIAL IVP ONE (15:17)
[2016-12-05] MEDS ORDERED: Vancomycin 1 EACH in D5% in Water 250 ML IVPB SCH (15:40)
--- NOTE | 2016-12-05 15:43 | General Surgery Progress Note ---
Date of Encounter: 12/05/16 Objective Vital Signs - Last 8 Hours Pulse Resp BP Pulse Ox 12/05/16 15:00 76 18 134/58 96 12/05/16 14:32 22 124/109 12/05/16 14:31 104 22 112/95 95 Intake and Output 12/04/16 12/05/16 12/05/16 23:59 07:59 15:59 Intake Total 1100 / 2100 Balance 1100 / 2100 Intake: IV Fluids 1100 / 1100 0.9 % Sodium Chloride 1, 1000 / 1000 000 ML @ 3750 mls/hr IVC .Q16M JAMES Rx#:[id number] Zosyn 4.5 GM In Dextrose 100 / 100 5% (Minibag+) 100 ML 100 ML @ 100 mls/hr IVPB ONCE ONE Rx#:[id number] - Integumentary other - Labs 12/05/16 12:06 12/05/16 12:06 Consult Discharge Plan - Plan Referrals: NONE,PCP [Primary Care Provider] - Physical Exam - General Limitations: no limitations General appearance: alert Examination Vital Signs: Temp Pulse Resp BP Pulse Ox 97.5 F L 76 18 134/58 96 12/05/16 11:37 12/05/16 15:00 12/05/16 15:00 12/05/16 15:00 12/05/16 15:00 General Examination: The patient appears alert, oriented X3, in no acute distress, healthy-appearing , normal mood. A detailed skin examination of sites including: scalp, head, neck , face, conjunctive, lids, lips, back, chest/breast/axilla, abdomen, bilateral upper extremities including hands/digits/fingernails, bilateral lower extremities including feet/digits/toenails, genital/groin/buttock, lymph nodes, was completed and found to be normal except:
[2016-12-05] MEDS: 0.45 % Sodium Chloride w/KCl 20 MEQ/1,000 ML MLS IVC SCH ×5 (16:01→20:04)
[2016-12-05] MEDS: Piperacillin/Tazobactam 3.375 GM in D5% in Water (Mini-Bag+) 100 ML IVPB SCH (16:07)
[2016-12-05] MEDS ORDERED: *HR* HYDROmorphone (PF) 1 MG/ML SYRINGE IVP ONE ×2 (16:19→18:58)
[2016-12-05 16:26] LABS: Hepatitis B Surface Antigen Reactive (Nonreactive)
[2016-12-05] MEDS: *HR* Heparin 5,000 UNIT/ML VIAL SQ SCH (17:05)
[2016-12-05 17:45] LABS: BUN/Creatinine Ratio 6 (6-26); Blood Urea Nitrogen 4 mg/dL (7-20); Carbon Dioxide 29 mEq/L (19-29); Chloride 98 mEq/L (98-109); Sodium 134 mEq/L (136-145)
[2016-12-05 17:46] LABS: Glucose 356 mg/dL (70-99); Osmolality,Calculated 289 (280-300); eGFR For African Americans > 60 (> 60); eGFR For Non-African Americans > 60 (> 60)
[2016-12-05 17:47] LABS: Calcium 8.3 mg/dL (8.6-10.8); Potassium 3.8 mEq/L (3.5-4.5)
[2016-12-05] MEDS ORDERED: Insulin DETEMIR 100 UNIT/ML X5UNITS SQ ONE (18:11)
[2016-12-05] MEDS ORDERED: D5% in Water 1,000 ML IVC PRN ×3 (21:12→23:55)
[2016-12-05] MEDS ORDERED: 0.9 % Sodium Chloride 1,000 ML IVC SCH (21:30)
[2016-12-05] MEDS: *HR* HYDROmorphone (PF) 1 MG/ML SYRINGE IVP PRN (22:00)
[2016-12-05] MEDS ORDERED: Insulin LISPRO 300 UNITS/3 ML VIAL SQ ONE (23:50)
[2016-12-06] MEDS: Insulin LISPRO 300 UNITS/3 ML VIAL SQ SCH ×3 (00:04→16:42)
[2016-12-06 01:45] LABS: Hemoglobin A1C 13.7 %
[2016-12-06] MEDS: *HR* HYDROmorphone (PF) 1 MG/ML SYRINGE IVP PRN ×5 (02:05→21:43)
[2016-12-06 03:39] LABS: Basophils # 0.1 K/mcL (0.0-0.2); Basophils % 0.6 %; Eosinophils # 0.3 K/mcL (0.0-0.6); Eosinophils % 1.9 %; Hematocrit 37.3 % (35.3-44.9); Immature Granulocytes % 0.4 % (0-4); Lymphocytes % 19.3 %; Mean Corpuscular HGB Conc 33.2 g/dL (31.6-35.5); Mean Corpuscular Hemoglobin 30.7 pg (28.0-33.3); Mean Corpuscular Volume 92.3 fL (83.0-100.0); Mean Platelet Volume 11.4 fL (9.4-12.4); Monocytes # 1.1 K/mcL (0.0-1.3); Monocytes % 7.2 %; Neutrophils # 10.8 K/mcL (1.6-8.9); Platelet Count 266 K/mcL (140-400); Red Blood Count 4.04 M/mcL (3.82-4.97); Red Cell Distribution Width 13.1 % (11.5-14.5); Segmented Neutrophils % 70.6 %
[2016-12-06 03:45] LABS: Hemoglobin 12.4 g/dL (11.5-15.4)
[2016-12-06 03:53] LABS: Alanine Aminotransferase 135 Units/L (0-55); Albumin 2.3 g/dL (3.5-5.0); Albumin/Globulin Ratio 0.6 (1.1-2.2); Alkaline Phosphatase 168 Units/L (38-126); Aspartate Amino Transferase 164 Units/L (5-34); BUN/Creatinine Ratio 5 (6-26); Bilirubin,Direct 0.3 mg/dL (0.0-0.5); Bilirubin,Indirect 0.2 mg/dL (0.0-1.2); Bilirubin,Total 0.5 mg/dL (0.2-1.2); Calcium 8.1 mg/dL (8.6-10.8); Carbon Dioxide 28 mEq/L (19-29); Chloride 100 mEq/L (98-109); Globulin 3.9 g/dL (2.4-3.5); Glucose 180 mg/dL (70-99); Osmolality,Calculated 279 (280-300); Potassium 3.6 mEq/L (3.5-4.5); Sodium 134 mEq/L (136-145); Total Protein 6.2 g/dL (6.0-8.3); eGFR For African Americans > 60 (> 60); eGFR For Non-African Americans > 60 (> 60)
[2016-12-06 03:59] LABS: Blood Urea Nitrogen 3 mg/dL (7-20); Lipase < 10 Units/L (8-78)
[2016-12-06] MEDS ORDERED: *HR* Heparin 5,000 UNIT/ML VIAL SQ SCH ×2 (06:00→18:00)
[2016-12-06] MEDS: *HR* Heparin 5,000 UNIT/ML VIAL SQ SCH ×2 (06:10→17:33)
[2016-12-06] MEDS ORDERED: Insulin LISPRO 300 UNITS/3 ML VIAL SQ PRN (06:38)
--- NOTE | 2016-12-06 06:46 | Pulmonology Progress Note ---
<Robert Griffith - Last Filed: 12/06/16 12:37> Date of Encounter: 12/06/16 Time of Encounter: 06:44 Assessment and Plan (1) Sepsis Current Visit: No Status: Suspected Blood, wound, and urine cultures pending. Patient has history of pseudomonas and MRSA wound infections. Afebrile. Leukocytosis improved, and lactic acid 9.1 --> 1.2 Continue empiric vancomycin and Zosyn at this time until wound cultures and sensitization comes back Qualifiers: Sepsis type: methicillin susceptible Staphylococcus aureus Qualified Code(s ): A41.01 - Sepsis due to Methicillin susceptible Staphylococcus aureus (2) JD (acute kidney injury) Current Visit: No Status: Resolved (3) Diabetic hyperosmolar non-ketotic state Current Visit: Yes Status: Resolved Her anion gap is closed and she is now on diabetic diet with basal and prandial insulin. Anticipate transferred to medical surgical floor today. (4) Skin abscess Current Visit: Yes Status: Acute Patient postop day 0 status post incision and drainage of bilateral upper and lower extxremity abscesses, abdomen and chest abscesses. Surgery following. Qualifiers: Site of cutaneous abscess: other site Qualified Code(s): L02.818 - Cutaneous abscess of other sites (5) DVT prophylaxis Current Visit: Yes Status: Acute Heparin Subjective Principal diagnosis: Sepsis Interval history: Patient seen and examined. Patient postop day 0 status post incision and drainage of bilateral upper and lower extxremity abscesses, abdomen and chest abscesses. Her anion gap is closed and she is now on diabetic diet with basal and prandial insulin. Anticipate transferred to medical surgical floor today. Objective PUL Vital signs: Last Vital Signs Temp 98.5 F 12/06/16 03:41 Pulse 87 12/06/16 06:00 Resp 15 12/06/16 06:00 BP 103/76 12/06/16 06:00 Pulse Ox 95 12/06/16 06:00 General appearance: alert, appears uncomfortable (Mild distress, ) Eyes: nonicteric ENT: oropharynx dry Neck: supple, no lymphadenopathy Effort: normal Auscultation: bilateral: clear Cardiovascular: regular rate and rhythm Gastrointestinal: normoactive bowel sounds, soft, non-tender Integumentary: other (Dressing in place over multiple abscesses status post surgical incision and drainage today) Extremities: no edema, pink and warm, pulses normal Musculoskeletal: ROM normal normal mental status, non-focal exam, pupils equal and round, CN II-XII normal mood appropriate, anxious Results - Laboratory Findings CBC and BMP: 12/06/16 03:32 12/06/16 03:32 PT/INR, D-dimer PT 12.0 Seconds (9.4-12.1) 12/05/16 12:06 Abnormal lab findings: Abnormal lab results WBC 15.3 K/mcL (4.3-11.1) H 12/06/16 03:32 Neutrophils # 10.8 K/mcL (1.6-8.9) H 12/06/16 03:32 ESR 83 mm/hr (0-15) H 12/05/16 15:14 VBG pO2 51 mmHg (25-40) H 12/05/16 13:11 VBG HCO3 28.2 mEq/L (21-27) H 12/05/16 13:11 Sodium 134 mEq/L (136-145) L 12/06/16 03:32 BUN 3 mg/dL (7-20) L 12/06/16 03:32 BUN/Creatinine Ratio 5 (6-26) L 12/06/16 03:32 Glucose 180 mg/dL (70-99) H 12/06/16 03:32 POC Glucose 164 (58-89) H 12/06/16 03:45 Hemoglobin A1c 13.7 % (-5.6) H 12/05/16 15:14 Calculated Osmolality 279 (280-300) L 12/06/16 03:32 Calcium 8.1 mg/dL (8.6-10.8) L 12/06/16 03:32 AST 164 Units/L (5-34) H 12/06/16 03:32 ALT 135 Units/L (0-55) H 12/06/16 03:32 Alkaline Phosphatase 168 Units/L (38-126) H 12/06/16 03:32 C-Reactive Protein 31 mg/L (Less than 5) H 12/05/16 15:14 Albumin 2.3 g/dL (3.5-5.0) L 12/06/16 03:32 Globulin 3.9 g/dL (2.4-3.5) H 12/06/16 03:32 Albumin/Globulin Ratio 0.6 (1.1-2.2) L 12/06/16 03:32 Ur Specific [place] > 1.030 (1.010-1.025) H 12/05/16 11:40 Urine Glucose (UA) >=1000 mg/dL (Normal) H 12/05/16 11:40 Urine Opiates Screen Positive ng/mL (Ufkqyl=272) H 12/05/16 11:40 Hep Bs Antigen Reactive (Nonreactive) H 12/05/16 15:14 - Diagnostic Findings Chest x-ray: report reviewed, image reviewed - Clinical Findings Intake & Output: Intake & Output 12/05/16 12/05/16 12/06/16 15:59 23:59 07:59 Intake Total 1099 / 2099 3285.3 / 3285.3 100 / 100 Output Total 2049 0 / 0 Balance 1100 / 2099 1235.3 / 1235.3 100 / 100 Weight 62.6 kg Consult Discharge Plan - Plan Referrals: NONE,PCP [Primary Care Provider] - <Jennifer Vang S - Last Filed: 12/06/16 17:49> Date of Encounter: 12/06/16 Objective PUL Vital signs: Last Vital Signs Temp 98.3 F 12/06/16 15:53 Pulse 70 12/06/16 15:53 Resp 16 12/06/16 15:53 BP 97/65 12/06/16 15:53 Pulse Ox 93 12/06/16 15:53 Results - Laboratory Findings CBC and BMP: 12/06/16 03:32 12/06/16 03:32 PT/INR, D-dimer PT 12.0 Seconds (9.4-12.1) 12/05/16 12:06 Abnormal lab findings: Abnormal lab results WBC 15.3 K/mcL (4.3-11.1) H 12/06/16 03:32 Neutrophils # 10.8 K/mcL (1.6-8.9) H 12/06/16 03:32 ESR 83 mm/hr (0-15) H 12/05/16 15:14 VBG pO2 51 mmHg (25-40) H 12/05/16 13:11 VBG HCO3 28.2 mEq/L (21-27) H 12/05/16 13:11 Sodium 134 mEq/L (136-145) L 12/06/16 03:32 BUN 3 mg/dL (7-20) L 12/06/16 03:32 BUN/Creatinine Ratio 5 (6-26) L 12/06/16 03:32 Glucose 180 mg/dL (70-99) H 12/06/16 03:32 POC Glucose 292 (58-89) H 12/06/16 11:29 Hemoglobin A1c 13.7 % (-5.6) H 12/05/16 15:14 Calculated Osmolality 279 (280-300) L 12/06/16 03:32 Calcium 8.1 mg/dL (8.6-10.8) L 12/06/16 03:32 AST 164 Units/L (5-34) H 12/06/16 03:32 ALT 135 Units/L (0-55) H 12/06/16 03:32 Alkaline Phosphatase 168 Units/L (38-126) H 12/06/16 03:32 C-Reactive Protein 31 mg/L (Less than 5) H 12/05/16 15:14 Albumin 2.3 g/dL (3.5-5.0) L 12/06/16 03:32 Globulin 3.9 g/dL (2.4-3.5) H 12/06/16 03:32 Albumin/Globulin Ratio 0.6 (1.1-2.2) L 12/06/16 03:32 Ur Specific [place] > 1.030 (1.010-1.025) H 12/05/16 11:40 Urine Glucose (UA) >=1000 mg/dL (Normal) H 12/05/16 11:40 Urine Opiates Screen Positive ng/mL (Ttcrrg=016) H 12/05/16 11:40 Hep Bs Antigen Reactive (Nonreactive) H 12/05/16 15:14 Hep B Core IgM Ab Reactive (Nonreactive) H 12/05/16 15:14 - Clinical Findings Intake & Output: Intake & Output 12/06/16 12/06/16 12/06/16 07:59 15:59 23:59 Intake Total 100 / 100 240 / 240 Output Total 325 / 325 957 / 957 Balance -225 / -225 -717 / -717 Weight 62.6 kg - Attending Attestation I saw the patient with the resident agree with History and Physical exam findings. Labs and Radiology were reviewed AGILE BUSINESS ANALYST: Patient is conscious oriented x3 following commands NECK : No JVD appreciated Pulmonary : Patient gas exchange adequate no evidence of septic emboli Cardiac : Sepsis , no clinical criteria for endocardiitis Nutrition/GI: NPO for surgery will start feeds as tolerated Renal : JD -Improving Heme onc : Leukocytosis Endo: Patient presented with non ketotic hyperosmolar treated with DKA protocol will do sliding scale and 15 units of Levemir after patient started eating patient basal long acting and short acting insulin Musculo skeletal / skin issues : Patient has multiple abscess which got drained in OR today ID : Patient blood cultures are in process no growth so far , wound cultures was growing Pseudomonas and MRSA to continue Vancomycin and Zosyn Disposition : Transfer to the floor Code status: Full code
[2016-12-06] MEDS ORDERED: Dextrose Gel 15 GM PO PRN ×6 (06:47→11:54)
[2016-12-06] MEDS ORDERED: *HR* Propofol 200 MG/20 ML VIAL IVP ONE (07:21)
[2016-12-06] MEDS ORDERED: *HR* Midazolam HCl 2 MG/2 ML VIAL ONE ×2 (07:22→09:30)
[2016-12-06] MEDS ORDERED: *HR* FentaNYL (PF) 100 MCG/2 ML VIAL ONE ×2 (07:22→08:47)
[2016-12-06] MEDS ORDERED: Ondansetron 4 MG/2 ML VIAL ONE (07:25)
[2016-12-06] MEDS ORDERED: Lidocaine -MPF 2% 2 ML VIAL ONE (07:25)
[2016-12-06] MEDS ORDERED: Dexamethasone 4 MG/ML VIAL ONE (07:25)
--- NOTE | 2016-12-06 07:29 | Anesthesia Evaluation PreOp ---
Date of Encounter: 12/06/16 Time of Encounter: 07:43 - Past History Planned Operation: I&D multiple skin abcesses Cardiac History: Denies any Significant Hx Pulmonary History: Smoker, Asthma, COPD LOOP TACKER History: Denies Any Significant HX Other Medical History: Renal (JD), Diabetes Type II, GERD, Other (chronic neuropathic pain) Anesthesia History: No Prior Anesthetic Complications, Past Anesthesia (ezra, tubal, I&D foot abcess (09/14)) : No Alcohol Use: none Drug use: opiates, marijuana Medications and Allergies Gabapentin [Neurontin] 800 mg PO TID 07/03/16 [History] Insulin ASPART [NovoLOG] 18 unit SQ TIDAC PRN 07/03/16 [History] Insulin Glargine,Hum.rec.anlog [Lantus Solostar] 40 unit SQ BID 08/22/16 [ History] OxyCODONE Immed Rel [Roxicodone 5 MG] 10 mg PO Q6HR PRN 09/14/16 [History] ALPRAZolam [Xanax 0.25 MG Tablet] 0.25 mg PO TID 09/15/16 [History] Lipase/Protease/Amylase [Pelon Rice 6,000 Units Capsule] 2 cap PO QID 12/05/16 [ History] 3 Allergy/AdvReac Type Severity Reaction Status Date / Time ketorolac [From Toradol] Allergy Hives Verified 10/22/16 20:41 tramadol [From Ultram] Allergy Anaphylaxis Verified 10/22/16 20:41 iodine Allergy Anaphylaxis Uncoded 10/22/16 20:41 IV Contrast Allergy Anaphylaxis Uncoded 10/22/16 20:41 - Meds/Allergy Pre-op Review Medications Reviewed: Yes Allergies Reviewed: Yes Beta Blockers on Current Med List: No Anesthesia Results - Labs 12/06/16 03:32 12/06/16 03:32 Anesthesia Exam Selected Entries 12/06/16 03:41 12/06/16 06:00 Temperature 98.5 F Pulse Rate 87 Respiratory Rate 15 Blood Pressure 103/76 O2 Sat by Pulse Oximetry 95 Weight: 63kg NPO (# of Hours): 8 - HEENT Pupil (Motor): EOMI Mallampati: II Teeth: Edentulous Oral Opening: Greater than 3 - LOOP TACKER LOC: Oriented LOOP TACKER Motor: Normal RUE, Normal LUE, Normal RLE, Normal LLE, Normal Face LOOP TACKER Sensory: Normal: RUE, LUE, RLE, LLE, Face - Cardiac Rhythm: Regular Murmur: None - Pulmonary Breath Sounds: bilateral Clear Respiratory Effort: Symmetrical Anesthesia Assess/Plan ASA Score: 3 Modified Gunnison Scale for Level of Consciousness: Cooperative, oriented, and tranquil Anesthetic Plan: General Monitoring Plan: Standard Monitors Recovery Plan: ICU (discussed risks of GA, questions answered and will proceed)
[2016-12-06] MEDS ORDERED: Insulin LISPRO 300 UNITS/3 ML VIAL SQ SCH ×5 (07:30→21:00)
[2016-12-06] MEDS ORDERED: *HR* Promethazine 25 MG/ML VIAL IVP PRN (07:57)
[2016-12-06] MEDS ORDERED: *HR* HYDROmorphone (PF) 1 MG/ML SYRINGE IVP PRN ×2 (07:57→10:52)
[2016-12-06] MEDS ORDERED: Vancomycin 1,000 MG in D5% in Water 250 ML IVPB SCH ×2 (09:00→21:00)
[2016-12-06] MEDS ORDERED: *HR* HYDROmorphone 2 MG/ML SYRINGE ONE (09:10)
--- NOTE | 2016-12-06 09:17 | Operative Note ---
Date of procedure: 12/06/16 Pre-op diagnosis: Multiple upper and lower extremity abscess, chest and abdominal abscesses Post-op diagnosis: same Procedure: Incision and drainage of bilateral upper and lower extxremity abscesses, abdomen and chest abscesses. Anesthesia: GETA Surgeon: Jeancarlos Casey Specimen: cultures from chest, left lower abdominal abscess, left arm abscess Condition: stable Disposition: PACU Procedure in Detail: Date of surgery: 12/06/16 After properly identifying the patient, the patient was brought to the operating room and placed in the supine position. After proper IV sedation was achieved followed by general endotracheal intubation, the patient's bilateral upper extremity and lower extremities as well as bilateral lower quadrants and chest were prepped and draped in normal sterile fashion. Various abscesses were located in the extremities and chest and abdomen; these were isolated with towels and not a formal draped. The overall procedure for all 8 incision and drainage procedures are noted below : The anterior chest showed an abscess approximately 4-5 cm in size. An incision and drainage was performed with noted exudative drainage. Cultures were obtained and a portion of the necrotic skin was excised and submitted to pathology. After evacuation of the abscess there was noted granulation tissue at the base. The left forearm abscess was approximately 3-4 cm size. 15 blade scalpel was used to make an incision to allow for spontaneous drainage which was immediately cultured and suctioned. Evaluation of the base of the wound demonstrated granulation tissue . The left lower quadrant abscess was approximately 5 cm in length. An 11 blade scalpel was used to make an incision followed by exudative drainage which was immediately cultured. Purulence was expressed and the wound was irrigated with plain normal saline solution. The left lower leg abscess was noted to be up approximately 3-4 m in size and was incised with a 15 blade scalpel. Purulent drainage was expressed and the wound was irrigated with normal saline solution. On the dorsum of the left foot there was an abscess approximately 2.5-3 cm in size which was incised with a 15 blade scalpel. This was irrigated and granulation tissue noted at the base. Right lower leg demonstrated a 3 cm erythematous abscess which was incised and drained with immediate expression of exudate. This wound was also irrigated with normal saline solution until clear. The right lower quadrant abdominal abscess was approximately 2 cm in length. This was incised and drained with a 15 blade scalpel which showed minimal exudate expressed. This was irrigated with normal saline solution. Right forearm demonstrated a 2-3 cm erythematous abscess which was incised and drained immediately. Exudate was expressed and this wound was irrigated with normal saline solution. All abscess cavities were then irrigated with normal saline solution containing Ancef and then packed with quarter-inch plain Nu Gauze. Each was covered with a 4 x 4 gauze. Needle, sponge, and instrument counts were correct 2 and the patient was aroused from IV sedation, extubated in the operating room without complication, and transported to the recovery room in stable condition.
[2016-12-06] MEDS: Piperacillin/Tazobactam 3.375 GM in D5% in Water (Mini-Bag+) 100 ML IVPB SCH ×4 (10:45→23:00)
[2016-12-06] MEDS ORDERED: D5% in Water 1,000 ML IVC PRN (10:52)
[2016-12-06] MEDS ORDERED: *HR* Dextrose 50 % in Water (Syg) 50 ML SYRINGE IVP PRN ×2 (10:52→11:54)
[2016-12-06] MEDS ORDERED: 0.9 % Sodium Chloride 1,000 ML IVC SCH (10:52)
[2016-12-06 13:53] LABS: HIV-1&2 Antibody & p24 Ag Nonreactive (Nonreactive); Hepatitis A Antibody IgM Nonreactive (Nonreactive); Hepatitis C Virus Antibody Nonreactive (Nonreactive)
[2016-12-06 14:22] LABS: Hepatitis B Core IgM Reactive (Nonreactive)
--- NOTE | 2016-12-06 15:56 | Electrocardiograph Report ---
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
[2016-12-06] MEDS ORDERED: Piperacillin/Tazobactam 3.375 GM in D5% in Water (Mini-Bag+) 100 ML IVPB SCH (16:00)
--- NOTE | 2016-12-06 16:31 | Electrocardiograph Report ---
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
[2016-12-06] MEDS: 0.9 % Sodium Chloride 1,000 ML IVC SCH (16:34)
[2016-12-06] MEDS ORDERED: Insulin DETEMIR 100 UNIT/ML X5UNITS SQ SCH ×3 (21:00)
[2016-12-06] MEDS: Vancomycin 1,000 MG in D5% in Water 250 ML IVPB SCH (21:57)
[2016-12-07] MEDS: *HR* HYDROmorphone (PF) 1 MG/ML SYRINGE IVP PRN ×4 (01:55→15:16)
[2016-12-07] MEDS: 0.9 % Sodium Chloride 1,000 ML IVC SCH ×2 (01:59→11:40)
[2016-12-07 05:30] LABS: Basophils % 0.3 %; Eosinophils # 0.2 K/mcL (0.0-0.6); Eosinophils % 1.4 %; Hematocrit 35.8 % (35.3-44.9); Hemoglobin 11.7 g/dL (11.5-15.4); Immature Granulocytes % 0.5 % (0-4); Immature Platelets 7.6 % (1.1-6.1); Lymphocytes # 2.7 K/mcL (0.6-4.6); Lymphocytes % 23.7 %; Mean Corpuscular HGB Conc 32.7 g/dL (31.6-35.5); Mean Corpuscular Volume 94.7 fL (83.0-100.0); Mean Platelet Volume 11.6 fL (9.4-12.4); Monocytes # 0.7 K/mcL (0.0-1.3); Monocytes % 6.3 %; Neutrophils # 7.8 K/mcL (1.6-8.9); Platelet Count 215 K/mcL (140-400); Red Blood Count 3.78 M/mcL (3.82-4.97); Red Cell Distribution Width 13.4 % (11.5-14.5); Segmented Neutrophils % 67.8 %
[2016-12-07 05:45] LABS: Alanine Aminotransferase 171 Units/L (0-55); Albumin 2.1 g/dL (3.5-5.0); Albumin/Globulin Ratio 0.5 (1.1-2.2); Alkaline Phosphatase 149 Units/L (38-126); Aspartate Amino Transferase 162 Units/L (5-34); BUN/Creatinine Ratio 9 (6-26); Bilirubin,Total 0.2 mg/dL (0.2-1.2); Blood Urea Nitrogen 7 mg/dL (7-20); Carbon Dioxide 29 mEq/L (19-29); Chloride 99 mEq/L (98-109); Globulin 3.9 g/dL (2.4-3.5); Glucose 415 mg/dL (70-99); Osmolality,Calculated 292 (280-300); Potassium 4.6 mEq/L (3.5-4.5); Sodium 133 mEq/L (136-145); eGFR For African Americans > 60 (> 60); eGFR For Non-African Americans > 60 (> 60)
[2016-12-07] MEDS: *HR* Heparin 5,000 UNIT/ML VIAL SQ SCH ×2 (06:02→17:05)
[2016-12-07] MEDS: Piperacillin/Tazobactam 3.375 GM in D5% in Water (Mini-Bag+) 100 ML IVPB SCH ×2 (08:22→16:58)
[2016-12-07] MEDS: Vancomycin 1,000 MG in D5% in Water 250 ML IVPB SCH ×2 (08:22→20:14)
[2016-12-07] MEDS: Insulin LISPRO 300 UNITS/3 ML VIAL SQ SCH ×3 (08:23→16:58)
[2016-12-07] MEDS ORDERED: *HR* OxyCODONE/APAP 5/325 TABLET PO PRN (15:47)
--- NOTE | 2016-12-07 16:05 | Internal Med Progress Note ---
Date of Encounter: 12/07/16 Time of Encounter: 16:01 - Assessment and plan (1) Sepsis Current Visit: No Status: Resolved Assessment and plan: Improved due to multiple skin abscess Qualifiers: Sepsis type: methicillin susceptible Staphylococcus aureus Qualified Code(s ): A41.01 - Sepsis due to Methicillin susceptible Staphylococcus aureus (2) Skin abscess Current Visit: Yes Status: Acute Assessment and plan: s/p I & D of multiple abscess over all 4 extremities , Chest and abdomen Surgery is following for wound care Wound cx - G-ve rods, enterococci cont empirical abx Zosyn and Vancomycin will deescalate her abx depending on sensitivity Qualifiers: Site of cutaneous abscess: other site Qualified Code(s): L02.818 - Cutaneous abscess of other sites (3) JD (acute kidney injury) Current Visit: No Status: Resolved Assessment and plan: resolved (4) Diabetic hyperosmolar non-ketotic state Current Visit: Yes Status: Resolved Assessment and plan: resolved (5) IDDM (insulin dependent diabetes mellitus) Current Visit: Yes Status: Acute Assessment and plan: uncontrolled DM HbA1C 13.7 Blood sugars are still not well controlled Inc Levemir to 30 U BID Cont ISS medium.. If BS still not controlled will inc ISS to high - Subjective Interval history: Ms. Alvarez is a 36 year old female who presented to the ED with complaints of hyperglycemia for the past 3 days. She reports that she has been checking her insulin routinely however the glucometer reads "high". She reports that she has continued to take her insulin as per current orders. She reports multiple abscesses which she states have been present for at least 1 week. She reports abscesses to bilateral upper extremities, chest wall, left foot, bilateral lower legs, and left abdominal wall. She reports purulent drainage from some of the abscess locations. She admits to having areas similar to this in the past. She was last treated for an abscess to the top of her right foot and hand which area healing. She was previously treated with bactrim. She disclosed fevers to myself but denied fevers to another physician. Denies any nausea/vomiting. But states she does have diffuse abdominal pain and is concerned her "pancreas is acting up again". Denies alcohol and illicit drug use. She states that the only thing that she injects is her insulin in which she uses her abdomen and lower extremities. Denies any trauma to the areas of infection. Pt was admitted to ICU initially due to severe sepsis and DKA. She was placed on Insulin gtt and started her on empirical abx with Zosyn and Vancomycin. She was evaluated by Surgery who did I & D of multiple abscess. She was transferred to Telemetry 12/06/16 for further care. Now she is alert, awake and O x3. Denied any CP / SOB. No active drainage noticed through all the wounds on her body. - Constitutional Vitals: Temp Pulse Resp BP Pulse Ox 98.9 F 85 16 98/63 95 12/07/16 11:19 12/07/16 11:19 12/07/16 11:19 12/07/16 11:19 12/07/16 11:19 General appearance: Present: A&O X 3, no acute distress, answers questions appropriately - Head Head exam: Present: atraumatic, normal inspection - Respiratory Respiratory exam: Present: CTAB. Absent: accessory muscle use, rales, rhonchi, wheezes - Cardiovascular Cardiovascular exam: Present: RRR, +S1, +S2. Absent: diastolic murmur, gallop, rubs, systolic murmur - GI/Abdominal GI/Abdominal exam: Present: normal bowel sounds, soft. Absent: rebound, rigid, tenderness - Extremities Exam Extremities exam: Absent: calf tenderness, pedal edema, tenderness Additional comments: improving erythema and swelling around the abscess in all extremities.. all the incisions are packed with Iodized gauze. - Neurological Exam Neurological exam: Present: alert, oriented X3 - Psychiatric Psychiatric exam: Present: normal affect, normal mood - Skin Additional comments: improving erythema and swelling around the abscess on her anterior chest wall and lower abdomen.. all the incisions are packed with Iodized gauze. Internal Medicine: Result - Labs CBC & Chem 7: 12/07/16 05:10 12/07/16 05:10 Labs: Short CBC 12/07/16 Range/Units 05:10 WBC 11.5 H (4.3-11.1) K/mcL Hgb 11.7 (11.5-15.4) g/dL Hct 35.8 (35.3-44.9) % Plt Count 215 (140-400) K/mcL Neutrophils # 7.8 (1.6-8.9) K/mcL BMP 12/07/16 05:10 Sodium 133 L Potassium 4.6 H D Chloride 99 Carbon Dioxide 29 BUN 7 Creatinine 0.76 Glucose 415 H Calcium 8.0 L Liver Function 12/07/16 Range/Units 05:10 Total Bilirubin 0.2 (0.2-1.2) mg/dL AST 162 H (5-34) Units/L ALT 171 H (0-55) Units/L Alkaline Phosphatase 149 H (38-126) Units/L Albumin 2.1 L (3.5-5.0) g/dL - ABG Interpretation ABG results: PT/INR, D-dimer PT 12.0 Seconds (9.4-12.1) 12/05/16 12:06 - Impressions Impressions Abdomen Ultrasound 12/07/16 08:45 IMPRESSION: 1. Chronic pancreatitis. 2. Mild ascites. D/ / Adrián Parker MD / Adrián Parker MD Interpreting Provider: Adrián Parker MD Consult Discharge Plan - Plan Referrals: NONE,PCP [Primary Care Provider] -
[2016-12-07 16:11] VITALS: BP 108/71
[2016-12-07] MEDS ORDERED: *HR* HYDROmorphone 2 MG/ML SYRINGE IVP PRN (19:55)
[2016-12-07] MEDS ORDERED: Aminoglycoside Consult 1 EACH MC ONE (20:46)
--- NOTE | 2016-12-07 20:48 | Discharge Summary ---
Date of Encounter: 12/07/16 Time of Encounter: 20:46 - Discharge Medications Home Medications: Gabapentin [Neurontin] 800 mg PO TID 07/03/16 [History] Insulin ASPART [NovoLOG] 18 unit SQ TIDAC PRN 07/03/16 [History] Insulin Glargine,Hum.rec.anlog [Lantus Solostar] 40 unit SQ BID 08/22/16 [ History] OxyCODONE Immed Rel [Roxicodone 5 MG] 10 mg PO Q6HR PRN 09/14/16 [History] ALPRAZolam [Xanax 0.25 MG Tablet] 0.25 mg PO TID 09/15/16 [History] Lipase/Protease/Amylase [Pelon Rice 6,000 Units Capsule] 2 cap PO QID 12/05/16 [ History] Allergies/Adverse Reactions: 3 Allergy/AdvReac Type Severity Reaction Status Date / Time ketorolac [From Toradol] Allergy Hives Verified 10/22/16 20:41 tramadol [From Ultram] Allergy Anaphylaxis Verified 10/22/16 20:41 iodine Allergy Anaphylaxis Uncoded 10/22/16 20:41 IV Contrast Allergy Anaphylaxis Uncoded 10/22/16 20:41 Procedures/tests Complete & Pending: Procedures Performed prior 72 hours Category Date Time Status US abdomen limited [US] Routine Exams 12/07/16 08:45 Completed ECG 12 lead ECG [ECG] Routine Y 12/05/16 17:10 Completed ECG 12 lead ECG [ECG] Stat Y 12/05/16 15:03 Completed Date of admission: 12/05/16 14:29 Primary care physician: PCP NONE Consults: 12/05/16 15:20 Consult to Surgery [CONS] Routine Consulting Provider: Surgery [facility] Reason for Consult: abscesses - Dr. Casey Call Completed: Yes 12/06/16 17:10 Consult to [employer] [CONS] Routine Reason for SW Consult: discharge planning - Patient Status Disposition: Home, Self-Care Condition: Undetermined - Discharge Instructions Follow Up With: NONE,PCP [Primary Care Provider] - Interval History: Patient presented to the hospital with DKA multiple skin on status post incision and drainage. Cultures grew enterococcus and gram-negative rods. Sensitivities are pending. Patient wants to leave against medical advice. I have advised the patient that it is better to wait until sensitivities are back. She refused despite living here optimal pain control. I have still discharged the patient on Augmentin hoping that enterococcus will be covered by it in addition to ciprofloxacin for the gram-negative rods. I have also give the patient prescriptions for long-acting and short-acting insulin. I have advised the patient to come to the emergency room tomorrow to follow up on cultures and sensitivities and have antibiotics changed accordingly. She expressed understanding all above plan. Patient signed papers against medical advice Hospital course: Ms. Alvarez is a 36 year old female - Time Spent with Patient Total time spent providing and/or coordinating discharge services: - Constitutional Vitals: Temp Pulse Resp BP Pulse Ox 99 F 82 16 108/71 95 12/07/16 16:05 12/07/16 16:05 12/07/16 16:05 12/07/16 16:05 12/07/16 16:05 General appearance: Present: A&O X 3, no acute distress, answers questions appropriately Exam: I have not examined the patient
[2016-12-07] MEDS ORDERED: Insulin DETEMIR 100 UNIT/ML X5UNITS SQ SCH (21:00)
== END 2016-12-07 20:47 | disposition left against medical advice (07) | DRG 871 ==
LOC: EMEROO 11:30 → 1ANU 14:21 → ICNU 14:29 → 3ANU 12-06 15:47
PROVIDERS: ADMIT Internal Medicine Pulmonary Disease; ATTEND Family Medicine

== ENCOUNTER 2016-12-13 20:39 | Inpatient (IN) ==
[2016-12-13 21:19] LABS: Bilirubin,Urine Negative (Negative); Blood,Urine Negative (Negative); Clarity,Urine Cloudy (Clear); Color,Urine Yellow (Yellow); Glucose,Urine (UA) >=1000 mg/dL (Normal); Ketones,Urine 15 mg/dL (Negative); Leukocyte Esterase,Urine Negative (Negative); Nitrite,Urine Negative (Negative); PH,Urine 6.5 pH Units (5.0-8.0); Protein,Urine Trace mg/dL (Neg-Trace); Specific Gravity,Urine > 1.030 (1.010-1.025); Urobilinogen,Urine Normal (Normal)
[2016-12-13 21:20] LABS: Bacteria,Urine Few per hpf (None-Few); Hyaline Casts,Urine None Seen per lpf (None-Few); RBC,Urine 0-3 per hpf (0-3); Squamous Epithelial Cell,Urine Many per lpf (None-Few); WBC,Urine 15-30 per hpf (0-3)
[2016-12-13] MEDS ORDERED: 0.9 % Sodium Chloride 1,000 ML IVC ONE ×2 (21:56→21:57)
[2016-12-13 22:09] LABS: Basophils # 0.1 K/mcL (0.0-0.2); Basophils % 0.4 %; Eosinophils # 0.1 K/mcL (0.0-0.6); Eosinophils % 0.9 %; Immature Granulocytes % 0.6 % (0-4); Lymphocytes # 2.3 K/mcL (0.6-4.6); Mean Corpuscular HGB Conc 33.5 g/dL (31.6-35.5); Mean Corpuscular Hemoglobin 30.9 pg (28.0-33.3); Mean Corpuscular Volume 92.2 fL (83.0-100.0); Mean Platelet Volume 11.4 fL (9.4-12.4); Monocytes # 1.3 K/mcL (0.0-1.3); Monocytes % 8.3 %; Neutrophils # 11.6 K/mcL (1.6-8.9); Platelet Count 309 K/mcL (140-400); Red Blood Count 4.99 M/mcL (3.82-4.97); Red Cell Distribution Width 13.7 % (11.5-14.5); Segmented Neutrophils % 74.8 %
[2016-12-13 22:10] LABS: Hemoglobin 15.4 g/dL (11.5-15.4); VBG HCO3 20.7 mEq/L (21-27); VBG PH 7.3 pH Units (7.32-7.42)
[2016-12-13] MEDS ORDERED: *HR* Morphine 2 MG/ML SYRINGE IVP ONE ×2 (22:17→23:36)
[2016-12-13] MEDS ORDERED: Ondansetron 4 MG/2 ML VIAL IVP ONE (22:17)
[2016-12-13] MEDS ORDERED: Vancomycin 750 MG in D5% in Water 250 ML IVPB ONE ×2 (22:20→23:30)
[2016-12-13] MEDS ORDERED: Piperacillin/Tazobactam 4.5 GM in D5% in Water (Mini-Bag+) 100 ML IVPB ONE (22:21)
[2016-12-13 22:25] LABS: Albumin 3.3 g/dL (3.5-5.0); Albumin/Globulin Ratio 0.6 (1.1-2.2); Bilirubin,Direct 0.4 mg/dL (0.0-0.5); Bilirubin,Indirect 0.4 mg/dL (0.0-1.2); Bilirubin,Total 0.8 mg/dL (0.2-1.2); Calcium 9.5 mg/dL (8.6-10.8); Potassium 4.3 mEq/L (3.5-4.5); Total Protein 9.3 g/dL (6.0-8.3)
[2016-12-13] MEDS ORDERED: Lidocaine/EPI 1:100k 1% 50 ML VIAL INFILT ONE (22:48)
--- NOTE | 2016-12-13 22:53 | Emergency Department Note ---
Disposition Clinical Impression: Liver enzyme elevation, Hyperglycemia, Cellulitis, Sepsis Abscess of skin or subcutaneous tissue Qualifiers: Site of cutaneous abscess: extremity Site of cutaneous abscess of extremity: upper extremity Laterality: right Qualified Code(s): L02.413 - Cutaneous abscess of right upper limb Disposition: Admitted As Inpatient Condition: Fair Time of Disposition: 23:58 General Adult HPI - General Chief complaint: ED Skin/Abscess/Foreign Body Stated complaint: high BG, abscesses Time Seen by Provider: 12/13/16 21:39 Source: patient, EMS Limitations: no limitations Nursing Notes Reviewed: Yes Vital Signs Reviewed: Yes - History of Present Illness HPI Narrative: Patient is a 36-year-old female with a past medical history of skin abscesses, type 2 diabetes, previous hospital admissions for abscesses. She presents to the emergency department with a chief complaint of pain in her right hand and high blood glucose. Pain Scale: 7 - Related Data Home Medications Medication Instructions Recorded Confirmed Gabapentin [Neurontin] 800 mg PO TID 07/03/16 12/14/16 Insulin ASPART [NovoLOG] 18 unit SQ TIDAC PRN 07/03/16 12/14/16 Insulin Glargine,Hum.rec.anlog 40 unit SQ BID 08/22/16 12/14/16 [Lantus Solostar] OxyCODONE Immed Rel [Roxicodone 5 10 mg PO Q6HR PRN 09/14/16 12/14/16 MG] ALPRAZolam [Xanax 0.25 MG Tablet] 0.25 mg PO TID 09/15/16 12/14/16 Lipase/Protease/Amylase [Pelon Rice 2 cap PO QID 12/05/16 12/14/16 6,000 Units Capsule] Allergies Allergy/AdvReac Type Severity Reaction Status Date / Time ketorolac [From Toradol] Allergy Hives Verified 12/13/16 20:47 tramadol [From Ultram] Allergy Anaphylaxis Verified 12/13/16 20:47 iodine Allergy Anaphylaxis Uncoded 10/22/16 20:41 IV Contrast Allergy Anaphylaxis Uncoded 10/22/16 20:41 All systems ED: reviewed and negative except as stated. Constitutional: Denies: fever, chills Integumentary: Reports: other (Abscesses) Past Medical History - Past Medical History Medical history: Reports: asthma, COPD, diabetes, GERD, other Surgical history: Reports: no surgical history, other Psychiatric history: Reports: anxiety, depression [employer] history: Reports: bilateral tubal ligation - Social History Smoking Status: Current every day smoker Smokeless Tobacco Status: No Alcohol use: Reports: none Drug use: Reports: opiates Physical Exam - General Limitations: no limitations General appearance: alert, in no apparent distress - Head Head exam: normal inspection - Eye Eye exam: Absent: scleral icterus, conjunctival injection - ENT ENT exam: mucous membranes dry - Neck Neck exam: Present: trachea midline. Absent: tenderness, meningismus - Chest Chest inspection: Present: symmetric chest wall rise - Respiratory Respiratory exam: Present: normal lung sounds bilaterally. Absent: respiratory distress, accessory muscle use - Cardiovascular Cardiovascular exam: Present: normal rhythm, tachycardia - Abdominal Exam Abdominal exam: Present: soft, Non-Tender - Extremities Exam Extremities exam: Present: other (Patient has several abscesses of her extremities. There is one abscess on the right arm times approximately 2 cm in diameter which has packing in it. It is excoriated result. The one on the left foot that is open and draining. It is approximately 3 cm in diameter. There is one on the dorsal aspect of the forearm which is 1 cm in diameter and has purulent material that appears crater like.) - Expanded Upper Extremity Exam Forearm/Wrist exam: Present: tenderness, swelling, erythema, other (Dorsal aspect of the right hand. Fluctuance. Flexors and extensors are intact. There is no tenderness over the tendons. There is no tracking into the arm.) - Back Exam Back exam: Present: normal inspection - Neurological Exam Neurological exam: Present: alert, oriented X3 - Psychiatric Psychiatric exam: Present: normal affect, normal mood - Skin Skin exam: Present: warm, dry, intact, other (Several abscesses covering her upper and lower extremities. Some are formed and some are healing.) Course Course Narrative: 36-year-old female presents to the emergency department with new abscess on the dorsum of her right hand. She also has an elevated glucose of 461. Patient presents his tachycardia but a pulse rate of 116. This patient has obvious signs of cellulitis all over upper and lower extremities. The most concerning of which was on the dorsal aspect of her right hand. She is not having any can able size it was suggest flexor tenosynovitis. However, due to the patient's comorbid conditions diabetes, wanted to rule out necrotizing fasciitis of the CT scan of the right hand. CT scan revealed lobulated soft tissue swelling on the dorsal aspect of the hand and did not see any extension of the inflammatory process into the deeper space of the hand. There was no signs consistent with necrotizing fasciitis. This patient had a leukocytosis of 15 of which we initiated the sepsis protocol. She did not however have a elevated lactic acid. The patient was administered 3 L of normal saline here in the emergency department. She was given broad-spectrum antibiotics of vancomycin and Zosyn. Her blood glucose dropped to 347 while in the emergency department from the original of 462. I did an incision and drainage on the abscess on the right hand. An obtained cultures. I did not perform incision and drainage of any of the other abscesses as the procedure was causing the patient to much pain. She cannot tolerate it well. She stated that she would rather have surgery. This patient has had surgery on these abscesses before she was under anesthesia. I spoke with the hospitalist Dr. Mccray on the phone he agreed to admit this patient. Lastly, this patient has elevated hepatic transaminases. I think he should be addressed further while in the hospital. I discussed the admission of this patient with her, and she agreed to be admitted. Patient was currently hemodynamically stable at time of admission Chest X-Ray 12/13/16 20:53 IMPRESSION: No acute cardiopulmonary disease. D/ / Robert Aaron MD / Robert Aaron MD Interpreting Provider: Robert Aaron MD Hand CT 12/13/16 22:46 IMPRESSION: Lobulated soft tissue swelling along the dorsal aspect of the hand. Again, without intravenous contrast, it is difficult to determine whether an abscess is present or not, and one certainly remains in the differential in this case. At this time, there is no obvious extension of that inflammatory process into the deeper spaces of the hand, and there is no CT evidence of osteomyelitis. There is a small amount of palmar bursal fluid, which is of questionable clinical significance. D/ / Ezequiel Renee MD / Ezequiel Renee MD Interpreting Provider: Ezequiel Renee MD Vital Signs Temperature 98.1 F 12/13/16 20:40 Pulse Rate 116 12/13/16 20:40 Respiratory Rate 20 12/13/16 20:40 Blood Pressure 131/85 12/13/16 20:40 O2 Sat by Pulse Oximetry 97 12/13/16 20:40 Temperature 98.6 F 12/14/16 02:30 Pulse Rate 97 12/14/16 02:30 Respiratory Rate 16 12/14/16 02:30 Blood Pressure 109/85 12/14/16 02:30 O2 Sat by Pulse Oximetry 98 12/14/16 02:30 Oxygen Delivery Oxygen Delivery Room Air Vital Signs Temperature 98.1 F 12/13/16 20:40 Pulse Rate 116 12/13/16 20:40 Respiratory Rate 20 12/13/16 20:40 Blood Pressure 131/85 12/13/16 20:40 O2 Sat by Pulse Oximetry 97 12/13/16 20:40 Temperature 98.1 F 12/14/16 20:20 Pulse Rate 83 12/14/16 20:20 Respiratory Rate 18 12/14/16 20:20 Blood Pressure 109/81 12/14/16 20:20 O2 Sat by Pulse Oximetry 96 12/14/16 20:20 Oxygen Delivery Oxygen Delivery Room Air Procedures - Abscess I/D Consent obtained: verbal consent Site: hand Side (if applicable): right Local Anesthetic: lidocaine 1%, with epi Amount of Anesthesia Used (mL): 2 Technique: incised with #11 blade Irrigation: No (Patient cannot tolerate the pain) Packing used?: none Complications: pain Medical Decision Making - Medical Records Medical records reviewed: Yes I reviewed the patient's medical records. - Lab Data Lab results reviewed: Yes I reviewed the patient's lab results. Result diagrams: 12/14/16 06:48 12/14/16 18:50 Lab Results 12/13/16 12/13/16 12/13/16 Range/Units 20:44 20:45 21:10 WBC (4.3-11.1) K/mcL RBC (3.82-4.97) M/mcL Hgb (11.5-15.4) g/dL Hct (35.3-44.9) % MCV (83.0-100.0) fL MCH (28.0-33.3) pg MCHC (31.6-35.5) g/dL RDW (11.5-14.5) % Plt Count (140-400) K/mcL MPV (9.4-12.4) fL Immature Gran % (0-4) % Seg Neutrophils % % Lymphocytes % % Monocytes % % Eosinophils % % Basophils % % Neutrophils # (1.6-8.9) K/mcL Lymphocytes # (0.6-4.6) K/mcL Monocytes # (0.0-1.3) K/mcL Eosinophils # (0.0-0.6) K/mcL Basophils # (0.0-0.2) K/mcL VBG pH (7.32-7.42) pH Units VBG pCO2 (41-51) mmHg VBG pO2 (25-40) mmHg VBG HCO3 (21-27) mEq/L Sodium (136-145) mEq/L Potassium (3.5-4.5) mEq/L Chloride (98-109) mEq/L Carbon Dioxide (19-29) mEq/L BUN (7-20) mg/dL Creatinine (0.57-1.11) mg/dL Est GFR ( Amer) (> 60) Est GFR (Non-Af Amer) (> 60) BUN/Creatinine Ratio (6-26) Glucose (70-99) mg/dL POC Glucose 419 H* 392 H (58-89) Calculated Osmolality (280-300) Lactic Acid (0.5-2.2) mmol/L Calcium (8.6-10.8) mg/dL Magnesium (1.6-2.6) mg/dL Total Bilirubin (0.2-1.2) mg/dL Direct Bilirubin (0.0-0.5) mg/dL Indirect Bilirubin (0.0-1.2) mg/dL AST (5-34) Units/L ALT (0-55) Units/L Alkaline Phosphatase (38-126) Units/L Serum Total Protein (6.0-8.3) g/dL Albumin (3.5-5.0) g/dL Globulin (2.4-3.5) g/dL Albumin/Globulin Ratio (1.1-2.2) Beta-Hydroxybutyric Acd (0.02-0.27) mmol/L Serum , Qual (Negative) Urine Color Yellow (Yellow) Urine Clarity Cloudy A (Clear) Urine pH 6.5 (5.0-8.0) pH Units Ur Specific [place] > 1.030 H (1.010-1.025) Urine Protein Trace (Neg-Trace) mg/dL Urine Glucose (UA) >=1000 H (Normal) mg/dL Urine Ketones 15 H (Negative) mg/dL Urine Blood Negative (Negative) Urine Nitrite Negative (Negative) Urine Bilirubin Negative (Negative) Urine Urobilinogen Normal (Normal) mg/dL Ur Leukocyte Esterase Negative (Negative) Urine Microscopic RBC 0-3 (0-3) per hpf Urine Microscopic WBC 15-30 H (0-3) per hpf Ur Squamous Epith Cells Many H (None-Few) per lpf Urine Bacteria Few (None-Few) per hpf Hyaline Casts None Seen (None-Few) per lpf Ur Culture Indicated? YES A (NO) Urine Opiates Screen (Ukquvl=677) ng/mL Ur Barbiturates Screen (Prldme=507) ng/mL Ur Phencyclidine Scrn (Cutoff=25) ng/mL Ur Amphetamines Screen (Yedfmj=3955) ng/mL U Benzodiazepines Scrn (Tvxtad=759) ng/mL Urine Cocaine Screen (Cutoff= 300) ng/mL U Marijuana (THC) Screen (Cutoff = 50) ng/mL Specimen Rejected 12/13/16 12/13/16 12/13/16 Range/Units 21:10 22:02 22:02 WBC 15.5 H (4.3-11.1) K/mcL RBC 4.99 H (3.82-4.97) M/mcL Hgb 15.4 D (11.5-15.4) g/dL Hct 46.0 H (35.3-44.9) % MCV 92.2 (83.0-100.0) fL MCH 30.9 (28.0-33.3) pg MCHC 33.5 (31.6-35.5) g/dL RDW 13.7 (11.5-14.5) % Plt Count 309 (140-400) K/mcL MPV 11.4 (9.4-12.4) fL Immature Gran % 0.6 (0-4) % Seg Neutrophils % 74.8 % Lymphocytes % 15.0 % Monocytes % 8.3 % Eosinophils % 0.9 % Basophils % 0.4 % Neutrophils # 11.6 H (1.6-8.9) K/mcL Lymphocytes # 2.3 (0.6-4.6) K/mcL Monocytes # 1.3 (0.0-1.3) K/mcL Eosinophils # 0.1 (0.0-0.6) K/mcL Basophils # 0.1 (0.0-0.2) K/mcL VBG pH (7.32-7.42) pH Units VBG pCO2 (41-51) mmHg VBG pO2 (25-40) mmHg VBG HCO3 (21-27) mEq/L Sodium 127 L (136-145) mEq/L Potassium 4.3 (3.5-4.5) mEq/L Chloride 96 L (98-109) mEq/L Carbon Dioxide 17 L (19-29) mEq/L BUN 15 (7-20) mg/dL Creatinine 1.27 H (0.57-1.11) mg/dL Est GFR ( Amer) 57 L (> 60) Est GFR (Non-Af Amer) 47 L (> 60) BUN/Creatinine Ratio 12 (6-26) Glucose 461 H (70-99) mg/dL POC Glucose (58-89) Calculated Osmolality 285 (280-300) Lactic Acid (0.5-2.2) mmol/L Calcium 9.5 (8.6-10.8) mg/dL Magnesium 1.6 (1.6-2.6) mg/dL Total Bilirubin 0.8 (0.2-1.2) mg/dL Direct Bilirubin 0.4 (0.0-0.5) mg/dL Indirect Bilirubin 0.4 (0.0-1.2) mg/dL AST 268 H (5-34) Units/L ALT 397 H (0-55) Units/L Alkaline Phosphatase 380 H (38-126) Units/L Serum Total Protein 9.3 H (6.0-8.3) g/dL Albumin 3.3 L (3.5-5.0) g/dL Globulin 6.0 H (2.4-3.5) g/dL Albumin/Globulin Ratio 0.6 L (1.1-2.2) Beta-Hydroxybutyric Acd (0.02-0.27) mmol/L Serum , Qual (Negative) Urine Color (Yellow) Urine Clarity (Clear) Urine pH (5.0-8.0) pH Units Ur Specific [place] (1.010-1.025) Urine Protein (Neg-Trace) mg/dL Urine Glucose (UA) (Normal) mg/dL Urine Ketones (Negative) mg/dL Urine Blood (Negative) Urine Nitrite (Negative) Urine Bilirubin (Negative) Urine Urobilinogen (Normal) mg/dL Ur Leukocyte Esterase (Negative) Urine Microscopic RBC (0-3) per hpf Urine Microscopic WBC (0-3) per hpf Ur Squamous Epith Cells (None-Few) per lpf Urine Bacteria (None-Few) per hpf Hyaline Casts (None-Few) per lpf Ur Culture Indicated? (NO) Urine Opiates Screen Positive H (Vokboi=207) ng/mL Ur Barbiturates Screen Negative (Lbszrb=242) ng/mL Ur Phencyclidine Scrn Negative (Cutoff=25) ng/mL Ur Amphetamines Screen Negative (Buexqq=5160) ng/mL U Benzodiazepines Scrn Negative (Pywglh=062) ng/mL Urine Cocaine Screen Negative (Cutoff= 300) ng/mL U Marijuana (THC) Screen Negative (Cutoff = 50) ng/mL Specimen Rejected 12/13/16 12/13/16 12/13/16 Range/Units 22:02 22:02 22:02 WBC (4.3-11.1) K/mcL RBC (3.82-4.97) M/mcL Hgb (11.5-15.4) g/dL Hct (35.3-44.9) % MCV (83.0-100.0) fL MCH (28.0-33.3) pg MCHC (31.6-35.5) g/dL RDW (11.5-14.5) % Plt Count (140-400) K/mcL MPV (9.4-12.4) fL Immature Gran % (0-4) % Seg Neutrophils % % Lymphocytes % % Monocytes % % Eosinophils % % Basophils % % Neutrophils # (1.6-8.9) K/mcL Lymphocytes # (0.6-4.6) K/mcL Monocytes # (0.0-1.3) K/mcL Eosinophils # (0.0-0.6) K/mcL Basophils # (0.0-0.2) K/mcL VBG pH 7.30 L (7.32-7.42) pH Units VBG pCO2 42 (41-51) mmHg VBG pO2 32 (25-40) mmHg VBG HCO3 20.7 L (21-27) mEq/L Sodium (136-145) mEq/L Potassium (3.5-4.5) mEq/L Chloride (98-109) mEq/L Carbon Dioxide (19-29) mEq/L BUN (7-20) mg/dL Creatinine (0.57-1.11) mg/dL Est GFR ( Amer) (> 60) Est GFR (Non-Af Amer) (> 60) BUN/Creatinine Ratio (6-26) Glucose (70-99) mg/dL POC Glucose (58-89) Calculated Osmolality (280-300) Lactic Acid 1.9 (0.5-2.2) mmol/L Calcium (8.6-10.8) mg/dL Magnesium (1.6-2.6) mg/dL Total Bilirubin (0.2-1.2) mg/dL Direct Bilirubin (0.0-0.5) mg/dL Indirect Bilirubin (0.0-1.2) mg/dL AST (5-34) Units/L ALT (0-55) Units/L Alkaline Phosphatase (38-126) Units/L Serum Total Protein (6.0-8.3) g/dL Albumin (3.5-5.0) g/dL Globulin (2.4-3.5) g/dL Albumin/Globulin Ratio (1.1-2.2) Beta-Hydroxybutyric Acd > 2.00 H (0.02-0.27) mmol/L Serum , Qual (Negative) Urine Color (Yellow) Urine Clarity (Clear) Urine pH (5.0-8.0) pH Units Ur Specific [place] (1.010-1.025) Urine Protein (Neg-Trace) mg/dL Urine Glucose (UA) (Normal) mg/dL Urine Ketones (Negative) mg/dL Urine Blood (Negative) Urine Nitrite (Negative) Urine Bilirubin (Negative) Urine Urobilinogen (Normal) mg/dL Ur Leukocyte Esterase (Negative) Urine Microscopic RBC (0-3) per hpf Urine Microscopic WBC (0-3) per hpf Ur Squamous Epith Cells (None-Few) per lpf Urine Bacteria (None-Few) per hpf Hyaline Casts (None-Few) per lpf Ur Culture Indicated? (NO) Urine Opiates Screen (Naejts=215) ng/mL Ur Barbiturates Screen (Kbryzc=791) ng/mL Ur Phencyclidine Scrn (Cutoff=25) ng/mL Ur Amphetamines Screen (Crcfoh=8787) ng/mL U Benzodiazepines Scrn (Cmwjan=121) ng/mL Urine Cocaine Screen (Cutoff= 300) ng/mL U Marijuana (THC) Screen (Cutoff = 50) ng/mL Specimen Rejected 12/13/16 12/14/16 12/14/16 Range/Units 22:02 00:27 00:31 WBC (4.3-11.1) K/mcL RBC (3.82-4.97) M/mcL Hgb (11.5-15.4) g/dL Hct (35.3-44.9) % MCV (83.0-100.0) fL MCH (28.0-33.3) pg MCHC (31.6-35.5) g/dL RDW (11.5-14.5) % Plt Count (140-400) K/mcL MPV (9.4-12.4) fL Immature Gran % (0-4) % Seg Neutrophils % % Lymphocytes % % Monocytes % % Eosinophils % % Basophils % % Neutrophils # (1.6-8.9) K/mcL Lymphocytes # (0.6-4.6) K/mcL Monocytes # (0.0-1.3) K/mcL Eosinophils # (0.0-0.6) K/mcL Basophils # (0.0-0.2) K/mcL VBG pH (7.32-7.42) pH Units VBG pCO2 (41-51) mmHg VBG pO2 (25-40) mmHg VBG HCO3 (21-27) mEq/L Sodium (136-145) mEq/L Potassium (3.5-4.5) mEq/L Chloride (98-109) mEq/L Carbon Dioxide (19-29) mEq/L BUN (7-20) mg/dL Creatinine (0.57-1.11) mg/dL Est GFR ( Amer) (> 60) Est GFR (Non-Af Amer) (> 60) BUN/Creatinine Ratio (6-26) Glucose (70-99) mg/dL POC Glucose 347 H (58-89) Calculated Osmolality (280-300) Lactic Acid (0.5-2.2) mmol/L Calcium (8.6-10.8) mg/dL Magnesium (1.6-2.6) mg/dL Total Bilirubin (0.2-1.2) mg/dL Direct Bilirubin (0.0-0.5) mg/dL Indirect Bilirubin (0.0-1.2) mg/dL AST (5-34) Units/L ALT (0-55) Units/L Alkaline Phosphatase (38-126) Units/L Serum Total Protein (6.0-8.3) g/dL Albumin (3.5-5.0) g/dL Globulin (2.4-3.5) g/dL Albumin/Globulin Ratio (1.1-2.2) Beta-Hydroxybutyric Acd (0.02-0.27) mmol/L Serum , Qual Negative (Negative) Urine Color (Yellow) Urine Clarity (Clear) Urine pH (5.0-8.0) pH Units Ur Specific [place] (1.010-1.025) Urine Protein (Neg-Trace) mg/dL Urine Glucose (UA) (Normal) mg/dL Urine Ketones (Negative) mg/dL Urine Blood (Negative) Urine Nitrite (Negative) Urine Bilirubin (Negative) Urine Urobilinogen (Normal) mg/dL Ur Leukocyte Esterase (Negative) Urine Microscopic RBC (0-3) per hpf Urine Microscopic WBC (0-3) per hpf Ur Squamous Epith Cells (None-Few) per lpf Urine Bacteria (None-Few) per hpf Hyaline Casts (None-Few) per lpf Ur Culture Indicated? (NO) Urine Opiates Screen (Qebzqt=353) ng/mL Ur Barbiturates Screen (Vknnfb=760) ng/mL Ur Phencyclidine Scrn (Cutoff=25) ng/mL Ur Amphetamines Screen (Xxodoo=9712) ng/mL U Benzodiazepines Scrn (Rjgyle=602) ng/mL Urine Cocaine Screen (Cutoff= 300) ng/mL U Marijuana (THC) Screen (Cutoff = 50) ng/mL Specimen Rejected Hemolyzed - Radiology Data Radiology results reviewed: Yes I reviewed the patient's radiology results. - EKG Data EKG #1 EKG attestation: Yes I reviewed and interpreted this EKG. EKG results narrative: 12/13/2016 2140 Ventricular rate 108 bpm, KS interval 140 ms, QRS duration 69 ms, QT 317 ms, QTC 380 ms, normal axis. Sinus tachycardia with a ventricular rate of 108 bpm. Left atrial enlargement. This is unchanged from a previous EKG performed on 12/05/2016. Critical Care Time Critical Care Time: Yes Total Critical Care Time: 35 Attestation: Critical care performed: Time is exclusive of separately billable procedures. Time includes: direct patient care, patient reassessment, coordination of patient care, interpretation of data (laboratory data, radiology data, and respiratory data), review of patient's medical records, medical consultation and documentation of patient care. Procedures included in critical care time: Procedures excluded from critical care time: Incision and drainage Attestation Statement - Attestation Attestation: I, Brenden Cadet MD, personally evaluated this patient and discussed their management with the resident physician. I reviewed the resident's note and agree with the documented findings, medical decision making, and plan of care. 36-year-old diabetic female presents to the emergency department complaining of multiple abscesses. She has had fever. She was recently in the hospital for the same issue and had several areas drained and still has packing in place which she states has been there for 4 days or more. She also had an area debrided on the dorsum of her foot and over the sternum. She was discharged with a prescription for antibiotics but states that she has no money and did not get the antibiotic filled. She states that since being discharged she has gotten worse continued fever and more areas of abscess formation. Primary complaint is pain and swelling over the dorsum of the right hand. She also complains of her blood sugar running high. On examination patient is a well-developed thin female in no acute distress. She is alert and oriented. There is no cyanosis or diaphoresis. Breath sounds are clear and equal bilaterally. Heart is regular with a moderate tachycardia. Abdomen soft and nontender with normal bowel sounds. Patient has multiple skin abscesses with the worse one appearing over the dorsum of the right hand and appears multiloculated. She still has full extension and flexion of the fingers with normal neurovascular function distally. She also has a small area on the dorsum of the left hand and there is on the left forearm. One area over the left lower abdominal wall. An area over the left lateral lower leg. CT was obtained of the right hand and showed lobulated soft tissue swelling with no evidence of deep infection. Labs reviewed. Chest x-ray negative. The area over the dorsum of the right hand was incised and drained by Dr. Sabillon. The hospitalist, Dr. Garcia, was consulted and accepted admission of the patient.
[2016-12-14] MEDS ORDERED: D5% in Water 1,000 ML IVC PRN (01:01)
[2016-12-14] MEDS ORDERED: *HR* Dextrose 50 % in Water (Syg) 50 ML SYRINGE IVP PRN (01:01)
[2016-12-14] MEDS ORDERED: Dextrose Gel 15 GM PO PRN ×2 (01:01)
--- NOTE | 2016-12-14 01:12 | Internal Med History&Physical ---
<Robert Griffith - Last Filed: 12/14/16 03:47> Date of Encounter: 12/14/16 Time of Encounter: 01:12 Assessment and Plan (1) Sepsis Current visit: No Status: Acute Sepsis secondary to cellulitis, multiple skin abscesses Patient met 3 SIRS criteria of WBC 15.5, tachycardia HR 108, RR 22, initial lactic acid 1.9 and repeat lactic acid 0.9. UA was positive for UTI. Blood, urine, and wound cultures ordered, Patient had bedside I&D of right dorsal hand in the ED. Continue empiric Vanc and Zosyn until cultures resulted. Patient reports no releif with Morphine. Pain control with Ibuprofen every q8h and Dilaudid q6h prn NPO, surgery consulted for possible I&D Infectious Disease consulted Qualifiers: Sepsis type: sepsis due to unspecified organism Qualified Code(s): A41.9 - Sepsis, unspecified organism (2) DKA (diabetic ketoacidoses) Current visit: Yes Status: Acute Initial blood glucose 392. Anion gap 14. Continue insulin drip and monitor BMP q4h until anion gap closes. Start basal insulin and D5W once blood glucose < 200. Qualifiers: Diabetes mellitus type: type 2 Qualified Code(s): E13.10 - Other specified diabetes mellitus with ketoacidosis without coma (3) Cellulitis Current visit: No Status: Acute She underwent multiple I&D of abscesses on bilateral upper and lower extxremity abscesses, abdomen, and chest in the operating room on 12/06/16. Wound cultures grew Enterococcus species, Klebsiella, and Serratia marcescens and patient completed 2 days of empiric Vancomycin and Zosyn. She left AMA on hospital day 3 and has not had any treatment since that time. Infectious disease consulted Qualifiers: Site of cellulitis: extremity Site of cellulitis of extremity: lower extremity Laterality: right Qualified Code(s): L03.115 - Cellulitis of right lower limb (4) JD (acute kidney injury) Current visit: No Status: Resolved Likely secondary to dehydration from DKA. Continue aggressive IV hydration. Repeat labs in AM (5) Hyponatremia Current visit: Yes Status: Acute Likely secondary to dehydration from DKA. Continue aggressive IV hydration. Repeat labs in AM (6) IDDM (insulin dependent diabetes mellitus) Current visit: No Status: Acute HGB a1c 13.7 on 12/05/16. Continue insulin regimen. (7) Transaminitis Current visit: Yes Status: Acute Positive Hepatitis B serology 12/05/16, Continue to monitor. (8) Tobacco dependence Current visit: Yes Status: Acute Tobacco cessation discussed (9) DVT prophylaxis Current visit: No Status: Acute SCDs, no Heparin due to possible need for surgery Internal Medicine - H&P: HPI Chief complaint: abscess Admitted From: Home Plans for Post Hospital Care: Home History of present illness: Ms. Alvarez is a 36 year old female with a PMH of uncontrolled DM, Hepatitis B, tobacco dependence, and prior hospitalizations for skin abscesses presented c/o high blood glucose and right hand pain/ abscess. Patient was hospitalized 8 days ago on 12/05/16 for same symptoms. She underwent multiple I&D of abscesses on bilateral upper and lower extxremity abscesses, abdomen, and chest in the operating room on 12/06/16. Wound cultures grew Enterococcus species, Klebsiella, and Serratia marcescens and patient completed 2 days of empiric Vancomycin and Zosyn. She left [place] on hospital day 3 after she found out her daughter had a severe motor vehicle accident and may not be able to walk again. She has been with her in the ICU at [facility] since that time and reports she had to return to hospital today because symptoms are acutely worsening. Patient was given prescriptions for Augmentin and Ciprofloxacin but never got them filled because she couldn't afford them. Past Med Surg Social Fam HX - Past Medical History Medical history: asthma, COPD, diabetes, GERD, other Psychiatric history: anxiety, depression - Past Surgical History Surgical History: no surgical history, other - Social History Smoking Status: Current every day smoker Smokeless Tobacco Status: No Alcohol use: none Drug use: opiates - Family History Mother Living Status: Hx Family Cancer: Yes Father Living Status: Hx Family Cardiac Disorders: Yes Sister Living Status: Still Living Hx Family Cancer: Yes Internal Medicine - H&P: Meds Gabapentin [Neurontin] 800 mg PO TID 07/03/16 [History] Insulin ASPART [NovoLOG] 18 unit SQ TIDAC PRN 07/03/16 [History] Insulin Glargine,Hum.rec.anlog [Lantus Solostar] 40 unit SQ BID 08/22/16 [ History] OxyCODONE Immed Rel [Roxicodone 5 MG] 10 mg PO Q6HR PRN 09/14/16 [History] ALPRAZolam [Xanax 0.25 MG Tablet] 0.25 mg PO TID 09/15/16 [History] Lipase/Protease/Amylase [Liaon Dr 6,000 Units Capsule] 2 cap PO QID 12/05/16 [ History] 3 Allergy/AdvReac Type Severity Reaction Status Date / Time ketorolac [From Toradol] Allergy Hives Verified 12/13/16 20:47 tramadol [From Ultram] Allergy Anaphylaxis Verified 12/13/16 20:47 iodine Allergy Anaphylaxis Uncoded 10/22/16 20:41 IV Contrast Allergy Anaphylaxis Uncoded 10/22/16 20:41 All Systems PM: A 10-system review of systems was performed and is negative for pertinent findings except as documented above in the HPI. - Constitutional Constitutional: fatigue, weakness, no chills, no fever(s), no weight gain, no weight loss - EENT Eyes: no change in vision Nose, mouth and throat: no nasal congestion, no sore throat - Cardiovascular Cardiovascular ROS IM: palpitations, no chest pain, no dyspnea - Respiratory Respiratory: no cough, no dyspnea, no chest congestion - Gastrointestinal Gastrointestinal: abdominal pain (due to abscess), no diarrhea, no nausea, no vomiting - Genitourinary Genitourinary: dysuria, urinary frequency, urinary urgency - Musculoskeletal Musculoskeletal ROS IM: no back pain, no numbness, no tingling - Integumentary Integumentary IM: erythema, new lesions, non-healing lesions, pruritus, rash, skin ulcer, sores - Neurological Neurological ROS: weakness, no confusion, no dizziness, no numbness, no tingling - Psychiatric Psychiatric: anxiety, depression - Endocrine Endocrine IM: no cold intolerance, no polydipsia, no polyphagia, no polyuria - Constitutional Vitals: Temp Pulse Resp BP Pulse Ox 98.1 F 102 20 137/98 99 12/13/16 20:40 12/14/16 00:49 12/14/16 00:49 12/14/16 00:49 12/14/16 00:49 General appearance: Present: cooperative, disheveled, mild distress, A&O X 3, answers questions appropriately Exam: appears older than stated age - Head Head exam: Present: atraumatic, normal inspection, normocephalic - Eye Eye exam: Present: EOMI, PERRL - ENT ENT exam: Present: mucous membranes moist, normal oropharynx - Neck Neck exam general surgery: Present: supple. Absent: lymphadenopathy, tenderness - Respiratory Respiratory exam: Present: CTAB. Absent: rhonchi, wheezes - Cardiovascular Cardiovascular exam: Present: +S1, +S2, tachycardia - GI/Abdominal GI/Abdominal exam: Present: guarding (5cm palpable LLQ abscess with surrounding erythema), normal bowel sounds, soft, tenderness. Absent: distended, rebound - Extremities Exam Extremities exam: Present: normal capillary refill, tenderness, warm. Absent: pedal edema - Incison Incision: Present: draining, red, swollen, inflamed, erythema, purulent, open. Absent: clean and dry, intact, approximated - Neurological Exam Neurological exam: Present: altered, CN II-XII intact, oriented X3. Absent: alert, no focal deficits - Psychiatric Psychiatric exam: Present: anxious, flat affect - Skin Skin exam: Present: erythema (multiple 2cm x1cm pustules with surrounding erythema, abscess over all extremities and torso, proximal streaking), excoriation, rash, warm. Absent: normal color Internal Med - H&P Results - Labs CBC & Chem 7: 12/13/16 22:02 12/14/16 02:02 - EKG Data -: EKG Interpreted by Myself Rate: tachycardia (sinus tachycardia HR 108, ND interval 140 ms, QRS duration 69 ms, QT 317 ms, QTC 380 ms, normal axis) - Impressions Impressions Chest X-Ray 12/13/16 20:53 IMPRESSION: No acute cardiopulmonary disease. D/ / Robert Aaron MD / Robert Aaron MD Interpreting Provider: Robert Aaron MD Hand CT 12/13/16 22:46 IMPRESSION: Lobulated soft tissue swelling along the dorsal aspect of the hand. Again, without intravenous contrast, it is difficult to determine whether an abscess is present or not, and one certainly remains in the differential in this case. At this time, there is no obvious extension of that inflammatory process into the deeper spaces of the hand, and there is no CT evidence of osteomyelitis. There is a small amount of palmar bursal fluid, which is of questionable clinical significance. D/ / Ezequiel Renee MD / Ezequiel Renee MD Interpreting Provider: Ezequiel Renee MD <AraceliNorm - Last Filed: 12/14/16 04:00> Date of Encounter: 12/14/16 Internal Medicine - H&P: HPI History of present illness: Ms. Alvarez is a 36 year old female All Systems PM: A 10-system review of systems was performed and is negative for pertinent findings except as documented above in the HPI. - Constitutional Vitals: Temp Pulse Resp BP Pulse Ox 98.6 F 97 16 109/85 98 12/14/16 02:30 12/14/16 02:30 12/14/16 02:30 12/14/16 02:30 12/14/16 02:30 Internal Med - H&P Results - Labs CBC & Chem 7: 12/13/16 22:02 12/14/16 02:02 Labs: BMP 12/14/16 02:02 Sodium 131 L Potassium 4.0 Chloride 104 Carbon Dioxide 12 L BUN 10 Creatinine 0.83 Glucose 378 H Calcium 8.0 L D - Attending Attestation I examined this patient and my medical decision-making was reviewed with the Resident Physician. I agree with the documented findings, disposition and treatment plan as described except to the extent set forth below. Patient is a 36-year-old female with past medical history of COPD, diabetes, anxiety, depression, hepatitis B and history of multiple skin abscesses. Patient presents to the ED with complaints of painful abscesses over all extremities and also over her abdomen. She had recent I&D of multiple abscesses done. She returns today with sepsis likely due to cellulitis and due to abscesses. Patient also has elevated blood glucose and seems to be in DKA. IV antibiotics will be continued. Patient will be on IV insulin drip and this will be discontinued when her anion gap has closed. General surgery will also need to evaluate patient for her multiple abscesses. Infectious disease consult pending. Patient has no other acute complaints. Hemodynamically stable.
[2016-12-14] MEDS ORDERED: *HR* Morphine 2 MG/ML SYRINGE IVP ONE (01:17)
[2016-12-14] MEDS ORDERED: Insulin Human Regular 100 UNIT in 0.9 % Sodium Chloride 100 ML IVC SCH ×2 (01:30→10:00)
[2016-12-14 01:50] LABS: Magnesium 1.6 mg/dL (1.6-2.6)
[2016-12-14] MEDS ORDERED: Vancomycin (wt based) 1,000 MG VIAL IVPB SCH (02:00)
[2016-12-14 02:24] LABS: BUN/Creatinine Ratio 12 (6-26); Blood Urea Nitrogen 10 mg/dL (7-20); Carbon Dioxide 12 mEq/L (19-29); Chloride 104 mEq/L (98-109); Glucose 378 mg/dL (70-99); Osmolality,Calculated 287 (280-300); Sodium 131 mEq/L (136-145); eGFR For African Americans > 60 (> 60); eGFR For Non-African Americans > 60 (> 60)
[2016-12-14] MEDS ORDERED: *HR* Morphine 2 MG/ML SYRINGE IVP PRN (02:45)
[2016-12-14] MEDS: 0.9 % Sodium Chloride w KCl 20 MEQ/1,000 ML MLS IVC SCH ×2 (03:01→17:30)
[2016-12-14 03:06] LABS: Amphetamine Screen,Urine Negative ng/mL (Cutoff=1000); Barbiturate Screen,Urine Negative ng/mL (Cutoff=200); Benzodiazepines Screen,Urine Negative ng/mL (Cutoff=200); Cannabinoid Screen,Urine Negative ng/mL (Cutoff = 50); Cocaine Screen,Urine Negative ng/mL (Cutoff= 300); Opiate Screen,Urine Positive ng/mL (Cutoff=300); Phencyclidine Screen,Urine Negative ng/mL (Cutoff=25)
[2016-12-14] MEDS ORDERED: *HR* HYDROmorphone (PF) 1 MG/ML SYRINGE IVP PRN (03:41)
[2016-12-14 06:55] LABS: Basophils # 0.1 K/mcL (0.0-0.2); Basophils % 0.6 %; Eosinophils # 0.2 K/mcL (0.0-0.6); Eosinophils % 1.5 %; Hematocrit 39.7 % (35.3-44.9); Immature Granulocytes % 0.8 % (0-4); Immature Platelets 7.8 % (1.1-6.1); Lymphocytes # 2.4 K/mcL (0.6-4.6); Lymphocytes % 16.1 %; Mean Corpuscular HGB Conc 33.8 g/dL (31.6-35.5); Mean Corpuscular Hemoglobin 30.9 pg (28.0-33.3); Mean Corpuscular Volume 91.5 fL (83.0-100.0); Mean Platelet Volume 11.6 fL (9.4-12.4); Monocytes # 1.2 K/mcL (0.0-1.3); Monocytes % 8.1 %; Neutrophils # 10.9 K/mcL (1.6-8.9); Platelet Count 225 K/mcL (140-400); Red Blood Count 4.34 M/mcL (3.82-4.97); Red Cell Distribution Width 13.7 % (11.5-14.5); Segmented Neutrophils % 72.9 %
[2016-12-14 07:07] LABS: BUN/Creatinine Ratio 10 (6-26); Blood Urea Nitrogen 7 mg/dL (7-20); Carbon Dioxide 15 mEq/L (19-29); Chloride 108 mEq/L (98-109); Glucose 247 mg/dL (70-99); Osmolality,Calculated 282 (280-300); Sodium 133 mEq/L (136-145); eGFR For African Americans > 60 (> 60); eGFR For Non-African Americans > 60 (> 60)
[2016-12-14 07:08] LABS: Potassium 4.3 mEq/L (3.5-4.5)
[2016-12-14 07:31] LABS: Hemoglobin 13.4 g/dL (11.5-15.4)
[2016-12-14] MEDS: Insulin LISPRO 300 UNITS/3 ML VIAL SQ SCH ×3 (09:20→16:30)
[2016-12-14] MEDS: D5% in 0.9% NACL w KCl 20 MEQ/1,000 ML MLS IVC SCH ×2 (09:20→10:06)
[2016-12-14] MEDS: Gabapentin 400 MG CAPSULE PO SCH ×3 (10:05→21:12)
[2016-12-14] MEDS: Ibuprofen 600 MG TABLET PO SCH ×2 (10:05→16:29)
[2016-12-14] MEDS: ALPRAZolam 0.25 MG TABLET PO SCH ×3 (10:05→21:12)
[2016-12-14] MEDS: *HR* OxyCODONE Immed Rel 5 MG TABLET PO PRN ×2 (10:06→18:46)
[2016-12-14 10:47] LABS: BUN/Creatinine Ratio 9 (6-26); Blood Urea Nitrogen 6 mg/dL (7-20); Carbon Dioxide 18 mEq/L (19-29); Chloride 109 mEq/L (98-109); Glucose 164 mg/dL (70-99); Osmolality,Calculated 283 (280-300); Potassium 3.2 mEq/L (3.5-4.5); Sodium 136 mEq/L (136-145); eGFR For African Americans > 60 (> 60); eGFR For Non-African Americans > 60 (> 60)
[2016-12-14] MEDS ORDERED: Potassium Chloride 40 MEQ, Lidocaine 1% 2 ML in D5% in Water 500 ML IVPB ONE (11:25)
[2016-12-14] MEDS ORDERED: Sodium Phosphate 30 MMOL in D5% in Water 100 ML IVPB STA (11:25)
[2016-12-14] MEDS ORDERED: Magnesium Sulfate 2 GM in D5% in Water 100 ML IVPB STA (11:25)
--- NOTE | 2016-12-14 11:39 | Internal Med Progress Note ---
Date of Encounter: 12/14/16 Time of Encounter: 11:34 - Assessment and plan (1) DKA (diabetic ketoacidoses) Current Visit: Yes Status: Acute Qualifiers: Diabetes mellitus type: other specified (including ADRIAN) Diabetes mellitus complication detail: without coma Qualified Code(s): E13.10 - Other specified diabetes mellitus with ketoacidosis without coma (2) JD (acute kidney injury) Current Visit: Yes Status: Resolved (3) Skin abscess Current Visit: Yes Status: Acute Qualifiers: Site of cutaneous abscess: unspecified site Qualified Code(s): L02.91 - Cutaneous abscess, unspecified (4) Transaminitis Current Visit: Yes Status: Acute (5) Chronic pain disorder Current Visit: No Status: Chronic - Subjective Interval history: Ms. Alvarez is a 36 year old female with a PMH of uncontrolled DM, Hepatitis B, tobacco dependence, and prior hospitalizations for skin abscesses presented c/o high blood glucose and right hand pain/ abscess. Patient was hospitalized 8 days ago on 12/05/16 for same symptoms. She underwent multiple I&D of abscesses on bilateral upper and lower extxremity abscesses, abdomen, and chest in the operating room on 12/06/16. Wound cultures grew Enterococcus species, Klebsiella, and Serratia marcescens and patient completed 2 days of empiric Vancomycin and Zosyn. She left AMA on hospital day 3 . Patient is admitted for DKA. I have ordered BMP magnesium phosphate and BHP every 4 hours to see if she needs any electrolytes supplement as well as if insulin drip can be stopped. Restart IV fluid as she is still on insulin drip. Patient has skin abscesses which were mainly gram-negative per recent cultures mostly sensitive to Levaquin and since she has a history of pseudomonas in August 2016 will continue with Zosyn but to stop vancomycin and add Levaquin. At discharge on Levaquin probably would be adequate unless wound culture yield different sensitivities. I spoke to Dr. Dr. Casey who has done IND on 8 lesions treated recently. He will give wound care instructions. Patient noncompliance can be an issue. - Constitutional Vitals: Temp Pulse Resp BP Pulse Ox 98.4 F 116 18 121/83 99 12/14/16 07:47 12/14/16 07:47 12/14/16 07:47 12/14/16 07:47 12/14/16 07:47 General appearance: Present: cooperative, disheveled, mild distress, A&O X 3, answers questions appropriately - Head Head exam: Present: atraumatic, normocephalic - Eye Eye exam: Present: PERRL, conjuntiva pink, sclera anicteric Pupils: Present: PERRL - Neck Neck exam general surgery: Present: supple, trachea midline. Absent: lymphadenopathy - Respiratory Respiratory exam: Present: CTAB. Absent: accessory muscle use, rales, rhonchi, wheezes - Cardiovascular Cardiovascular exam: Present: RRR, +S1, +S2. Absent: diastolic murmur, gallop, rubs, systolic murmur - GI/Abdominal GI/Abdominal exam: Present: normal bowel sounds, soft, no peritoneal signs. Absent: distended, tenderness - Extremities Exam Extremities exam: Present: warm, radial pulses palpable and symmetrical. Absent : calf tenderness, cyanotic, pedal edema - Neurological Exam Neurological exam: Present: CN II-XII intact, oriented X3, no focal deficits. Absent: pronater drift, facial droop, speech deficit - Skin Skin exam: Present: dry, intact Internal Medicine: Result - Labs CBC & Chem 7: 12/14/16 06:48 12/14/16 14:20 Labs: Short CBC 12/14/16 Range/Units 06:48 WBC 15.0 H (4.3-11.1) K/mcL Hgb 13.4 D (11.5-15.4) g/dL Hct 39.7 (35.3-44.9) % Plt Count 225 (140-400) K/mcL Neutrophils # 10.9 H (1.6-8.9) K/mcL BMP 12/14/16 12/14/16 12/14/16 02:02 06:48 10:09 Sodium 131 L 133 L 136 Potassium 4.0 4.3 3.2 L D Chloride 104 108 109 Carbon Dioxide 12 L 15 L 18 L BUN 10 7 6 L Creatinine 0.83 0.70 0.65 Glucose 378 H 247 H 164 H Calcium 8.0 L D 8.0 L 8.0 L Consult Discharge Plan - Plan Referrals: NONE,PCP [Primary Care Provider] -
[2016-12-14 11:52] LABS: Beta-Hydroxybutyric Acid 0.67 mmol/L (0.02-0.27)
[2016-12-14 11:58] LABS: Magnesium 1.4 mg/dL (1.6-2.6); Phosphorous 1.4 mg/dL (2.3-4.7)
[2016-12-14] MEDS ORDERED: Vancomycin 1,000 MG in D5% in Water 250 ML IVPB SCH (12:00)
[2016-12-14] MEDS: *HR* HYDROmorphone (PF) 1 MG/ML SYRINGE IVP PRN ×3 (12:16→20:02)
[2016-12-14] MEDS: Piperacillin/Tazobactam 3.375 GM in D5% in Water (Mini-Bag+) 100 ML IVPB SCH ×2 (12:17→16:23)
[2016-12-14] MEDS: 0.9 % Sodium Chloride 1,000 ML IVC SCH ×2 (12:18→17:30)
[2016-12-14] MEDS: Ondansetron 4 MG/2 ML VIAL IVP PRN ×2 (12:25→17:41)
[2016-12-14] MEDS: Levofloxacin 500 MG/100 ML 500 MG/100 ML BAG IVPB SCH (13:29)
[2016-12-14 14:31] LABS: VBG HCO3 23.7 mEq/L (21-27); VBG PH 7.37 pH Units (7.32-7.42)
[2016-12-14 14:40] LABS: BUN/Creatinine Ratio 11 (6-26); Blood Urea Nitrogen 6 mg/dL (7-20); Calcium 7.9 mg/dL (8.6-10.8); Carbon Dioxide 21 mEq/L (19-29); Chloride 108 mEq/L (98-109); Glucose 93 mg/dL (70-99); Osmolality,Calculated 277 (280-300); Potassium 3.4 mEq/L (3.5-4.5); Sodium 135 mEq/L (136-145); eGFR For African Americans > 60 (> 60); eGFR For Non-African Americans > 60 (> 60)
[2016-12-14] MEDS ORDERED: Aminoglycoside Consult 1 EACH MC ONE (15:35)
[2016-12-14 19:21] LABS: Magnesium 1.5 mg/dL (1.6-2.6)
[2016-12-14 19:22] LABS: BUN/Creatinine Ratio 8 (6-26); Calcium 8.1 mg/dL (8.6-10.8); Carbon Dioxide 20 mEq/L (19-29); Chloride 107 mEq/L (98-109); Glucose 223 mg/dL (70-99); Osmolality,Calculated 284 (280-300); Phosphorous 2.3 mg/dL (2.3-4.7); Sodium 135 mEq/L (136-145); eGFR For African Americans > 60 (> 60); eGFR For Non-African Americans > 60 (> 60)
[2016-12-14 19:33] LABS: Blood Urea Nitrogen 5 mg/dL (7-20); Potassium 3.7 mEq/L (3.5-4.5)
[2016-12-14 19:47] LABS: Beta-Hydroxybutyric Acid 0.58 mmol/L (0.02-0.27)
[2016-12-14] MEDS ORDERED: Insulin DETEMIR 100 UNIT/ML X5UNITS SQ ONE (20:15)
[2016-12-15] MEDS: Piperacillin/Tazobactam 3.375 GM in D5% in Water (Mini-Bag+) 100 ML IVPB SCH ×3 (00:57→16:50)
[2016-12-15] MEDS: *HR* HYDROmorphone (PF) 1 MG/ML SYRINGE IVP PRN ×6 (00:58→20:55)
[2016-12-15] MEDS: Ibuprofen 600 MG TABLET PO SCH ×3 (01:04→16:48)
[2016-12-15] MEDS: *HR* OxyCODONE Immed Rel 5 MG TABLET PO PRN ×4 (02:10→22:29)
[2016-12-15] MEDS: Insulin LISPRO 300 UNITS/3 ML VIAL SQ SCH ×7 (05:04→16:51)
[2016-12-15 06:02] LABS: Basophils % 0.4 %; Eosinophils # 0.1 K/mcL (0.0-0.6); Eosinophils % 1.1 %; Hematocrit 35.4 % (35.3-44.9); Immature Granulocytes % 0.5 % (0-4); Immature Platelets 6.2 % (1.1-6.1); Lymphocytes # 1.8 K/mcL (0.6-4.6); Lymphocytes % 18.2 %; Mean Corpuscular HGB Conc 33.3 g/dL (31.6-35.5); Mean Corpuscular Hemoglobin 30.9 pg (28.0-33.3); Mean Corpuscular Volume 92.7 fL (83.0-100.0); Mean Platelet Volume 11.9 fL (9.4-12.4); Monocytes # 0.8 K/mcL (0.0-1.3); Monocytes % 8.4 %; Platelet Count 180 K/mcL (140-400); Red Blood Count 3.82 M/mcL (3.82-4.97); Red Cell Distribution Width 14.2 % (11.5-14.5); Segmented Neutrophils % 71.4 %
[2016-12-15 06:03] LABS: Hemoglobin 11.8 g/dL (11.5-15.4)
[2016-12-15 06:15] LABS: Alanine Aminotransferase 275 Units/L (0-55); Albumin/Globulin Ratio 0.6 (1.1-2.2); Alkaline Phosphatase 238 Units/L (38-126); Aspartate Amino Transferase 246 Units/L (5-34); BUN/Creatinine Ratio 10 (6-26); Bilirubin,Total 0.5 mg/dL (0.2-1.2); Blood Urea Nitrogen 7 mg/dL (7-20); Calcium 8.2 mg/dL (8.6-10.8); Carbon Dioxide 26 mEq/L (19-29); Chloride 106 mEq/L (98-109); Globulin 3.8 g/dL (2.4-3.5); Glucose 415 mg/dL (70-99); Magnesium 1.5 mg/dL (1.6-2.6); Osmolality,Calculated 298 (280-300); Phosphorous 2.6 mg/dL (2.3-4.7); Potassium 4.5 mEq/L (3.5-4.5); Sodium 136 mEq/L (136-145); eGFR For African Americans > 60 (> 60); eGFR For Non-African Americans > 60 (> 60)
[2016-12-15 06:17] LABS: Albumin 2.1 g/dL (3.5-5.0); Total Protein 5.9 g/dL (6.0-8.3)
[2016-12-15] MEDS ORDERED: Magnesium Sulfate 2 GM in D5% in Water 100 ML IVPB ONE (08:04)
[2016-12-15] MEDS: Gabapentin 400 MG CAPSULE PO SCH ×3 (08:15→20:56)
[2016-12-15] MEDS: ALPRAZolam 0.25 MG TABLET PO SCH ×3 (08:16→20:55)
[2016-12-15] MEDS: 0.9 % Sodium Chloride 1,000 ML IVC SCH ×2 (08:21→17:11)
[2016-12-15] MEDS: Insulin DETEMIR 100 UNIT/ML X5UNITS SQ SCH ×2 (10:13→20:55)
[2016-12-15] MEDS: Ondansetron 4 MG/2 ML VIAL IVP PRN ×3 (10:13→21:02)
[2016-12-15] MEDS: Levofloxacin 500 MG/100 ML 500 MG/100 ML BAG IVPB SCH (12:46)
--- NOTE | 2016-12-15 15:46 | Internal Med Progress Note ---
Date of Encounter: 12/15/16 Time of Encounter: 15:42 - Assessment and plan (1) DKA (diabetic ketoacidoses) Current Visit: Yes Status: Acute Qualifiers: Diabetes mellitus type: other specified (including ADRIAN) Diabetes mellitus complication detail: without coma Qualified Code(s): E13.10 - Other specified diabetes mellitus with ketoacidosis without coma (2) JD (acute kidney injury) Current Visit: Yes Status: Resolved (3) Skin abscess Current Visit: Yes Status: Acute Qualifiers: Site of cutaneous abscess: unspecified site Qualified Code(s): L02.91 - Cutaneous abscess, unspecified (4) Transaminitis Current Visit: Yes Status: Acute (5) Chronic pain disorder Current Visit: No Status: Chronic (6) IV drug abuse Current Visit: Yes Status: Acute - Subjective Interval history: Ms. Alvarez is a 36 year old female with a PMH of uncontrolled DM, Hepatitis B, tobacco dependence, and prior hospitalizations for skin abscesses presented c/o high blood glucose and right hand pain/ abscess. Patient was hospitalized 8 days ago on 12/05/16 for same symptoms. She underwent multiple I&D of abscesses on bilateral upper and lower extxremity abscesses, abdomen, and chest in the operating room on 12/06/16. Wound cultures grew Enterococcus species, Klebsiella, and Serratia marcescens and patient completed 2 days of empiric Vancomycin and Zosyn. She left AMA on hospital day 3 . Patient is admitted for DKA. I have ordered BMP magnesium phosphate and BHP every 4 hours to see if she needs any electrolytes supplement as well as if insulin drip can be stopped. Restart IV fluid as she is still on insulin drip. Patient has skin abscesses which were mainly gram-negative per recent cultures mostly sensitive to Levaquin and since she has a history of pseudomonas in August 2016 will continue with Zosyn but to stop vancomycin and add Levaquin. At discharge on Levaquin probably would be adequate unless wound culture yield different sensitivities. I spoke to Dr. Dr. Casey who has done IND on 8 lesions treated recently. He will give wound care instructions. Patient noncompliance can be an issue. 12/15 DKA has resolved. Magnesium was low therefore we will supplement it. Her left forearm skin abscesses has popped itself. Awaiting cultures. Patient is admitting now that she use IV drugs. She is empirically on IV Levaquin and Zosyn covering enterococcus Klebsiella Serratia and Pseudomonas species. However considering IV drug abuse I will add IV vancomycin and have pharmacy monitor it. Before discharge she will need social work consultation for drug rehabilitation. We tried to provide her counseling. I will order CT abdomen with contrast to rule out hepatic abscess and his LFTs are quite abnormal though she does have history of hepatitis. His order HIV test. - Constitutional Vitals: Temp Pulse Resp BP Pulse Ox 98.1 F 96 16 92/62 96 12/15/16 11:42 12/15/16 12:30 12/15/16 11:42 12/15/16 12:30 12/15/16 12:30 General appearance: Present: cooperative, disheveled, mild distress, A&O X 3, answers questions appropriately Exam: His skin has been multiple cutaneous abscesses which have been lanced and they are draining and surgery has put special dressing. - Head Head exam: Present: atraumatic, normocephalic - Eye Eye exam: Present: PERRL, conjuntiva pink, sclera anicteric Pupils: Present: PERRL - Neck Neck exam general surgery: Present: supple, trachea midline. Absent: lymphadenopathy - Respiratory Respiratory exam: Present: CTAB. Absent: accessory muscle use, rales, rhonchi, wheezes - Cardiovascular Cardiovascular exam: Present: RRR, +S1, +S2. Absent: diastolic murmur, gallop, rubs, systolic murmur - GI/Abdominal GI/Abdominal exam: Present: normal bowel sounds, soft, no peritoneal signs. Absent: distended, tenderness - Extremities Exam Extremities exam: Present: warm, radial pulses palpable and symmetrical. Absent : calf tenderness, cyanotic, pedal edema - Neurological Exam Neurological exam: Present: CN II-XII intact, oriented X3, no focal deficits. Absent: pronater drift, facial droop, speech deficit - Skin Skin exam: Present: dry, intact Internal Medicine: Result - Labs CBC & Chem 7: 12/15/16 05:30 12/15/16 05:30 Labs: Short CBC 12/15/16 Range/Units 05:30 WBC 9.8 (4.3-11.1) K/mcL Hgb 11.8 D (11.5-15.4) g/dL Hct 35.4 (35.3-44.9) % Plt Count 180 (140-400) K/mcL Neutrophils # 7.0 (1.6-8.9) K/mcL BMP 12/14/16 12/15/16 18:50 05:30 Sodium 135 L 136 Potassium 3.7 4.5 Chloride 107 106 Carbon Dioxide 20 26 BUN 5 L 7 Creatinine 0.63 0.73 Glucose 223 H 415 H Calcium 8.1 L 8.2 L Liver Function 12/15/16 Range/Units 05:30 Total Bilirubin 0.5 (0.2-1.2) mg/dL AST 246 H (5-34) Units/L ALT 275 H (0-55) Units/L Alkaline Phosphatase 238 H (38-126) Units/L Albumin 2.1 L D (3.5-5.0) g/dL Consult Discharge Plan - Plan Referrals: NONE,PCP [Primary Care Provider] -
[2016-12-15] MEDS ORDERED: Insulin DETEMIR 100 UNIT/ML X5UNITS SQ SCH (21:00)
[2016-12-16] MEDS: *HR* HYDROmorphone (PF) 1 MG/ML SYRINGE IVP PRN ×2 (01:36→08:24)
[2016-12-16] MEDS: Ibuprofen 600 MG TABLET PO SCH ×2 (01:37→10:14)
[2016-12-16] MEDS: Piperacillin/Tazobactam 3.375 GM in D5% in Water (Mini-Bag+) 100 ML IVPB SCH ×2 (01:37→10:51)
[2016-12-16] MEDS: 0.9 % Sodium Chloride 1,000 ML IVC SCH ×2 (05:48→08:22)
[2016-12-16] MEDS: Insulin LISPRO 300 UNITS/3 ML VIAL SQ SCH ×5 (05:49→11:44)
[2016-12-16] MEDS: *HR* OxyCODONE Immed Rel 5 MG TABLET PO PRN ×2 (05:49→11:44)
[2016-12-16 06:51] LABS: Alanine Aminotransferase 251 Units/L (0-55); Albumin 1.9 g/dL (3.5-5.0); Albumin/Globulin Ratio 0.5 (1.1-2.2); Alkaline Phosphatase 199 Units/L (38-126); Aspartate Amino Transferase 239 Units/L (5-34); BUN/Creatinine Ratio 17 (6-26); Basophils % 0.4 %; Bilirubin,Total 0.3 mg/dL (0.2-1.2); Blood Urea Nitrogen 11 mg/dL (7-20); Carbon Dioxide 27 mEq/L (19-29); Chloride 107 mEq/L (98-109); Eosinophils # 0.1 K/mcL (0.0-0.6); Globulin 3.8 g/dL (2.4-3.5); Glucose 206 mg/dL (70-99); Hemoglobin 11.1 g/dL (11.5-15.4); Immature Granulocytes % 0.4 % (0-4); Lymphocytes % 20.8 %; Magnesium 1.4 mg/dL (1.6-2.6); Mean Corpuscular HGB Conc 32.6 g/dL (31.6-35.5); Mean Corpuscular Hemoglobin 30.6 pg (28.0-33.3); Mean Corpuscular Volume 93.7 fL (83.0-100.0); Monocytes # 0.6 K/mcL (0.0-1.3); Monocytes % 5.7 %; Osmolality,Calculated 291 (280-300); Phosphorous 2.6 mg/dL (2.3-4.7); Platelet Count 184 K/mcL (140-400); Potassium 3.8 mEq/L (3.5-4.5); Red Blood Count 3.63 M/mcL (3.82-4.97); Red Cell Distribution Width 14.3 % (11.5-14.5); Segmented Neutrophils % 71.7 %; Sodium 138 mEq/L (136-145); Total Protein 5.7 g/dL (6.0-8.3); eGFR For African Americans > 60 (> 60); eGFR For Non-African Americans > 60 (> 60)
[2016-12-16] MEDS: ALPRAZolam 0.25 MG TABLET PO SCH (10:14)
[2016-12-16] MEDS: Gabapentin 400 MG CAPSULE PO SCH (10:14)
[2016-12-16] MEDS: Insulin DETEMIR 100 UNIT/ML X5UNITS SQ SCH (10:51)
[2016-12-16 11:13] LABS: HIV-1&2 Antibody & p24 Ag Nonreactive (Nonreactive); Hepatitis A Antibody IgM Nonreactive (Nonreactive); Hepatitis C Virus Antibody Nonreactive (Nonreactive)
[2016-12-16 11:24] LABS: Hepatitis B Core IgM Reactive (Nonreactive); Hepatitis B Surface Antigen Reactive (Nonreactive)
[2016-12-16 11:25] VITALS: BP 99/52
[2016-12-16] MEDS ORDERED: Silvasorb 44.4 ML TUBE TP SCH (15:15)
--- NOTE | 2016-12-16 17:25 | Discharge Summary ---
Date of Encounter: 12/16/16 Time of Encounter: 17:16 - Discharge Diagnosis (1) DKA (diabetic ketoacidoses) Priority: Primary Status: Acute Qualifiers: Diabetes mellitus type: other specified (including ADRIAN) Diabetes mellitus complication detail: without coma Qualified Code(s): E13.10 - Other specified diabetes mellitus with ketoacidosis without coma (2) JD (acute kidney injury) Priority: Secondary Status: Resolved (3) Skin abscess Priority: Secondary Status: Acute Qualifiers: Site of cutaneous abscess: unspecified site Qualified Code(s): L02.91 - Cutaneous abscess, unspecified (4) Transaminitis Priority: Secondary Status: Acute (5) Chronic pain disorder Priority: Secondary Status: Chronic (6) IV drug abuse Priority: Secondary Status: Acute (7) Acute hepatitis B Priority: Secondary Status: Acute - Discharge Medications Home Medications: Insulin ASPART [NovoLOG] 18 unit SQ TIDAC PRN 07/03/16 [History] Insulin Glargine,Hum.rec.anlog [Lantus Solostar] 40 unit SQ BID 08/22/16 [ History] Lipase/Protease/Amylase [Pelon Rice 6,000 Units Capsule] 2 cap PO QID 12/05/16 [ History] Allergies/Adverse Reactions: 3 Allergy/AdvReac Type Severity Reaction Status Date / Time ketorolac [From Toradol] Allergy Hives Verified 12/13/16 20:47 tramadol [From Ultram] Allergy Anaphylaxis Verified 12/13/16 20:47 iodine Allergy Anaphylaxis Uncoded 10/22/16 20:41 IV Contrast Allergy Anaphylaxis Uncoded 10/22/16 20:41 Procedures/tests Complete & Pending: Procedures Performed prior 72 hours Category Date Time Status US liver [US] Routine Exams 12/16/16 09:00 Completed Date of admission: 12/14/16 01:00 Primary care physician: PCP NONE Consults: 12/14/16 03:28 Consult to Infectious Diseases [CONS] Routine Consulting Provider: Infectious Disease Suze Reason for Consult: multiple abscesses Call Completed: No Consult to Surgery [CONS] Routine Consulting Provider: Jeancarlos Casey Reason for Consult: large abscess LLQ, previous upper and lower extremities, chest, abdomen I&Ds on 12/06/26 Call Completed: No 12/15/16 15:48 Consult to Campus Chaplain [CONS] Routine Reason for SW Consult: IV drug abuse need counseling and outpatient rehabilitation options 12/16/16 13:31 Consult to Wound Care [CONS] Routine Reason for Consult: multiple abcesses, non-compliant diabetic Call Completed: Yes Discharging clinician: Jack Aviles Anticipated date of discharge: 12/16/16 - Patient Status Disposition: Left Against Medical Advice Condition: Fair - Discharge Instructions Follow Up With: WOUND,CLINIC [Other] - 12/20/16 9:30 am (WEST ENTRANCE STRAIGHT ACROSS FROM THE ENTRANCE DOORS) Ade Taylor [employer] [Advanced Practice Nurse] - 12/23/16 3:15 pm Hospital course: Ms. Alvarez is a 36 year old female with a PMH of uncontrolled DM, Hepatitis B, tobacco dependence, and prior hospitalizations for skin abscesses presented c/o high blood glucose and right hand pain/ abscess. Patient was hospitalized 8 days ago on 12/05/16 for same symptoms. She underwent multiple I&D of abscesses on bilateral upper and lower extxremity abscesses, abdomen, and chest in the operating room on 12/06/16. Wound cultures grew Enterococcus species, Klebsiella, and Serratia marcescens and patient completed 2 days of empiric Vancomycin and Zosyn. She left AMA on hospital day 3 . Patient is admitted for DKA. She was treated according to protocol with IV insulin and IV fluid and electrolyte supplementation. The case has resolved and she was restarted on her diabetic diet with insulin coverage. Counseling provided regarding compliance and risk and complication associated with DKA especially high risk of mortality and morbidity. This is a concern if she is very noncompliant. Considering her situation I suggested we can give her Novolin 25 units twice a day which is more affordable. Patient has skin abscesses and cultures showed Klebsiella sensitive to Levaquin and therefore she was switched from vancomycin and Levaquin and Zosyn to just Levaquin. I spoke to Dr. Dr. Casey who has done IND on 8 lesions treated recently. He gave wound care instructions. We have arranged a wound consult for her. Patient noncompliance can be an issue in her wound care and showing up to the wound clinic. Patient LFTs are abnormal especially AST and ALT but now they have stabilized still in 200 range. Acute hepatic panel showed hepatitis S antigen and S antibody positive. There was a concern if the patient is using IV drugs though her drug toxicity screen is negative. Her family members called the nursing staff and told them that she is currently using IV drugs. Initially she confessed straight but later on she said that she meant by using insulin needles. We informed her that considering the fact that there is concern for drug addiction but also for the main reason that her liver enzymes are quite abnormal it will be very important to use narcotic medication with caution. This could result in increased risk of morbidity and mortality. Today her magnesium is is still low and we plan to supplement it and also discuss her case with gastroenterology but she decided to leave AMA again. We tried his convince her to stay and let her make referrals but patient decided to leave AMA. Risk complication options explained to her and advised to return in case she changes her mind or develops symptoms. I have given her prescription for Levaquin and insulin and requested her to use those beside her regular home medication and see her family doctor as soon as possible. She will need to continue wound care. Patient left AMA - Time Spent with Patient Total time spent providing and/or coordinating discharge services: Greater than 30 minutes - Constitutional Vitals: Temp Pulse Resp BP Pulse Ox 97.9 F 68 18 99/52 95 12/16/16 11:19 12/16/16 11:19 12/16/16 11:19 12/16/16 11:19 12/16/16 11:19 General appearance: Present: cooperative, A&O X 3, no acute distress, answers questions appropriately - Head Head exam: Present: atraumatic, normocephalic - Eye Eye exam: Present: PERRL, conjuntiva pink, sclera anicteric Pupils: Present: PERRL - Neck Neck exam general surgery: Present: supple, trachea midline. Absent: lymphadenopathy - Respiratory Respiratory exam: Present: CTAB. Absent: accessory muscle use, rales, rhonchi, wheezes - Cardiovascular Cardiovascular exam: Present: RRR, +S1, +S2. Absent: diastolic murmur, gallop, rubs, systolic murmur - GI/Abdominal GI/Abdominal exam: Present: normal bowel sounds, soft, no peritoneal signs. Absent: distended, tenderness - Extremities Exam Extremities exam: Present: warm, radial pulses palpable and symmetrical. Absent : calf tenderness, cyanotic, pedal edema Additional comments: His skin examination showed a bilateral upper extremity multiple skin abscesses which have been lanced. Dressing applied as per recommendation of surgery. Wound is still seems wet. Neurovascular status is stable - Neurological Exam Neurological exam: Present: CN II-XII intact, oriented X3, no focal deficits. Absent: pronater drift, facial droop, speech deficit - Skin Skin exam: Present: dry, intact
--- NOTE | 2016-12-16 21:39 | Electrocardiograph Report ---
[address] [place] [address] Test Date: 2016-12-13 Pat Name: Cynthia Alvarez Department: 103 Room: 2N14 Gender: F Delivery Room Supervisor: : 1980 Requested By: Brenden Cadet Order Number: [id number] Reading MD: Wagner Charlton MD Measurements Intervals [place] Rate: 108 P: 73 [place]: 140 QRS: 72 QRSD: 69 T: 66 QT: 317 QTc: 380 Interpretive Statements SINUS TACHYCARDIA LEFT ATRIAL ENLARGEMENT Electronically Signed On 12-16-2016 21:37:14 EDT by Wagner Charlton MD
--- NOTE | 2016-12-17 08:16 | Infectious Disease Consult ---
Date of Encounter: 12/16/16 Time of Encounter: 13:15 Assessment and Plan (1) Sepsis Status: Resolved Assessment and plan: The patient had two SIRS criteria on admission plus JD. Likely secondary to multiple skin ulcers, some of which appear infected. Improved. WBC has normalized and tachycardia and JD have resolved. Blood cultures drawn 12/13/16 x 1 set and 12/14/16 x1 set are NGTD. Qualifiers: Sepsis type: methicillin susceptible Staphylococcus aureus Qualified Code(s ): A41.01 - Sepsis due to Methicillin susceptible Staphylococcus aureus (2) Skin abscess Status: Acute Assessment and plan: Causative organism likely polymicrobial. Most recent wound culture positive for K. pneumoniae. Past wound cultures also grew Serratia marcescens, and Enterococcus. Likely multifactorial: poor hygiene + uncontrolled DM + possible IVDU. Status post formal I & D during last hospitalization, but the patient left AMA and did not get her prescriptions filled because she could not afford them. General surgery team consulted to assist with wound care recommendations. The patient would likely benefit from aggressive wound care to heal the wounds she already has which would help prevent further infections. Additionally, the patient may benefit from rehab placement to assist with caring for her multiple wounds and get her blood sugars under better control as I am concerned that the patient's living and financial situation is playing a part in her inability to care for her wounds adequately. CT of the right hand negative for deep infection or septic arthritis. Wound care per the surgery team. Start Vancomycin IV. Pharmacy to dose. Goal trough ~15. Continue Zosyn 3.375 grams IV Q8H. Discontinue Levaquin. Duration of treatment depends on the clinical picture. Monitor renal function and for drug toxicity and dose-adjust antibiotics. Qualifiers: Site of cutaneous abscess: unspecified site Qualified Code(s): L02.91 - Cutaneous abscess, unspecified (3) Recurrent infections Status: Acute Assessment and plan: Etiology likely multifactorial: poor hygiene, uncontrolled DM, possible IVDU ( patient denies). Patient denies any previous immune system problems or comorbid conditions that would markedly effect her immune status. Hepatitis Bs Ag positive. Additional Hepatitis A and C serologies are pending. HIV status pending. Consider referral to immunology if this continues to be an issue and other risk factors are adequately addressed. (4) JD (acute kidney injury) Status: Resolved Assessment and plan: Likely secondary to sepsis. Resolved. Continue to trend. Dose-adjust antibiotics. Avoid nephrotoxins as able. (5) Hepatitis B Status: Acute Assessment and plan: Hepatitis Bs Ag positive, Hepatitis B core IgM positive--> acute Hepatitis B infection. LFTs elevated, but trending down. Bilirubin is normal. The patient is not jaundiced. No indication for treatment at this time. Patient should ensure that all exposed contacts and sexual partners have been vaccinated or are immune. Follow up with ID as an outpatient for further evaluation. Qualifiers: Viral hepatitis chronicity: acute Hepatic coma status: without hepatic coma Hepatitis delta agent presence: without delta-agent Qualified Code(s): B16.9 - Acute hepatitis B without delta-agent and without hepatic coma (6) Transaminitis Status: Acute Assessment and plan: Likely secondary to acute hepatitis B infection. Trending down. Continue to monitor. (7) Hyponatremia Status: Resolved (8) Tobacco dependence Status: Acute Infectious Disease HPI - Data of Consult Patient: new to practice Consult date: 12/16/16 Requesting Physician: Jack Aviles MD Primary Care Provider: PCP NONE - Consult Narrative Reason for consult: Multiple abscesses History of present illness: Ms. Alvarez is a 36 year old female with a past medical history of asthma, COPD, diabetes, GERD, anxiety, and depression. The patient was admitted to the hospital December 13 for elevated glucose, cellulitis, and sepsis. We are consulted December 16 for further evaluation of recurrent abscesses. The patient's a 36-year-old female with a past medical history as stated above. The patient is admitted to the emergency department on the day of admission with complaints of evaded blood sugars. She states that her glucometer read high and she is unsure exactly what her blood sugar was at home. Upon arrival, the patient was afebrile, but she was tachycardic. Her glucose was markedly elevated at 461. She was otherwise hemodynamically stable. Laboratory studies studies revealed a leukocytosis with neutrophilic predominance and elevated liver function tests as well as an acute kidney injury. Chest x-ray was negative. The patient had a of swelling and redness to the hand so she underwent a right hand CT that showed lobulated soft tissue swelling aspect of the hand, but no deeper space inflammatory process and no osteomyelitis. Blood cultures were obtained 1 set that is no growth to date. A urinalysis was obtained that appeared contaminated. The patient was started on empiric IV antibiotics and was admitted to the hospital for further evaluation and treatment. Since admission, the patient's leukocytosis has resolved. Her acute kidney injury has resolved as well. Her liver function tests are trending down. A wound culture was obtained of the right hand after a bedside incision and drainage is growing Klebsiella pneumoniae. Additional blood culture was drawn on December 14 set is currently no growth to date as well. Hepatitis B testing was completed that showed a positive hepatitis B surface antigen as well as a IgM antibody to hepatitis B core antigen. Hepatitis A and hepatitis C serologies and HIV testing are pending. Currently, the patient is on IV Levaquin and IV Zosyn. We've been asked to evaluate and make further recommendations. During my exam today, the patient states that overall she feels poor. She reports that the lesions are very painful. She reports subjective fevers, chills , and rigors. She denies any headache, dizziness, or weakness. She denies any congestion, earache, or sore throat. She denies any chest pain, but reports that she is chronically short of breath and has a chronic cough secondary to her COPD. She does report some nausea, but no vomiting, diarrhea, or constipation. She denies any abdominal pain or urinary complaints. She states her appetite isn't very good. He denies any oral thrush. She denies any history of known infection such as HIV or hepatitis. She denies IV drug use and states she has never used IV drugs. She states she lives at home with her family. She is sexually active with one female partner. She denies any recent travel. She states there is a dog that lives in her home, but denies other pets or animal exposures. She states she spent 2 years in [facility] in [place] and was released in June. She states the abscesses started while she was in the senior living and somewhat responded to oral antibiotics back then, but states the abscesses have continued to recur. She also states she's been unable to control her blood sugars at home because she is unable to afford her insulins. View of the medical record reveals that the patient was hospitalized about 2 weeks ago for the same thing. At that time, she underwent a formal incision and drainage in the operating room of an abscess to her abdomen, left arm, and chest. She signed out AMA and was unable to get her antibiotics filled due to inability to pay for them. CC: Jack Aviles MD Past Med Surg Social Fam HX - Past Medical History Attestation: Yes The following information was validated with the patient. Source: patient, old records reviewed, nursing notes reviewed Medical history: asthma, COPD, diabetes, GERD, other (recurrent abscesses) Psychiatric history: anxiety, depression - Past Surgical History Surgical History: other (I & D multiple abscesses) - Social History Smoking Status: Current every day smoker Smokeless Tobacco Status: No Alcohol use: none Drug use: opiates Occupational status: unemployed Current living situation: Home - Independent Activity Level: Independent ambulation Recent Out of Country Travel Within the Last 8 Weeks: No Exposure or Possible Exposure to Illness During Travel: No - Family History Mother History Unknown: Yes Living Status: Hx Family Cancer: Yes Father History Unknown: Yes Living Status: Hx Family Cardiac Disorders: Yes Sister History Unknown: Yes Living Status: Still Living Hx Family Cancer: Yes Infectious Disease-CN:Meds Insulin ASPART [NovoLOG] 18 unit SQ TIDAC PRN 07/03/16 [History] Insulin Glargine,Hum.rec.anlog [Lantus Solostar] 40 unit SQ BID 08/22/16 [ History] Lipase/Protease/Amylase [Pelon Rice 6,000 Units Capsule] 2 cap PO QID 12/05/16 [ History] Levaquin 12/17/16 [History] 3 Allergy/AdvReac Type Severity Reaction Status Date / Time ketorolac [From Toradol] Allergy Hives Verified 12/13/16 20:47 tramadol [From Ultram] Allergy Anaphylaxis Verified 12/13/16 20:47 iodine Allergy Anaphylaxis Uncoded 10/22/16 20:41 IV Contrast Allergy Anaphylaxis Uncoded 10/22/16 20:41 All systems: reviewed and no additional remarkable complaints except as stated Exam - Constitutional Vitals: Temp Pulse Resp BP Pulse Ox 97.9 F 68 18 99/52 95 12/16/16 11:19 12/16/16 11:19 12/16/16 11:19 12/16/16 11:19 12/16/16 11:19 General appearance: average body habitus, cooperative, no acute distress - Head Head exam: Present: atraumatic, normal inspection, normocephalic - Eye Eye exam: Present: EOMI, normal appearance, PERRL Pupils: Present: normal accommodation - ENT ENT exam: Present: mucous membranes moist - Neck Neck exam: Present: normal inspection - Respiratory Respiratory exam: Present: CTAB. Absent: rales, respiratory distress, rhonchi, wheezes - Cardiovascular Cardiovascular exam: Present: RRR, +S1, +S2 - GI/Abdominal GI/Abdominal exam: Present: normal bowel sounds, soft. Absent: distended, tenderness - Extremities Exam Extremities exam: Absent: joint swelling, pedal edema, tenderness - Back Exam Back exam: Present: normal inspection. Absent: paraspinal tenderness, vertebral tenderness - Neurological Exam Neurological exam: Present: alert, oriented X3, no focal deficits - Psychiatric Psychiatric exam: Present: normal affect, normal mood - Skin Skin exam: Present: dry, normal color, warm Additional comments: Multiple cutaneous lesions to the upper and lower extremities and one to the middle of the chest. Infectious Disease CN: Results - Labs CBC & Chem 7: 12/16/16 06:30 12/16/16 06:30 Serology: Serology 12/15/16 Range/Units 17:07 Hepatitis A IgM Ab Nonreactive (Nonreactive) Hep Bs Antigen Reactive H (Nonreactive) Hep B Core IgM Ab Reactive H (Nonreactive) Hepatitis C Ab Screen Nonreactive (Nonreactive) HIV Ag/Ab Combo Qual Nonreactive (Nonreactive) Consult Discharge Plan - Plan Referrals: WOUND,CLINIC [Other] - 12/20/16 9:30 am (WEST ENTRANCE STRAIGHT ACROSS FROM THE ENTRANCE DOORS) Ade Taylor CNP [Advanced Practice Nurse] - 12/23/16 3:15 pm
== END 2016-12-16 15:36 | disposition left against medical advice (07) | DRG 638 ==
LOC: EMEROO 20:39 → 2NNU 20:39
PROVIDERS: ADMIT Pediatrics; ATTEND Internal Medicine

== ENCOUNTER 2017-02-28 21:18 | Inpatient (IN) ==
[2017-02-28] MEDS ORDERED: Naloxone 0.4 MG/ML INJ IVP PRN (23:29)
[2017-02-28] MEDS ORDERED: 0.9 % Sodium Chloride 1,000 ML IVC SCH (23:30)
[2017-02-28] MEDS: *HR* Promethazine 25 MG/ML VIAL IVP PRN (23:57)
[2017-02-28] MEDS: *HR* Morphine 2 MG/ML SYRINGE IVP PRN (23:57)
[2017-03-01] MEDS: Pantoprazole 40 MG VIAL IVP SCH ×2 (00:17→07:15)
--- NOTE | 2017-03-01 00:35 | Internal Med History&Physical ---
Date of Encounter: 02/28/17 Time of Encounter: 23:20 Assessment and Plan (1) Hyperglycemia due to type 2 diabetes mellitus Current visit: No Status: Acute 1. GLucose check upon arrival and my assessment was 171. 2. Insulin drip stopped. 3. I ordered STAT labs (CMP, CBC, amylase, lipase) -- still pending. 4. We will continue IV fluid hydration, follow-up of lab results, and initiate subcutaneous insulin thereafter or resume IV insulin drip pending further lab analysis. 5. Patient to remain nothing by mouth until morning for clinical reassessment. Qualifiers: Diabetes mellitus nursing home insulin use: with nursing home use Qualified Code( s): E11.65 - Type 2 diabetes mellitus with hyperglycemia; Z79.4 - senior care ( current) use of insulin; Z79.4 - resin coater (current) use of insulin; Z79.4 - resin coater (current) use of insulin; Z79.4 - senior care (current) use of insulin (2) Dehydration Current visit: Yes Status: Acute 1. Will hydrate with IV fluids and keep nothing by mouth for now due to pancreatitis. 2. Once stable and pancreatitis is improving, will initiate oral hydration and feeds as tolerated. 3. Monitor clinical hydration status. (3) Pancreatitis Current visit: No Status: Acute 1. Will keep nothing by mouth for now and check pancreatic enzymes. 2. Will provide pain control with IV morphine and antiemetic therapy as necessary. 3. If patient does not improve clinically, she may require repeat imaging. Last imaging study was late December. Qualifiers: Chronicity: acute Pancreatitis type: unspecified pancreatitis type Acute pancreatitis complication: no infection or necrosis Qualified Code(s): K85.90 - Acute pancreatitis without necrosis or infection, unspecified (4) DVT prophylaxis Current visit: Yes Status: Acute 1. Heparin SQ. Internal Medicine - H&P: HPI Chief complaint: high glucose, abdominal pain, trasfer from [place] Admitted From: Hospital to Hospital Transfer Plans for Post Hospital Care: Home History of present illness: Ms. Alvarez is a 36 year old female who presents in transfer from [facility] ER. She presented there with high glucose, nausea, and abdominal pain. She was found to have evidence of elevated glucose, dehydration, and findings consistent with hyperosmolar hyperglycemic state. She was started on IV fluids and insulin drip and transferred to [facility]. Upon my assessment of the patient, she looks dehydrated but otherwise stable. Her glucose decreased steadily since presentation at [facility]. By the time I saw her upon her arrival, her glucose was 171. I asked her nurse to stop insulin and I ordered some STAT labs, which are still pending. I reviewed her labs at [facility]. She did not have any imaging of her abdomen. However, I reviewed old records and note that she has chronic pancreatitis. She did have a recent CT of her abdomen about a month and a half ago revealing some calcifications of the pancreas. She admits that she has acute on chronic pancreatitis and often times has flareups. She feels that this is what flared up her poor glucose control today. She denies any fevers, chills, cough, shortness of breath, or chest pain. She denies any dysuria or hematuria. Past Med Surg Social Fam HX - Past Medical History Attestation: Yes The following information was validated with the patient. Source: patient, old records reviewed Medical history: asthma, COPD, diabetes, GERD, hepatitis, renal disease, other ( chronic pancreatitis) Psychiatric history: anxiety, depression - Past Surgical History Surgical History: cholecystectomy - Social History Smoking Status: Current every day smoker Packs per day: 0.5 Smokeless Tobacco Status: No Alcohol use: none Drug use: none Current living situation: Home Activity Level: Independent ambulation Recent Out of Country Travel Within the Last 8 Weeks: No - Family History Mother Living Status: Hx Family Cancer: Yes (breast, lung, brain) Father Living Status: Hx Family Cardiac Disorders: Yes (heart attack) Sister Living Status: Still Living Hx Family Cancer: Yes (breast) Internal Medicine - H&P: Meds Insulin ASPART [NovoLOG] See Protocol SQ TIDAC PRN 07/03/16 [History] Insulin Glargine,Hum.rec.anlog [Lantus Solostar] 50 unit SQ BID 08/22/16 [ History] ALPRAZolam [Xanax 0.5 MG Tablet] 0.5 mg PO TID 02/20/17 [History] Oxycodone HCl/Acetaminophen [Percocet 10-325 mg Tablet] 10 each PO Q6H PRN 02/20 [History] Gabapentin [Neurontin] 800 mg PO TID #42 capsule 02/22/17 [Rx] 3 Allergy/AdvReac Type Severity Reaction Status Date / Time ketorolac [From Toradol] Allergy Hives Verified 02/20/17 17:12 tramadol [From Ultram] Allergy Anaphylaxis Verified 02/20/17 17:12 iodine Allergy Anaphylaxis Uncoded 02/20/17 17:12 IV Contrast Allergy Anaphylaxis Uncoded 02/20/17 17:12 - Constitutional Constitutional: no chills, no fever(s), no night sweats - EENT Eyes: no blurry vision, no change in vision Ears: no ear pain, no tinnitus Nose, mouth and throat: no nasal congestion, no sinus pressure, no sore throat - Cardiovascular Cardiovascular ROS IM: no chest pain, no diaphoresis, no dyspnea, no dyspnea on exertion - Respiratory Respiratory: no cough, no dyspnea, no hemoptysis, no chest congestion, no excessive phlegm production - Gastrointestinal Gastrointestinal: abdominal pain, heartburn, nausea, vomiting, no diarrhea, no hematemesis, no hematochezia, no melena - Genitourinary Genitourinary: no dysuria, no flank pain, no hematuria - Musculoskeletal Musculoskeletal ROS IM: no arthralgias, no back pain - Integumentary Integumentary IM: no rash, no jaundice - Neurological Neurological ROS: no disequilibrium, no dizziness, no focal weakness, no headache(s) - Psychiatric Psychiatric: no anxiety, no depression - Endocrine Endocrine IM: polydipsia, polyuria, no cold intolerance, no heat intolerance, no polyphagia - Hematologic/Lymphatic Hematologic/Lymphatic: no lymphadenopathy - Allergic/Immunologic Allergic/Immunologic: GI upset with certain foods, no wheezing - Constitutional Vitals: Temp Pulse Resp BP Pulse Ox 98.0 F 105 16 127/89 93 02/28/17 22:48 02/28/17 22:48 02/28/17 22:48 02/28/17 22:48 02/28/17 22:48 General appearance: Present: A&O X 3, answers questions appropriately Exam: moderate distress - Head Head exam: Present: atraumatic, normal inspection - Eye Eye exam: Present: EOMI, normal appearance, PERRL. Absent: scleral icterus Pupils: Present: normal accommodation - ENT ENT exam: Present: mucous membranes dry, normal exam, normal oropharynx - Neck Neck exam general surgery: Present: full ROM, supple. Absent: lymphadenopathy, tenderness, nuchal rigidity - Respiratory Respiratory exam: Present: CTAB. Absent: chest wall tenderness, rales, rhonchi , wheezes - Cardiovascular Cardiovascular exam: Present: RRR, +S1, +S2, tachycardia (HR 110's). Absent: diastolic murmur, systolic murmur - GI/Abdominal GI/Abdominal exam: Present: normal bowel sounds, soft, tenderness (epigastrium) , no peritoneal signs. Absent: guarding, hepatomegaly, mass, rebound, splenomegaly - Extremities Exam Extremities exam: Present: full ROM, warm. Absent: calf tenderness - Back Exam Back exam: Absent: CVA tenderness (L), CVA tenderness (R) - Neurological Exam Neurological exam: Present: alert, CN II-XII intact, oriented X3, no focal deficits - Psychiatric Psychiatric exam: Present: anxious - Skin Skin exam: Present: dry, warm. Absent: rash Internal Med - H&P Results - Labs Labs: I reviewed her labs at [facility] and include the following: WBC 9.0 Hemoglobin 13.6 Hematocrit 41.8 Platelet count 293 Venous blood gas pH 7.42 Sodium 129 Potassium 3.7 Chloride 94 Carbon dioxide 23 BUN 13 Creatinine 1.19 Glucose 619 Urine drug screen was entirely negative
[2017-03-01 01:34] LABS: INR 1.1; Prothrombin Time 11.4 Seconds (9.4-12.1)
[2017-03-01 01:37] LABS: Activated Partial Thrombo Time 30.6 Seconds (26.0-36.0)
[2017-03-01 01:43] LABS: Alanine Aminotransferase 20 Units/L (0-55); Albumin 3.1 g/dL (3.5-5.0); Albumin/Globulin Ratio 0.7 (1.1-2.2); Alkaline Phosphatase 197 Units/L (38-126); Amylase 20 Units/L (25-125); Aspartate Amino Transferase 16 Units/L (5-34); BUN/Creatinine Ratio 17 (6-26); Bilirubin,Total 0.9 mg/dL (0.2-1.2); Blood Urea Nitrogen 11 mg/dL (7-20); Carbon Dioxide 23 mEq/L (19-29); Chloride 103 mEq/L (98-109); Globulin 4.7 g/dL (2.4-3.5); Glucose 165 mg/dL (70-99); Lipase 12 Units/L (8-78); Magnesium 1.6 mg/dL (1.6-2.6); Osmolality,Calculated 289 (280-300); Potassium 3.3 mEq/L (3.5-4.5); Sodium 138 mEq/L (136-145); Total Protein 7.8 g/dL (6.0-8.3); eGFR For African Americans > 60 (> 60); eGFR For Non-African Americans > 60 (> 60)
[2017-03-01 02:06] LABS: Basophils % 0.3 %; Eosinophils # 0.2 K/mcL (0.0-0.6); Hematocrit 37.3 % (35.3-44.9); Hemoglobin 12.6 g/dL (11.5-15.4); Immature Granulocytes % 0.4 % (0-4); Lymphocytes # 3.8 K/mcL (0.6-4.6); Lymphocytes % 31.4 %; Mean Corpuscular HGB Conc 33.8 g/dL (31.6-35.5); Mean Corpuscular Hemoglobin 31.7 pg (28.0-33.3); Mean Platelet Volume 11.2 fL (9.4-12.4); Monocytes # 1.2 K/mcL (0.0-1.3); Monocytes % 9.9 %; Neutrophils # 6.8 K/mcL (1.6-8.9); Platelet Count 294 K/mcL (140-400); Red Blood Count 3.97 M/mcL (3.82-4.97); Red Cell Distribution Width 13.7 % (11.5-14.5)
[2017-03-01] MEDS ORDERED: Insulin DETEMIR 100 UNIT/ML X5UNITS SQ ONE (02:17)
[2017-03-01] MEDS ORDERED: *HR* Dextrose 50 % in Water (Syg) 50 ML SYRINGE IVP PRN (02:18)
[2017-03-01] MEDS ORDERED: D5% in Water 1,000 ML IVC PRN (02:18)
[2017-03-01] MEDS ORDERED: Dextrose Gel 15 GM PO PRN ×2 (02:18)
[2017-03-01] MEDS: 0.9 % Sodium Chloride w KCl 20 MEQ/1,000 ML MLS IVC SCH ×4 (03:02→22:58)
[2017-03-01] MEDS: *HR* Morphine 2 MG/ML SYRINGE IVP PRN ×4 (03:03→20:43)
[2017-03-01 03:52] LABS: Hemoglobin A1C 10.7 %
[2017-03-01] MEDS: *HR* Promethazine 25 MG/ML VIAL IVP PRN (06:37)
[2017-03-01] MEDS: *HR* Heparin 5,000 UNIT/ML VIAL SQ SCH ×2 (06:38→17:40)
[2017-03-01] MEDS: Insulin LISPRO 300 UNITS/3 ML VIAL SQ SCH ×3 (08:11→17:39)
--- NOTE | 2017-03-01 09:17 | Internal Med Progress Note ---
<Lizbeth Siu - Last Filed: 03/01/17 09:26> Date of Encounter: 03/01/17 Time of Encounter: 09:27 - Assessment and plan (1) Hyperglycemia due to type 2 diabetes mellitus Current Visit: No Status: Acute Assessment and plan: no insulin gtt required since admission to [facility]. continue with levemir 50 units BID medium dose sliding scale ACHS accuchecks. IVF possible discharge tomorrow if blood glucose under control. Qualifiers: Diabetes mellitus manager long term care insulin use: with manager long term care use Qualified Code( s): E11.65 - Type 2 diabetes mellitus with hyperglycemia; Z79.4 - terminal operator ( current) use of insulin; Z79.4 - terminal operator (current) use of insulin; Z79.4 - [facility] (current) use of insulin; Z79.4 - [facility] (current) use of insulin (2) Dehydration Current Visit: Yes Status: Acute Assessment and plan: continue IVF (3) Pancreatitis Current Visit: No Status: Acute Assessment and plan: History of chronic pancreatitis. Amylase 20 lipase 12 LFTs normal Plan: clear liquid diet for now IVF if doesn't improve clinically, will repeat imaging. last imaging done in December. Qualifiers: Chronicity: acute Pancreatitis type: unspecified pancreatitis type Acute pancreatitis complication: no infection or necrosis Qualified Code(s): K85.90 - Acute pancreatitis without necrosis or infection, unspecified (4) DVT prophylaxis Current Visit: Yes Status: Acute Assessment and plan: Heparin SQ - Subjective Interval history: 36F evaluated at bedside. patient reports nausea without vomiting. she denies diarrhea, fever, chills, chest pain, shortness of breath. she also reports some abdominal pain. she denies any further problems today. - Constitutional Vitals: Temp Pulse Resp BP Pulse Ox 97.9 F 91 16 121/79 90 03/01/17 07:45 03/01/17 07:45 03/01/17 07:45 03/01/17 07:45 03/01/17 07:45 General appearance: Present: mild distress, A&O X 3, answers questions appropriately - Head Head exam: Present: atraumatic, normocephalic - Neck Neck exam general surgery: Present: supple, trachea midline - Respiratory Respiratory exam: Present: CTAB - Cardiovascular Cardiovascular exam: Present: RRR, +S1, +S2 - GI/Abdominal GI/Abdominal exam: Present: soft, tenderness. Absent: distended Additional comments: tenderness present in epigastric and left upper quadrant area. - Extremities Exam Extremities exam: Absent: cyanotic, pedal edema - Neurological Exam Neurological exam: Present: alert, oriented X3 Additional comments: drowsy - Psychiatric Psychiatric exam: Present: normal affect, normal mood - Skin Skin exam: Absent: cyanosis Internal Medicine: Result - Labs CBC & Chem 7: 03/01/17 02:00 03/01/17 00:43 Labs: Short CBC 03/01/17 Range/Units 02:00 WBC 12.2 H (4.3-11.1) K/mcL Hgb 12.6 (11.5-15.4) g/dL Hct 37.3 (35.3-44.9) % Plt Count 294 (140-400) K/mcL Neutrophils # 6.8 (1.6-8.9) K/mcL BMP 03/01/17 00:43 Sodium 138 D Potassium 3.3 L Chloride 103 Carbon Dioxide 23 BUN 11 Creatinine 0.65 Glucose 165 H Calcium 9.0 Liver Function 03/01/17 Range/Units 00:43 Total Bilirubin 0.9 (0.2-1.2) mg/dL AST 16 (5-34) Units/L ALT 20 (0-55) Units/L Alkaline Phosphatase 197 H (38-126) Units/L Albumin 3.1 L (3.5-5.0) g/dL - ABG Interpretation ABG results: PT/INR, D-dimer PT 11.4 Seconds (9.4-12.1) 03/01/17 00:43 Consult Discharge Plan - Plan Referrals: NONE,PCP [Primary Care Provider] - <Evan Lagos H - Last Filed: 03/01/17 10:57> Date of Encounter: 03/01/17 - Constitutional Vitals: Temp Pulse Resp BP Pulse Ox 97.9 F 91 16 121/79 90 03/01/17 07:45 03/01/17 07:45 03/01/17 07:45 03/01/17 07:45 03/01/17 07:45 Internal Medicine: Result - Labs CBC & Chem 7: 03/01/17 02:00 03/01/17 00:43 Labs: Short CBC 03/01/17 Range/Units 02:00 WBC 12.2 H (4.3-11.1) K/mcL Hgb 12.6 (11.5-15.4) g/dL Hct 37.3 (35.3-44.9) % Plt Count 294 (140-400) K/mcL Neutrophils # 6.8 (1.6-8.9) K/mcL BMP 03/01/17 00:43 Sodium 138 D Potassium 3.3 L Chloride 103 Carbon Dioxide 23 BUN 11 Creatinine 0.65 Glucose 165 H Calcium 9.0 Liver Function 03/01/17 Range/Units 00:43 Total Bilirubin 0.9 (0.2-1.2) mg/dL AST 16 (5-34) Units/L ALT 20 (0-55) Units/L Alkaline Phosphatase 197 H (38-126) Units/L Albumin 3.1 L (3.5-5.0) g/dL - ABG Interpretation ABG results: PT/INR, D-dimer PT 11.4 Seconds (9.4-12.1) 03/01/17 00:43 - Attending Attestation Uncontrolled diabetes type 2 Continue Levemir 50 units twice a day and start lispro 25 units 3 times a day plus a sliding scale Chronic pancreatitis, patient requesting Percocet Tobacco abuse, smoking cessation counseling, nicotine patch offered I examined this patient and my medical decision-making was reviewed with the Resident Physician. I agree with the documented findings, disposition and treatment plan as described except to the extent set forth below.
[2017-03-01] MEDS: Insulin DETEMIR 100 UNIT/ML X5UNITS SQ SCH ×2 (09:21→21:12)
[2017-03-01] MEDS ORDERED: *HR* OxyCODONE/APAP 10/325 TABLET PO PRN (09:44)
--- NOTE | 2017-03-01 09:51 | Event Note ---
Date of Encounter: 03/01/17 Time of Encounter: 09:51 Not able to sign the resident's note: Patient Name: Cynthia Alvarez Date of : 78 Patient Status: Inpatient Attending Provider: Evan Lagos Date: 03/01/17 09:17 Initialization Date: 03/01/17 09:17 Date of Encounter: 03/01/17 Time of Encounter: 09:27 - Assessment and plan (1) Hyperglycemia due to type 2 diabetes mellitus Current Visit: No Status: Acute Assessment and plan: no insulin gtt required since admission to [facility] [place]. continue with levemir 50 units BID medium dose sliding scale ACHS accuchecks. IVF possible discharge tomorrow if blood glucose under control. Qualifiers: Diabetes mellitus technician terminal and repeater insulin use: with technician terminal and repeater use Qualified Code( s): E11.65 - Type 2 diabetes mellitus with hyperglycemia; Z79.4 - emt intermediate ( current) use of insulin; Z79.4 - emt intermediate (current) use of insulin; Z79.4 - emt intermediate (current) use of insulin; Z79.4 - emt intermediate (current) use of insulin (2) Dehydration Current Visit: Yes Status: Acute Assessment and plan: continue IVF (3) Pancreatitis Current Visit: No Status: Acute Assessment and plan: History of chronic pancreatitis. Amylase 20 lipase 12 LFTs normal Plan: clear liquid diet for now IVF if doesn't improve clinically, will repeat imaging. last imaging done in December. Qualifiers: Chronicity: acute Pancreatitis type: unspecified pancreatitis type Acute pancreatitis complication: no infection or necrosis Qualified Code(s): K85.90 - Acute pancreatitis without necrosis or infection, unspecified (4) DVT prophylaxis Current Visit: Yes Status: Acute Assessment and plan: Heparin SQ - Subjective Interval history: 36F evaluated at bedside. patient reports nausea without vomiting. she denies diarrhea, fever, chills, chest pain, shortness of breath. she also reports some abdominal pain. she denies any further problems today. - Constitutional Vitals: Temp Pulse Resp BP Pulse Ox 97.9 F 91 16 121/79 90 03/01/17 07:45 03/01/17 07:45 03/01/17 07:45 03/01/17 07:45 03/01/17 07:45 General appearance: Present: mild distress, A&O X 3, answers questions appropriately - Head Head exam: Present: atraumatic, normocephalic - Neck Neck exam general surgery: Present: supple, trachea midline - Respiratory Respiratory exam: Present: CTAB - Cardiovascular Cardiovascular exam: Present: RRR, +S1, +S2 - GI/Abdominal GI/Abdominal exam: Present: soft, tenderness. Absent: distended Additional comments: tenderness present in epigastric and left upper quadrant area. - Extremities Exam Extremities exam: Absent: cyanotic, pedal edema - Neurological Exam Neurological exam: Present: alert, oriented X3 Additional comments: drowsy - Psychiatric Psychiatric exam: Present: normal affect, normal mood - Skin Skin exam: Absent: cyanosis Internal Medicine: Result - Labs CBC & Chem 7: 03/01/17 02:00 03/01/17 00:43 Labs: Short CBC 03/01/17 Range/Units 02:00 WBC 12.2 H (4.3-11.1) K/mcL Hgb 12.6 (11.5-15.4) g/dL Hct 37.3 (35.3-44.9) % Plt Count 294 (140-400) K/mcL Neutrophils # 6.8 (1.6-8.9) K/mcL BMP 03/01/17 00:43 Sodium 138 D Potassium 3.3 L Chloride 103 Carbon Dioxide 23 BUN 11 Creatinine 0.65 Glucose 165 H Calcium 9.0 Liver Function 03/01/17 Range/Units 00:43 Total Bilirubin 0.9 (0.2-1.2) mg/dL AST 16 (5-34) Units/L ALT 20 (0-55) Units/L Alkaline Phosphatase 197 H (38-126) Units/L Albumin 3.1 L (3.5-5.0) g/dL - ABG Interpretation ABG results: PT/INR, D-dimer PT 11.4 Seconds (9.4-12.1) 03/01/17 00:43 Consult Discharge Plan - Plan Referrals: NONE,PCP [Primary Care Provider] -
[2017-03-01] MEDS ORDERED: Insulin LISPRO 300 UNITS/3 ML VIAL SQ SCH ×3 (11:30→21:00)
[2017-03-01] MEDS: Gabapentin 400 MG CAPSULE PO SCH ×3 (11:56→20:43)
[2017-03-01] MEDS: ALPRAZolam 0.5 MG TABLET PO SCH ×2 (14:39→20:43)
[2017-03-01] MEDS: *HR* OxyCODONE/APAP 10/325 TABLET PO PRN ×2 (15:37→22:58)
[2017-03-02] MEDS: *HR* Morphine 2 MG/ML SYRINGE IVP PRN ×2 (02:48→08:52)
[2017-03-02 04:13] LABS: Basophils # 0.1 K/mcL (0.0-0.2); Basophils % 0.4 %; Eosinophils # 0.3 K/mcL (0.0-0.6); Eosinophils % 2.7 %; Hematocrit 36.6 % (35.3-44.9); Hemoglobin 11.9 g/dL (11.5-15.4); Immature Granulocytes % 0.2 % (0-4); Lymphocytes # 4.6 K/mcL (0.6-4.6); Lymphocytes % 39.9 %; Mean Corpuscular HGB Conc 32.5 g/dL (31.6-35.5); Mean Corpuscular Hemoglobin 31.8 pg (28.0-33.3); Mean Corpuscular Volume 97.9 fL (83.0-100.0); Mean Platelet Volume 11.7 fL (9.4-12.4); Monocytes # 0.9 K/mcL (0.0-1.3); Monocytes % 7.8 %; Neutrophils # 5.7 K/mcL (1.6-8.9); Platelet Count 292 K/mcL (140-400); Red Blood Count 3.74 M/mcL (3.82-4.97); Red Cell Distribution Width 14.2 % (11.5-14.5)
[2017-03-02 04:30] LABS: BUN/Creatinine Ratio 15 (6-26); Blood Urea Nitrogen 8 mg/dL (7-20); Calcium 8.1 mg/dL (8.6-10.8); Carbon Dioxide 22 mEq/L (19-29); Chloride 114 mEq/L (98-109); Glucose 56 mg/dL (70-99); Osmolality,Calculated 288 (280-300); Potassium 4.2 mEq/L (3.5-4.5); Sodium 141 mEq/L (136-145); eGFR For African Americans > 60 (> 60); eGFR For Non-African Americans > 60 (> 60)
[2017-03-02] MEDS: *HR* Heparin 5,000 UNIT/ML VIAL SQ SCH (05:19)
[2017-03-02] MEDS: 0.9 % Sodium Chloride w KCl 20 MEQ/1,000 ML MLS IVC SCH (05:50)
[2017-03-02] MEDS: *HR* OxyCODONE/APAP 10/325 TABLET PO PRN (05:52)
[2017-03-02 07:27] VITALS: BP 125/86
[2017-03-02] MEDS: Insulin LISPRO 300 UNITS/3 ML VIAL SQ SCH (07:54)
[2017-03-02] MEDS: ALPRAZolam 0.5 MG TABLET PO SCH (08:52)
[2017-03-02] MEDS: Gabapentin 400 MG CAPSULE PO SCH (08:52)
[2017-03-02] MEDS ORDERED: Pantoprazole 40 MG VIAL IVP SCH (09:00)
--- NOTE | 2017-03-02 10:02 | Discharge Summary ---
<Lizbeth Siu - Last Filed: 03/02/17 09:39> Date of Encounter: 03/02/17 Time of Encounter: 09:39 - Discharge Diagnosis (1) HHNC (hyperglycemic hyperosmolar nonketotic coma) Priority: Primary Status: Acute (2) Hyperglycemia due to type 2 diabetes mellitus Priority: Secondary Status: Acute Qualifiers: Diabetes mellitus exterminator helper insulin use: with fci use Qualified Code( s): E11.65 - Type 2 diabetes mellitus with hyperglycemia; Z79.4 - intermodal dispatcher ( current) use of insulin; Z79.4 - retirement (current) use of insulin; Z79.4 - intermodal dispatcher (current) use of insulin; Z79.4 - retirement (current) use of insulin (3) Dehydration Priority: Secondary Status: Acute (4) Pancreatitis Priority: Secondary Status: Acute Qualifiers: Chronicity: acute Pancreatitis type: unspecified pancreatitis type Acute pancreatitis complication: no infection or necrosis Qualified Code(s): K85.90 - Acute pancreatitis without necrosis or infection, unspecified (5) DVT prophylaxis Priority: Secondary Status: Acute - Discharge Medications Prescriptions: ALPRAZolam [Xanax 0.5 MG Tablet] 0.5 mg PO TID PRN #10 tablet PRN Reason: Anxiety Docusate [Colace] 100 mg PO BID PRN #60 capsule PRN Reason: Constipation Gabapentin [Neurontin] 800 mg PO TID #90 capsule Insulin ASPART [NovoLOG] 15 unit SQ TIDAC 30 Days mls Insulin Glargine,Hum.rec.anlog [Lantus Solostar] 50 unit SQ HS 30 Days insuln.pen Lipase/Protease/Amylase [Pelon Rice 12,000 Units Capsule] 1 cap PO QID #120 capsule. Metoclopramide [Reglan] 10 mg PO QIDAC #120 tablet Oxycodone HCl [Oxycontin] 15 mg PO Q12H PRN #10 tab.er.12h PRN Reason: Pain Pantoprazole Sodium [Protonix] 40 mg PO DAILY #30 tablet. Sucralfate [Carafate] 1 gm PO QIDAC #120 tablet Home Medications: ALPRAZolam [Xanax 0.5 MG Tablet] 0.5 mg PO TID PRN #10 tablet 03/02/17 [Rx] Docusate [Colace] 100 mg PO BID PRN #60 capsule 03/02/17 [Rx] Gabapentin [Neurontin] 800 mg PO TID #90 capsule 03/02/17 [Rx] Insulin ASPART [NovoLOG] 15 unit SQ TIDAC 30 Days mls 03/02/17 [Rx] Insulin Glargine,Hum.rec.anlog [Lantus Solostar] 50 unit SQ HS 30 Days insuln.pen 03/02/17 [Rx] Lipase/Protease/Amylase [Pelon Rice 12,000 Units Capsule] 1 cap PO QID #120 capsule. 03/02/17 [Rx] Metoclopramide [Reglan] 10 mg PO QIDAC #120 tablet 03/02/17 [Rx] Oxycodone HCl [Oxycontin] 15 mg PO Q12H PRN #10 tab.er.12h 03/02/17 [Rx] Pantoprazole Sodium [Protonix] 40 mg PO DAILY #30 tablet. 03/02/17 [Rx] Sucralfate [Carafate] 1 gm PO QIDAC #120 tablet 03/02/17 [Rx] Allergies/Adverse Reactions: 3 Allergy/AdvReac Type Severity Reaction Status Date / Time ketorolac [From Toradol] Allergy Hives Verified 02/20/17 17:12 tramadol [From Ultram] Allergy Anaphylaxis Verified 02/20/17 17:12 iodine Allergy Anaphylaxis Uncoded 02/20/17 17:12 IV Contrast Allergy Anaphylaxis Uncoded 02/20/17 17:12 Procedures/tests Complete & Pending: Procedures Performed prior 72 hours Category Date Time Status ECG 12 lead ECG [ECG] Routine Y 02/28/17 23:29 Ordered Date of admission: 02/28/17 23:30 Primary care physician: PCP NONE Discharging clinician: Lizbeth Siu Anticipated date of discharge: 03/02/17 - Patient Status Disposition: Home, Self-Care Condition: Good Functional capacity at discharge: independent ambulation Overall status at discharge: patient is progressing back to baseline - Discharge Instructions Instructions: Pancreatitis (DC) Follow Up With: NONE,PCP [Primary Care Provider] - Additional Instructions: Follow up with your primary care provider within one week of discharge. if you do not have a primary care physician, you may set up an appointment at the residency clinic: [phone] Please take your insulin as prescribed. Please check your blood sugars at least four times a day, write down values and bring them to your appointment with your primary care provider. If you develop severe hyperglycemia, fatigue, chest pain, shortness of breath, fevers or chills, report to emergency department immediately. - Diet and Activity Activity: increase activity as tolerated Diet: diabetic diet, low fat, low cholesterol Hospital course: Ms. Alvarez is a 36 year old female with PMHx of chronic pancreatitis, asthma, COPD, GERD, hepatitis, CKD. patient presented to [facility] [place] on 03/01/17 as a transfer from [facility]. patient initially presented to [facility] for high blood glucose, nausea, abdominal pain. she was found to have HHNS. she was started on IV insulin at [place]. by the time she was transferred to [place], her blood sugar was 171. she was started on subcutaneous insulin thereafter. Patient complained of severe abdominal pain upon admission, likely secondary to her chronic pancreatitis. she had recent CT of her abdomen about a month and a half ago that revealed some calcifications of the pancreas. patient was put on a clear liquid diet and monitored. on day two, she was requesting to have regular food and she stated that her abdominal pain was getting better. Patient's blood sugars were closely monitored while she was in the hospital. Of note, patient has significant history of non compliance with her diabetes regimen. she has no PCP currently and states she gets her insulin prescriptions whenever she comes to the hospital. She has very frequent visits to the hospital for hyperglycemia and displays drug seeking activity as well. Upon day of patient's discharge, her blood sugars were well under control. she did not have any acute events during her hospitalization and was discharged home in stable condition. Plan: Follow up with your primary care provider within one week of discharge. if you do not have a primary care physician, you may set up an appointment at the residency clinic: [phone] Please take your insulin as prescribed. Please check your blood sugars at least four times a day, write down values and bring them to your appointment with your primary care provider. If you develop severe hyperglycemia, fatigue, chest pain, shortness of breath, fevers or chills, report to emergency department immediately. Time spent discussing smoking cessation with patient: more than 10 minutes - Time Spent with Patient Total time spent providing and/or coordinating discharge services: Greater than 30 minutes - Constitutional Vitals: Temp Pulse Resp BP Pulse Ox 98.0 F 81 18 125/86 95 03/02/17 07:25 03/02/17 07:25 03/02/17 07:25 03/02/17 07:25 03/02/17 07:25 General appearance: Present: A&O X 3, no acute distress, answers questions appropriately - Head Head exam: Present: atraumatic, normocephalic - Neck Neck exam general surgery: Present: supple, trachea midline - Respiratory Respiratory exam: Present: CTAB - Cardiovascular Cardiovascular exam: Present: RRR, +S1, +S2 - GI/Abdominal GI/Abdominal exam: Present: soft, tenderness (in epigastric area). Absent: distended - Extremities Exam Extremities exam: Absent: cyanotic, pedal edema - Neurological Exam Neurological exam: Present: alert, oriented X3, no focal deficits - Psychiatric Psychiatric exam: Present: normal affect, normal mood - Skin Skin exam: Absent: cyanosis <Evan Lagos H - Last Filed: 03/02/17 11:00> Date of Encounter: 03/02/17 Procedures/tests Complete & Pending: Procedures Performed prior 72 hours Category Date Time Status ECG 12 lead ECG [ECG] Routine Y 02/28/17 23:29 Ordered Date of admission: 02/28/17 23:30 Primary care physician: PCP NONE Hospital course: Ms. Alvarez is a 36 year old female - Time Spent with Patient Total time spent providing and/or coordinating discharge services: - Constitutional Vitals: Temp Pulse Resp BP Pulse Ox 98.0 F 81 18 125/86 95 03/02/17 07:25 03/02/17 07:25 03/02/17 07:25 03/02/17 07:25 03/02/17 07:25 - Attending Attestation severe hyperglycemia 2ry to insulin non compliance time spent 40 min I examined this patient and my medical decision-making was reviewed with the Resident Physician. I agree with the documented findings, disposition and treatment plan as described except to the extent set forth below.
== END 2017-03-02 10:28 | disposition home or self-care (01) | DRG 420 ==
LOC: 2NNU
PROVIDERS: ADMIT Internal Medicine Hematology & Oncology; ATTEND Internal Medicine

== ENCOUNTER 2017-03-05 18:26 | Inpatient (IN) ==
--- NOTE | 2017-03-05 18:47 | Emergency Department Note ---
START Narrative - START START: Mrs. Alvarez, 36-year-old female, presents from home for evaluation of hyperglycemia. Her meter home read "high." She gave herself 18 units of NovoLog just prior to arrival. She takes Lantus 50 units in the a.m. as well as 50 units p.m. She has not missed any doses. She has associated nausea, vomiting 1, abdominal pain, urinary frequency, thirst. Patient also has a weeping abscess on her right forearm. Patient is insulin-dependent diabetic. Diagnosed 8 years ago. Denies illicit substances, EtOH, tobacco smoking. Denies other medications. Bedside glucometer in this department read, "high." We will begin workup for DKA. Patient has been signed out to the night team, Dr. Lofton and Dr. Cadet <Reuben Dias - Last Filed: 03/05/17 18:45> - START START: I examined this patient and my medical decision-making was reviewed with the Resident Physician. I agree with the documented findings, disposition and treatment plan as described except to the extent set forth below. Insulin-dependent diabetic with high blood sugars. DKA workup. To be seen by mining technician. <Martha White - Last Filed: 03/05/17 18:53>
[2017-03-05] MEDS ORDERED: Ondansetron 4 MG/2 ML VIAL IVP ONE (18:49)
[2017-03-05] MEDS: 0.9 % Sodium Chloride 1,000 ML IVC SCH ×4 (19:00→22:30)
[2017-03-05] MEDS ORDERED: *HR* Morphine 2 MG/ML SYRINGE IVP ONE (19:02)
[2017-03-05 19:06] LABS: Beta-Hydroxybutyric Acid > 2.00 mmol/L (0.02-0.27)
[2017-03-05 19:08] LABS: Hematocrit 45.5 % (35.3-44.9); Hemoglobin 15.4 g/dL (11.5-15.4); Mean Corpuscular HGB Conc 33.8 g/dL (31.6-35.5); Mean Corpuscular Hemoglobin 31.9 pg (28.0-33.3); Mean Corpuscular Volume 94.2 fL (83.0-100.0); Platelet Count 325 K/mcL (140-400); Red Blood Count 4.83 M/mcL (3.82-4.97); Red Cell Distribution Width 13.7 % (11.5-14.5)
[2017-03-05 19:17] LABS: Alanine Aminotransferase 19 Units/L (0-55); Albumin 3.7 g/dL (3.5-5.0); Albumin/Globulin Ratio 0.6 (1.1-2.2); Alkaline Phosphatase 262 Units/L (38-126); Aspartate Amino Transferase 12 Units/L (5-34); BUN/Creatinine Ratio 14 (6-26); Bilirubin,Direct 0.7 mg/dL (0.0-0.5); Bilirubin,Indirect 0.9 mg/dL (0.0-1.2); Bilirubin,Total 1.6 mg/dL (0.2-1.2); Blood Urea Nitrogen 20 mg/dL (7-20); Calcium 10.3 mg/dL (8.6-10.8); Carbon Dioxide 15 mEq/L (19-29); Chloride 86 mEq/L (98-109); Globulin 5.9 g/dL (2.4-3.5); Lipase 13 Units/L (8-78); Magnesium 1.9 mg/dL (1.6-2.6); Osmolality,Calculated 312 (280-300); Potassium 5.3 mEq/L (3.5-4.5); Sodium 126 mEq/L (136-145); Total Protein 9.6 g/dL (6.0-8.3); eGFR For African Americans 48 (> 60); eGFR For Non-African Americans 40 (> 60)
[2017-03-05 19:20] LABS: Glucose 954 mg/dL (70-99)
[2017-03-05] MEDS ORDERED: *HR* Dextrose 50 % in Water (Syg) 50 ML SYRINGE IVP PRN (19:22)
--- NOTE | 2017-03-05 19:26 | Emergency Department Note ---
Disposition Clinical Impression: Dehydration, Ileus, JD (acute kidney injury) DKA (diabetic ketoacidoses) Qualifiers: Diabetes mellitus type: type 2 Diabetes mellitus complication detail: without coma Qualified Code(s): E13.10 - Other specified diabetes mellitus with ketoacidosis without coma Nausea & vomiting Qualifiers: Vomiting type: unspecified Vomiting Intractability: non-intractable Qualified Code(s): R11.2 - Nausea with vomiting, unspecified Disposition: Admitted As Inpatient Condition: Serious Referrals: NONE,PCP [Primary Care Provider] - Forms: ED Satisfaction Letter, Work/School Release Time of Disposition: 20:21 Abdominal Pain HPI - General Chief Complaint: ED Abdominal Pain Stated Complaint: hyperglycemia Time Seen by Provider: 03/05/17 18:41 Source: patient Mode of arrival: ambulatory Limitations: no limitations Nursing Notes Reviewed: Yes Vital Signs Reviewed: Yes - History of Present Illness HPI Narrative: 36-year-old female with history of DKA presents with nausea vomiting, abdominal pain going on for the last few days. patient also reports fever and chills and productive cough. she states her sugars have been very high, she comes in because they have been reading off the charts when she does report home accu- cheks, she feels generalized weakness, she states she just feels "run down." Patient also has a history of multiple abscesses and has a new lesion on her right forearm that has been draining. Patient denies hemoptysis hematuria or hematochezia, she has been very dehydrated, and has been drinking a lot. Pt Subjective Complaint: abdominal pain Onset (ago): day(s) Consistency: intermittent Location: diffuse Pain Severity: severe Pain Scale: 10 Quality: cramping, aching Migration to: no migration Improves with: vomiting Worsens with: nothing Associated symptoms: Reports: nausea, vomiting, diarrhea, fever, chills. Denies : hematochezia, melena - Related Data Home Medications Medication Instructions Recorded Confirmed Insulin Glargine,Hum.rec.anlog 50 unit SQ BID 03/05/17 03/05/17 [Lantus Solostar] Insulin LISPRO [Humalog Kwikpen 18 unit SQ TID 03/05/17 03/05/17 U-100] Previous Rx's Medication Instructions Recorded ALPRAZolam [Xanax 0.5 MG Tablet] 0.5 mg PO TID PRN #10 tablet 03/02/17 Gabapentin [Neurontin] 800 mg PO TID #90 capsule 03/02/17 Lipase/Protease/Amylase [Pelon Rice 1 cap PO QID #120 capsule. 03/02/17 12,000 Units Capsule] Oxycodone HCl [Oxycontin] 15 mg PO Q12H PRN #10 tab.er.12h 03/02/17 Allergies Allergy/AdvReac Type Severity Reaction Status Date / Time ketorolac [From Toradol] Allergy Hives Verified 03/05/17 18:52 tramadol [From Ultram] Allergy Anaphylaxis Verified 03/05/17 18:52 iodine Allergy Anaphylaxis Uncoded 03/05/17 18:52 IV Contrast Allergy Anaphylaxis Uncoded 03/05/17 18:52 All systems ED: reviewed and negative except as stated. Review of Systems: As Per HPI Constitutional: Reports: fever, chills, weakness Eyes: Denies: eye pain ENT ED: Denies: ear pain Cardiovascular: Denies: chest pain Respiratory: Reports: cough. 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 Psychiatric history: Reports: anxiety, depression - Social History Smoking status: Current every day smoker Alcohol use: Reports: none Drug use: Reports: none Physical Exam Constitutional: Patient is tachycardic, ill appearing, Eyes: PERRLA, sclera anicteric ENT & Mouth: MM dry Neck: normal inspection, neck is supple Resp: Coarse lung sounds bilaterally with inspiration next or wheezes, no resp distress CV: tachycardia, no m/g/r GI: normal inspection, soft, diffusely tender to palpation with no rigidity Neuro: A&O3, CNII-XII grossly intact, GALINDO Skin: poor skin turgor, lesion to left forearm no crepitus expresses pus - General Limitations: no limitations General appearance: alert, in no apparent distress Course Course Narrative: 36-year-old female with uncontrolled diabetes, we will get a DKA workup, she appears very dehydrated initial liter of fluid was ordered in triage, I did order additional 2 L of fluid, blood sugar came back at 900 sutures started on insulin drip with potassium of 5.[address] abdomen, urinalysis, additional workup and likely admission - Reevaluation(s) Reevaluation #1: Patient has a elevated blood sugar of 950, she is placed on insulin drip with a good potassium of 5.3, she has a KI dehydration jostles leukocytosis with no clear infiltrate on her chest x-ray, CT scan with pulm nodules, pancreatic calcificaitons will start on Zosyn IV empirically for leukocytosis, no evidence of UTI, possible pneumonia, patient to be admitted to medicine service Dr. Stefan lema inpatient. Time: 20:23 Vital Signs Temperature 97.9 F 03/05/17 18:52 Pulse Rate 129 03/05/17 18:52 Respiratory Rate 20 03/05/17 18:52 Blood Pressure 134/91 03/05/17 18:52 O2 Sat by Pulse Oximetry 94 03/05/17 18:52 Temperature 97.9 F 03/05/17 18:52 Pulse Rate 114 03/05/17 20:22 Respiratory Rate 16 03/05/17 20:22 Blood Pressure 129/62 03/05/17 20:22 O2 Sat by Pulse Oximetry 94 03/05/17 20:22 Oxygen Delivery Oxygen Delivery Room Air Abdominal Pain - Differential Diagnosis Differential Diagnosis: Likely: acute appendicitis, constipation, diverticulitis , diverticulosis - Medical Records Medical records reviewed: Yes I reviewed the patient's medical records. - Lab Data Lab results reviewed: Yes I reviewed the patient's lab results. Result diagrams: 03/05/17 18:48 03/05/17 18:48 Lab Results 03/05/17 03/05/17 03/05/17 Range/Units 18:48 18:48 18:48 WBC 26.0 H D (4.3-11.1) K/mcL RBC 4.83 (3.82-4.97) M/mcL Hgb 15.4 D (11.5-15.4) g/dL Hct 45.5 H (35.3-44.9) % MCV 94.2 (83.0-100.0) fL MCH 31.9 (28.0-33.3) pg MCHC 33.8 (31.6-35.5) g/dL RDW 13.7 (11.5-14.5) % Plt Count 325 (140-400) K/mcL MPV 12.0 (9.4-12.4) fL Seg Neutrophils % 92.0 % Lymphocytes % 4.0 % Monocytes % 4.0 % Neutrophils # 23.9 H (1.6-8.9) K/mcL Lymphocytes # 1.0 (0.6-4.6) K/mcL Monocytes # 1.0 (0.0-1.3) K/mcL Platelet Estimate Normal (Normal) VBG pH (7.32-7.42) pH Units VBG pCO2 (41-51) mmHg VBG pO2 (25-50) mmHg VBG HCO3 (21-27) mEq/L Sodium 126 L (136-145) mEq/L Potassium 5.3 H (3.5-4.5) mEq/L Chloride 86 L (98-109) mEq/L Carbon Dioxide 15 L (19-29) mEq/L BUN 20 (7-20) mg/dL Creatinine 1.47 H (0.57-1.11) mg/dL Est GFR ( Amer) 48 L (> 60) Est GFR (Non-Af Amer) 40 L (> 60) BUN/Creatinine Ratio 14 (6-26) Glucose 954 H* (70-99) mg/dL Calculated Osmolality 312 H (280-300) Calcium 10.3 (8.6-10.8) mg/dL Magnesium 1.9 (1.6-2.6) mg/dL Total Bilirubin 1.6 H (0.2-1.2) mg/dL Direct Bilirubin 0.7 H (0.0-0.5) mg/dL Indirect Bilirubin 0.9 (0.0-1.2) mg/dL AST 12 (5-34) Units/L ALT 19 (0-55) Units/L Alkaline Phosphatase 262 H (38-126) Units/L Troponin I 0.01 (0-0.03) ng/mL Serum Total Protein 9.6 H (6.0-8.3) g/dL Albumin 3.7 (3.5-5.0) g/dL Globulin 5.9 H (2.4-3.5) g/dL Albumin/Globulin Ratio 0.6 L (1.1-2.2) Lipase 13 (8-78) Units/L Beta-Hydroxybutyric Acd > 2.00 H (0.02-0.27) mmol/L Beta HCG, Quant < 1 (0-4) mIU/ml Urine Color (Yellow) Urine Clarity (Clear) Urine pH (5.0-8.0) pH Units Ur Specific [place] (1.010-1.025) Urine Protein (Neg-Trace) mg/dL Urine Glucose (UA) (Normal) mg/dL Urine Ketones (Negative) mg/dL Urine Blood (Negative) Urine Nitrite (Negative) Urine Bilirubin (Negative) Urine Urobilinogen (Normal) mg/dL Ur Leukocyte Esterase (Negative) Ur Culture Indicated? (NO) 03/05/17 03/05/17 Range/Units 18:48 19:29 WBC (4.3-11.1) K/mcL RBC (3.82-4.97) M/mcL Hgb (11.5-15.4) g/dL Hct (35.3-44.9) % MCV (83.0-100.0) fL MCH (28.0-33.3) pg MCHC (31.6-35.5) g/dL RDW (11.5-14.5) % Plt Count (140-400) K/mcL MPV (9.4-12.4) fL Seg Neutrophils % % Lymphocytes % % Monocytes % % Neutrophils # (1.6-8.9) K/mcL Lymphocytes # (0.6-4.6) K/mcL Monocytes # (0.0-1.3) K/mcL Platelet Estimate (Normal) VBG pH 7.48 H (7.32-7.42) pH Units VBG pCO2 18 L (41-51) mmHg VBG pO2 189 H (25-50) mmHg VBG HCO3 14 L (21-27) mEq/L Sodium (136-145) mEq/L Potassium (3.5-4.5) mEq/L Chloride (98-109) mEq/L Carbon Dioxide (19-29) mEq/L BUN (7-20) mg/dL Creatinine (0.57-1.11) mg/dL Est GFR ( Amer) (> 60) Est GFR (Non-Af Amer) (> 60) BUN/Creatinine Ratio (6-26) Glucose (70-99) mg/dL Calculated Osmolality (280-300) Calcium (8.6-10.8) mg/dL Magnesium (1.6-2.6) mg/dL Total Bilirubin (0.2-1.2) mg/dL Direct Bilirubin (0.0-0.5) mg/dL Indirect Bilirubin (0.0-1.2) mg/dL AST (5-34) Units/L ALT (0-55) Units/L Alkaline Phosphatase (38-126) Units/L Troponin I (0-0.03) ng/mL Serum Total Protein (6.0-8.3) g/dL Albumin (3.5-5.0) g/dL Globulin (2.4-3.5) g/dL Albumin/Globulin Ratio (1.1-2.2) Lipase (8-78) Units/L Beta-Hydroxybutyric Acd (0.02-0.27) mmol/L Beta HCG, Quant (0-4) mIU/ml Urine Color Yellow (Yellow) Urine Clarity Clear (Clear) Urine pH 6.0 (5.0-8.0) pH Units Ur Specific [place] > 1.030 H (1.010-1.025) Urine Protein Negative (Neg-Trace) mg/dL Urine Glucose (UA) >=1000 H (Normal) mg/dL Urine Ketones 15 H (Negative) mg/dL Urine Blood Negative (Negative) Urine Nitrite Negative (Negative) Urine Bilirubin Negative (Negative) Urine Urobilinogen Normal (Normal) mg/dL Ur Leukocyte Esterase Negative (Negative) Ur Culture Indicated? NO (NO) - Radiology Data Radiology results reviewed: Yes I reviewed the patient's radiology results. Chest X-Ray 03/05/17 18:41 IMPRESSION: No acute process. D/ / Radames Pearson MD / Radames Pearson MD Interpreting Provider: Radames Pearson MD Abdomen/Pelvis CT 03/05/17 19:34 IMPRESSION: 1. Borderline dilated loops of small bowel in left upper quadrant of the abdomen without transition point and moderately large stool burden seen throughout the colon is nonspecific most likely reflects mild ileus ; however, developing/early small bowel obstruction is not excluded. Progress imaging may be of further diagnostic aid, as clinically indicated. 2. Ground-glass nodule in the left lung base and new nodular tree-in-bud and irregular confluent nodules in the right middle lobe are new compared to 01/21/2017 and most likely relate to infectious/inflammatory etiologies. Follow-up chest CT in 6-12 weeks is recommended to ensure resolution. 3. Stable punctate nonobstructing right renal calculi. D/ / Iron Hayden / Iron Hayden Interpreting Provider: Iron Hayden - EKG Data EKG attestation: Yes I reviewed and interpreted this EKG. Critical Care Time Critical Care Time: Yes Total Critical Care Time: 40 Attestation: Critical care performed: Time is exclusive of separately billable procedures. Time includes: direct patient care, patient reassessment, coordination of patient care, interpretation of data (laboratory data, radiology data, and respiratory data), review of patient's medical records, medical consultation and documentation of patient care. Procedures included in critical care time: Procedures excluded from critical care time: Attestation Statement - Attestation Attestation: I, Brenden Cadet MD, personally evaluated this patient and discussed their management with the resident physician. I reviewed the resident's note and agree with the documented findings, medical decision making, and plan of care. 36-year-old female with history of insulin-dependent diabetes presents to the emergency department with a complaint of abdominal pain associated with nausea and vomiting for the past couple of days. Also some shortness of breath. She has not noticed any fever. She complains of generalized body aches and pain all over but primarily crampy abdominal pain. No melena, hematemesis, or hematochezia. No dysuria or gross hematuria. She has had increased urinary frequency. On examination patient is a well-developed thin female in no acute distress. She is alert and oriented 3. There is no cyanosis or diaphoresis. Mucous membranes are dry. Chest is nontender to palpation. Breath sounds are clear and equal bilaterally. Heart regular and tachycardic. Abdomen is soft with increased bowel sounds. Moderate diffuse tenderness to palpation. No guarding or rebound tenderness noted. No tympany or distention. Labs reviewed. Glucose 954. Beta hydroxybutyric acid greater than 2.0. Patient received IV fluids and started on an insulin infusion. The hospitalist, Dr. Aviles, was consulted and accepted admission of the patient.
[2017-03-05] MEDS ORDERED: Insulin Human Regular 100 UNIT in 0.9 % Sodium Chloride 100 ML IVC SCH (19:30)
[2017-03-05 19:33] LABS: VBG HCO3 14 mEq/L (21-27); VBG PCO2 18 mmHg (41-51); VBG PH 7.48 pH Units (7.32-7.42); VBG PO2 189 mmHg (25-50)
[2017-03-05 19:42] LABS: Neutrophils # 23.9 K/mcL (1.6-8.9)
[2017-03-05 19:43] LABS: Platelet Estimate Normal (Normal)
[2017-03-05 20:01] LABS: Bilirubin,Urine Negative (Negative); Blood,Urine Negative (Negative); Clarity,Urine Clear (Clear); Color,Urine Yellow (Yellow); Glucose,Urine (UA) >=1000 mg/dL (Normal); Ketones,Urine 15 mg/dL (Negative); Leukocyte Esterase,Urine Negative (Negative); Nitrite,Urine Negative (Negative); Protein,Urine Negative (Neg-Trace); Specific Gravity,Urine > 1.030 (1.010-1.025); Urobilinogen,Urine Normal (Normal)
[2017-03-05] MEDS ORDERED: *HR* HYDROmorphone (PF) 1 MG/ML SYRINGE IVP ONE (20:08)
[2017-03-05] MEDS ORDERED: Piperacillin/Tazobactam 3.375 GM/200 ML BAG IVPB STA (20:15)
[2017-03-05] MEDS ORDERED: Piperacillin/Tazobactam 3.375 GM in Water for inj. (sterile) 20 ML IVP ONE (20:21)
--- NOTE | 2017-03-05 21:48 | Internal Med History&Physical ---
<Ino Schultz - Last Filed: 03/06/17 01:57> Date of Encounter: 03/06/17 Time of Encounter: 21:47 Assessment and Plan (1) DKA (diabetic ketoacidoses) Current visit: Yes Status: Acute On arrival: - BS 954, K 5.3, Bicarb 14, Gap 25, CO2 18 and pH 7.48. B-hydroxy >2 - Urine showing glucose >1000 and ketones 15. - Kidney function - Cr 1.47 - Vitals - Tachycardic HR 127 Unknown etiology at this time. Possible non-compliance vs infection Diabetic education ordered - Takes Lantus 50 BID with Novolog 18 units SS at home, usually runs high above 300 Cardiac and pulse ox monitoring BMP, Mag and Phos [id number] x3 - Replacement PRN electrolytes ordered Continue IVF @ 200cc BS dropping to 500s per nursing Continue to follow DKA procotol and will adjust accordingly NPO Supportive Care Qualifiers: Diabetes mellitus type: type 2 Diabetes mellitus complication detail: without coma Qualified Code(s): E13.10 - Other specified diabetes mellitus with ketoacidosis without coma (2) Chronic pancreatitis Current visit: Yes Status: Acute History of chronic pancreatitis - Elevation in Bilirubin and Alk Phos, Lipase neg - CT shows calcifications with possible ileus vs early SBO Last BM today Dilaudid q3 for pain NPO, IV PPI KUB in the morning for re-evaluation Monitor for BM or flatus Nausea resolving, no emesis Likely d/t DKA etiology and stool seen on CT will resolve with fluid replacement Qualifiers: Pancreatitis type: idiopathic Qualified Code(s): K86.1 - Other chronic pancreatitis (3) JD (acute kidney injury) Current visit: Yes Status: Acute Cr 1.47 on arrival. Dehydration. Replenishing fluid deficit. BMP q4. See above (4) Leukocytosis Current visit: No Status: Acute WBC 26. No UTI. CXR neg. Possibly from draining abscess on right forearm. Repeat CBC in the am Qualifiers: Leukocytosis type: unspecified Qualified Code(s): D72.829 - Elevated white blood cell count, unspecified (5) Nausea Current visit: Yes Status: Acute Appears to be well controlled at this time. PRN Zofran ordered. (6) Cutaneous abscess of right upper extremity Current visit: Yes Status: Acute Chronic history of abscesses. One dose of IV Zosyn given in ED Wound and blood cultures ordered Coverage with IV Vanco and Zosyn for now, will readjust pending c&s Dressing changes daily (7) GERD (gastroesophageal reflux disease) Current visit: Yes Status: Acute IV PPI, NPO Qualifiers: Esophagitis presence: without esophagitis Qualified Code(s): K21.9 - Gastro -esophageal reflux disease without esophagitis Internal Medicine - H&P: HPI Chief complaint: abdominal pain and elevated blood sugar Admitted From: Home Plans for Post Hospital Care: Home History of present illness: Ms. Alvarez is a very pleasant 36 year old female with a past medical history of asthma, COPD, GERD, hepatitis, CKD and chronic pancreatitis who presents to the [facility] Emergency Department with a chief complaint of elevated blood sugar and abdominal pain. She states that her reading at home was "high" and decided to come to the ED. She goes on to report that her abdominal pain is epigastric, 8/10, sharp, constant and non-radiating. Patient thinks she has pancreatitis and stopped eating any food three days ago. Additionally, she has been experiencing fevers, productive cough, nausea, polydipsia and polyuria. She has a history of multiple abscesses in the past and complains of right forearm draining abscess that has been there for 1 month but is improving. On arrival to the ED, vitals show HR 129, WBC 26, Cr 1.47, K 5.3, BS 954, Bicarb 14, CO2 18 and pH 7.48. B-hydroxy >2 with urine showing glucose >1000 and ketones 15. EKG sinus tach. No peaked T waves. CXR neg. Abd CT showing possible ileus vs early SBO, ground glass nodule in left lung base and calcifications in the pancreas. Patient was started on DKA protocol with 2L NS, 100 units of Reg insulin and insulin drip. Hospitalist service was consulted and on evaluation, she reports using Lantus 50 BID with Novolog 18units SS. Last known A1c 10.7 on 03/01/17. She has multiple hospializations for hyperglycemia and most recently was discharged on 03/02/17. She reports 0.5 PPD for 20 years and denies any EtOH or illicit drug use. Pertinent abdominal surgeries are cholecystectomy and tubal ligation. We will continue to follow patient for DKA and offer further recommendations. Past Med Surg Social Fam HX - Past Medical History Medical history: asthma, COPD, diabetes, GERD, hepatitis, renal disease, other Psychiatric history: anxiety, depression - Past Surgical History Surgical History: cholecystectomy - Social History Smoking Status: Current every day smoker Smokeless Tobacco Status: No Alcohol use: none Drug use: none - Family History Mother Living Status: Hx Family Cancer: Yes (breast, lung, brain) Father Living Status: Hx Family Cardiac Disorders: Yes (heart attack) Sister Living Status: Still Living Hx Family Cancer: Yes (breast) Internal Medicine - H&P: Meds ALPRAZolam [Xanax 0.5 MG Tablet] 0.5 mg PO TID PRN #10 tablet 03/02/17 [Rx] Gabapentin [Neurontin] 800 mg PO TID #90 capsule 03/02/17 [Rx] Lipase/Protease/Amylase [Pelon Rice 12,000 Units Capsule] 1 cap PO QID #120 capsule. 03/02/17 [Rx] Oxycodone HCl [Oxycontin] 15 mg PO Q12H PRN #10 tab.er.12h 03/02/17 [Rx] Insulin Glargine,Hum.rec.anlog [Lantus Solostar] 50 unit SQ BID 03/05/17 [ History] Insulin LISPRO [Humalog Kwikpen U-100] 18 unit SQ TID 03/05/17 [History] 3 Allergy/AdvReac Type Severity Reaction Status Date / Time ketorolac [From Toradol] Allergy Hives Verified 03/05/17 18:52 tramadol [From Ultram] Allergy Anaphylaxis Verified 03/05/17 18:52 iodine Allergy Anaphylaxis Uncoded 03/05/17 18:52 IV Contrast Allergy Anaphylaxis Uncoded 03/05/17 18:52 All Systems PM: A 10-system review of systems was performed and is negative for pertinent findings except as documented above in the HPI. - Constitutional Constitutional: fatigue, fever(s) - EENT Eyes: no blurry vision Nose, mouth and throat: dry mouth - Cardiovascular Cardiovascular ROS IM: palpitations, no chest pain, no diaphoresis, no dyspnea, no lightheadedness - Respiratory Respiratory: cough, change in phlegm color (green), no hemoptysis - Gastrointestinal Gastrointestinal: as per HPI - Genitourinary Genitourinary: urinary frequency, no hematuria - Musculoskeletal Musculoskeletal ROS IM: no back pain - Integumentary Integumentary IM: as per HPI, non-healing lesions - Neurological Neurological ROS: no headache(s) - Psychiatric Psychiatric: change in appetite - Constitutional Vitals: Temp Pulse Resp BP Pulse Ox 97.9 F 114 16 129/62 94 03/05/17 18:52 03/05/17 20:22 03/05/17 20:22 03/05/17 20:22 03/05/17 20:22 General appearance: Present: cooperative, A&O X 3, no acute distress (shaking upper extremities and holding her abdomen), answers questions appropriately - Head Head exam: Present: atraumatic, normocephalic - Eye Eye exam: Present: EOMI, conjuntiva pink, sclera anicteric - ENT ENT exam: Present: mucous membranes dry - Neck Neck exam general surgery: Present: supple, trachea midline - Respiratory Respiratory exam: Present: CTAB. Absent: chest wall tenderness, respiratory distress, rhonchi, stridor, wheezes - Cardiovascular Cardiovascular exam: Present: tachycardia - GI/Abdominal GI/Abdominal exam: Present: normal bowel sounds, soft, tenderness (epigastric). Absent: distended, guarding, rigid - Rectal Rectal exam: Present: deferred - Extremities Exam Additional comments: Multiple non-healing lesions present about dorsal aspect of bilateral forearms and anterior lower legs. Right dorsal forearm wound draining slowly when palpated - Neurological Exam Neurological exam: Present: alert, oriented X3 - Psychiatric Psychiatric exam: Present: anxious - Skin Additional comments: see extremity exam Internal Med - H&P Results - Labs CBC & Chem 7: 03/05/17 18:48 03/06/17 00:27 <Jack Aviles - Last Filed: 03/06/17 03:55> Date of Encounter: 03/05/17 Internal Medicine - H&P: HPI History of present illness: Ms. Alvarez is a 36 year old female All Systems PM: A 10-system review of systems was performed and is negative for pertinent findings except as documented above in the HPI. - Constitutional Vitals: Temp Pulse Resp BP Pulse Ox 98.2 F 116 16 103/73 91 03/05/17 22:21 03/06/17 03:00 03/06/17 03:00 03/06/17 03:00 03/06/17 03:00 Internal Med - H&P Results - Labs CBC & Chem 7: 03/05/17 18:48 03/06/17 00:27 Labs: BMP 03/06/17 00:27 Sodium 136 D Potassium 4.3 D Chloride 102 D Carbon Dioxide 19 BUN 14 Creatinine 0.77 Glucose 349 H Calcium 8.4 L D - Attending Attestation Patient was seen Dec , I personally seen and examined the patient and discuss with resident. Chest clear to auscultation percussion wheezing rales in the abdomen soft nontender no organomegaly was on active extremities no edema neuro nonfocal. Admitted for DKA. Will treat her with IV fluid and electrolyte correction and monitoring and insulin drip.. She is complaining of left upper quadrant pain and she has history of pancreatitis but today her amylase is negative and her abdominal examination is quite unremarkable with soft belly. Question secondary gain. For now she is on Dilaudid. On admission blood sugar was in 1954 with positive BHP and bicarbonate of only 14. White count is 26,000 without any obvious signs of infection could be related to DKA itself and will see that once acidosis is corrected if white count normalized. She has a right upper extremity skin abscesses for which culture has been ordered and Vanco and Zosyn as started.
[2017-03-05] MEDS ORDERED: *HR* HYDROmorphone (PF) 1 MG/ML SYRINGE ONE (22:36)
[2017-03-05] MEDS: *HR* HYDROmorphone (PF) 1 MG/ML SYRINGE IVP PRN (22:45)
[2017-03-05] MEDS ORDERED: Pantoprazole 40 MG VIAL IVP ONE (22:48)
[2017-03-05] MEDS ORDERED: Ondansetron 4 MG/2 ML VIAL IVP PRN (22:56)
[2017-03-05] MEDS ORDERED: Vancomycin 1,000 MG in D5% in Water 250 ML IVPB SCH (23:45)
[2017-03-06] MEDS: 0.9 % Sodium Chloride 1,000 ML IVC SCH (00:23)
[2017-03-06 01:19] LABS: BUN/Creatinine Ratio 18 (6-26); Blood Urea Nitrogen 14 mg/dL (7-20); Carbon Dioxide 19 mEq/L (19-29); Glucose 349 mg/dL (70-99); Magnesium 1.5 mg/dL (1.6-2.6); Osmolality,Calculated 296 (280-300); Phosphorous 2.5 mg/dL (2.3-4.7); Potassium 4.3 mEq/L (3.5-4.5); eGFR For African Americans > 60 (> 60); eGFR For Non-African Americans > 60 (> 60)
[2017-03-06 01:20] LABS: Calcium 8.4 mg/dL (8.6-10.8); Chloride 102 mEq/L (98-109); Sodium 136 mEq/L (136-145)
[2017-03-06] MEDS: *HR* HYDROmorphone (PF) 1 MG/ML SYRINGE IVP PRN ×3 (01:48→08:29)
[2017-03-06] MEDS: D5% in 0.45% NACL 1,000 ML IVC PRN ×2 (02:41→08:20)
[2017-03-06] MEDS: Piperacillin/Tazobactam 3.375 GM/200 ML BAG IVPB SCH ×3 (03:58→21:34)
[2017-03-06] MEDS: Vancomycin 1,000 MG in D5% in Water 250 ML IVPB SCH ×2 (04:06→15:32)
[2017-03-06 04:31] LABS: Basophils # 0.1 K/mcL (0.0-0.2); Basophils % 0.2 %; Eosinophils # 0.1 K/mcL (0.0-0.6); Eosinophils % 0.5 %; Hematocrit 33.5 % (35.3-44.9); Immature Granulocytes % 0.9 % (0-4); Lymphocytes # 2.6 K/mcL (0.6-4.6); Lymphocytes % 11.6 %; Mean Corpuscular HGB Conc 33.4 g/dL (31.6-35.5); Mean Corpuscular Hemoglobin 31.5 pg (28.0-33.3); Mean Corpuscular Volume 94.1 fL (83.0-100.0); Mean Platelet Volume 11.3 fL (9.4-12.4); Monocytes # 1.7 K/mcL (0.0-1.3); Monocytes % 7.6 %; Platelet Count 234 K/mcL (140-400); Red Blood Count 3.56 M/mcL (3.82-4.97); Red Cell Distribution Width 13.8 % (11.5-14.5); Segmented Neutrophils % 79.2 %
[2017-03-06 04:32] LABS: Hemoglobin 11.2 g/dL (11.5-15.4)
[2017-03-06 04:45] LABS: BUN/Creatinine Ratio 17 (6-26); Blood Urea Nitrogen 11 mg/dL (7-20); Calcium 7.5 mg/dL (8.6-10.8); Carbon Dioxide 19 mEq/L (19-29); Chloride 106 mEq/L (98-109); Glucose 276 mg/dL (70-99); Magnesium 1.8 mg/dL (1.6-2.6); Osmolality,Calculated 289 (280-300); Phosphorous 1.9 mg/dL (2.3-4.7); Potassium 3.9 mEq/L (3.5-4.5); Sodium 135 mEq/L (136-145); eGFR For African Americans > 60 (> 60); eGFR For Non-African Americans > 60 (> 60)
[2017-03-06] MEDS: *HR* Enoxaparin 30 MG/0.3 ML SYRINGE SQ SCH ×2 (06:03→17:06)
[2017-03-06 08:24] LABS: Hemoglobin A1C 10.9 %
[2017-03-06 08:42] LABS: BUN/Creatinine Ratio 16 (6-26); Blood Urea Nitrogen 10 mg/dL (7-20); Calcium 7.4 mg/dL (8.6-10.8); Carbon Dioxide 21 mEq/L (19-29); Chloride 104 mEq/L (98-109); Glucose 186 mg/dL (70-99); Osmolality,Calculated 282 (280-300); Potassium 3.5 mEq/L (3.5-4.5); Sodium 134 mEq/L (136-145); eGFR For African Americans > 60 (> 60); eGFR For Non-African Americans > 60 (> 60)
[2017-03-06 08:46] LABS: VBG HCO3 23 mEq/L (21-27); VBG PCO2 42 mmHg (41-51); VBG PH 7.35 pH Units (7.32-7.42); VBG PO2 129 mmHg (25-50)
[2017-03-06] MEDS ORDERED: Dextrose Gel 15 GM PO PRN ×4 (09:47→22:15)
[2017-03-06] MEDS ORDERED: D5% in Water 1,000 ML IVC PRN ×2 (09:47→22:15)
[2017-03-06] MEDS ORDERED: *HR* Dextrose 50 % in Water (Syg) 50 ML SYRINGE IVP PRN ×2 (09:47→22:15)
--- NOTE | 2017-03-06 10:21 | Internal Med Progress Note ---
<Ruby Julien - Last Filed: 03/06/17 17:29> Date of Encounter: 03/06/17 Time of Encounter: 10:21 - Assessment and plan (1) Hyperglycemia due to type 2 diabetes mellitus Current Visit: No Status: Acute Assessment and plan: Presented with elevated blood glucose of 954, potassium 5.3, bicarbonate 19, anion gap 25 and CO2 of 18. She had a pH of 7.48 and beta hydroxybutyrate of greater than 2. She has urine glucose of greater than 1000 and ketones of 15. On DKA protocol, gap has been closed. On recent labs pateint is no longer acidotic. Will discontinue insulin drip and DKA protocol. Patient is on lantus 50 units BID, however last prescription filled was for lantus 50 units QHS. 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 Will start levemir 15 units BID, novolog 10 units plus medium dose corrective scale with meals TID. Will plan toa djust based on blood glucose and correction factors. Given pateint is no longer acidotic and is other gibson stable, she is stable for transfer to the floor once electrolytes are stable. Qualifiers: Diabetes mellitus [facility] insulin use: with long term care pharmacist use Qualified Code( s): E11.65 - Type 2 diabetes mellitus with hyperglycemia; Z79.4 - [facility] ( current) use of insulin; Z79.4 - [facility] (current) use of insulin; Z79.4 - terminologist (current) use of insulin; Z79.4 - terminologist (current) use of insulin (2) Chronic pancreatitis Current Visit: Yes Status: Acute Assessment and plan: History of chronic pancreatitis. CT abdomen pelvis with evidence of calcification of pancreas Will discontinue IV dilaudid, will change to norco 5/325 1 tablet q 4-6 hours. Qualifiers: Pancreatitis type: idiopathic Qualified Code(s): K86.1 - Other chronic pancreatitis (3) GERD (gastroesophageal reflux disease) Current Visit: Yes Status: Acute Assessment and plan: Chronic. Stable. COntineu IV PPI, will plan to transition to oral in am. Qualifiers: Esophagitis presence: without esophagitis Qualified Code(s): K21.9 - Gastro -esophageal reflux disease without esophagitis (4) Cutaneous abscess of right upper extremity Current Visit: Yes Status: Acute Assessment and plan: Patient with known history of mulitple abscesses in the past. Received one dose of IV zosyn in ED. Wound and blood cultures pending, will follow for results. Continue IV vancomycin and zosyn (day 1), will narrow based on cultures. (5) Nausea Current Visit: Yes Status: Acute Assessment and plan: Continue zofran as needed. - Subjective Interval history: Patient with known history of type 2 diabetes mellitus on [facility] insulin presented to ED with elevated blood glucose level, with an anion gap metabolic acidosis and was admitted to the ICU. Overnight, she was placed on an insulin drip per DKA protocol. Her anion gap closed this morning. Today she states that she is having some stomach pain, mainly from being hungry. She denies having any primary care physician, states she is supposed to establish with one on Friday. When asked where she got her last prescription of insulin from she states it was form the hospital. She is insistent that she takes 50 units of lantus twice daily and that she never misses a dose. She also takes 18 units of novolog with meals three times daily. With regards to the sore on her arm, she states it has been there for a while and she does not think it has chanegd any recently. She has noticed some drainage. She has no additional complaints of concerns at this time. - Constitutional Vitals: Temp Pulse Resp BP Pulse Ox 99.5 F 100 18 98/59 95 03/06/17 09:17 03/06/17 09:17 03/06/17 09:17 03/06/17 09:17 03/06/17 09:17 General appearance: Present: cooperative, A&O X 3, no acute distress, answers questions appropriately - Head Head exam: Present: atraumatic, normocephalic - ENT ENT exam: Present: mucous membranes moist - Neck Neck exam general surgery: Present: supple, trachea midline - Respiratory Respiratory exam: Present: CTAB. Absent: rales, rhonchi, stridor, wheezes - Cardiovascular Cardiovascular exam: Present: RRR, +S1, +S2. Absent: diastolic murmur, systolic murmur - GI/Abdominal GI/Abdominal exam: Present: normal bowel sounds, soft. Absent: distended, guarding, rebound, tenderness - Extremities Exam Extremities exam: Present: normal capillary refill - Skin Skin exam: Present: dry, warm Additional comments: small 0.25 cm erytehmatous warm sunil on lateral dorsal forearm near elbow, no fluctuance of induration felt, serosanginous drainage observed. Internal Medicine: Result - Labs CBC & Chem 7: 03/06/17 04:11 03/06/17 08:20 Labs: BMP 03/06/17 08:20 Sodium 134 L Potassium 3.5 Chloride 104 Carbon Dioxide 21 BUN 10 Creatinine 0.61 Glucose 186 H Calcium 7.4 L Consult Discharge Plan - Plan Referrals: NONE,PCP [Primary Care Provider] - <Dereje Benavides - Last Filed: 03/06/17 18:24> Date of Encounter: 03/06/17 - Constitutional Vitals: Temp Pulse Resp BP Pulse Ox 99.1 F 104 18 108/61 93 03/06/17 12:02 03/06/17 16:00 03/06/17 16:00 03/06/17 16:00 03/06/17 16:00 Internal Medicine: Result - Labs CBC & Chem 7: 03/06/17 04:11 03/06/17 17:10 Labs: BMP 03/06/17 03/06/17 08:20 17:10 Sodium 134 L 132 L Potassium 3.5 3.8 Chloride 104 102 Carbon Dioxide 21 25 BUN 10 7 Creatinine 0.61 0.66 Glucose 186 H 195 H Calcium 7.4 L 8.0 L - Attending Attestation I examined this patient and my medical decision-making was reviewed with the Resident Physician on 03/06/17. I agree with the documented findings, disposition and treatment plan as described except to the extent set forth below. Pt admitted earlier today with acute DKA. Gap has closed and is no longer acidotic. Changed to subqu insulin. Anticipate transfer out of ICU and home in next 24-48 hours
[2017-03-06] MEDS: Insulin DETEMIR 100 UNIT/ML X5UNITS SQ SCH ×2 (10:30→21:35)
[2017-03-06] MEDS: Insulin LISPRO 300 UNITS/3 ML VIAL SQ SCH ×4 (11:52→15:47)
[2017-03-06] MEDS: *HR* HYDROcodone/Acet 5/325 mg TABLET PO PRN ×2 (11:59→18:10)
[2017-03-06] MEDS ORDERED: Aminoglycoside Consult 1 EACH MC ONE (13:08)
[2017-03-06 17:30] LABS: BUN/Creatinine Ratio 11 (6-26); Blood Urea Nitrogen 7 mg/dL (7-20); Carbon Dioxide 25 mEq/L (19-29); Chloride 102 mEq/L (98-109); Glucose 195 mg/dL (70-99); Osmolality,Calculated 277 (280-300); Potassium 3.8 mEq/L (3.5-4.5); Sodium 132 mEq/L (136-145); eGFR For African Americans > 60 (> 60); eGFR For Non-African Americans > 60 (> 60)
--- NOTE | 2017-03-06 18:54 | Electrocardiograph Report ---
[address] [place] [id number] Test Date: 2017-03-05 Pat Name: Cynthia Alvarez Department: 104 Room: [facility] Gender: F Marker Machine: JORDEN : [id number] Requested By: Reuben Dias Order Number: [id number] Reading MD: Andres Babb DO Measurements Intervals Evans Rate: 119 P: 63 SC: 147 QRS: 68 QRSD: 75 T: 65 QT: 283 QTc: 353 Interpretive Statements SINUS TACHYCARDIA Electronically Signed On 03-06-2017 18:53:31 EST by Andres Babb DO
[2017-03-06] MEDS ORDERED: Insulin LISPRO 300 UNITS/3 ML VIAL SQ SCH (21:45)
[2017-03-06 21:58] LABS: BUN/Creatinine Ratio 10 (6-26); Blood Urea Nitrogen 7 mg/dL (7-20); Calcium 7.8 mg/dL (8.6-10.8); Carbon Dioxide 18 mEq/L (19-29); Chloride 100 mEq/L (98-109); Glucose 402 mg/dL (70-99); Osmolality,Calculated 283 (280-300); Sodium 129 mEq/L (136-145); eGFR For African Americans > 60 (> 60); eGFR For Non-African Americans > 60 (> 60)
[2017-03-06] MEDS ORDERED: Ondansetron 4 MG/2 ML VIAL IVP PRN (22:15)
[2017-03-06] MEDS ORDERED: ALPRAZolam 0.5 MG TABLET PO PRN (22:15)
[2017-03-06] MEDS: Gabapentin 400 MG CAPSULE PO SCH (23:51)
[2017-03-07] MEDS: *HR* HYDROcodone/Acet 5/325 mg TABLET PO PRN ×2 (00:49→08:25)
[2017-03-07] MEDS ORDERED: Acetaminophen 325 MG TABLET PO PRN (02:27)
[2017-03-07] MEDS ORDERED: Piperacillin/Tazobactam 3.375 GM/200 ML BAG IVPB SCH (04:00)
[2017-03-07] MEDS ORDERED: Vancomycin 1,000 MG in D5% in Water 250 ML IVPB SCH (04:00)
[2017-03-07 04:37] LABS: BUN/Creatinine Ratio 12 (6-26); Blood Urea Nitrogen 8 mg/dL (7-20); Calcium 8.1 mg/dL (8.6-10.8); Carbon Dioxide 20 mEq/L (19-29); Chloride 103 mEq/L (98-109); Glucose 424 mg/dL (70-99); Osmolality,Calculated 292 (280-300); Potassium 3.7 mEq/L (3.5-4.5); Sodium 133 mEq/L (136-145); eGFR For African Americans > 60 (> 60); eGFR For Non-African Americans > 60 (> 60)
[2017-03-07] MEDS: *HR* Enoxaparin 30 MG/0.3 ML SYRINGE SQ SCH ×2 (05:50→06:09)
[2017-03-07] MEDS: Gabapentin 400 MG CAPSULE PO SCH (08:24)
[2017-03-07] MEDS: Insulin LISPRO 300 UNITS/3 ML VIAL SQ SCH ×4 (08:28→11:18)
[2017-03-07] MEDS ORDERED: Insulin DETEMIR 100 UNIT/ML X5UNITS SQ SCH ×2 (09:00→21:00)
[2017-03-07] MEDS ORDERED: Insulin DETEMIR 100 UNIT/ML X5UNITS SQ ONE (09:09)
[2017-03-07] MEDS: 0.9 % Sodium Chloride 1,000 ML IVC SCH ×28 (09:15→09:43)
[2017-03-07] MEDS: Piperacillin/Tazobactam 3.375 GM/200 ML BAG IVPB SCH (09:17)
[2017-03-07] MEDS ORDERED: Sulfamethoxazole/Trimeth DS 1 EACH TABLET PO SCH (10:15)
[2017-03-07] MEDS ORDERED: *HR* OxyCODONE/APAP 5/325 TABLET PO ONE (10:18)
[2017-03-07] MEDS ORDERED: *HR* OxyCODONE Immed Rel 5 MG TABLET PO ONE (10:21)
[2017-03-07 10:43] LABS: Basophils % 0.2 %; Eosinophils # 0.1 K/mcL (0.0-0.6); Eosinophils % 0.9 %; Hematocrit 34.7 % (35.3-44.9); Hemoglobin 11.4 g/dL (11.5-15.4); Immature Granulocytes % 0.6 % (0-4); Lymphocytes # 1.8 K/mcL (0.6-4.6); Lymphocytes % 11.2 %; Mean Corpuscular HGB Conc 32.9 g/dL (31.6-35.5); Mean Corpuscular Hemoglobin 31.6 pg (28.0-33.3); Mean Corpuscular Volume 96.1 fL (83.0-100.0); Mean Platelet Volume 11.3 fL (9.4-12.4); Monocytes # 1.3 K/mcL (0.0-1.3); Monocytes % 7.9 %; Platelet Count 196 K/mcL (140-400); Red Blood Count 3.61 M/mcL (3.82-4.97); Red Cell Distribution Width 13.7 % (11.5-14.5); Segmented Neutrophils % 79.2 %
[2017-03-07 11:16] VITALS: BP 123/86
--- NOTE | 2017-03-07 11:45 | Discharge Summary ---
<Ruby Julien - Last Filed: 03/07/17 15:45> Date of Encounter: 03/07/17 Time of Encounter: 11:40 - Discharge Diagnosis (1) Hyperglycemia due to type 2 diabetes mellitus Priority: Primary Status: Acute Comments: Patient presented with acidotic with an elevated beta hydroxybutyrate with level above 2.0. Was on insulin drip, blood sugar corrected and she was taken off of trip. Patient was hyperglycemic, will increase Levemir to 25 units BID. Continue nubile 10 units TID plus medium dose correctional scale at meals as well as at bed time elevated blood sugar on arrival likely secondary to noncompliance as patient does currently not have a primary care provider and her last prescription for insulin was given through last hospital stay. Patient has history of multiple admissions for hyperglycemia patient has appointment for primary care follow-up next week Qualifiers: Diabetes mellitus senior care insulin use: with senior care use Qualified Code( s): E11.65 - Type 2 diabetes mellitus with hyperglycemia; Z79.4 - long term care social worker ( current) use of insulin; Z79.4 - long term care social worker (current) use of insulin; Z79.4 - long term care social worker (current) use of insulin; Z79.4 - long term care social worker (current) use of insulin (2) Chronic pancreatitis Priority: Secondary Status: Acute Comments: Patient has history of chronic pancreatitis. CT abdomen and pelvis with evidence of extensive calcification pancreas. Will discharge home with short course of oral narcotics until she can establish with her primary care physician next week. Patient has history of drug seeking behavior previously, OARRS reviewed Qualifiers: Pancreatitis type: idiopathic Qualified Code(s): K86.1 - Other chronic pancreatitis (3) GERD (gastroesophageal reflux disease) Priority: Secondary Status: Acute Comments: Continued on home medication Qualifiers: Esophagitis presence: without esophagitis Qualified Code(s): K21.9 - Gastro -esophageal reflux disease without esophagitis (4) Cutaneous abscess of right upper extremity Priority: Primary Status: Acute Comments: And head training abscess on right forearm. Did not appear to have any induration or fluctuations. Patient has a history of multiple abscesses of similar sure and is known to have MRSA treated with IV antibiotics. Leukocytosis decreased. Discharged, ten-day course of Bactrim DS BID. (5) Nausea Priority: Secondary Status: Acute Comments: Control with Zofran while inpatient . Likely secondary to hyperglycemia - Discharge Medications Prescriptions: OxyCODONE ER (12 HR) [OxyCONTIN] 10 mg PO Q12HR PRN #10 tab.er.12h PRN Reason: Pain Home Medications: ALPRAZolam [Xanax 0.5 MG Tablet] 0.5 mg PO TID PRN #10 tablet 03/02/17 [Rx] Gabapentin [Neurontin] 800 mg PO TID #90 capsule 03/02/17 [Rx] Lipase/Protease/Amylase [Pelon Rice 12,000 Units Capsule] 1 cap PO QID #120 capsule. 03/02/17 [Rx] Insulin LISPRO [Humalog Kwikpen U-100] 18 unit SQ TID 03/05/17 [History] Insulin Glargine,Hum.rec.anlog [Lantus Solostar] 50 unit SQ HS #0 03/07/17 [Rx] OxyCODONE ER (12 HR) [OxyCONTIN] 10 mg PO Q12HR PRN #10 tab.er.12h 03/07/17 [Rx] Sulfamethoxazole/Trimeth DS [Bactrim Ds] 1 each PO BID 10 Days tablet 03/07/17 [Rx] Allergies/Adverse Reactions: 3 Allergy/AdvReac Type Severity Reaction Status Date / Time ketorolac [From Toradol] Allergy Hives Verified 03/05/17 18:52 tramadol [From Ultram] Allergy Anaphylaxis Verified 03/05/17 18:52 iodine Allergy Anaphylaxis Uncoded 03/05/17 18:52 IV Contrast Allergy Anaphylaxis Uncoded 03/05/17 18:52 Date of admission: 03/06/17 07:26 Primary care physician: PCP NONE Discharging clinician: Dereje Benavides - Patient Status Disposition: Home, Self-Care Condition: Good Overall status at discharge: patient is back to baseline - Discharge Instructions Instructions: Dehydration (DC), Diabetes Mellitus Type 2 in Adults (DC), Ileus (GEN) Follow Up With: NONE,PCP [Primary Care Provider] - - Diet and Activity Activity: resume usual activities as tolerated Diet: diabetic diet Hospital course: Ms. Alvarez is a 36 year old female with a known history of type II diabetes requiring insulin, chronic pancreatitis, history of multiple cutaneous abscesses who presented to the emergency room with hyperglycemia. She was initially found to have a blood sugar >950. She was also found to be acidotic with a big hydroxybutyrate of greater than 2. She was placed on a insulin drip and given fluids and admitted for further treatment and observation. Her anion gap closed in her blood sugar corrected. She was removed off of the trip. She stated she took 50 units of Lantus BID at home, however on review of recent prescription her most recent prescription filled was for Lantus 50 units nightly. Given uncertainty of prescription fill and actual use of insulin at home, she was placed on Levemir 15 units BID. While on this she continue to have hyperglycemia and she was increased to Levemir 25 units BID. She was discharged home on Lantus 50 units nightly, with further adjustments to be made upon outpatient follow-up with her primary care physician. She was treated while impatient with NovoLog 10 units TID plus a medium dose sliding scale with meals. She was discharged home on her normal home insulin of 18 units with meals daily. She does have chronic pancreatitis, and was maintained on her pancreatic enzymes while in the hospital. She was discharged home with a short course of [place] until she is able to establish with a primary care physician. - Time Spent with Patient Total time spent providing and/or coordinating discharge services: - Constitutional Vitals: Temp Pulse Resp BP Pulse Ox 97.8 F 103 16 123/86 92 03/07/17 11:13 03/07/17 11:13 03/07/17 11:13 03/07/17 11:13 03/07/17 11:13 General appearance: Present: cooperative, A&O X 3, no acute distress, answers questions appropriately - Head Head exam: Present: atraumatic, normocephalic - ENT ENT exam: Present: mucous membranes moist - Neck Neck exam general surgery: Present: supple, trachea midline - Respiratory Respiratory exam: Present: CTAB. Absent: rales, rhonchi, stridor, wheezes - Cardiovascular Cardiovascular exam: Present: RRR, +S1, +S2. Absent: clicks, diastolic murmur, gallop, rubs, systolic murmur - GI/Abdominal GI/Abdominal exam: Present: normal bowel sounds, soft. Absent: firm, guarding, rebound, tenderness - Extremities Exam Extremities exam: Present: normal capillary refill. Absent: pedal edema - Skin Additional comments: Mild erythema dorsal forearm just distal to elbow near medial epicondyle, no obvious drainage observed, no induration, no fluctuance or warmth <Dereje Benavides - Last Filed: 03/07/17 18:18> Date of Encounter: 03/07/17 - Discharge Diagnosis (1) DKA (diabetic ketoacidoses) Priority: Primary Status: Acute Qualifiers: Diabetes mellitus type: type 2 Diabetes mellitus complication detail: without coma Qualified Code(s): E13.10 - Other specified diabetes mellitus with ketoacidosis without coma (2) Abdominal pain Priority: Secondary Status: Chronic Qualifiers: Abdominal location: epigastric Qualified Code(s): R10.13 - Epigastric pain (3) Chronic pancreatitis Status: Acute Qualifiers: Pancreatitis type: idiopathic Qualified Code(s): K86.1 - Other chronic pancreatitis (4) Cutaneous abscess of right upper extremity Status: Acute (5) IV drug abuse Priority: Secondary Status: Chronic (6) Tobacco dependence Priority: Secondary Status: Chronic Date of admission: 03/06/17 07:26 Primary care physician: PCP NONE Hospital course: Ms. Alvarez is a 36 year old female - Time Spent with Patient Total time spent providing and/or coordinating discharge services: 25min - Constitutional Vitals: Temp Pulse Resp BP Pulse Ox 97.8 F 103 16 123/86 92 03/07/17 11:13 03/07/17 11:13 03/07/17 11:13 03/07/17 11:13 03/07/17 11:13 - Attending Attestation I examined this patient and my medical decision-making was reviewed with the Resident Physician on 03/07/17. I agree with the documented findings, disposition and treatment plan as described except to the extent set forth below. Ms Alvarez has been admitted for acute DKA due to medication noncompliance. Her acidosis has resolved and she is afebrile with stable vitals. She has multiple complaints of pain including abdominal pain and L pleuritic pain. She requests increase in pain meds and has hx of abuse of meds. Work up negative and she is ready for discharge home. She will receive 10 tablets of Oxycontin 10mg q12 h at discharge. OARRS was reviewed and last narcotic fill was 02/15/17 (5 day supply). Exam Alert. Mucus membranes dry Heart reg No wheeze Abd with epigastric discomfort Plan D/C home today Bactrim for wound on arm.
[2017-03-07] MEDS ORDERED: Insulin LISPRO 300 UNITS/3 ML VIAL SQ SCH (21:00)
[2017-03-08] MEDS ORDERED: *HR* Enoxaparin 40 MG/0.4 ML SYRINGE SQ SCH (06:00)
== END 2017-03-07 13:09 | disposition home or self-care (01) | DRG 420 ==
LOC: EMEROO 18:26 → ICNU 18:26 → 2ANU 03-06 19:20
PROVIDERS: ADMIT Internal Medicine; ATTEND Internal Medicine

== ENCOUNTER 2017-03-19 00:07 | Inpatient (IN) ==
[2017-03-19 00:57] LABS: Bilirubin,Urine Negative (Negative); Blood,Urine Negative (Negative); Clarity,Urine Clear (Clear); Color,Urine Yellow (Yellow); Glucose,Urine (UA) >=1000 mg/dL (Normal); Ketones,Urine Negative (Negative); Leukocyte Esterase,Urine Negative (Negative); Nitrite,Urine Negative (Negative); PH,Urine 6.5 pH Units (5.0-8.0); Protein,Urine Negative (Neg-Trace); Specific Gravity,Urine > 1.030 (1.010-1.025); Urobilinogen,Urine Normal (Normal)
[2017-03-19 01:25] LABS: Basophils % 0.2 %; Eosinophils # 0.1 K/mcL (0.0-0.6); Eosinophils % 0.5 %; Hematocrit 38.7 % (35.3-44.9); Hemoglobin 12.7 g/dL (11.5-15.4); Immature Granulocytes % 0.4 % (0-4); Lymphocytes # 2.2 K/mcL (0.6-4.6); Mean Corpuscular HGB Conc 32.8 g/dL (31.6-35.5); Mean Corpuscular Hemoglobin 31.1 pg (28.0-33.3); Mean Corpuscular Volume 94.9 fL (83.0-100.0); Mean Platelet Volume 11.4 fL (9.4-12.4); Monocytes # 0.7 K/mcL (0.0-1.3); Monocytes % 5.8 %; Neutrophils # 9.2 K/mcL (1.6-8.9); Platelet Count 364 K/mcL (140-400); Red Blood Count 4.08 M/mcL (3.82-4.97); Red Cell Distribution Width 13.9 % (11.5-14.5); Segmented Neutrophils % 75.1 %
[2017-03-19 01:28] LABS: Beta-Hydroxybutyric Acid 0.26 mmol/L (0.02-0.27)
[2017-03-19 01:28] LABS: VBG HCO3 21 mEq/L (21-27); VBG PCO2 32 mmHg (41-51); VBG PH 7.42 pH Units (7.32-7.42); VBG PO2 126 mmHg (25-50)
[2017-03-19 02:13] LABS: BUN/Creatinine Ratio 26 (6-26); Blood Urea Nitrogen 26 mg/dL (6-20); Calcium 9.6 mg/dL (8.6-10.3); Carbon Dioxide 19 mEq/L (23-29); Chloride 83 mEq/L (98-107); Osmolality,Calculated 310 (280-300); Potassium 6.1 mEq/L (3.5-5.1); eGFR For African Americans > 60 (> 60); eGFR For Non-African Americans > 60 (> 60)
[2017-03-19] MEDS ORDERED: 0.9 % Sodium Chloride 1,000 ML IVC ONE ×2 (02:21→02:31)
[2017-03-19] MEDS ORDERED: 0.9 % Sodium Chloride 1,000 ML ONE (02:23)
[2017-03-19] MEDS ORDERED: Ondansetron 4 MG/2 ML VIAL IVP ONE (02:32)
[2017-03-19] MEDS ORDERED: Insulin Human Regular 10 UNIT in 0.9 % Sodium Chloride 10 ML IV ONE (02:33)
--- NOTE | 2017-03-19 04:25 | Emergency Department Note ---
Disposition Clinical Impression: Hyperglycemia due to type 2 diabetes mellitus, IDDM (insulin dependent diabetes mellitus), Abdominal pain, Chronic pancreatitis Disposition: Admitted As Inpatient Condition: Fair Referrals: NONE,PCP [Primary Care Provider] - Forms: ED Satisfaction Letter, Work/School Release Time of Disposition: 05:46 General Adult HPI - General Chief complaint: ED General Medical Stated complaint: high BG Time Seen by Provider: 03/19/17 02:26 Source: patient Mode of arrival: ambulatory Limitations: no limitations Nursing Notes Reviewed: Yes Vital Signs Reviewed: Yes - History of Present Illness HPI Narrative: Patient presents to the ED with the chief complaint of high blood sugar, nausea and abdominal pain. Patient has a history of diabetes that is poorly controlled. States she has been taking her insulin. However, her blood sugar has been running very high. She complains of chronic pancreatitis and abdominal bloating that is recurring over the last few days as well. States that she has had problems with her liver before and thinks that that may be acting up again. She said some decreased urination but no dysuria. No chest pain or shortness of breath. No known fevers. Pain Scale: 8 - Related Data Home Medications Medication Instructions Recorded Confirmed Insulin LISPRO [Humalog Kwikpen 18 unit SQ TID 03/05/17 03/05/17 U-100] Previous Rx's Medication Instructions Recorded ALPRAZolam [Xanax 0.5 MG Tablet] 0.5 mg PO TID PRN #10 tablet 03/02/17 Gabapentin [Neurontin] 800 mg PO TID #90 capsule 03/02/17 Lipase/Protease/Amylase [Pelon Rice 1 cap PO QID #120 capsule. 03/02/17 12,000 Units Capsule] Insulin Glargine,Hum.rec.anlog 50 unit SQ HS #0 03/07/17 [Lantus Solostar] OxyCODONE ER (12 HR) [OxyCONTIN] 10 mg PO Q12HR PRN #10 tab.er.12h 03/07/17 Sulfamethoxazole/Trimeth DS 1 each PO BID 10 Days tablet 03/07/17 [Bactrim Ds] Allergies Allergy/AdvReac Type Severity Reaction Status Date / Time ketorolac [From Toradol] Allergy Hives Verified 03/19/17 00:30 tramadol [From Ultram] Allergy Anaphylaxis Verified 03/19/17 00:30 iodine Allergy Anaphylaxis Uncoded 03/05/17 18:52 IV Contrast Allergy Anaphylaxis Uncoded 03/05/17 18:52 All systems ED: reviewed and negative except as stated. Constitutional: Denies: fever Cardiovascular: Denies: chest pain Gastrointestinal: Reports: abdominal pain, nausea, vomiting Genitourinary: Denies: dysuria Musculoskeletal: Denies: back pain Neurological: Denies: headache Endocrine: Reports: fatigue Past Medical History - Past Medical History Attestation: Yes The following information was validated with the patient. 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 - Social History Smoking Status: Current every day smoker Smokeless Tobacco Status: No Alcohol use: Reports: none Drug use: Reports: none Physical Exam - General Limitations: no limitations General appearance: alert, in no apparent distress - Head Head exam: atraumatic, normocephalic, normal inspection - ENT ENT exam: mucous membranes dry - Chest Chest inspection: Present: normal inspection, symmetric chest wall rise - Respiratory Respiratory exam: Present: normal lung sounds bilaterally - Cardiovascular Cardiovascular exam: Present: regular rate, normal rhythm, normal heart sounds - Abdominal Exam Abdominal exam: Present: soft, Non-Tender, distention. Absent: tenderness, guarding, rebound Abdominal tenderness: Present: epigastrium - Extremities Exam Extremities exam: Present: normal inspection, full ROM. Absent: tenderness, pedal edema - Neurological Exam Neurological exam: Present: alert, oriented X3 - Psychiatric Psychiatric exam: Present: normal affect, normal mood - Skin Skin exam: Present: warm, dry, intact, normal color Course Course Narrative: 36 year old female presenting with hyperglycemia and. Initial blood glucose is over 1100. She does have an anion gap, but no serum ketones and is not acidotic. We will give her a 2 L bolus of fluids, and 10 units of IV insulin and recheck a BMP. Also we will add on a hepatic panel and lipase to labs were ordered from triage. Patient will be admitted for hyperglycemia and suspected chronic pancreatitis. Her abdomen is distended but is nontender. I do not think there is any indication for imaging at this time. Patient agreeable with plan Vital Signs Temperature 98.4 F 03/19/17 00:23 Pulse Rate 98 03/19/17 00:23 Respiratory Rate 16 03/19/17 00:23 Blood Pressure 130/85 03/19/17 00:23 O2 Sat by Pulse Oximetry 96 03/19/17 00:23 Temperature 98.4 F 03/19/17 00:23 Pulse Rate 93 03/19/17 04:36 Respiratory Rate 16 03/19/17 04:36 Blood Pressure 122/79 03/19/17 04:36 O2 Sat by Pulse Oximetry 90 03/19/17 04:36 Oxygen Delivery Oxygen Delivery Room Air Medical Decision Making - Lab Data Result diagrams: 03/19/17 01:16 03/19/17 04:16 Lab Results 03/19/17 03/19/17 03/19/17 Range/Units 00:35 00:35 00:48 WBC (4.3-11.1) K/mcL RBC (3.82-4.97) M/mcL Hgb (11.5-15.4) g/dL Hct (35.3-44.9) % MCV (83.0-100.0) fL MCH (28.0-33.3) pg MCHC (31.6-35.5) g/dL RDW (11.5-14.5) % Plt Count (140-400) K/mcL MPV (9.4-12.4) fL Immature Gran % (0-4) % Seg Neutrophils % % Lymphocytes % % Monocytes % % Eosinophils % % Basophils % % Neutrophils # (1.6-8.9) K/mcL Lymphocytes # (0.6-4.6) K/mcL Monocytes # (0.0-1.3) K/mcL Eosinophils # (0.0-0.6) K/mcL Basophils # (0.0-0.2) K/mcL VBG pH (7.32-7.42) pH Units VBG pCO2 (41-51) mmHg VBG pO2 (25-50) mmHg VBG HCO3 (21-27) mEq/L Sodium (136-145) mEq/L Potassium (3.5-5.1) mEq/L Chloride (98-107) mEq/L Carbon Dioxide (23-29) mEq/L BUN (6-20) mg/dL Creatinine (0.60-1.20) mg/dL Est GFR ( Amer) (> 60) Est GFR (Non-Af Amer) (> 60) BUN/Creatinine Ratio (6-26) Glucose (70-105) mg/dL POC Glucose > 600 H* > 600 H* (58-89) Calculated Osmolality (280-300) Calcium (8.6-10.3) mg/dL Total Bilirubin (0.3-1.0) mg/dL Direct Bilirubin (0.0-0.2) mg/dL Indirect Bilirubin (0.0-1.2) mg/dL AST (13-39) Units/L ALT (7-52) Units/L Alkaline Phosphatase (34-104) Units/L Serum Total Protein (6.4-8.9) g/dL Albumin (3.5-5.7) g/dL Globulin (2.4-3.5) g/dL Albumin/Globulin Ratio (1.1-2.2) Amylase (29-103) Units/L Lipase (11-82) Units/L Beta-Hydroxybutyric Acd (0.02-0.27) mmol/L Urine Color Yellow (Yellow) Urine Clarity Clear (Clear) Urine pH 6.5 (5.0-8.0) pH Units Ur Specific [place] > 1.030 H (1.010-1.025) Urine Protein Negative (Neg-Trace) mg/dL Urine Glucose (UA) >=1000 H (Normal) mg/dL Urine Ketones Negative (Negative) mg/dL Urine Blood Negative (Negative) Urine Nitrite Negative (Negative) Urine Bilirubin Negative (Negative) Urine Urobilinogen Normal (Normal) mg/dL Ur Leukocyte Esterase Negative (Negative) Ur Culture Indicated? NO (NO) Urine Test (Negative) 03/19/17 03/19/17 03/19/17 Range/Units 00:48 01:16 01:16 WBC 12.3 H (4.3-11.1) K/mcL RBC 4.08 (3.82-4.97) M/mcL Hgb 12.7 (11.5-15.4) g/dL Hct 38.7 (35.3-44.9) % MCV 94.9 (83.0-100.0) fL MCH 31.1 (28.0-33.3) pg MCHC 32.8 (31.6-35.5) g/dL RDW 13.9 (11.5-14.5) % Plt Count 364 (140-400) K/mcL MPV 11.4 (9.4-12.4) fL Immature Gran % 0.4 (0-4) % Seg Neutrophils % 75.1 % Lymphocytes % 18.0 % Monocytes % 5.8 % Eosinophils % 0.5 % Basophils % 0.2 % Neutrophils # 9.2 H (1.6-8.9) K/mcL Lymphocytes # 2.2 (0.6-4.6) K/mcL Monocytes # 0.7 (0.0-1.3) K/mcL Eosinophils # 0.1 (0.0-0.6) K/mcL Basophils # 0.0 (0.0-0.2) K/mcL VBG pH (7.32-7.42) pH Units VBG pCO2 (41-51) mmHg VBG pO2 (25-50) mmHg VBG HCO3 (21-27) mEq/L Sodium 118 L* (136-145) mEq/L Potassium 6.1 H (3.5-5.1) mEq/L Chloride 83 L (98-107) mEq/L Carbon Dioxide 19 L (23-29) mEq/L BUN 26 H (6-20) mg/dL Creatinine 1.01 (0.60-1.20) mg/dL Est GFR ( Amer) > 60 (> 60) Est GFR (Non-Af Amer) > 60 (> 60) BUN/Creatinine Ratio 26 (6-26) Glucose 1156 H* (70-105) mg/dL POC Glucose (58-89) Calculated Osmolality 310 H (280-300) Calcium 9.6 (8.6-10.3) mg/dL Total Bilirubin (0.3-1.0) mg/dL Direct Bilirubin (0.0-0.2) mg/dL Indirect Bilirubin (0.0-1.2) mg/dL AST (13-39) Units/L ALT (7-52) Units/L Alkaline Phosphatase (34-104) Units/L Serum Total Protein (6.4-8.9) g/dL Albumin (3.5-5.7) g/dL Globulin (2.4-3.5) g/dL Albumin/Globulin Ratio (1.1-2.2) Amylase (29-103) Units/L Lipase (11-82) Units/L Beta-Hydroxybutyric Acd 0.26 (0.02-0.27) mmol/L Urine Color (Yellow) Urine Clarity (Clear) Urine pH (5.0-8.0) pH Units Ur Specific [place] (1.010-1.025) Urine Protein (Neg-Trace) mg/dL Urine Glucose (UA) (Normal) mg/dL Urine Ketones (Negative) mg/dL Urine Blood (Negative) Urine Nitrite (Negative) Urine Bilirubin (Negative) Urine Urobilinogen (Normal) mg/dL Ur Leukocyte Esterase (Negative) Ur Culture Indicated? (NO) Urine Test Negative (Negative) 03/19/17 03/19/17 Range/Units 01:25 04:16 WBC (4.3-11.1) K/mcL RBC (3.82-4.97) M/mcL Hgb (11.5-15.4) g/dL Hct (35.3-44.9) % MCV (83.0-100.0) fL MCH (28.0-33.3) pg MCHC (31.6-35.5) g/dL RDW (11.5-14.5) % Plt Count (140-400) K/mcL MPV (9.4-12.4) fL Immature Gran % (0-4) % Seg Neutrophils % % Lymphocytes % % Monocytes % % Eosinophils % % Basophils % % Neutrophils # (1.6-8.9) K/mcL Lymphocytes # (0.6-4.6) K/mcL Monocytes # (0.0-1.3) K/mcL Eosinophils # (0.0-0.6) K/mcL Basophils # (0.0-0.2) K/mcL VBG pH 7.42 (7.32-7.42) pH Units VBG pCO2 32 L (41-51) mmHg VBG pO2 126 H (25-50) mmHg VBG HCO3 21 (21-27) mEq/L Sodium 126 L (136-145) mEq/L Potassium 4.2 D (3.5-5.1) mEq/L Chloride 91 L (98-107) mEq/L Carbon Dioxide 23 (23-29) mEq/L BUN 21 H (6-20) mg/dL Creatinine 0.85 (0.60-1.20) mg/dL Est GFR ( Amer) > 60 (> 60) Est GFR (Non-Af Amer) > 60 (> 60) BUN/Creatinine Ratio 25 (6-26) Glucose 830 H* (70-105) mg/dL POC Glucose (58-89) Calculated Osmolality 306 H (280-300) Calcium 9.0 (8.6-10.3) mg/dL Total Bilirubin 0.5 (0.3-1.0) mg/dL Direct Bilirubin 0.1 (0.0-0.2) mg/dL Indirect Bilirubin 0.4 (0.0-1.2) mg/dL AST 12 L (13-39) Units/L ALT 16 (7-52) Units/L Alkaline Phosphatase 199 H (34-104) Units/L Serum Total Protein 7.9 (6.4-8.9) g/dL Albumin 3.6 (3.5-5.7) g/dL Globulin 4.3 H (2.4-3.5) g/dL Albumin/Globulin Ratio 0.8 L (1.1-2.2) Amylase 20 L (29-103) Units/L Lipase 10 L (11-82) Units/L Beta-Hydroxybutyric Acd (0.02-0.27) mmol/L Urine Color (Yellow) Urine Clarity (Clear) Urine pH (5.0-8.0) pH Units Ur Specific [place] (1.010-1.025) Urine Protein (Neg-Trace) mg/dL Urine Glucose (UA) (Normal) mg/dL Urine Ketones (Negative) mg/dL Urine Blood (Negative) Urine Nitrite (Negative) Urine Bilirubin (Negative) Urine Urobilinogen (Normal) mg/dL Ur Leukocyte Esterase (Negative) Ur Culture Indicated? (NO) Urine Test (Negative) Critical Care Time Critical Care Time: Yes Total Critical Care Time: 40 Attestation: Critical care performed: Time is exclusive of separately billable procedures. Time includes: direct patient care, patient reassessment, coordination of patient care, interpretation of data (laboratory data, radiology data, and respiratory data), review of patient's medical records, medical consultation and documentation of patient care. Procedures included in critical care time: Procedures excluded from critical care time: S.B.ALolita - Fabio Situation: Demographics, MOA Background: Presenting Complaint, Relevant PMH, Meds, & Allergies Assessment: Vital Signs, Course and respsone to treatment, Exam Concerns, Patient/Family Expectation, Pertinant Lab Results, Outstanding Labs Recommendation: Recommendation based on pending studies, treatments, or consults SBraeden Report Given to: Dr. Mian Mccarthy Repor Time: 05:45 Attestation Statement - Attestation Attestation: I, Brenden Cadet MD, personally evaluated this patient and discussed their management with the resident physician. I reviewed the resident's note and agree with the documented findings, medical decision making, and plan of care. 36-year-old female with history of diabetes presents to the emergency department complaining of hyperglycemia for the past several days. She was seen at another facility about 4 days ago and states that her blood sugar was 1500. She refused admission and left AMA. She presents here tonight complaining of continued high blood sugar. She complains of epigastric abdominal pain with nausea. No vomiting. No GI bleed symptoms. No fever. She also complains of some right upper quadrant pain. Patient states that she has a bad pancreas and a bad liver. On examination patient is a well-developed well-nourished female in no acute distress. She is alert and oriented 3. There is no cyanosis or diaphoresis. Chest is nontender to palpation. Breath sounds are clear and equal bilaterally. Heart regular rate and rhythm. Abdomen is soft with normal bowel sounds. There is moderate epigastric tenderness on direct palpation. Mild guarding. No rebound tenderness. Labs reviewed. Blood sugar at 1156. Patient was placed on an insulin drip. The hospitalist, Dr. Pappas, was consulted and accepted admission of the patient.
[2017-03-19 04:49] LABS: Glucose 1156 mg/dL (70-105); Sodium 118 mEq/L (136-145)
[2017-03-19] MEDS ORDERED: *HR* HYDROmorphone (PF) 1 MG/ML SYRINGE IVP ONE ×2 (05:41→08:04)
[2017-03-19 05:46] LABS: Alanine Aminotransferase 16 Units/L (7-52); Albumin 3.6 g/dL (3.5-5.7); Albumin/Globulin Ratio 0.8 (1.1-2.2); Alkaline Phosphatase 199 Units/L (34-104); Amylase 20 Units/L (29-103); Aspartate Amino Transferase 12 Units/L (13-39); BUN/Creatinine Ratio 25 (6-26); Bilirubin,Direct 0.1 mg/dL (0.0-0.2); Bilirubin,Indirect 0.4 mg/dL (0.0-1.2); Bilirubin,Total 0.5 mg/dL (0.3-1.0); Blood Urea Nitrogen 21 mg/dL (6-20); Carbon Dioxide 23 mEq/L (23-29); Chloride 91 mEq/L (98-107); Globulin 4.3 g/dL (2.4-3.5); Glucose 830 mg/dL (70-105); Lipase 10 Units/L (11-82); Osmolality,Calculated 306 (280-300); Potassium 4.2 mEq/L (3.5-5.1); Sodium 126 mEq/L (136-145); Total Protein 7.9 g/dL (6.4-8.9); eGFR For African Americans > 60 (> 60); eGFR For Non-African Americans > 60 (> 60)
[2017-03-19] MEDS ORDERED: *HR* Dextrose 50 % in Water (Syg) 50 ML SYRINGE IVP PRN (05:46)
[2017-03-19] MEDS ORDERED: Insulin Human Regular 100 UNIT in 0.9 % Sodium Chloride 100 ML IVC SCH (06:00)
[2017-03-19] MEDS: 0.9 % Sodium Chloride 1,000 ML IVC SCH ×5 (06:20→21:11)
[2017-03-19] MEDS ORDERED: Naloxone 0.4 MG/ML INJ IVP PRN (07:48)
--- NOTE | 2017-03-19 08:02 | Internal Med History&Physical ---
Date of Encounter: 03/24/17 Time of Encounter: 07:57 Assessment and Plan (1) Diabetic hyperosmolar non-ketotic state Status: Resolved 36/female Known to have her type 2 diabetes presently on insulin. Above history from the previous admissions and chart. Was recently discharged on 03/05/2017 from this hospital. Instead of following up appointment with the primary care provider she prefers to come to the emergency room. Came the emergency room with a blood sugar of 1100. After giving initial IV insulin bolus, she was started on insulin drip. Plan: Admit as inpatient: Elevated blood glucose, 1100, needs intravenous insulin. Intravenous insulin as recommended by the order set. At just the insulin along with electrolytes as ordered by the order set. Hourly monitoring of the glucose. Monitoring of the electrolytes very closely. Telemetry to detect any cardiac abnormality. Patient needs to go to stepdown unit if members available than she should be managed in the intensive care unit. Her home dose of insulin is at present on hold. Once she is able to tolerate food and then home dose of insulin should be restarted. I have examined this patient in the emergency department room #3. I have explained plan for the patient. Patient verbalizes understanding. (2) Hyperglycemia due to type 2 diabetes mellitus Status: Acute See above Qualifiers: Diabetes mellitus joint terminal attack controller insulin use: unspecified [facility] insulin use status Qualified Code(s): E11.65 - Type 2 diabetes mellitus with hyperglycemia (3) Drug-seeking behavior Status: Chronic Noted from the multiple documentation from the previous chart that patient has a high drug seeking behavior. She should get scheduled dosages and not on a demand. (4) IV drug abuse Status: Chronic Past history of intravenous drug user. (5) Abdominal pain Status: Chronic Patient has chronic pancreatitis. Her lipase is within normal limits. Patient has a chronic abdominal pain. Qualifiers: Abdominal location: epigastric Qualified Code(s): R10.13 - Epigastric pain (6) Pancreatitis Status: Acute Chronic pericarditis. Stable for now. Qualifiers: Chronicity: acute Pancreatitis type: unspecified pancreatitis type Acute pancreatitis complication: no infection or necrosis Qualified Code(s): K85.90 - Acute pancreatitis without necrosis or infection, unspecified (7) DVT prophylaxis Status: Acute Heparin Decision-making: This patient has a moderate to severe risk of worsening in spite of being on appropriate medications like treatment due to the underlying noncompliance nature of her behavior Internal Medicine - H&P: HPI Chief complaint: Abdominal pain/elevated blood sugar Admitted From: Emergency Dept Plans for Post Hospital Care: Home History of present illness: PCP: None. Brief past medical history: Type 2 diabetes mellitus, chronic pancarditis, chronic abdominal pain, noncompliance with the treatment, multiple admissions for the elevated blood glucose in past 1 year. History of present medical illness: Patient was recently discharged on the 03/05/2017 from this hospital. The reason for that hospitalization was elevated at sugar/possible HHNK/likely infection as a precipitating factor. Patient was sent home with the adequate insulin and pain medication and was set up an appointment with the primary care provider for follow-up. As per patient she never into primary care but she notices that her sugar was 1500, this was 4 days back and she went to [facility] for further evaluation. Per patient: She was not treated with her properly in terms of her pain control and she signed out AGAINST MEDICAL ADVICE. Patient came to this emergency room for evaluation of her chronic abdominal pain and asking for pain medication. Patient denies chest pain, shortness of breath, nausea, vomiting, diarrhea or dizziness. Reason for admission: Elevated blood glucose likely secondary to noncompliance. Family history: Noncontributory Past Med Surg Social Fam HX - Past Medical History Medical history: asthma, COPD, diabetes, GERD, hepatitis, renal disease, other Psychiatric history: anxiety, depression - Past Surgical History Surgical History: cholecystectomy - Social History Smoking Status: Current every day smoker Smokeless Tobacco Status: No Alcohol use: none Drug use: none - Family History Mother Living Status: Hx Family Cancer: Yes (breast, lung, brain) Father Living Status: Hx Family Cardiac Disorders: Yes (heart attack) Sister Living Status: Still Living Hx Family Cancer: Yes (breast) Internal Medicine - H&P: Meds ALPRAZolam [Xanax 0.5 MG Tablet] 0.5 mg PO TID PRN #10 tablet 03/02/17 [Rx] Gabapentin [Neurontin] 800 mg PO TID #90 capsule 03/02/17 [Rx] Insulin Glargine,Hum.rec.anlog [Lantus Solostar] 50 unit SQ HS #0 03/07/17 [Rx] Insulin ASPART [Novolog Flexpen] 18 unit SQ TID 03/19/17 [History] Lipase/Protease/Amylase [Pelon Rice 12,000 Units Capsule] 2 cap PO TID 03/19/17 [ History] Metoclopramide [Reglan] 10 mg PO QID PRN 03/19/17 [History] Pantoprazole Sodium [Protonix] 40 mg PO DAILY 03/19/17 [History] Azithromycin [Azithromycin 6-Tab Pack] 250 mg PO PER PKG DI #6 tab 03/22/17 [Rx] 3 Allergy/AdvReac Type Severity Reaction Status Date / Time ketorolac [From Toradol] Allergy Hives Verified 03/19/17 00:30 tramadol [From Ultram] Allergy Anaphylaxis Verified 03/19/17 00:30 iodine Allergy Anaphylaxis Uncoded 03/05/17 18:52 IV Contrast Allergy Anaphylaxis Uncoded 03/05/17 18:52 All Systems PM: A 10-system review of systems was performed and is negative for pertinent findings except as documented above in the HPI. - Constitutional Constitutional: no chills, no fever(s), no night sweats - EENT Eyes: no change in vision, no discharge, no pain, no photophobia Ears: no ear discharge, no ear pain, no tinnitus Nose, mouth and throat: no dysphagia, no nasal discharge, no neck pain, no sore throat - Cardiovascular Cardiovascular ROS IM: no chest pain, no diaphoresis, no dyspnea, no lightheadedness, no palpitations, no syncope - Respiratory Respiratory: no cough, no dyspnea, no wheezing, no excessive phlegm production - Gastrointestinal Gastrointestinal: no abdominal pain, no diarrhea, no hematemesis, no hematochezia, no melena, no nausea, no vomiting - Genitourinary Genitourinary: no change in urinary stream, no dysuria, no flank pain, no hematuria - Musculoskeletal Musculoskeletal ROS IM: no numbness, no tingling - Integumentary Integumentary IM: no rash, no unusual bruising - Neurological Neurological ROS: no confusion, no convulsions, no focal weakness, no numbness, no tingling, no tremor(s) - Hematologic/Lymphatic Hematologic/Lymphatic: no easy bruising - Constitutional Vitals: Temp Pulse Resp BP Pulse Ox 98.4 F 104 16 136/88 98 03/19/17 00:23 03/19/17 07:11 03/19/17 07:11 03/19/17 07:11 03/19/17 07:11 General appearance: Present: A&O X 3, pleasant, no acute distress, answers questions appropriately - Head Head exam: Present: atraumatic, normocephalic - Eye Eye exam: Present: PERRL, conjuntiva pink, sclera anicteric Pupils: Present: PERRL - Neck Neck exam general surgery: Present: supple, trachea midline. Absent: lymphadenopathy - Respiratory Respiratory exam: Present: CTAB. Absent: accessory muscle use, rales, rhonchi, wheezes - Cardiovascular Cardiovascular exam: Present: RRR, +S1, +S2. Absent: diastolic murmur, gallop, rubs, systolic murmur - GI/Abdominal GI/Abdominal exam: Present: normal bowel sounds, soft, no peritoneal signs. Absent: distended, tenderness - Extremities Exam Extremities exam: Present: warm, radial pulses palpable and symmetrical. Absent : calf tenderness, cyanotic, pedal edema - Neurological Exam Neurological exam: Present: CN II-XII intact, oriented X3, no focal deficits. Absent: pronater drift, facial droop, speech deficit - Skin Skin exam: Present: dry, intact Internal Med - H&P Results - Labs CBC & Chem 7: 03/20/17 03:40 03/20/17 03:40 Labs: Short CBC 03/19/17 Range/Units 01:16 WBC 12.3 H (4.3-11.1) K/mcL Hgb 12.7 (11.5-15.4) g/dL Hct 38.7 (35.3-44.9) % Plt Count 364 (140-400) K/mcL Neutrophils # 9.2 H (1.6-8.9) K/mcL BMP 03/19/17 03/19/17 01:16 04:16 Sodium 118 L* 126 L Potassium 6.1 H 4.2 D Chloride 83 L 91 L Carbon Dioxide 19 L 23 BUN 26 H 21 H Creatinine 1.01 0.85 Glucose 1156 H* 830 H* Calcium 9.6 9.0 Liver Function 03/19/17 Range/Units 04:16 Total Bilirubin 0.5 (0.3-1.0) mg/dL Direct Bilirubin 0.1 (0.0-0.2) mg/dL AST 12 L (13-39) Units/L ALT 16 (7-52) Units/L Alkaline Phosphatase 199 H (34-104) Units/L Albumin 3.6 (3.5-5.7) g/dL Urine 03/19/17 Range/Units 00:48 Urine Color Yellow (Yellow) Urine Clarity Clear (Clear) Urine pH 6.5 (5.0-8.0) pH Units Ur Specific Hope > 1.030 H (1.010-1.025) Urine Protein Negative (Neg-Trace) mg/dL Urine Glucose (UA) >=1000 H (Normal) mg/dL Discussed with the emergency room physician at length. - ABG Interpretation ABG results: 03/19/17 01:25 VBG pH 7.42 VBG pCO2 32 L VBG pO2 126 H VBG HCO3 21
[2017-03-19] MEDS ORDERED: Ondansetron ODT 4 MG TAB.RAPDIS SL ONE (08:12)
[2017-03-19] MEDS: Gabapentin 400 MG CAPSULE PO SCH ×3 (12:11→19:59)
[2017-03-19] MEDS: ALPRAZolam 0.5 MG TABLET PO PRN (15:52)
[2017-03-19] MEDS: *HR* Heparin 5,000 UNIT/ML VIAL SQ SCH (19:06)
[2017-03-19] MEDS ORDERED: Insulin DETEMIR 100 UNIT/ML X5UNITS SQ SCH (21:00)
[2017-03-19] MEDS ORDERED: Insulin LISPRO 300 UNITS/3 ML VIAL SQ SCH (22:30)
[2017-03-19] MEDS ORDERED: Insulin LISPRO 300 UNITS/3 ML VIAL SQ ONE (22:38)
[2017-03-19 23:44] LABS: BUN/Creatinine Ratio 18 (6-26); Blood Urea Nitrogen 14 mg/dL (6-20); Calcium 8.7 mg/dL (8.6-10.3); Carbon Dioxide 22 mEq/L (23-29); Chloride 98 mEq/L (98-107); Glucose 697 mg/dL (70-105); Osmolality,Calculated 304 (280-300); Potassium 4.8 mEq/L (3.5-5.1); Sodium 130 mEq/L (136-145); eGFR For African Americans > 60 (> 60); eGFR For Non-African Americans > 60 (> 60)
[2017-03-20] MEDS ORDERED: *HR* OxyCODONE/APAP 5/325 TABLET PO ONE (00:01)
[2017-03-20] MEDS: ALPRAZolam 0.5 MG TABLET PO PRN ×2 (00:05→08:25)
[2017-03-20] MEDS: 0.9 % Sodium Chloride 1,000 ML IVC SCH ×2 (00:12→08:15)
[2017-03-20] MEDS ORDERED: Insulin LISPRO 300 UNITS/3 ML VIAL SQ ONE (01:40)
[2017-03-20 04:41] LABS: Basophils # 0.1 K/mcL (0.0-0.2); Basophils % 0.5 %; Eosinophils # 0.2 K/mcL (0.0-0.6); Eosinophils % 1.5 %; Hematocrit 41.4 % (35.3-44.9); Hemoglobin 13.7 g/dL (11.5-15.4); Immature Granulocytes % 0.3 % (0-4); Lymphocytes # 3.8 K/mcL (0.6-4.6); Lymphocytes % 30.9 %; Mean Corpuscular HGB Conc 33.1 g/dL (31.6-35.5); Mean Corpuscular Hemoglobin 31.3 pg (28.0-33.3); Mean Corpuscular Volume 94.5 fL (83.0-100.0); Mean Platelet Volume 11.7 fL (9.4-12.4); Monocytes # 0.8 K/mcL (0.0-1.3); Monocytes % 6.4 %; Neutrophils # 7.5 K/mcL (1.6-8.9); Platelet Count 330 K/mcL (140-400); Red Blood Count 4.38 M/mcL (3.82-4.97); Red Cell Distribution Width 13.6 % (11.5-14.5); Segmented Neutrophils % 60.4 %
[2017-03-20 05:01] LABS: Alanine Aminotransferase 14 Units/L (7-52); Albumin 3.6 g/dL (3.5-5.7); Albumin/Globulin Ratio 0.8 (1.1-2.2); Alkaline Phosphatase 182 Units/L (34-104); Aspartate Amino Transferase 16 Units/L (13-39); BUN/Creatinine Ratio 22 (6-26); Bilirubin,Total 0.5 mg/dL (0.3-1.0); Blood Urea Nitrogen 12 mg/dL (6-20); Calcium 9.2 mg/dL (8.6-10.3); Carbon Dioxide 23 mEq/L (23-29); Chloride 104 mEq/L (98-107); Chol/HDL Ratio 3.6 (0-4.9); Cholesterol 136 mg/dL (< 200); Globulin 4.3 g/dL (2.4-3.5); Glucose 124 mg/dL (70-105); HDL Cholesterol 38 mg/dL (40-59); LDL Cholesterol,Calculated 58 mg/dL (0-99); Magnesium 1.7 mg/dL (1.6-2.6); Osmolality,Calculated 289 (280-300); Phosphorous 2.5 mg/dL (2.7-4.5); Potassium 3.3 mEq/L (3.5-5.1); Sodium 139 mEq/L (136-145); Total Protein 7.9 g/dL (6.4-8.9); Triglycerides 199 mg/dL (< 150); eGFR For African Americans > 60 (> 60); eGFR For Non-African Americans > 60 (> 60)
[2017-03-20] MEDS: *HR* Heparin 5,000 UNIT/ML VIAL SQ SCH (05:20)
[2017-03-20 07:50] LABS: Prothrombin Time 10.3 Seconds (9.4-12.1)
[2017-03-20 07:53] LABS: Activated Partial Thrombo Time 30.5 Seconds (26.0-36.0)
[2017-03-20] MEDS ORDERED: Insulin LISPRO 300 UNITS/3 ML VIAL SQ SCH (08:00)
[2017-03-20] MEDS: Gabapentin 400 MG CAPSULE PO SCH (08:14)
[2017-03-20] MEDS ORDERED: *HR* HYDROmorphone (PF) 1 MG/ML SYRINGE IVP ONE (10:15)
--- NOTE | 2017-03-20 10:18 | Discharge Summary ---
Date of Encounter: 03/20/17 Time of Encounter: 10:15 - Discharge Diagnosis (1) Hyperosmolar non-ketotic state in patient with type 2 diabetes mellitus Priority: Primary Status: Acute (2) Abdominal pain Priority: Primary Status: Chronic Qualifiers: Abdominal location: epigastric Qualified Code(s): R10.13 - Epigastric pain (3) Pancreatitis Priority: Secondary Status: Acute Qualifiers: Chronicity: acute Pancreatitis type: unspecified pancreatitis type Acute pancreatitis complication: no infection or necrosis Qualified Code(s): K85.90 - Acute pancreatitis without necrosis or infection, unspecified - Discharge Medications Home Medications: ALPRAZolam [Xanax 0.5 MG Tablet] 0.5 mg PO TID PRN #10 tablet 03/02/17 [Rx] Gabapentin [Neurontin] 800 mg PO TID #90 capsule 03/02/17 [Rx] Insulin Glargine,Hum.rec.anlog [Lantus Solostar] 50 unit SQ HS #0 03/07/17 [Rx] Insulin ASPART [Novolog Flexpen] 18 unit SQ TID 03/19/17 [History] Lipase/Protease/Amylase [Creon Dr 12,000 Units Capsule] 2 cap PO TID 03/19/17 [ History] Metoclopramide [Reglan] 10 mg PO QID PRN 03/19/17 [History] Pantoprazole Sodium [Protonix] 40 mg PO DAILY 03/19/17 [History] Allergies/Adverse Reactions: 3 Allergy/AdvReac Type Severity Reaction Status Date / Time ketorolac [From Toradol] Allergy Hives Verified 03/19/17 00:30 tramadol [From Ultram] Allergy Anaphylaxis Verified 03/19/17 00:30 iodine Allergy Anaphylaxis Uncoded 03/05/17 18:52 IV Contrast Allergy Anaphylaxis Uncoded 03/05/17 18:52 Date of admission: 03/19/17 10:49 Primary care physician: PCP NONE - Patient Status Disposition: Home, Self-Care Overall status at discharge: patient is back to baseline - Discharge Instructions Follow Up With: NONE,PCP [Primary Care Provider] - (Patient offered help finding a PCP, states she does not want one at this time. Thank you) - Diet and Activity Activity: resume usual activities as tolerated Diet: diabetic diet Hospital course: Ms. Alvarez is a 36 year old female with history of 2 diabetes, chronic pancreatitis, chronic pain, and noncompliance who presented to us on 03/19/2017 with abdominal pain. The patient has had multiple admissions in the past due to noncompliance with elevated glucose abdominal pain. she had glucose upwards to 1500s on this admission. she was not in dka. she was put on iv fluids as well as an insulin drip. her glucose came down nicely. we had restarted her home regimen of insulin. she is tolerating diet. she was advised and counseled on importance of compliance with medications. part of the patient's issues are social as she is homeless and jumps from one home to the other. he has no pcp that she follows up with regularly. i did get social service director to see the patient and work with her about establishing a primary care physician. he was stable medically on 03/20/2017 for discharge. - Time Spent with Patient Total time spent providing and/or coordinating discharge services: Greater than 30 minutes - Constitutional Vitals: Temp Pulse Resp BP Pulse Ox 98.3 F 97 16 123/80 95 03/20/17 06:38 03/20/17 06:38 03/20/17 06:38 03/20/17 06:38 03/20/17 06:38 General appearance: Present: A&O X 3, pleasant, no acute distress, answers questions appropriately Exam: GEN: NAD CVS: RRR. S1, S2, No m/r/g RESP: CTAB ABD: Soft, NT, ND, +BS EXT: No edema. 2+ DP. No rashes NEURO: Nonfocal
[2017-03-20 10:50] VITALS: BP 118/84
== END 2017-03-20 12:52 | disposition home or self-care (01) | DRG 420 ==
LOC: EMEROO 00:07 → 3ANU 10:49
PROVIDERS: ADMIT Internal Medicine; ATTEND Family Medicine